=== PATIENT | male | born 1935 | race Caucasian/White ===

== ENCOUNTER → 2017-06-24 | Outpatient (CLI) | payer OTHER, MEDICARE ==
[2016-08-26 13:30] VITALS: BP 110/73
[~2017-06-24] MED LIST: LEXISCAN IV ONE
== END ==
LOC: RAD 09:23
PROVIDERS: ATTEND Internal Medicine Cardiovascular Disease
DX: I25.10 Atherosclerotic heart disease of native coronary artery without angina pectoris (principal); R06.02 Shortness of breath; R53.1 Weakness; R51 Headache
CPT/HCPCS: 78452; 93017; A4222; A9502; J2785

== ENCOUNTER → 2017-07-01 | Outpatient (CLI) | payer OTHER, MEDICARE ==
[2016-08-26 13:30] VITALS: BP 110/73
[2017-07-01 08:29] LABS: BASOPHILS # (AUTO) 0.1 X10^3/uL (0.0-0.1); EOSINOPHILS # (AUTO) 0.5 x10^3/uL (0.0-0.2); EOSINOPHILS % (AUTO) 5.3 % (0.9-2.9); HEMATOCRIT 38.6 % (42.0-54.0); LYMPHOCYTES # (AUTO) 3.2 X10^3/uL (1.3-2.9); LYMPHOCYTES % (AUTO) 35.5 % (21.0-51.0); MEAN CORPUSCULAR HEMOGLOBIN 33.5 pg (27.0-34.0); MEAN CORPUSCULAR HGB CONC 33.7 g/dL (33.0-35.0); MEAN CORPUSCULAR VOLUME 99.3 fL (80.0-100.0); MEAN PLATELET VOLUME 8.6 fL (7.4-11.0); MONOCYTES # (AUTO) 0.8 x10^3/uL (0.3-0.8); MONOCYTES % (AUTO) 9.1 % (0.0-13.0); NEUTROPHILS # (AUTO) 4.5 x10^3/uL (2.2-4.8); NEUTROPHILS % (AUTO) 49.1 % (42.0-75.0); PLATELET COUNT 173 X10^3/uL (150.0-450.0); RED BLOOD COUNT 3.89 X10^6/uL (4.7-6.0); RED CELL DISTRIBUTION WIDTH 14.1 % (11.6-16.5); WHITE BLOOD COUNT 9.1 X10^3/uL (3.6-10.0)
[2017-07-01 08:38] LABS: ALANINE AMINOTRANSFERASE 22 Units/L (12-78); ALBUMIN 3.2 g/dL (3.4-5.0); ALKALINE PHOSPHATASE 39 Units/L (46-116); ASPARTATE AMINO TRANSFERASE 19 Units/L (15-37); BILIRUBIN,DIRECT 0.09 mg/dL (0-0.2); BLOOD UREA NITROGEN 12 mg/dL (7-18); CALCIUM 8.5 mg/dL (8.5-10.1); CARBON DIOXIDE 31.1 mmol/L (21-32); CHLORIDE 107 mmol/L (98-107); CHOL/HDL RATIO 2.8 (0.0-5.0); CHOLESTEROL 127 mg/dL (0-200); COR NA(FOR HYPERGLY) 144 mmol/L (136-145); CREATININE 0.88 mg/dL (0.70-1.30); GLUCOSE 114 mg/dL (65-99); HDL CHOLESTEROL 46 mg/dL (40-60); SODIUM 144 mmol/L (136-145); TOTAL PROTEIN 6.8 g/dL (6.4-8.2); TRIGLYCERIDES 69 mg/dL (0-150); eGFR BLACK RACES > 60 (>60); eGFR NON BLACK RACES > 60 (>60)
== END ==
LOC: LAB 07:56
PROVIDERS: ATTEND Internal Medicine Cardiovascular Disease
DX: I25.10 Atherosclerotic heart disease of native coronary artery without angina pectoris (principal); I10 Essential (primary) hypertension; E78.4 Other hyperlipidemia
CPT/HCPCS: 36415; 80048; 80061; 80076; 85025

== ENCOUNTER → 2017-07-08 | Outpatient (CLI) | payer OTHER, MEDICARE ==
[2016-08-26 13:30] VITALS: BP 110/73
--- NOTE | 2017-07-08 14:48 | US ---
HISTORY: Status post heart catheterization 6 days ago with burning in leg Study: Right lower extremity ultrasound Comparison: None Findings: Targeted ultrasound of the right lower extremity was performed at the groin. The right common femora l artery and common femoral vein appear normal and patent. There is no evidence of pseudoaneurysm. T here is a hypoechoic structure without internal vascularity in this region likely representing a hem atoma measuring 1.7 x 1.6 by 1.6 cm. There is a benign appearing lymph node in the right groin. IMPRESSION: 1. No evidence of pseudoaneurysm. 2. Hypoechoic collection in this region measuring 1.7 x 1.6 x 1.6 cm, likely representing a hematoma . Reported By:
== END ==
LOC: RAD 13:24
PROVIDERS: ATTEND Physician Assistant
DX: R10.2 Pelvic and perineal pain (principal)
CPT/HCPCS: 76882

== ENCOUNTER → 2017-10-01 | Outpatient (CLI) | payer OTHER, MEDICARE ==
[2016-08-26 13:30] VITALS: BP 110/73
[2017-10-01 08:06] LABS: BASOPHILS # (AUTO) 0.2 X10^3/uL (0.0-0.1); BASOPHILS % (AUTO) 1.7 % (0.2-1.0); EOSINOPHILS # (AUTO) 0.4 x10^3/uL (0.0-0.2); EOSINOPHILS % (AUTO) 4.4 % (0.9-2.9); HEMATOCRIT 40.8 % (42.0-54.0); HEMOGLOBIN 13.6 g/dL (13.5-18.0); LYMPHOCYTES # (AUTO) 3.5 X10^3/uL (1.3-2.9); LYMPHOCYTES % (AUTO) 36.3 % (21.0-51.0); MEAN CORPUSCULAR HGB CONC 33.4 g/dL (33.0-35.0); MEAN CORPUSCULAR VOLUME 95.9 fL (80.0-100.0); MEAN PLATELET VOLUME 8.3 fL (7.4-11.0); MONOCYTES % (AUTO) 10.1 % (0.0-13.0); NEUTROPHILS # (AUTO) 4.6 x10^3/uL (2.2-4.8); NEUTROPHILS % (AUTO) 47.5 % (42.0-75.0); PLATELET COUNT 186 X10^3/uL (150.0-450.0); RED BLOOD COUNT 4.26 X10^6/uL (4.7-6.0); WHITE BLOOD COUNT 9.7 X10^3/uL (3.6-10.0)
[2017-10-01 08:19] LABS: ALANINE AMINOTRANSFERASE 21 Units/L (12-78); ALBUMIN 3.3 g/dL (3.4-5.0); ALKALINE PHOSPHATASE 48 Units/L (46-116); ASPARTATE AMINO TRANSFERASE 19 Units/L (15-37); BILIRUBIN,DIRECT 0.19 mg/dL (0-0.2); BLOOD UREA NITROGEN 13 mg/dL (7-18); CALCIUM 9.1 mg/dL (8.5-10.1); CARBON DIOXIDE 29.5 mmol/L (21-32); CHLORIDE 102 mmol/L (98-107); CHOL/HDL RATIO 2.6 (0.0-5.0); CHOLESTEROL 135 mg/dL (0-200); COR NA(FOR HYPERGLY) 140 mmol/L (136-145); CREATININE 1.11 mg/dL (0.70-1.30); HDL CHOLESTEROL 51 mg/dL (40-60); SODIUM 140 mmol/L (136-145); TOTAL PROTEIN 7.2 g/dL (6.4-8.2); TRIGLYCERIDES 81 mg/dL (0-150); eGFR BLACK RACES > 60 (>60); eGFR NON BLACK RACES > 60 (>60)
== END ==
LOC: LAB 07:42
PROVIDERS: ATTEND Internal Medicine Cardiovascular Disease
DX: I25.10 Atherosclerotic heart disease of native coronary artery without angina pectoris (principal); I10 Essential (primary) hypertension; E78.4 Other hyperlipidemia
CPT/HCPCS: 36415; 80048; 80061; 80076; 85025

== ENCOUNTER → 2017-10-11 | Outpatient (CLI) | payer OTHER, MEDICARE ==
[2016-08-26 13:30] VITALS: BP 110/73
[~2017-10-11] MED LIST changes: -LEXISCAN IV ONE; +NS 25 ML IV 25 ML IV ONE
--- NOTE | 2017-10-14 10:45 | CT ---
CT abdomen and pelvis with contrast Indication: Lower abdominal pain for 1 month. History of diverticulitis. Comparison: 10/14/2011 Technique: CT images of the abdomen and pelvis were obtained after IV contrast administration. Automa tic exposure control was utilized. Findings: Bone windows demonstrates moderate multilevel thoracolumbar spondylosis, worst within the l ower lumbar spine, with grade 1 anterolisthesis of L4 on L5. No acute skeletal abnormality. Images of the lower chest demonstrate cardiomegaly. The lungs are clear, aside from mild left basilar scarring . The liver, gallbladder, spleen, stomach, duodenum, pancreas, adrenals, and kidneys demonstrate no sig nificant abnormality. There is colonic diverticulosis without evidence for acute diverticulitis. No b owel thickening or dilatation of the lower GI tract is identified. There is a small fat containing um bilical hernia. The urinary bladder, prostate, and rectum are unremarkable. There is aortoiliac ather osclerosis, without aneurysm. No free fluid or adenopathy identified. Impression: 1. No acute process within the abdomen or pelvis. 2. Diverticulosis, cardiomegaly, thoracolumbar spondylosis, and other findings as above. Reported By:
== END ==
LOC: RAD 08:12
PROVIDERS: ATTEND Physician Assistant
DX: R10.84 Generalized abdominal pain (principal)
CPT/HCPCS: 74177; A4222

== ENCOUNTER 2017-10-31 11:55 | Inpatient (IN) | payer OTHER, MEDICARE ==
--- NOTE | 2017-10-31 13:54 | DR.H&P ---
H&P - History & Physical for Day of: H&P Date: 10/31/17 - Chief Complaint Chief Complaint: CCC AND LOW GRADE FEVER - Allergies Allergies/Adverse Reactions: Allergies Allergy/AdvReac Type Severity Reaction Status Date / Time MS No Known Drug Allergy Allergy Verified 12/15/15 16:49 [No Known Drug Allergy] - History of Present Illness History of Present Illness: patient is a 81-year-old white male who was a direct admit from Dr. Goel's office after presenting for follow-up on COPD exacerbation with acute bronchitis. Patient previously had a Rocephin and steroid injection in the office as well as using jet nebs 3-4 times a day and by mouth antibiotics without improvement. Patient has a past medical history of CHF, COPD, atrophia, hypertension, and arthritis. Plan to admit patient for further evaluation of increased shortness of breath and respiratory illness. Plan to obtain admission labs, sputum and blood cultures. Will administer IV antibiotics and respiratory therapy. - Past Medical History Past Medical History: Arthritis, CHF, COPD, Dyslipidemia, Gout, Hypertension, Hypothyroidism Additional Medical History: AORTIC ANEURYSM - Past Surgical History Surgical History: Tonsillectomy Additional Surgical History: PACE MAKER - Family History Family Medical History: [place], Sudden Cardiac , Hypertension - Social History Does patient currently use any type of tobacco product: No Have you used tobacco products in the last 12 months: No Type of Tobacco Use: None Does any household member use tobacco: No Alcohol Use: None Drug Use: None - Review of Systems Constitutional: Fever, Weakness Eyes: No Symptoms Reported ENT: Throat Pain Respiratory: Cough, Shortness of Breath, Wheezing Cardiovascular: No Symptoms Reported, Edema Gastrointestinal: No Symptoms Reported Genitourinary: No Symptoms Reported Musculoskeletal: Back Pain, Leg Pain Skin: No Symptoms Reported Neurological: No Symptoms Reported - Physical Exam Vital Signs: Blood Pressure [Left Arm] 114/72 Blood Pressure [Right Arm] 110/73 Blood Pressure 110/73 Oriented: Normal Eyes: Normal Ear: Normal Nose: Normal Throat: Normal Respiratory: Rhonchi Throughout, RLL Diminished, LLL Diminished Cardiovascular: Irregular, Edema : Normal Auscultation: Bowel Sounds: Normal Palpation: Normal Tenderness: Normal Skin: Normal Musculoskeletal: Back:Lumbar Mood Description: Calm Speech Pattern: Clear, Appropriate - Assessment/Plan (1) Asthmatic bronchitis with acute exacerbation Status: Acute Plan: admit, start pneumonia protocol, admission labs including blood and sputum cultures. Chest x-ray on admission. Resume home medications. IV Zosyn and Levaquin per pneumonia protocol. Respiratory therapy, repeat a.m. labs, blood pressure monitoring and strict I's and O's. (2) A-fib Status: Chronic (3) CHF (congestive heart failure) Qualifiers: Congestive heart failure type: unspecified congestive heart failure type Congestive heart failure chronicity: acute Qualified Code(s): I50.9 - Heart failure, unspecified Status: Chronic (4) HTN (hypertension) Status: Chronic (5) Osteoarthritis Status: Chronic
[2017-10-31] MEDS ORDERED: SALINE 3% 15 ML NEB TX ONE (14:30)
[2017-10-31 14:44] VITALS: BMI 33.0
[2017-10-31 14:44] LABS: BASOPHILS # (AUTO) 0.1 X10^3/uL (0.0-0.1); BASOPHILS % (AUTO) 0.8 % (0.2-1.0); EOSINOPHILS # (AUTO) 0.4 x10^3/uL (0.0-0.2); EOSINOPHILS % (AUTO) 3.6 % (0.9-2.9); HEMATOCRIT 37.3 % (42.0-54.0); HEMOGLOBIN 12.5 g/dL (13.5-18.0); LYMPHOCYTES # (AUTO) 2.6 X10^3/uL (1.3-2.9); LYMPHOCYTES % (AUTO) 26.4 % (21.0-51.0); MEAN CORPUSCULAR HEMOGLOBIN 32.1 pg (27.0-34.0); MEAN CORPUSCULAR HGB CONC 33.5 g/dL (33.0-35.0); MEAN CORPUSCULAR VOLUME 95.8 fL (80.0-100.0); MEAN PLATELET VOLUME 8.1 fL (7.4-11.0); MONOCYTES # (AUTO) 0.8 x10^3/uL (0.3-0.8); MONOCYTES % (AUTO) 8.2 % (0.0-13.0); NEUTROPHILS # (AUTO) 6.1 x10^3/uL (2.2-4.8); PLATELET COUNT 207 X10^3/uL (150.0-450.0); RED CELL DISTRIBUTION WIDTH 15.1 % (11.6-16.5)
[2017-10-31 14:52] LABS: ALANINE AMINOTRANSFERASE 26 Units/L (12-78); ALBUMIN 3.3 g/dL (3.4-5.0); ALKALINE PHOSPHATASE 47 Units/L (46-116); ASPARTATE AMINO TRANSFERASE 19 Units/L (15-37); BLOOD UREA NITROGEN 14 mg/dL (7-18); CALCIUM 8.6 mg/dL (8.5-10.1); CARBON DIOXIDE 25.9 mmol/L (21-32); CHLORIDE 106 mmol/L (98-107); COR CA(FOR HYPOALB) 9.2 mg/dL (8.5-10.1); CREATININE 0.92 mg/dL (0.70-1.30); SODIUM 142 mmol/L (136-145); TOTAL PROTEIN 6.7 g/dL (6.4-8.2); eGFR BLACK RACES > 60 (>60); eGFR NON BLACK RACES > 60 (>60)
--- NOTE | 2017-10-31 16:25 | RAD ---
Examination: Chest, PA and lateral views History: Pneumonia Comparison reference 08/26/2016 Findings: Persistent cardiomegaly with contour suggesting LVH. No change in position of multi chamber pacemaker leads. The aorta is dilated. There is no evidence for pulmonary edema, pneumonia or signif icant pleural effusion. There is suggestion of coronary artery calcification. Impression: Stable cardiomegaly/LVH with pacemaker. Arteriosclerotic aorta. No acute disease identifi ed. Reported By:
[2017-10-31] MEDS ORDERED: NS 1/2 1000 ML IV 1,000 ML IV ONE (16:33)
[2017-10-31] MEDS ORDERED: NS 250 ML IV 250 ML IV ONE (16:34)
[2017-10-31] MEDS: DUONEB 0.5 MG/3 MG NEB SCH ×2 (16:34→20:41)
[2017-10-31] MEDS: NS 1/2 1000 ML IV 1,000 ML IV SCH (16:38)
[2017-10-31] MEDS: ROBITUSSIN DM PO SCH ×2 (16:38→21:11)
[2017-10-31] MEDS: SOLU-Medrol 125 MG VIAL IVP SCH ×2 (16:39→21:01)
[2017-10-31] MEDS: ZOSYN VIAL 4.5 GM 4.5 GM in NS 100 ML IV + SPIKE MINIBAG* 100 ML IV SCH ×3 (16:41→21:11)
[2017-10-31] MEDS: PULMICORT NEB TX 0.5 MG NEB SCH (20:41)
[2017-10-31] MEDS: TUSSIONEX PENNKINETIC SUSP PO PRN (21:01)
[2017-11-01] MEDS: DUONEB 0.5 MG/3 MG NEB SCH ×6 (01:06→20:48)
[2017-11-01] MEDS: NS 1/2 1000 ML IV 1,000 ML IV SCH ×2 (04:59→17:47)
[2017-11-01] MEDS: SOLU-Medrol 125 MG VIAL IVP SCH (04:59)
[2017-11-01] MEDS: ZOSYN VIAL 4.5 GM 4.5 GM in NS 100 ML IV + SPIKE MINIBAG* 100 ML IV SCH ×3 (05:00→22:35)
[2017-11-01 05:18] LABS: BASOPHILS % (AUTO) 0.2 % (0.2-1.0); EOSINOPHILS % (AUTO) 0.1 % (0.9-2.9); HEMATOCRIT 37.4 % (42.0-54.0); HEMOGLOBIN 12.6 g/dL (13.5-18.0); LYMPHOCYTES # (AUTO) 1.2 X10^3/uL (1.3-2.9); LYMPHOCYTES % (AUTO) 15.8 % (21.0-51.0); MEAN CORPUSCULAR HEMOGLOBIN 32.1 pg (27.0-34.0); MEAN CORPUSCULAR HGB CONC 33.7 g/dL (33.0-35.0); MEAN CORPUSCULAR VOLUME 95.3 fL (80.0-100.0); MEAN PLATELET VOLUME 8.2 fL (7.4-11.0); MONOCYTES # (AUTO) 0 x10^3/uL (0.3-0.8); MONOCYTES % (AUTO) 0.6 % (0.0-13.0); NEUTROPHILS # (AUTO) 6.3 x10^3/uL (2.2-4.8); NEUTROPHILS % (AUTO) 83.3 % (42.0-75.0); PLATELET COUNT 211 X10^3/uL (150.0-450.0); RED BLOOD COUNT 3.93 X10^6/uL (4.7-6.0); RED CELL DISTRIBUTION WIDTH 15.5 % (11.6-16.5); WHITE BLOOD COUNT 7.5 X10^3/uL (3.6-10.0)
[2017-11-01 05:23] LABS: ALANINE AMINOTRANSFERASE 26 Units/L (12-78); ALBUMIN 3.2 g/dL (3.4-5.0); ALKALINE PHOSPHATASE 42 Units/L (46-116); ASPARTATE AMINO TRANSFERASE 15 Units/L (15-37); BLOOD UREA NITROGEN 12 mg/dL (7-18); CALCIUM 8.6 mg/dL (8.5-10.1); CARBON DIOXIDE 21.7 mmol/L (21-32); CHLORIDE 105 mmol/L (98-107); COR CA(FOR HYPOALB) 9.2 mg/dL (8.5-10.1); COR NA(FOR HYPERGLY) 141 mmol/L (136-145); CREATININE 0.84 mg/dL (0.70-1.30); SODIUM 139 mmol/L (136-145); TOTAL PROTEIN 7.1 g/dL (6.4-8.2); eGFR BLACK RACES > 60 (>60); eGFR NON BLACK RACES > 60 (>60)
[2017-11-01] MEDS: PULMICORT NEB TX 0.5 MG NEB SCH ×2 (08:39→20:48)
[2017-11-01] MEDS: LEVAQUIN PREMIX IV 750 MG 750 MG/150 ML BAG IV SCH (09:05)
[2017-11-01] MEDS: ROBITUSSIN DM PO SCH ×4 (09:07→20:39)
[2017-11-01] MEDS ORDERED: PATIENT'S HOME MEDICATION (Budesonide-Formoterol 2 PUFF) IN SCH (14:00)
[2017-11-01] MEDS ORDERED: LASIX IVP SCH (14:00)
[2017-11-01] MEDS ORDERED: CARVEDILOL 12.5 MG PO SCH (14:00)
[2017-11-01] MEDS: MICRO K EXTEN CAP 10 MEQ PO SCH (15:10)
[2017-11-01] MEDS: SYNTHROID 75 mcg TAB PO SCH ×2 (15:11→16:16)
[2017-11-01] MEDS: MUCOMYST 20% 200 MG/ML NEB SCH ×2 (16:29→20:48)
[2017-11-01] MEDS ORDERED: DUONEB 0.5 MG/3 MG IN SCH (17:00)
[2017-11-01] MEDS: MILK OF MAGNESIA PO PRN (20:35)
[2017-11-01] MEDS: COREG TAB 12.5 MG PO SCH (20:35)
[2017-11-01] MEDS: COLACE CAP 100 MG PO SCH (20:35)
[2017-11-01] MEDS: TUSSIONEX PENNKINETIC SUSP PO PRN (20:35)
[2017-11-01] MEDS: LIPITOR TAB 40 MG PO SCH (20:35)
[2017-11-02] MEDS: DUONEB 0.5 MG/3 MG NEB SCH ×6 (01:23→21:45)
[2017-11-02 04:47] LABS: BASOPHILS % (AUTO) 0.2 % (0.2-1.0); HEMATOCRIT 37.1 % (42.0-54.0); HEMOGLOBIN 12.2 g/dL (13.5-18.0); LYMPHOCYTES % (AUTO) 12.6 % (21.0-51.0); MEAN CORPUSCULAR HEMOGLOBIN 31.8 pg (27.0-34.0); MEAN CORPUSCULAR VOLUME 96.3 fL (80.0-100.0); MEAN PLATELET VOLUME 8.2 fL (7.4-11.0); MONOCYTES # (AUTO) 1.1 x10^3/uL (0.3-0.8); MONOCYTES % (AUTO) 6.8 % (0.0-13.0); NEUTROPHILS % (AUTO) 80.4 % (42.0-75.0); PLATELET COUNT 206 X10^3/uL (150.0-450.0); RED BLOOD COUNT 3.85 X10^6/uL (4.7-6.0); RED CELL DISTRIBUTION WIDTH 15.4 % (11.6-16.5); WHITE BLOOD COUNT 16.2 X10^3/uL (3.6-10.0)
[2017-11-02 04:48] LABS: ALANINE AMINOTRANSFERASE 23 Units/L (12-78); ALKALINE PHOSPHATASE 40 Units/L (46-116); ASPARTATE AMINO TRANSFERASE 12 Units/L (15-37); BLOOD UREA NITROGEN 16 mg/dL (7-18); CALCIUM 8.6 mg/dL (8.5-10.1); CARBON DIOXIDE 30.2 mmol/L (21-32); CHLORIDE 106 mmol/L (98-107); COR CA(FOR HYPOALB) 9.4 mg/dL (8.5-10.1); COR NA(FOR HYPERGLY) 144 mmol/L (136-145); CREATININE 0.99 mg/dL (0.70-1.30); SODIUM 143 mmol/L (136-145); TOTAL PROTEIN 6.5 g/dL (6.4-8.2); eGFR BLACK RACES > 60 (>60); eGFR NON BLACK RACES > 60 (>60)
[2017-11-02] MEDS ORDERED: NS 1/2 1000 ML IV 1,000 ML IV ONE (05:35)
[2017-11-02] MEDS: ZOSYN VIAL 4.5 GM 4.5 GM in NS 100 ML IV + SPIKE MINIBAG* 100 ML IV SCH ×3 (05:39→21:00)
[2017-11-02] MEDS: PULMICORT NEB TX 0.5 MG NEB SCH ×2 (08:53→21:46)
[2017-11-02] MEDS: MUCOMYST 20% 200 MG/ML NEB SCH ×4 (08:53→21:46)
[2017-11-02] MEDS ORDERED: PATIENT'S HOME MEDICATION (Spironolactone [Spironolactone] 1 TAB) PO SCH (09:00)
[2017-11-02] MEDS ORDERED: POTASSIUM CHLORIDE 10 MEQ PO SCH (09:00)
[2017-11-02] MEDS: LEVAQUIN PREMIX IV 750 MG 750 MG/150 ML BAG IV SCH (09:49)
[2017-11-02] MEDS: ROBITUSSIN DM PO SCH ×4 (09:49→20:46)
[2017-11-02] MEDS: ASPIRIN EC 81 MG PO SCH (09:50)
[2017-11-02] MEDS: COLACE CAP 100 MG PO SCH ×2 (09:50→20:46)
[2017-11-02] MEDS: COREG TAB 12.5 MG PO SCH ×2 (09:50→20:46)
[2017-11-02] MEDS: XARELTO PO SCH (09:50)
[2017-11-02] MEDS: ALDACTONE TAB 25 MG PO SCH (09:50)
[2017-11-02] MEDS: ZESTRIL TAB 10 MG PO SCH (09:50)
[2017-11-02] MEDS: MICRO K EXTEN CAP 10 MEQ PO SCH (09:50)
[2017-11-02] MEDS ORDERED: LASIX IVP ONE (10:00)
[2017-11-02] MEDS: MILK OF MAGNESIA PO PRN (10:05)
[2017-11-02] MEDS: NS 1/2 1000 ML IV 1,000 ML IV SCH (12:04)
--- NOTE | 2017-11-02 15:13 | CT ---
HISTORY: Aortic enlargement with shortness of breath Study: CT chest with contrast Comparison: Chest x-ray from 2 days ago Technique: Multiple axial images of the chest were obtained from the thoracic inlet to the upper abdo men after the administration of IV contrast. Findings: The mediastinum does not demonstrate significant pathological lymphadenopathy. There is a small roselia cardial effusion observed. The aorta demonstrates dilatation of the ascending aorta which measures 4 .6 x 4.7 cm. Coronary arterial calcifications are also noted. There is no evidence to suggest dissect ion. The pulmonary arteries are well opacified with no filling defects. Evaluation of the lung parenchyma demonstrate mild basilar atelectasis.. No pulmonary nodule or mass can be identified. The bony thorax is unremarkable in its appearance. The visualized portions of t he upper abdomen are grossly unremarkable. IMPRESSION: 1. Ascending aortic aneurysm dilatation as above with a small pericardial effusion. There is no evid ence for dissection. Reported By:
[2017-11-02] MEDS ORDERED: COLACE CAP 100 MG PO SCH ×2 (16:00→21:00)
[2017-11-02] MEDS: MIRALAX POWDER (1 DOSE 17GM) PO SCH ×2 (17:23→20:49)
[2017-11-02] MEDS: SYNTHROID 75 mcg TAB PO SCH (17:24)
[2017-11-02] MEDS: LIPITOR TAB 40 MG PO SCH (20:46)
[2017-11-02] MEDS: MILK OF MAGNESIA PO SCH (20:47)
--- NOTE | 2017-11-03 00:53 | PCM.PROG ---
Progress Note - Progress Note for Day of Date: 11/03/17 - Subjective Subjective: IS A PATIENT OF . HE WAS ADMITTED FOR COPD EXACERBATION AND BRONCHITIS. TODAY, HE IS ALERT AND ORIENTED, SITTING UP ON SIDE OF BED ON MORNING ROUNDS. HE CONTINUES WITH COMPLAINTS OF PERSISTENT COUGH AND SHORNTESS OF BREATH. HE REPORTS THAT SHORNTESS OF BREATH IS WORSE ON EXERTION. ON EXAMINATION, HEART IS NORMAL IN RATE AND RHYTHM. LUNGS ARE NOTED WITH SCATTERED WHEEZING AND RHONCHI TO AUSCULTATION. HE IS NOTED TO BE UTILIZING OXYGEN VIA NASAL CANNULA AT 2L/MIN. ABDOMEN IS ROUND, SOFT, AND NON- TENDER WITH NORMAL BOWEL SOUNDS NOTED IN ALL QUADRANTS. THERE IS GOOD MOVEMENT NOTED IN ALL EXTREMITIES. BILATERAL EXTREMITIES ARE NOTED WITH 1+ PITTING EDEMA. HIS VITAL SIGNS REMAIN STABLE THIS MORNING. WBC IS ELEVATED AT 16.2 COMPARED TO 7.5 YESTERDAY. HE DID RECEIVE 3 DOSES OF SOLU-MEDROL YESTERDAY. OTHERWISE, HE IS HEMODYNAMICALLY STABLE. A CHEST CT IS ORDERED FOR THIS MORNING. WE WILL CONTINUE WITH CURRENT PLAN OF CARE TODAY. WE PLAN TO FOLLOW UP WITH AM LABS AND CONTINUE TO MONITOR PATIENT. - Past Medical Family Social History Past Med/Fam/Surg Hx: No changes since H&P Allergies: Allergies No Known Drug Allergies Allergy (Verified 10/31/17 14:05) - Review of Systems ROS: No change since H&P - Vital Signs and I&O's Vital Signs: Temperature 97.5 F Pulse Rate [Left Brachial] 80 Pulse Rate 81 Respiratory Rate 20 Blood Pressure [Left Arm] 122/88 Blood Pressure [Right Arm] 117/80 Blood Pressure 110/73 O2 Sat by Pulse Oximetry 97 Intake and Output: Intake & Output 10/31/17 11/01/17 11/02/17 11/03/17 11:59 11:59 11:59 11:59 Intake Total 1440 1630 3240 Output Total 8 Balance 1432 1630 3240 - Physical Exam Oriented: Normal Eyes: Normal Ear: Normal Nose: Normal Throat: Normal Respiratory: Right, Left, Generalized, Wheezes, Rhonchi Cardiovascular: Irregular, Edema : Normal Auscultation: Bowel Sounds: Normal Palpation: Normal Tenderness: Normal Skin: Normal Musculoskeletal: Back:Lumbar Mood Description: Calm Speech Pattern: Clear, Appropriate - Laboratory and Diagnostics Result Diagrams: 11/02/17 03:45 11/02/17 03:45 Labs: 10/31/17 14:49 Sputum - Expectorated Sputum Sputum Culture - Final 10/31/17 14:49 Sputum - Expectorated Sputum - Final 10/31/17 14:17 Blood Blood Culture - Preliminary 10/31/17 14:20 Blood Blood Culture - Preliminary Laboratory WBC 16.2 X10^3/uL (3.6-10.0) H D 11/02/17 03:45 RBC 3.85 X10^6/uL (4.7-6.0) L 11/02/17 03:45 Hgb 12.2 g/dL (13.5-18.0) L 11/02/17 03:45 Hct 37.1 % (42.0-54.0) L 11/02/17 03:45 MCV 96.3 fL (80.0-100.0) 11/02/17 03:45 MCH 31.8 pg (27.0-34.0) 11/02/17 03:45 MCHC 33.0 g/dL (33.0-35.0) 11/02/17 03:45 RDW 15.4 % (11.6-16.5) 11/02/17 03:45 Plt Count 206 X10^3/uL (150.0-450.0) 11/02/17 03:45 MPV 8.2 fL (7.4-11.0) 11/02/17 03:45 Neut % 80.4 % (42.0-75.0) H 11/02/17 03:45 Lymph % 12.6 % (21.0-51.0) L 11/02/17 03:45 [place] % 6.8 % (0.0-13.0) 11/02/17 03:45 Eos % 0.0 % (0.9-2.9) L 11/02/17 03:45 Baso % 0.2 % (0.2-1.0) 11/02/17 03:45 Neut # 13.0 x10^3/uL (2.2-4.8) H 11/02/17 03:45 Lymph # 2.0 X10^3/uL (1.3-2.9) 11/02/17 03:45 [place] # 1.1 x10^3/uL (0.3-0.8) H 11/02/17 03:45 Eos # 0.0 x10^3/uL (0.0-0.2) 11/02/17 03:45 Baso # 0.0 X10^3/uL (0.0-0.1) 11/02/17 03:45 Absolute Nucleated RBC 0.1 /100WBC 11/02/17 03:45 Sodium 143 mmol/L (136-145) 11/02/17 03:45 Corrected Sodium 144 mmol/L (136-145) 11/02/17 03:45 Potassium 4.0 mmol/L (3.5-5.1) 11/02/17 03:45 Chloride 106 mmol/L (98-107) 11/02/17 03:45 Carbon Dioxide 30.2 mmol/L (21-32) 11/02/17 03:45 BUN 16 mg/dL (7-18) 11/02/17 03:45 Creatinine 0.99 mg/dL (0.70-1.30) 11/02/17 03:45 Est GFR (MDRD) Af Amer > 60 (>60) 11/02/17 03:45 Est GFR (MDRD) Non-Af > 60 (>60) 11/02/17 03:45 Glucose 142 mg/dL (65-99) H 11/02/17 03:45 Calcium 8.6 mg/dL (8.5-10.1) 11/02/17 03:45 Corrected Calcium 9.4 mg/dL (8.5-10.1) 11/02/17 03:45 Total Bilirubin 0.30 mg/dL (0.2-1.0) 11/02/17 03:45 AST 12 Units/L (15-37) L 11/02/17 03:45 ALT 23 Units/L (12-78) 11/02/17 03:45 Alkaline Phosphatase 40 Units/L (46-116) L 11/02/17 03:45 Total Protein 6.5 g/dL (6.4-8.2) 11/02/17 03:45 Albumin 3.0 g/dL (3.4-5.0) L 11/02/17 03:45 Globulin 3.5 g/dL (2.5-4.5) 11/02/17 03:45 Albumin/Globulin Ratio 0.9 Ratio (1.1-2.1) L 11/02/17 03:45 - Plan (1) Asthmatic bronchitis with acute exacerbation Status: Acute Qualifiers: Asthma severity: moderate Asthma persistence: persistent Qualified Code(s ): J45.41 - Moderate persistent asthma with (acute) exacerbation Plan: admit, start pneumonia protocol, admission labs including blood and sputum cultures. Chest x-ray on admission. Resume home medications. IV Zosyn and Levaquin per pneumonia protocol. Respiratory therapy, repeat a.m. labs, blood pressure monitoring and strict I's and O's. (2) A-fib Status: Chronic Qualifiers: Atrial fibrillation type: chronic Qualified Code(s): I48.2 - Chronic atrial fibrillation Plan: CONTINUE XARELTO, CONTINUE TO MONITOR (3) CHF (congestive heart failure) Status: Chronic Qualifiers: Congestive heart failure type: unspecified congestive heart failure type Congestive heart failure chronicity: acute Qualified Code(s): I50.9 - Heart failure, unspecified Plan: CONTINUE ALDACTONE, CONTINUE COREG, CONTINUE TO MONITOR (4) HTN (hypertension) Status: Chronic Qualifiers: Hypertension type: essential hypertension Qualified Code(s): I10 - Essential (primary) hypertension Plan: CONTINUE COREG, CONTINUE TO MONITOR
[2017-11-03] MEDS: DUONEB 0.5 MG/3 MG NEB SCH ×6 (01:27→21:38)
[2017-11-03 04:41] LABS: BASOPHILS % (AUTO) 0.4 % (0.2-1.0); EOSINOPHILS # (AUTO) 0.1 x10^3/uL (0.0-0.2); EOSINOPHILS % (AUTO) 1.1 % (0.9-2.9); HEMATOCRIT 36.4 % (42.0-54.0); HEMOGLOBIN 12.1 g/dL (13.5-18.0); LYMPHOCYTES % (AUTO) 34.3 % (21.0-51.0); MEAN CORPUSCULAR HEMOGLOBIN 32.1 pg (27.0-34.0); MEAN CORPUSCULAR HGB CONC 33.3 g/dL (33.0-35.0); MEAN CORPUSCULAR VOLUME 96.2 fL (80.0-100.0); MEAN PLATELET VOLUME 8.2 fL (7.4-11.0); MONOCYTES % (AUTO) 8.9 % (0.0-13.0); NEUTROPHILS # (AUTO) 6.5 x10^3/uL (2.2-4.8); NEUTROPHILS % (AUTO) 55.3 % (42.0-75.0); PLATELET COUNT 218 X10^3/uL (150.0-450.0); RED BLOOD COUNT 3.78 X10^6/uL (4.7-6.0); RED CELL DISTRIBUTION WIDTH 15.6 % (11.6-16.5); WHITE BLOOD COUNT 11.7 X10^3/uL (3.6-10.0)
[2017-11-03 05:04] LABS: ALANINE AMINOTRANSFERASE 23 Units/L (12-78); ALBUMIN 2.9 g/dL (3.4-5.0); ALKALINE PHOSPHATASE 36 Units/L (46-116); ASPARTATE AMINO TRANSFERASE 14 Units/L (15-37); BLOOD UREA NITROGEN 15 mg/dL (7-18); CALCIUM 8.5 mg/dL (8.5-10.1); CARBON DIOXIDE 31.9 mmol/L (21-32); CHLORIDE 105 mmol/L (98-107); COR CA(FOR HYPOALB) 9.4 mg/dL (8.5-10.1); CREATININE 0.95 mg/dL (0.70-1.30); SODIUM 141 mmol/L (136-145); TOTAL PROTEIN 6.2 g/dL (6.4-8.2); eGFR BLACK RACES > 60 (>60); eGFR NON BLACK RACES > 60 (>60)
[2017-11-03] MEDS: ZOSYN VIAL 4.5 GM 4.5 GM in NS 100 ML IV + SPIKE MINIBAG* 100 ML IV SCH ×3 (05:21→21:08)
[2017-11-03] MEDS: PULMICORT NEB TX 0.5 MG NEB SCH ×2 (08:52→21:38)
[2017-11-03] MEDS: MUCOMYST 20% 200 MG/ML NEB SCH ×4 (08:52→21:38)
[2017-11-03] MEDS: COLACE CAP 100 MG PO SCH ×2 (09:15→21:05)
[2017-11-03] MEDS: COREG TAB 12.5 MG PO SCH ×2 (09:15→21:06)
[2017-11-03] MEDS: ASPIRIN EC 81 MG PO SCH (09:16)
[2017-11-03] MEDS: MICRO K EXTEN CAP 10 MEQ PO SCH (09:16)
[2017-11-03] MEDS: ALDACTONE TAB 25 MG PO SCH (09:16)
[2017-11-03] MEDS: LEVAQUIN PREMIX IV 750 MG 750 MG/150 ML BAG IV SCH (09:17)
[2017-11-03] MEDS: XARELTO PO SCH (09:17)
[2017-11-03] MEDS: ROBITUSSIN DM PO SCH ×4 (09:17→21:08)
[2017-11-03] MEDS: MILK OF MAGNESIA PO SCH ×2 (09:18→21:08)
[2017-11-03] MEDS: ZESTRIL TAB 10 MG PO SCH (13:17)
[2017-11-03] MEDS: SOLU-Medrol 40 MG VIAL IVP SCH ×3 (13:17→21:06)
[2017-11-03] MEDS: SYNTHROID 75 mcg TAB PO SCH (17:43)
[2017-11-03] MEDS: LIPITOR TAB 40 MG PO SCH (21:06)
[2017-11-03] MEDS: MIRALAX POWDER (1 DOSE 17GM) PO SCH (21:08)
--- NOTE | 2017-11-04 00:03 | PCM.PROG ---
Progress Note - Progress Note for Day of Date: 11/03/17 - Subjective Subjective: IS A PATIENT OF . HE WAS ADMITTED FOR COPD EXACERBATION AND BRONCHITIS. TODAY, HE IS ALERT AND ORIENTED, SITTING UP ON SIDE OF BED ON MORNING ROUNDS. HE CONTINUES WITH COMPLAINTS OF PERSISTENT COUGH AND SHORNTESS OF BREATH TODAY. ON EXAMINATION, HEART IS NORMAL IN RATE AND RHYTHM. LUNGS CONTINUE WITH SCATTERED WHEEZING AND RHONCHI TO AUSCULTATION. HE IS NOTED TO BE UTILIZING OXYGEN VIA NASAL CANNULA AT 2L/MIN. ABDOMEN IS ROUND, SOFT, AND NON-TENDER WITH NORMAL BOWEL SOUNDS NOTED IN ALL QUADRANTS. THERE IS GOOD MOVEMENT NOTED IN ALL EXTREMITIES. BILATERAL EXTREMITIES ARE NOTED WITH NON -PITTING EDEMA. HIS VITAL SIGNS REMAIN STABLE THIS MORNING. WBC IS DECREASED AT 11.7 TODAY COMPARED TO 16.2 YESTERDAY. OTHERWISE, HE IS HEMODYNAMICALLY STABLE. A CHEST CT WAS OBTAINED YESTERDAY AND REPORTED ASCENDING AORTIC ANEURYSM DILATION WITH A SMALL PERICARDIAL EFFUSION. PATIENT AND FAMILY ARE AWARE OF ANEURYSM. WE INSTRUCTED THEM TO FOLLOW UP WITH MD FOR SCANS EVERY SIX MONTHS. TODAY, WE PLAN TO START SOLU-MEDROL 80MG IV Q8H. OTHERWISE, WE WILL CONTINUE WITH CURRENT PLAN OF CARE. WE PLAN TO FOLLOW UP WITH AM LABS AND CONTINUE TO MONITOR PATIENT. - Past Medical Family Social History Past Med/Fam/Surg Hx: No changes since H&P Allergies: Allergies No Known Drug Allergies Allergy (Verified 10/31/17 14:05) - Review of Systems ROS: No change since H&P - Vital Signs and I&O's Vital Signs: Temperature 97.9 F Pulse Rate [Right Brachial] 79 Pulse Rate [Left Brachial] 81 Pulse Rate 82 Respiratory Rate 20 Blood Pressure [Left Arm] 122/88 Blood Pressure [Right Arm] 114/72 Blood Pressure 110/73 O2 Sat by Pulse Oximetry 98 Intake and Output: Intake & Output 11/01/17 11/02/17 11/03/17 11/04/17 11:59 11:59 11:59 11:59 Intake Total 1440 1630 3320 1440 Output Total 8 Balance 1432 1630 3320 1440 - Physical Exam Oriented: Normal Eyes: Normal Ear: Normal Nose: Normal Throat: Normal Respiratory: Right, Left, Generalized, Wheezes, Rhonchi Cardiovascular: Irregular, Edema : Normal Auscultation: Bowel Sounds: Normal Palpation: Normal Tenderness: Normal Skin: Normal Musculoskeletal: Back:Lumbar Mood Description: Calm Speech Pattern: Clear, Appropriate - Laboratory and Diagnostics Result Diagrams: 11/03/17 03:45 11/03/17 03:45 Labs: 10/31/17 14:49 Sputum - Expectorated Sputum Sputum Culture - Final 10/31/17 14:49 Sputum - Expectorated Sputum - Final 10/31/17 14:17 Blood Blood Culture - Preliminary 10/31/17 14:20 Blood Blood Culture - Preliminary Laboratory WBC 11.7 X10^3/uL (3.6-10.0) H 11/03/17 03:45 RBC 3.78 X10^6/uL (4.7-6.0) L 11/03/17 03:45 Hgb 12.1 g/dL (13.5-18.0) L 11/03/17 03:45 Hct 36.4 % (42.0-54.0) L 11/03/17 03:45 MCV 96.2 fL (80.0-100.0) 11/03/17 03:45 MCH 32.1 pg (27.0-34.0) 11/03/17 03:45 MCHC 33.3 g/dL (33.0-35.0) 11/03/17 03:45 RDW 15.6 % (11.6-16.5) 11/03/17 03:45 Plt Count 218 X10^3/uL (150.0-450.0) 11/03/17 03:45 MPV 8.2 fL (7.4-11.0) 11/03/17 03:45 Neut % 55.3 % (42.0-75.0) 11/03/17 03:45 Lymph % 34.3 % (21.0-51.0) 11/03/17 03:45 [place] % 8.9 % (0.0-13.0) 11/03/17 03:45 Eos % 1.1 % (0.9-2.9) 11/03/17 03:45 Baso % 0.4 % (0.2-1.0) 11/03/17 03:45 Neut # 6.5 x10^3/uL (2.2-4.8) H 11/03/17 03:45 Lymph # 4.0 X10^3/uL (1.3-2.9) H 11/03/17 03:45 [place] # 1.0 x10^3/uL (0.3-0.8) H 11/03/17 03:45 Eos # 0.1 x10^3/uL (0.0-0.2) 11/03/17 03:45 Baso # 0.0 X10^3/uL (0.0-0.1) 11/03/17 03:45 Absolute Nucleated RBC 0.1 /100WBC 11/03/17 03:45 Sodium 141 mmol/L (136-145) 11/03/17 03:45 Corrected Sodium TNP 11/03/17 03:45 Potassium 4.5 mmol/L (3.5-5.1) 11/03/17 03:45 Chloride 105 mmol/L (98-107) 11/03/17 03:45 Carbon Dioxide 31.9 mmol/L (21-32) 11/03/17 03:45 BUN 15 mg/dL (7-18) 11/03/17 03:45 Creatinine 0.95 mg/dL (0.70-1.30) 11/03/17 03:45 Est GFR (MDRD) Af Amer > 60 (>60) 11/03/17 03:45 Est GFR (MDRD) Non-Af > 60 (>60) 11/03/17 03:45 Glucose 99 mg/dL (65-99) 11/03/17 03:45 Calcium 8.5 mg/dL (8.5-10.1) 11/03/17 03:45 Corrected Calcium 9.4 mg/dL (8.5-10.1) 11/03/17 03:45 Total Bilirubin 0.40 mg/dL (0.2-1.0) 11/03/17 03:45 AST 14 Units/L (15-37) L 11/03/17 03:45 ALT 23 Units/L (12-78) 11/03/17 03:45 Alkaline Phosphatase 36 Units/L (46-116) L 11/03/17 03:45 Total Protein 6.2 g/dL (6.4-8.2) L 11/03/17 03:45 Albumin 2.9 g/dL (3.4-5.0) L 11/03/17 03:45 Globulin 3.3 g/dL (2.5-4.5) 11/03/17 03:45 Albumin/Globulin Ratio 0.9 Ratio (1.1-2.1) L 11/03/17 03:45 - Plan (1) Asthmatic bronchitis with acute exacerbation Status: Acute Qualifiers: Asthma severity: moderate Asthma persistence: persistent Qualified Code(s ): J45.41 - Moderate persistent asthma with (acute) exacerbation Plan: solu-medrol 80mg iv q8h, pneumonia protocol, IV Zosyn and Levaquin per pneumonia protocol. Respiratory therapy, repeat a.m. labs, blood pressure monitoring and strict I's and O's. (2) A-fib Status: Chronic Qualifiers: Atrial fibrillation type: chronic Qualified Code(s): I48.2 - Chronic atrial fibrillation Plan: CONTINUE XARELTO, CONTINUE TO MONITOR (3) CHF (congestive heart failure) Status: Chronic Qualifiers: Congestive heart failure type: unspecified congestive heart failure type Congestive heart failure chronicity: acute Qualified Code(s): I50.9 - Heart failure, unspecified Plan: CONTINUE ALDACTONE, CONTINUE COREG, CONTINUE TO MONITOR (4) HTN (hypertension) Status: Chronic Qualifiers: Hypertension type: essential hypertension Qualified Code(s): I10 - Essential (primary) hypertension Plan: CONTINUE COREG, CONTINUE TO MONITOR
[2017-11-04] MEDS: DUONEB 0.5 MG/3 MG NEB SCH ×6 (01:08→20:41)
[2017-11-04] MEDS: ZOSYN VIAL 4.5 GM 4.5 GM in NS 100 ML IV + SPIKE MINIBAG* 100 ML IV SCH ×3 (05:29→21:10)
[2017-11-04] MEDS: SOLU-Medrol 40 MG VIAL IVP SCH ×3 (05:29→21:11)
[2017-11-04] MEDS: NS 1/2 1000 ML IV 1,000 ML IV SCH (05:34)
[2017-11-04] MEDS: MUCOMYST 20% 200 MG/ML NEB SCH ×2 (09:10→12:33)
[2017-11-04] MEDS: PULMICORT NEB TX 0.5 MG NEB SCH ×2 (09:10→20:41)
[2017-11-04] MEDS: MILK OF MAGNESIA PO SCH ×2 (09:19→21:09)
[2017-11-04] MEDS: MICRO K EXTEN CAP 10 MEQ PO SCH (09:20)
[2017-11-04] MEDS: COLACE CAP 100 MG PO SCH ×2 (09:20→21:09)
[2017-11-04] MEDS: XARELTO PO SCH (09:20)
[2017-11-04] MEDS: ROBITUSSIN DM PO SCH ×4 (09:20→21:09)
[2017-11-04] MEDS: ALDACTONE TAB 25 MG PO SCH (09:21)
[2017-11-04] MEDS: ASPIRIN EC 81 MG PO SCH (09:21)
[2017-11-04] MEDS: COREG TAB 12.5 MG PO SCH ×2 (09:21→21:09)
[2017-11-04] MEDS: ZESTRIL TAB 10 MG PO SCH (09:21)
[2017-11-04] MEDS: LEVAQUIN PREMIX IV 750 MG 750 MG/150 ML BAG IV SCH (09:22)
--- NOTE | 2017-11-04 13:11 | PCM.PROG ---
Progress Note - Progress Note for Day of Date: 11/04/17 - Subjective Subjective: The patient is a 81-year-old white male who was admitted on 2016 with COPD with acute bronchitis. Patient also has CHF. Patient is currently receiving IV antibiotics as well as respiratory therapy with some improvement in shortness of breath since admission. Patient also has received IV Lasix for diuresing. We plan to start pent and also respiratory consult for continuous O2. We will repeat a.m. labs and chest x-ray. - Past Medical Family Social History Past Med/Fam/Surg Hx: No changes since H&P Allergies: Allergies No Known Drug Allergies Allergy (Verified 10/31/17 14:05) - Review of Systems ROS: No change since H&P - Vital Signs and I&O's Vital Signs: Temperature 97.9 F Pulse Rate [Right Brachial] 77 Pulse Rate [Left Brachial] 81 Pulse Rate 86 Respiratory Rate 20 Blood Pressure [Left Arm] 128/70 Blood Pressure [Right Arm] 124/78 Blood Pressure 110/73 O2 Sat by Pulse Oximetry 98 Intake and Output: Intake & Output 11/02/17 11/03/17 11/04/17 11/05/17 11:59 11:59 11:59 11:59 Intake Total 1630 3320 1540 Balance 1630 3320 1540 - Physical Exam Oriented: Normal Eyes: Normal Ear: Normal Nose: Normal Throat: Normal Respiratory: Right, Left, Generalized, Wheezes, Rhonchi Cardiovascular: Irregular, Edema : Normal Auscultation: Bowel Sounds: Normal Tenderness: Normal Skin: Normal Musculoskeletal: Back:Lumbar Mood Description: Calm Speech Pattern: Clear, Appropriate - Laboratory and Diagnostics Result Diagrams: 11/03/17 03:45 11/03/17 03:45 Labs: 10/31/17 14:49 Sputum - Expectorated Sputum Sputum Culture - Final 10/31/17 14:49 Sputum - Expectorated Sputum - Final 10/31/17 14:17 Blood Blood Culture - Preliminary 10/31/17 14:20 Blood Blood Culture - Preliminary Laboratory WBC 11.7 X10^3/uL (3.6-10.0) H 11/03/17 03:45 RBC 3.78 X10^6/uL (4.7-6.0) L 11/03/17 03:45 Hgb 12.1 g/dL (13.5-18.0) L 11/03/17 03:45 Hct 36.4 % (42.0-54.0) L 11/03/17 03:45 MCV 96.2 fL (80.0-100.0) 11/03/17 03:45 MCH 32.1 pg (27.0-34.0) 11/03/17 03:45 MCHC 33.3 g/dL (33.0-35.0) 11/03/17 03:45 RDW 15.6 % (11.6-16.5) 11/03/17 03:45 Plt Count 218 X10^3/uL (150.0-450.0) 11/03/17 03:45 MPV 8.2 fL (7.4-11.0) 11/03/17 03:45 Neut % 55.3 % (42.0-75.0) 11/03/17 03:45 Lymph % 34.3 % (21.0-51.0) 11/03/17 03:45 [place] % 8.9 % (0.0-13.0) 11/03/17 03:45 Eos % 1.1 % (0.9-2.9) 11/03/17 03:45 Baso % 0.4 % (0.2-1.0) 11/03/17 03:45 Neut # 6.5 x10^3/uL (2.2-4.8) H 11/03/17 03:45 Lymph # 4.0 X10^3/uL (1.3-2.9) H 11/03/17 03:45 [place] # 1.0 x10^3/uL (0.3-0.8) H 11/03/17 03:45 Eos # 0.1 x10^3/uL (0.0-0.2) 11/03/17 03:45 Baso # 0.0 X10^3/uL (0.0-0.1) 11/03/17 03:45 Absolute Nucleated RBC 0.1 /100WBC 11/03/17 03:45 Sodium 141 mmol/L (136-145) 11/03/17 03:45 Corrected Sodium TNP 11/03/17 03:45 Potassium 4.5 mmol/L (3.5-5.1) 11/03/17 03:45 Chloride 105 mmol/L (98-107) 11/03/17 03:45 Carbon Dioxide 31.9 mmol/L (21-32) 11/03/17 03:45 BUN 15 mg/dL (7-18) 11/03/17 03:45 Creatinine 0.95 mg/dL (0.70-1.30) 11/03/17 03:45 Est GFR (MDRD) Af Amer > 60 (>60) 11/03/17 03:45 Est GFR (MDRD) Non-Af > 60 (>60) 11/03/17 03:45 Glucose 99 mg/dL (65-99) 11/03/17 03:45 Calcium 8.5 mg/dL (8.5-10.1) 11/03/17 03:45 Corrected Calcium 9.4 mg/dL (8.5-10.1) 11/03/17 03:45 Total Bilirubin 0.40 mg/dL (0.2-1.0) 11/03/17 03:45 AST 14 Units/L (15-37) L 11/03/17 03:45 ALT 23 Units/L (12-78) 11/03/17 03:45 Alkaline Phosphatase 36 Units/L (46-116) L 11/03/17 03:45 Total Protein 6.2 g/dL (6.4-8.2) L 11/03/17 03:45 Albumin 2.9 g/dL (3.4-5.0) L 11/03/17 03:45 Globulin 3.3 g/dL (2.5-4.5) 11/03/17 03:45 Albumin/Globulin Ratio 0.9 Ratio (1.1-2.1) L 11/03/17 03:45 - Plan (1) Asthmatic bronchitis with acute exacerbation Status: Acute Qualifiers: Asthma severity: moderate Asthma persistence: persistent Qualified Code(s ): J45.41 - Moderate persistent asthma with (acute) exacerbation Plan: continue pneumonia protocol, IV Zosyn and Levaquin per pneumonia protocol. Respiratory therapy, repeat a.m. labs, blood pressure monitoring and strict I's and O's. (2) A-fib Status: Chronic Qualifiers: Atrial fibrillation type: chronic Qualified Code(s): I48.2 - Chronic atrial fibrillation Plan: CONTINUE XARELTO, CONTINUE TO MONITOR (3) CHF (congestive heart failure) Status: Chronic Qualifiers: Congestive heart failure type: unspecified congestive heart failure type Congestive heart failure chronicity: acute Qualified Code(s): I50.9 - Heart failure, unspecified Plan: CONTINUE ALDACTONE, CONTINUE COREG, CONTINUE TO MONITOR. supplemental o2 , resp consult for walk test for continuous home o2. I & Os (4) HTN (hypertension) Status: Chronic Qualifiers: Hypertension type: essential hypertension Qualified Code(s): I10 - Essential (primary) hypertension Plan: CONTINUE COREG, CONTINUE TO MONITOR (5) Osteoarthritis Status: Chronic
[2017-11-04] MEDS: SYNTHROID 75 mcg TAB PO SCH (17:19)
[2017-11-04] MEDS: LIPITOR TAB 40 MG PO SCH (21:09)
[2017-11-04] MEDS: MIRALAX POWDER (1 DOSE 17GM) PO SCH (21:11)
[2017-11-05] MEDS: DUONEB 0.5 MG/3 MG NEB SCH ×3 (01:04→08:49)
[2017-11-05 04:44] LABS: BASOPHILS % (AUTO) 0.2 % (0.2-1.0); EOSINOPHILS % (AUTO) 0.1 % (0.9-2.9); HEMATOCRIT 36.8 % (42.0-54.0); HEMOGLOBIN 12.3 g/dL (13.5-18.0); LYMPHOCYTES # (AUTO) 1.2 X10^3/uL (1.3-2.9); LYMPHOCYTES % (AUTO) 7.7 % (21.0-51.0); MEAN CORPUSCULAR HGB CONC 33.4 g/dL (33.0-35.0); MEAN CORPUSCULAR VOLUME 95.6 fL (80.0-100.0); MEAN PLATELET VOLUME 8.6 fL (7.4-11.0); MONOCYTES # (AUTO) 0.4 x10^3/uL (0.3-0.8); MONOCYTES % (AUTO) 2.4 % (0.0-13.0); NEUTROPHILS # (AUTO) 13.4 x10^3/uL (2.2-4.8); NEUTROPHILS % (AUTO) 89.6 % (42.0-75.0); PLATELET COUNT 247 X10^3/uL (150.0-450.0); RED BLOOD COUNT 3.84 X10^6/uL (4.7-6.0); RED CELL DISTRIBUTION WIDTH 15.9 % (11.6-16.5)
[2017-11-05 04:59] LABS: ALANINE AMINOTRANSFERASE 25 Units/L (12-78); ALKALINE PHOSPHATASE 37 Units/L (46-116); ASPARTATE AMINO TRANSFERASE 12 Units/L (15-37); BLOOD UREA NITROGEN 14 mg/dL (7-18); CALCIUM 8.6 mg/dL (8.5-10.1); CARBON DIOXIDE 30.6 mmol/L (21-32); CHLORIDE 105 mmol/L (98-107); COR CA(FOR HYPOALB) 9.4 mg/dL (8.5-10.1); COR NA(FOR HYPERGLY) 142 mmol/L (136-145); SODIUM 141 mmol/L (136-145); TOTAL PROTEIN 6.4 g/dL (6.4-8.2); eGFR BLACK RACES > 60 (>60); eGFR NON BLACK RACES > 60 (>60)
[2017-11-05] MEDS: SOLU-Medrol 40 MG VIAL IVP SCH (05:30)
[2017-11-05] MEDS: ZOSYN VIAL 4.5 GM 4.5 GM in NS 100 ML IV + SPIKE MINIBAG* 100 ML IV SCH (05:30)
--- NOTE | 2017-11-05 07:12 | RAD ---
Examination: Portable AP chest History: SOB Comparison reference 10/31/2017 Findings: Continued cardiomegaly and stable position of pacing device. Increasing density at the left base; the diaphragm and costophrenic angle are now obscured. No pneumothorax seen. Impression: Interval appearance of airspace process in the left lower lung compatible with pneumonia or atelectasis. Reported By:
[2017-11-05] MEDS: NS 1/2 1000 ML IV 1,000 ML IV SCH ×2 (07:50→07:51)
[2017-11-05 08:49] VITALS: BP 120/75
[2017-11-05] MEDS: PULMICORT NEB TX 0.5 MG NEB SCH (08:49)
[2017-11-05] MEDS: ZESTRIL TAB 10 MG PO SCH (09:27)
[2017-11-05] MEDS: ALDACTONE TAB 25 MG PO SCH (09:27)
[2017-11-05] MEDS: MILK OF MAGNESIA PO SCH (09:27)
[2017-11-05] MEDS: COLACE CAP 100 MG PO SCH (09:27)
[2017-11-05] MEDS: ROBITUSSIN DM PO SCH (09:27)
[2017-11-05] MEDS: LEVAQUIN PREMIX IV 750 MG 750 MG/150 ML BAG IV SCH (09:27)
[2017-11-05] MEDS: COREG TAB 12.5 MG PO SCH (09:27)
[2017-11-05] MEDS: MICRO K EXTEN CAP 10 MEQ PO SCH (09:28)
[2017-11-05] MEDS: XARELTO PO SCH (09:28)
[2017-11-05] MEDS: ASPIRIN EC 81 MG PO SCH (09:28)
== END 2017-11-05 11:45 | disposition home or self-care (01) | DRG 191 ==
LOC: UNDOADMIN 11:55 → MED/SURG 11:55
PROVIDERS: ADMIT Internal Medicine; ATTEND Internal Medicine
DX: J44.1 Chronic obstructive pulmonary disease with (acute) exacerbation (principal); J45.41 Moderate persistent asthma with (acute) exacerbation; J20.8 Acute bronchitis due to other specified organisms; I10 Essential (primary) hypertension; E78.2 Mixed hyperlipidemia; E03.8 Other specified hypothyroidism; Z95.0 Presence of cardiac pacemaker; I48.2 Chronic atrial fibrillation; R06.02 Shortness of breath; R60.0 Localized edema; M19.90 Unspecified osteoarthritis, unspecified site
CPT/HCPCS: 36415; 71010; 71020; 71260; 80053; 85025; 87040; 87070; 87205; 93005; 93010; 94640; 94760; A4222; J1940; J1956; J2543; J2920; J2930; J7608; J7620; J7626

== ENCOUNTER 2017-11-30 12:14 | Emergency (ER) | payer OTHER, MEDICARE ==
[2017-11-30 12:20] VITALS: BP 140/87
--- NOTE | 2017-11-30 12:41 | DR.NOSEBLE ---
HPI - Time Seen Time seen: 12:37 - Primary Care Physician Primary Care Physician: socorro - Complaints Chief Complaint Doctors Comments: Patient is complaining of nose bleed for the past ten minutes after onset coughing and sneezing. states he was admitted recenlty with pneumonia and had a shot of Rocephin today at the doctor because of persistent congestion. States he is taking Coumadin but he does not know the dose and he does not know the last time he had a test for his coumadin. States he has had bleeding from the left side of his nostril before. He denies chest pain or SOB. He denies dysuria or bleeding at any other site. Chief Complaint:: nosebleed - Reviewed Nurses Notes Reviewed: Yes - Source History Provided: Patient, Family Member - Mode of Arrival Mode of Arrival: Ambulatory - Timing Onset of Chief Complaint: 11/30/17 - Duration Bleeding: Currently Present How lon Duration: Minutes - Location Location: Left, [place] - Severity Severity: Moderate Measure: Tablespoons Bleeding:: Uncontrolled - Associated Signs and Symptoms Associated Signs and Symptoms: None PMH - PMH Past Medical History: Yes Past Medical History: Arthritis, CHF, COPD, Dyslipidemia, Gout, Hypertension, Hypothyroidism Past Surgical History: Yes Surgical History: Tonsillectomy - Family History History of Family Medical Conditions: No Family Medical History: [place], Sudden Cardiac , Hypertension - Social History Do you use any recreational Drugs:: No - infectious screening In the last 2 months have you had wt loss of >10#?: NO Have you had fever, night sweats or hemotysis?: No Have you traveled outside the country in the last 6 months?: No Isolation: Standard ROS - Review of Systems Constitutional: No Symptoms Reported Eyes: No Symptoms Reported ENTM: No Symptoms Reported, Nose Pain, Nose Discharge, Epistaxis, Nose Congestion Respiratoy: No Symptoms Reported, Non-Productive Cough Cardiovascular: No Symptoms Reported Gastrointestinal/Abdominal: No Symptoms Reported. negative: See HPI, Abdominal Pain, Constipation, Diarrhea, Nausea, Vomiting, Food Intolerance, Other Genitourinary: No Symptoms Reported Neurological: No Symptoms Reported Musculoskeletal: No Symptoms Reported Integumentary: No Symptoms Reported Hematologic/Lymphatic: No Symptoms Reported Endocrine: No Symptoms Reported Psychiatric: No Symptoms Reported PE - Vital Signs Vitals: Pulse Rate 88 Respiratory Rate 20 Blood Pressure [Left Arm] 120/75 Blood Pressure [Right Arm] 124/78 Blood Pressure 140/87 O2 Sat by Pulse Oximetry 94 - General Limitations: No Limitations General Appearance: Alert, In Distress (moderate) - Head Head Exam: Normal Inspection, Atraumatic, Normocephalic - Eyes Eye exam: Normal Appearance, PERRL, EOMI Eyelids: Normal Inspection: Bilateral Pupils: Regular, Round: Bilateral Sclera/Conjunctival: Normal Inspection: Bilateral Anterior chamber: Normal inspection: Bilateral Posterior Chamber: Normal Inspection: Bilateral - ENT ENT Exam: Normal Exam, Normal Oropharynx, Normal External Ear Exam, Mucous Membranes Moist, TM's Normal Bilaterally External Ear Exam: Normal External Inspection TM/Canal Exam: Bilateral Normal Nose Exam: Normal Nose Exam Nasal Speculum Exam: Bilateral Normal Mouth Exam: Normal Inspection Throat Exam: Normal Inspection - Neck Neck Exam: Normal Inspection, Full ROM, Trachea Midline - Chest Chest Inspection: Normal Inspection, Symmetric Chest Wall Rise - Respiratory Respiratory Exam: Normal Lung Sounds Bilat Respiratory Exam: Bilateral Clear to Auscultation - Cardiovascular Cardiovascular Exam: Regular Rate, Normal Rhythm, Normal Heart Sounds - Abdominal Exam Abdominal Exam: Normal Inspection, Normal Bowel Sounds, Soft Abdominal Tenderness: negative: RUQ, RLQ, LUQ, LLQ, Epigastrium, Suprapubic, Diffuse, Mild, Moderate, Severe, Other - Extremities Extremities Exam: Normal Inspection, Full ROM, Normal Capillary Refill - Back Back Exam: Normal Inspection, Full ROM - Neurologic Neurological Exam: Alert, Oriented X3, CN II-XII Intact, Normal Gait, Reflexes Normal - Psychiatric Psychiatric Exam: Normal Affect, Normal Mood - Skin Skin Exam: Warm, Dry, Intact, Normal Color ROR - Labs Reviewed Laboratory Results Reviewed?: Yes (all labs and x-ray results reviewed and discussed with patient and family) Result Diagrams: 11/30/17 12:42 11/30/17 12:42 Laboratory: WBC 14.7 X10^3/uL (3.6-10.0) H 11/30/17 12:42 RBC 4.09 X10^6/uL (4.7-6.0) L 11/30/17 12:42 Hgb 13.0 g/dL (13.5-18.0) L 11/30/17 12:42 Hct 38.7 % (42.0-54.0) L 11/30/17 12:42 MCV 94.7 fL (80.0-100.0) 11/30/17 12:42 MCH 31.9 pg (27.0-34.0) 11/30/17 12:42 MCHC 33.7 g/dL (33.0-35.0) 11/30/17 12:42 RDW 15.1 % (11.6-16.5) 11/30/17 12:42 Plt Count 215 X10^3/uL (150.0-450.0) 11/30/17 12:42 MPV 8.4 fL (7.4-11.0) 11/30/17 12:42 Neut % 82.9 % (42.0-75.0) H 11/30/17 12:42 Lymph % 11.1 % (21.0-51.0) L 11/30/17 12:42 [place] % 5.4 % (0.0-13.0) 11/30/17 12:42 Eos % 0.0 % (0.9-2.9) L 11/30/17 12:42 Baso % 0.6 % (0.2-1.0) 11/30/17 12:42 Neut # 12.2 x10^3/uL (2.2-4.8) H 11/30/17 12:42 Lymph # 1.6 X10^3/uL (1.3-2.9) 11/30/17 12:42 [place] # 0.8 x10^3/uL (0.3-0.8) 11/30/17 12:42 Eos # 0.0 x10^3/uL (0.0-0.2) 11/30/17 12:42 Baso # 0.1 X10^3/uL (0.0-0.1) 11/30/17 12:42 Absolute Nucleated RBC 0.0 /100WBC 11/30/17 12:42 INR Target Range - 11/30/17 12:42 INR 2.06 (0.8-1.3) H 11/30/17 12:42 PTT 35.0 SECONDS (22.9-36.5) 11/30/17 12:42 PTT Comment - 11/30/17 12:42 Sodium 141 mmol/L (136-145) 11/30/17 12:42 Corrected Sodium 142 mmol/L (136-145) 11/30/17 12:42 Potassium 4.0 mmol/L (3.5-5.1) 11/30/17 12:42 Chloride 104 mmol/L (98-107) 11/30/17 12:42 Carbon Dioxide 25.5 mmol/L (21-32) 11/30/17 12:42 BUN 18 mg/dL (7-18) 11/30/17 12:42 Creatinine 1.01 mg/dL (0.70-1.30) 11/30/17 12:42 Est GFR (MDRD) Af Amer > 60 (>60) 11/30/17 12:42 Est GFR (MDRD) Non-Af > 60 (>60) 11/30/17 12:42 Glucose 141 mg/dL (65-99) H 11/30/17 12:42 Calcium 8.9 mg/dL (8.5-10.1) 11/30/17 12:42 Corrected Calcium TNP 11/30/17 12:42 Total Bilirubin 0.30 mg/dL (0.2-1.0) 11/30/17 12:42 AST 18 Units/L (15-37) 11/30/17 12:42 ALT 32 Units/L (12-78) 11/30/17 12:42 Alkaline Phosphatase 56 Units/L (46-116) 11/30/17 12:42 Total Protein 7.1 g/dL (6.4-8.2) 11/30/17 12:42 Albumin 3.4 g/dL (3.4-5.0) 11/30/17 12:42 Globulin 3.7 g/dL (2.5-4.5) 11/30/17 12:42 Albumin/Globulin Ratio 0.9 Ratio (1.1-2.1) L 11/30/17 12:42 - XRAY XRAY Interpreted by: Radiologist (CXR: No acute cardiopulmonaory disease) Procedures - Additional Procedures Progress: Nasal packing left nostril with control of bleeding. - Diagnosis Discharge Problem: Posterior epistaxis, Bleeding on Coumadin, Nosebleed, symptom - Discharge Plan Disposition: HOME, SELF-CARE Condition: Stable - Follow ups/Referrals Follow ups/Referrals: TANA PASCAL [Primary Care Provider] - 3 days STAS BAXTER [REFERRING] - 3 days - Instructions Instructions: Warfarin: What You Need to Know, Warfarin Coagulopathy, Hemoptysis, Nosebleed
[2017-11-30 12:54] LABS: BASOPHILS # (AUTO) 0.1 X10^3/uL (0.0-0.1); BASOPHILS % (AUTO) 0.6 % (0.2-1.0); HEMATOCRIT 38.7 % (42.0-54.0); LYMPHOCYTES # (AUTO) 1.6 X10^3/uL (1.3-2.9); LYMPHOCYTES % (AUTO) 11.1 % (21.0-51.0); MEAN CORPUSCULAR HEMOGLOBIN 31.9 pg (27.0-34.0); MEAN CORPUSCULAR HGB CONC 33.7 g/dL (33.0-35.0); MEAN CORPUSCULAR VOLUME 94.7 fL (80.0-100.0); MEAN PLATELET VOLUME 8.4 fL (7.4-11.0); MONOCYTES # (AUTO) 0.8 x10^3/uL (0.3-0.8); MONOCYTES % (AUTO) 5.4 % (0.0-13.0); NEUTROPHILS # (AUTO) 12.2 x10^3/uL (2.2-4.8); NEUTROPHILS % (AUTO) 82.9 % (42.0-75.0); PLATELET COUNT 215 X10^3/uL (150.0-450.0); RED BLOOD COUNT 4.09 X10^6/uL (4.7-6.0); RED CELL DISTRIBUTION WIDTH 15.1 % (11.6-16.5); WHITE BLOOD COUNT 14.7 X10^3/uL (3.6-10.0)
--- NOTE | 2017-11-30 12:59 | RAD ---
HISTORY: 81-year-old male with nose bleed, history of COPD and CHF. Study: Frontal view of the chest. Comparison: Chest radiograph 11/05/2017 Findings: Support devices are stable. The trachea is midline. The cardiac silhouette is stably enlarged with low lung volumes. The lungs are clear without focal consolidation, effusion or pneumothorax. Soft tissues are unremarkable. Osse ous structures are unremarkable. IMPRESSION: 1. No acute cardiopulmonary disease. Reported By:
[2017-11-30 13:04] LABS: ALANINE AMINOTRANSFERASE 32 Units/L (12-78); ALBUMIN 3.4 g/dL (3.4-5.0); ALKALINE PHOSPHATASE 56 Units/L (46-116); ASPARTATE AMINO TRANSFERASE 18 Units/L (15-37); BLOOD UREA NITROGEN 18 mg/dL (7-18); CALCIUM 8.9 mg/dL (8.5-10.1); CARBON DIOXIDE 25.5 mmol/L (21-32); CHLORIDE 104 mmol/L (98-107); COR NA(FOR HYPERGLY) 142 mmol/L (136-145); CREATININE 1.01 mg/dL (0.70-1.30); SODIUM 141 mmol/L (136-145); TOTAL PROTEIN 7.1 g/dL (6.4-8.2); eGFR BLACK RACES > 60 (>60); eGFR NON BLACK RACES > 60 (>60)
== END 2017-11-30 14:23 | disposition home or self-care (01) ==
LOC: ER 12:30
PROC: 2Y41X5Z Packing of Nasal Region using Packing Material (ICD-10-PCS; principal; 2017-11-30)
DX: R04.0 Epistaxis (principal)
CPT/HCPCS: 30901; 36415; 71045; 80053; 85025; 85610; 85730; 96365; 99282; 99283; A4222

== ENCOUNTER 2018-01-14 21:25 | Emergency (ER) | payer OTHER, MEDICARE ==
[2018-01-14 21:30] VITALS: BMI 34.9
--- NOTE | 2018-01-14 21:44 | DR.GENAD ---
HPI - PCP Primary Care Physician: HALLIE - Complaint/Symptoms Chief Complaint Doctors Comments: Patient presented to the ED for evaluation secondary to a fast heart rate while at home. Family members were concerned because his normal rate is 80 per pacemaker which implanted 05/06/12. His vital signs are stable BP 103/62. 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 Chief Complaint:: "LAST FEW DAYS I HAVE BEEN DIZZY, WEAK FEELING. JUST A FEW MINUTES AGO, MY RATE WAS 130S, AND I HAVE A PACEMAKER." - Source History Provided: Patient, Family Member - Mode of Arrival Mode of Arrival: Ambulatory - Timing Onset of Chief Complaint: 01/14/18 PMH - PMH Past Medical History: Yes Past Medical History: Arthritis, CHF, COPD, Dyslipidemia, Gout, Hypertension, Hypothyroidism Past Surgical History: Yes Surgical History: Tonsillectomy Past Surgical History Comment: ABLASION. PACEMAKER - Family History History of Family Medical Conditions: Yes Family Medical History: [place], Sudden Cardiac , Hypertension - Social History Type of Tobacco Use: Smokeless Alcohol Use: None Do you use any recreational Drugs:: No Lives With: Spouse, Family Lives Where: Home - infectious screening Have you traveled outside the country in the last 6 months?: No Isolation: Standard ROS - Review of Systems Eyes: No Symptoms Reported ENTM: No Symptoms Reported Respiratoy: No Symptoms Reported Cardiovascular: No Symptoms Reported Gastrointestinal/Abdominal: No Symptoms Reported Genitourinary: No Symptoms Reported Neurological: No Symptoms Reported Musculoskeletal: No Symptoms Reported Integumentary: No Symptoms Reported Hematologic/Lymphatic: No Symptoms Reported Endocrine: No Symptoms Reported Psychiatric: No Symptoms Reported All Other Systems: Reviewed and Negative PE - Vital Signs Vitals: Temperature 98.4 F Pulse Rate 83 Respiratory Rate 20 Blood Pressure [Left Arm] 120/75 Blood Pressure [Right Arm] 124/78 Blood Pressure 125/75 O2 Sat by Pulse Oximetry 97 - General Limitations: No Limitations General Appearance: Alert, In No Apparent Distress - Head Head Exam: Normal Inspection - Eyes Eye exam: Normal Appearance - ENT ENT Exam: Normal Exam External Ear Exam: Normal External Inspection TM/Canal Exam: Bilateral Normal Nose Exam: Normal Nose Exam Mouth Exam: Normal Inspection Throat Exam: Normal Inspection - Neck Neck Exam: Normal Inspection - Chest Chest Inspection: Normal Inspection - Respiratory Respiratory Exam: Normal Lung Sounds Bilat Respiratory Exam: Bilateral Clear to Auscultation - Cardiovascular Cardiovascular Exam: Regular Rate, Normal Rhythm - Abdominal Exam Abdominal Exam: Normal Inspection, Normal Bowel Sounds Abdominal Tenderness: negative: RUQ, RLQ, LUQ, LLQ, Epigastrium, Suprapubic, Diffuse, Mild, Moderate, Severe, Other - Extremities Extremities Exam: Normal Inspection, Full ROM - Back Back Exam: Normal Inspection - Neurologic Neurological Exam: Alert, Oriented X3, CN II-XII Intact - Psychiatric Psychiatric Exam: Normal Affect, Normal Mood - Skin Skin Exam: Warm, Dry, Intact Course - Reevaluation 1st: Improved - Consultation Called: 23:15 (Dr Gonzalez agreed to accept for further evaluation) ROR - Labs Reviewed Laboratory Results Reviewed?: Yes (low potassium (treated)) Result Diagrams: 01/14/18 21:45 01/14/18 21:45 Laboratory: WBC 10.6 X10^3/uL (3.6-10.0) H 01/14/18 21:45 RBC 3.89 X10^6/uL (4.7-6.0) L 01/14/18 21:45 Hgb 12.6 g/dL (13.5-18.0) L 01/14/18 21:45 Hct 36.9 % (42.0-54.0) L 01/14/18 21:45 MCV 94.8 fL (80.0-100.0) 01/14/18 21:45 MCH 32.3 pg (27.0-34.0) 01/14/18 21:45 MCHC 34.1 g/dL (33.0-35.0) 01/14/18 21:45 RDW 15.3 % (11.6-16.5) 01/14/18 21:45 Plt Count 179 X10^3/uL (150.0-450.0) 01/14/18 21:45 MPV 8.1 fL (7.4-11.0) 01/14/18 21:45 Neut % 53.0 % (42.0-75.0) 01/14/18 21:45 Lymph % 33.2 % (21.0-51.0) 01/14/18 21:45 [place] % 9.0 % (0.0-13.0) 01/14/18 21:45 Eos % 3.5 % (0.9-2.9) H 01/14/18 21:45 Baso % 1.3 % (0.2-1.0) H 01/14/18 21:45 Neut # 5.6 x10^3/uL (2.2-4.8) H 01/14/18 21:45 Lymph # 3.5 X10^3/uL (1.3-2.9) H 01/14/18 21:45 [place] # 1.0 x10^3/uL (0.3-0.8) H 01/14/18 21:45 Eos # 0.4 x10^3/uL (0.0-0.2) H 01/14/18 21:45 Baso # 0.1 X10^3/uL (0.0-0.1) 01/14/18 21:45 Absolute Nucleated RBC 0.0 /100WBC 01/14/18 21:45 INR Target Range - 01/14/18 21:45 INR 1.40 (0.8-1.3) H 01/14/18 21:45 PTT 32.1 SECONDS (22.9-36.5) 01/14/18 21:45 PTT Comment - 01/14/18 21:45 Sodium 141 mmol/L (136-145) 01/14/18 21:45 Corrected Sodium 141 mmol/L (136-145) 01/14/18 21:45 Potassium 3.0 mmol/L (3.5-5.1) L* 01/14/18 21:45 Chloride 104 mmol/L (98-107) 01/14/18 21:45 Carbon Dioxide 28.2 mmol/L (21-32) 01/14/18 21:45 BUN 11 mg/dL (7-18) 01/14/18 21:45 Creatinine 0.78 mg/dL (0.70-1.30) 01/14/18 21:45 Est GFR (MDRD) Af Amer > 60 (>60) 01/14/18 21:45 Est GFR (MDRD) Non-Af > 60 (>60) 01/14/18 21:45 Glucose 113 mg/dL (65-99) H 01/14/18 21:45 Calcium 8.7 mg/dL (8.5-10.1) 01/14/18 21:45 Corrected Calcium 9.3 mg/dL (8.5-10.1) 01/14/18 21:45 Magnesium 1.6 mg/dL (1.7-2.9) L 01/14/18 21:45 Total Bilirubin 0.60 mg/dL (0.2-1.0) 01/14/18 21:45 AST 15 Units/L (15-37) 01/14/18 21:45 ALT 21 Units/L (12-78) 01/14/18 21:45 Alkaline Phosphatase 46 Units/L (46-116) 01/14/18 21:45 Creatine Kinase 58 Units/L (39-308) 01/14/18 21:45 CK-MB (CK-2) 1.3 ng/mL (0-4.0) 01/14/18 21:45 CK/CKMB % Calc 2.2 % (<4) 01/14/18 21:45 Troponin I < 0.02 ng/mL (0-1.5) 01/14/18 21:45 Total Protein 6.7 g/dL (6.4-8.2) 01/14/18 21:45 Albumin 3.2 g/dL (3.4-5.0) L 01/14/18 21:45 Globulin 3.5 g/dL (2.5-4.5) 01/14/18 21:45 Albumin/Globulin Ratio 0.9 Ratio (1.1-2.1) L 01/14/18 21:45 - XRAY XRAY Interpreted by: Radiologist (chest: No acute cardiopulmonary disease) - Diagnosis Discharge Problem: Tachycardia Chest pain Qualifiers: Chest pain type: unspecified Qualified Code(s): R07.9 - Chest pain, unspecified - Discharge Plan Condition: Stable - Follow ups/Referrals Follow ups/Referrals: DMITRY STERLING [Primary Care Provider] - 3 days - Instructions
[2018-01-14 21:56] LABS: BASOPHILS # (AUTO) 0.1 X10^3/uL (0.0-0.1); BASOPHILS % (AUTO) 1.3 % (0.2-1.0); EOSINOPHILS # (AUTO) 0.4 x10^3/uL (0.0-0.2); EOSINOPHILS % (AUTO) 3.5 % (0.9-2.9); HEMATOCRIT 36.9 % (42.0-54.0); HEMOGLOBIN 12.6 g/dL (13.5-18.0); LYMPHOCYTES # (AUTO) 3.5 X10^3/uL (1.3-2.9); LYMPHOCYTES % (AUTO) 33.2 % (21.0-51.0); MEAN CORPUSCULAR HEMOGLOBIN 32.3 pg (27.0-34.0); MEAN CORPUSCULAR HGB CONC 34.1 g/dL (33.0-35.0); MEAN CORPUSCULAR VOLUME 94.8 fL (80.0-100.0); MEAN PLATELET VOLUME 8.1 fL (7.4-11.0); NEUTROPHILS # (AUTO) 5.6 x10^3/uL (2.2-4.8); PLATELET COUNT 179 X10^3/uL (150.0-450.0); RED BLOOD COUNT 3.89 X10^6/uL (4.7-6.0); RED CELL DISTRIBUTION WIDTH 15.3 % (11.6-16.5); WHITE BLOOD COUNT 10.6 X10^3/uL (3.6-10.0)
--- NOTE | 2018-01-14 22:05 | RAD ---
HISTORY: Dizziness and weakness. Study: Portable chest. Comparison: Chest x-ray dated November 30, 2017. Findings: The trachea is midline. The cardiac silhouette is enlarged without overt signs of failure. Low lung volumes. Stable appearance of a multi lead left chest cardiac pacemaker. No obvious focal consolidat ion, pleural effusion, or pneumothorax. The bony thorax is unremarkable. IMPRESSION: No acute cardiopulmonary disease. Reported By:
[2018-01-14 22:16] LABS: ALANINE AMINOTRANSFERASE 21 Units/L (12-78); ALBUMIN 3.2 g/dL (3.4-5.0); ALKALINE PHOSPHATASE 46 Units/L (46-116); ASPARTATE AMINO TRANSFERASE 15 Units/L (15-37); BLOOD UREA NITROGEN 11 mg/dL (7-18); CALCIUM 8.7 mg/dL (8.5-10.1); CARBON DIOXIDE 28.2 mmol/L (21-32); CHLORIDE 104 mmol/L (98-107); CKMB % 2.2 % (<4); COR CA(FOR HYPOALB) 9.3 mg/dL (8.5-10.1); COR NA(FOR HYPERGLY) 141 mmol/L (136-145); CREATINE KINASE 58 Units/L (39-308); CREATINE KINASE MB 1.3 ng/mL (0-4.0); CREATININE 0.78 mg/dL (0.70-1.30); MAGNESIUM 1.6 mg/dL (1.7-2.9); SODIUM 141 mmol/L (136-145); TOTAL PROTEIN 6.7 g/dL (6.4-8.2); TROPONIN I < 0.02 ng/mL (0-1.5); eGFR BLACK RACES > 60 (>60); eGFR NON BLACK RACES > 60 (>60)
[2018-01-14] MEDS ORDERED: K-LYTE EFFERVESCENT PO ONE (22:36)
[2018-01-14 23:47] VITALS: BP 110/68
== END 2018-01-15 00:12 | disposition short-term general hospital (02) ==
LOC: ER 21:37
DX: R00.0 Tachycardia, unspecified (principal); R07.89 Other chest pain
CPT/HCPCS: 36415; 71045; 80053; 82550; 82553; 83735; 84484; 85025; 85610; 85730; 93005; 93010; 96365; 99285; A4222

== ENCOUNTER → 2018-05-16 16:25 | Observation (INO) ==
[2018-05-15 14:37] LABS: BASOPHILS # (AUTO) 0.2 X10^3/uL (0.0-0.1); BASOPHILS % (AUTO) 1.8 % (0.2-1.0); EOSINOPHILS # (AUTO) 0.3 x10^3/uL (0.0-0.2); EOSINOPHILS % (AUTO) 3.3 % (0.9-2.9); HEMATOCRIT 35.9 % (42.0-54.0); HEMOGLOBIN 11.8 g/dL (13.5-18.0); LYMPHOCYTES # (AUTO) 2.6 X10^3/uL (1.3-2.9); LYMPHOCYTES % (AUTO) 29.6 % (21.0-51.0); MEAN CORPUSCULAR HGB CONC 32.8 g/dL (33.0-35.0); MEAN CORPUSCULAR VOLUME 97.6 fL (80.0-100.0); MEAN PLATELET VOLUME 8.2 fL (7.4-11.0); MONOCYTES # (AUTO) 0.9 x10^3/uL (0.3-0.8); MONOCYTES % (AUTO) 10.2 % (0.0-13.0); NEUTROPHILS # (AUTO) 4.8 x10^3/uL (2.2-4.8); NEUTROPHILS % (AUTO) 55.1 % (42.0-75.0); PLATELET COUNT 178 X10^3/uL (150.0-450.0); RED BLOOD COUNT 3.68 X10^6/uL (4.7-6.0); RED CELL DISTRIBUTION WIDTH 15.9 % (11.6-16.5); WHITE BLOOD COUNT 8.8 X10^3/uL (3.6-10.0)
[2018-05-15 14:46] LABS: ALANINE AMINOTRANSFERASE 22 Units/L (12-78); ALBUMIN 3.1 g/dL (3.4-5.0); ALKALINE PHOSPHATASE 47 Units/L (46-116); ASPARTATE AMINO TRANSFERASE 24 Units/L (15-37); BLOOD UREA NITROGEN 9 mg/dL (7-18); CALCIUM 8.5 mg/dL (8.5-10.1); CHLORIDE 107 mmol/L (98-107); COR CA(FOR HYPOALB) 9.2 mg/dL (8.5-10.1); CREATININE 0.87 mg/dL (0.70-1.30); SODIUM 143 mmol/L (136-145); TOTAL PROTEIN 6.5 g/dL (6.4-8.2); eGFR NON BLACK RACES > 60 (>60)
--- NOTE | 2018-05-15 15:00 | RAD ---
Exam: Portable chest History: 82-year-old male with COPD and history of congestive heart failure Comparison: Previous chest radiograph from 01/14/2018 Findings: Borderline cardiomegaly is again noted. Bipolar transvenous pacemaker is again seen as well. No signi ficant vascular congestion. Lungs are clear with no infiltrate or significant effusion either side. Impression: Borderline cardiomegaly. However no acute abnormality is seen on this exam. Reported By:
--- NOTE | 2018-05-15 15:22 | CT ---
HISTORY: Left flank pain and urinary retention. Study: CT abdomen and pelvis without contrast Comparison: CT abdomen/pelvis dated October 11, 2017. Technique: Multiple axial images of the abdomen and pelvis were obtained from the lung bases to the pubic symphy sis without the administration of IV contrast. Dose reduction techniques including Automated Exposur e Control (AEC) and adjustment of mA and kV were utilized. Limited study secondary to lack of IV and oral contrast. Findings: Cardiomegaly with small pericardial effusion. Bibasilar scarring versus atelectasis. Otherwise, the v isualized portions of the lung bases are unremarkable. Punctate nonobstructing nephrolith within the right superior renal pole. The liver, spleen, pancreas, left kidney, and adrenal glands are unremarka ble in their CT appearance. The gallbladder is unremarkable in its CT appearance. No significant mes enteric lymphadenopathy or stranding can be observed. No free fluid or free air is seen within the a bdomen. Limited evaluation of the large and small bowel secondary to collapse and lack of oral contr ast. Colonic diverticulosis without evidence of diverticulitis. The appendix is not well seen. No sec ondary signs to suggest acute appendicitis. Fat containing umbilical hernia. Vascular calcifications without evidence of degenerative changes of the spine. No aggressive osseous lesions. aneurysmal dila tation. The prostate gland appears unchanged and is unremarkable. The urinary bladder is grossly unre markable. The bony structures are grossly intact. IMPRESSION: No CT evidence of acute abdominal/pelvic pathology. Reported By:
[2018-05-15] MEDS: ROCEPHIN VIAL 1 GRAM 1 G in NS 100 ML IV + SPIKE MINIBAG* 100 ML IV SCH (15:50)
[2018-05-15] MEDS: FLOMAX PO SCH (15:50)
[2018-05-15 16:31] LABS: BILIRUBIN,URINE NEGATIVE (NEGATIVE); BLOOD/HEMOGLOBIN,URINE 5+ (NEGATIVE); GLUCOSE, URINE NEGATIVE (NEGATIVE); KETONES,URINE NEGATIVE (NEGATIVE); LEUKOCYTE ESTERASE ,URINE NEGATIVE (NEGATIVE); NITRITES,URINE NEGATIVE (NEGATIVE); PROTEIN,URINE 2+ (NEGATIVE); UROBILINOGEN,URINE NORMAL (NORMAL)
[2018-05-15 16:43] LABS: APPEARANCE,URINE CLOUDY (CLEAR); COLOR,URINE YELLOW (YELLOW)
[2018-05-15 16:44] LABS: BACTERIA,URINE TRACE /HPF (NEGATIVE); MUCUS,URINE MODERATE /HPF (NEGATIVE); RBC,URINE 20-30 /HPF (NONE SEEN); SQUAMOUS EPITHELIAL CELL,UR FEW /HPF (NEGATIVE)
[2018-05-15] MEDS: LASIX IVP SCH ×2 (17:02→21:06)
--- NOTE | 2018-05-15 18:33 | DR.H&P ---
H&P - History & Physical for Day of: H&P Date: 05/15/18 - Chief Complaint Chief Complaint: LOWER ABDOMINAL PAIN PRESSURE, RADIATES TO FLANK AND LEFT GROIN. DECREASE URINE OUTPUT AND 10LB WEIGHT GAIN IN 7-10 DAYS - History of Present Illness History of Present Illness: 82 WM DIRECT ADMIT FORM DR FALL OFFICE WITH CO LOWER PELVIC, ABDOMINAL PAIN PRESSURE, DECREASE URINE OUT PUT AND 10LBS WEIGHT GAIN IN APPROX ONE WEEK. PT HAS PMH OF CHF, BEEN TAKING LASIX WITH MUCH OUTPT PER PT. PT LUNGS W/O RALES. PT DENIES ANY CP, INCREASE SOB ON EXERTION. PT CO PAIN RADIATES TO LEFT FLANK AND GROIN AND TO LEFT TESTICLE. PT CO RECTAL PRESSURE. PT HAS PACER, DEFIBILLATOR, HTN, COPD, CHF, OA, AAA, BPH. PT ADMITTED FOR TREATMENT AND EVALUATION OF ACUTE ILLNESS. - Past Medical History Past Medical History: Arthritis, CHF, COPD, Dyslipidemia, Gout, Hypertension, Hypothyroidism Additional Medical History: AORTIC ANEURYSM - Past Surgical History Surgical History: Tonsillectomy Additional Surgical History: PACE MAKER - Family History Family Medical History: Coronary Artery Disease, Sudden Cardiac - Social History Does patient currently use any type of tobacco product: No Have you used tobacco products in the last 12 months: No Type of Tobacco Use: None Does any household member use tobacco: No Alcohol Use: Heavy, DAILY - Medications Home Medications: No Known Drug Allergies Allergy (Verified 05/15/18 12:52) CONTINUE taking the following medications ipratropium-albuterol 1 neb INHALATION QID PRN 05/15/18 [History] lisinopril 5 mg PO DAILY 05/15/18 [History] rivaroxaban [Xarelto] 20 mg PO DAILY 05/15/18 [History] sotalol 80 mg PO BID 05/15/18 [History] - Review of Systems Constitutional: Chills, Weakness Eyes: No Symptoms Reported ENT: No Symptoms Reported Respiratory: SOB with Excertion Cardiovascular: Edema Gastrointestinal: Nausea, Abdominal Pain Genitourinary: Retention Musculoskeletal: Back Pain Skin: No Symptoms Reported Neurological: No Symptoms Reported - Physical Exam Vital Signs: Temperature 97.6 F Pulse Rate [Right Brachial] 80 Respiratory Rate 20 Blood Pressure [Left Arm] 110/68 Blood Pressure [Right Arm] 132/84 Blood Pressure 134/84 O2 Sat by Pulse Oximetry 97 Oriented: Normal Eyes: Normal Ear: Normal Nose: Normal Throat: Normal Respiratory: RLL Diminished, LLL Diminished Cardiovascular: Normal, Other (PACER PRESENT) : Normal Palpation: Other (DIFFUSE DISTENTION) Tenderness: Suprapubic, Moderate Musculoskeletal: Right, Left, Back:Thoracic, Back:Lumbar Mood Description: Calm Speech Pattern: Clear, Appropriate - Assessment/Plan (1) Acute prostatitis with hematuria Status: Acute Plan: ADMIT, UA URINE CULTURES. FIELDS CATH FOR I & OS. IV ROCEPHIN, CT ABD PELVIS. FLOMAX, VERIFY AND RESUME HOME MEDS. PAIN CONTROL, CXR ON ADMISSION. IV LASIX, RESP COSULT (2) Urinary retention Status: Acute (3) COPD (chronic obstructive pulmonary disease) Status: Acute (4) CHF (congestive heart failure) Qualifiers: Qualified Code(s): I50.9 - Heart failure, unspecified Status: Chronic (5) A-fib Qualifiers: Atrial fibrillation type: chronic Qualified Code(s): I48.2 - Chronic atrial fibrillation Status: Chronic (6) HTN (hypertension) Qualifiers: Hypertension type: essential hypertension Qualified Code(s): I10 - Essential (primary) hypertension Status: Chronic - Allergies Allergies/Adverse Reactions: Allergies Allergy/AdvReac Type Severity Reaction Status Date / Time No Known Drug Allergies Allergy Verified 05/15/18 12:52
[2018-05-15] MEDS: PULMICORT NEB TX 0.5 MG NEB SCH (21:00)
[2018-05-15] MEDS: BETAPACE AF PO SCH (21:06)
[2018-05-15] MEDS: COREG TAB 12.5 MG PO SCH (21:06)
[2018-05-16 05:29] LABS: BASOPHILS # (AUTO) 0.1 X10^3/uL (0.0-0.1); EOSINOPHILS # (AUTO) 0.4 x10^3/uL (0.0-0.2); EOSINOPHILS % (AUTO) 4.6 % (0.9-2.9); HEMATOCRIT 35.5 % (42.0-54.0); HEMOGLOBIN 11.9 g/dL (13.5-18.0); LYMPHOCYTES # (AUTO) 2.6 X10^3/uL (1.3-2.9); LYMPHOCYTES % (AUTO) 29.9 % (21.0-51.0); MEAN CORPUSCULAR HEMOGLOBIN 32.3 pg (27.0-34.0); MEAN CORPUSCULAR HGB CONC 33.4 g/dL (33.0-35.0); MEAN CORPUSCULAR VOLUME 96.6 fL (80.0-100.0); MEAN PLATELET VOLUME 8.4 fL (7.4-11.0); MONOCYTES # (AUTO) 0.9 x10^3/uL (0.3-0.8); MONOCYTES % (AUTO) 9.9 % (0.0-13.0); NEUTROPHILS # (AUTO) 4.8 x10^3/uL (2.2-4.8); NEUTROPHILS % (AUTO) 54.6 % (42.0-75.0); PLATELET COUNT 174 X10^3/uL (150.0-450.0); RED BLOOD COUNT 3.68 X10^6/uL (4.7-6.0); RED CELL DISTRIBUTION WIDTH 15.8 % (11.6-16.5); WHITE BLOOD COUNT 8.8 X10^3/uL (3.6-10.0)
[2018-05-16 05:43] LABS: ALANINE AMINOTRANSFERASE 19 Units/L (12-78); ALKALINE PHOSPHATASE 43 Units/L (46-116); ASPARTATE AMINO TRANSFERASE 17 Units/L (15-37); BLOOD UREA NITROGEN 9 mg/dL (7-18); CALCIUM 8.2 mg/dL (8.5-10.1); CARBON DIOXIDE 29.8 mmol/L (21-32); CHLORIDE 103 mmol/L (98-107); SODIUM 141 mmol/L (136-145); TOTAL PROTEIN 6.4 g/dL (6.4-8.2); eGFR NON BLACK RACES > 60 (>60)
[2018-05-16] MEDS: BETAPACE AF PO SCH (08:56)
[2018-05-16] MEDS: COREG TAB 12.5 MG PO SCH (08:56)
[2018-05-16] MEDS: FLOMAX PO SCH (08:56)
[2018-05-16] MEDS: PULMICORT NEB TX 0.5 MG NEB SCH (08:57)
[2018-05-16] MEDS: ROCEPHIN VIAL 1 GRAM 1 G in NS 100 ML IV + SPIKE MINIBAG* 100 ML IV SCH (08:57)
--- NOTE | 2018-05-16 10:03 | US ---
HISTORY: dysuria, scrotal pain Study: Scrotal ultrasound Comparison: No priors Technique: Grayscale, color Doppler and duplex Doppler studies of the scrotum were provided. Findings: The testicles are normal in size. The right testicle measures 1.6 x 2.1 x 3.2 cm. The left testicle m easures 1.8 x 2.1 x 4.0 cm. No testicular mass is seen. There is normal Doppler flow to both testicle s. There is very mild heterogeneous appearance of both testicles. Small bilateral hydroceles are pres ent. Epididymal structures appear normal and symmetric. IMPRESSION: Small bilateral hydroceles. No evidence of testicular tumor or torsion. Reported By:
[2018-05-16 11:25] VITALS: BMI 36.5
[2018-05-16] MEDS: MAGNESIUM SULFATE 1 GRAM/100 mL PREMIX 1 GM/100 ML BAG IV PRN ×2 (12:23→13:53)
[2018-05-16 13:30] VITALS: BP 99/60
[~2018-05-16 16:25] MED LIST changes: +ALDACTONE TAB 25 MG PO SCH; +ASPIRIN EC 81 MG PO SCH; +DUONEB 0.5 MG/3 MG IN PRN; +K-LYTE EFFERVESCENT PO PRN; +K-RIDER 10 MEQ/NS 100 ML 10 MEQ/100 ML BAG IV PRN; +LIPITOR TAB 40 MG PO SCH; +MICRO K EXTEN CAP 10 MEQ PO SCH; +MILK OF MAGNESIA PO SCH; +MORPHINE SULFATE INJ 2 MG INJ IVP PRN; +MORPHINE SULFATE INJ 4 MG ONE; -NS 25 ML IV 25 ML IV ONE; +NS 250 ML IV 250 ML IV ONE; +PATIENT'S HOME MEDICATION (Budesonide-Formoterol 2 PUFF) IN PRN; +POTASSIUM CHL 40 MEQ/NS 0.45% 500 ML IV PRN; +POTASSIUM CHL 60 MEQ/NS 0.45% 500 ML IV PRN; +POTASSIUM CHLORIDE LIQ 20 MEQ UDC PO PRN; +PROVENTIL NEB TX 0.083% 2.5MG/ 3ML NEB SCH; +SYNTHROID 75 mcg TAB PO SCH; +ULTRAM PO PRN; +XARELTO PO SCH; +ZESTRIL TAB 5 MG PO SCH
== END | disposition home health service (06) ==
LOC: MED/SURG
PROVIDERS: ADMIT Internal Medicine; ATTEND Internal Medicine
DX: I48.2 Chronic atrial fibrillation; I50.9 Heart failure, unspecified; R33.8 Other retention of urine; J44.9 Chronic obstructive pulmonary disease, unspecified; N41.0 Acute prostatitis; N43.2 Other hydrocele; R10.84 Generalized abdominal pain; Z95.0 Presence of cardiac pacemaker; N40.1 Benign prostatic hyperplasia with lower urinary tract symptoms; I10 Essential (primary) hypertension; R26.89 Other abnormalities of gait and mobility; R06.02 Shortness of breath
CPT/HCPCS: 36415; 71010; 71045; 74176; 76870; 80053; 81001; 83735; 84153; 85025; 87086; 94640; 94760; 97163; A4222; G0378; J0696; J1940; J2270; J3475; J7050; J7620; J7626; J8499

== ENCOUNTER 2018-09-18 15:30 | Inpatient (IN) ==
--- NOTE | 2018-09-18 16:00 | DR.SOBA ---
HPI Time Seen Time Seen by Provider: 09/18/18 15:56 Primary Care Physician Primary Care Physician: HALLIE ASH HPI Comment HPI Comment: SOB TIMES 3 DAYS. Complaints Chief Complaint:: PT C/O SOB FOR THE PAST 2-3 DAYS ,, PT DENIES COUGH, PT LUNGS ARE CLEAR, PT HAS HX OF COPD , PT C/O BENDING AND WALKING MAKES SOB WORSE, PT DENIES ANY CP ..BR Source History Provided: Patient Mode of Arrival Mode of Arrival: Ambulatory Timing Onset of Chief Complaint: 09/16/18 PMH PMH Past Medical History: Yes Past Medical History: Arthritis, CHF, COPD, Dyslipidemia, Gout, Hypertension and Hypothyroidism Past Surgical History: Yes Surgical History: Tonsillectomy Family History History of Family Medical Conditions: Yes Family Medical History: Coronary Artery Disease and Sudden Cardiac Social History Does patient currently use any type of tobacco product: No Have you used tobacco products in the last 12 months: No Type of Tobacco Use: None Does any household member use tobacco: No Alcohol Use: Rarely Do you use any recreational Drugs:: No Lives With: Family Lives Where: Home infectious screening In the last 2 months have you had wt loss of >10#?: NO Have you had fever, night sweats or hemotysis?: No Have you traveled outside the country in the last 6 months?: No Isolation: Standard PE Vital Signs Vitals: Temperature 96.8 F Pulse Rate 83 Respiratory Rate 22 Blood Pressure [Left Arm] 103/67 Blood Pressure [Right Arm] 99/60 Blood Pressure 151/87 O2 Sat by Pulse Oximetry 98 ROR Labs Reviewed Result Diagrams: 09/18/18 16:30 09/18/18 16:30 Laboratory: WBC 8.1 X10^3/uL (3.6-10.0) 09/18/18 16:30 RBC 3.70 X10^6/uL (4.7-6.0) L 09/18/18 16:30 Hgb 11.8 g/dL (13.5-18.0) L 09/18/18 16:30 Hct 34.9 % (42.0-54.0) L 09/18/18 16:30 MCV 94.5 fL (80.0-100.0) 09/18/18 16:30 MCH 31.9 pg (27.0-34.0) 09/18/18 16:30 MCHC 33.7 g/dL (33.0-35.0) 09/18/18 16:30 RDW 16.9 % (11.6-16.5) H 09/18/18 16:30 Plt Count 188 X10^3/uL (150.0-450.0) 09/18/18 16:30 MPV 8.3 fL (7.4-11.0) 09/18/18 16:30 Neut % (Auto) 58.4 % (42.0-75.0) 09/18/18 16:30 Lymph % (Auto) 28.3 % (21.0-51.0) 09/18/18 16:30 [place] % (Auto) 9.2 % (0.0-13.0) 09/18/18 16:30 Eos % (Auto) 2.8 % (0.9-2.9) 09/18/18 16:30 Baso % (Auto) 1.3 % (0.2-1.0) H 09/18/18 16:30 Neut # (Auto) 4.7 x10^3/uL (2.2-4.8) 09/18/18 16:30 Lymph # (Auto) 2.3 X10^3/uL (1.3-2.9) 09/18/18 16:30 [place] # (Auto) 0.7 x10^3/uL (0.3-0.8) 09/18/18 16:30 Eos # (Auto) 0.2 x10^3/uL (0.0-0.2) 09/18/18 16:30 Baso # (Auto) 0.1 X10^3/uL (0.0-0.1) 09/18/18 16:30 Absolute Nucleated RBC 0.0 /100WBC 09/18/18 16:30 Sample Site Lr 09/18/18 18:53 ABG pH 7.550 (7.35-7.45) H 09/18/18 18:53 ABG pCO2 23.0 mmHg (35.0-45.0) L 09/18/18 18:53 ABG pO2 147.0 mmHg (80.0-100.0) H 09/18/18 18:53 ABG HCO3 20.1 mmol/L (22-26) L 09/18/18 18:53 ABG O2 Saturation 99.0 % (90-100) 09/18/18 18:53 ABG Base Excess -0.7 mmol/L (-2.0-2.0) 09/18/18 18:53 Audie Test Pos 09/18/18 18:53 A-a Gradient -26.0 mmHg 09/18/18 18:53 FiO2 21 09/18/18 18:53 Blood Gas Comments Pt leelee well elj 09/18/18 18:53 Sodium 144 mmol/L (136-145) 09/18/18 16:30 Corrected Sodium TNP 09/18/18 16:30 Potassium 3.4 mmol/L (3.5-5.1) L 09/18/18 16:30 Chloride 105 mmol/L (98-107) 09/18/18 16:30 Carbon Dioxide 33.9 mmol/L (21-32) H 09/18/18 16:30 BUN 11 mg/dL (7-18) 09/18/18 16:30 Creatinine 0.85 mg/dL (0.70-1.30) 09/18/18 16:30 Est GFR (MDRD) Af Amer > 60 (>60) 09/18/18 16:30 Est GFR (MDRD) Non-Af > 60 (>60) 09/18/18 16:30 Glucose 99 mg/dL (65-99) 09/18/18 16:30 Lactic Acid 1.0 mmol/L (0.4-2.0) 09/18/18 16:30 Calcium 8.1 mg/dL (8.5-10.1) L 09/18/18 16:30 Corrected Calcium 8.8 mg/dL (8.5-10.1) 09/18/18 16:30 Total Bilirubin 0.70 mg/dL (0.2-1.0) 09/18/18 16:30 AST 39 Units/L (15-37) H 09/18/18 16:30 ALT 47 Units/L (12-78) 09/18/18 16:30 Alkaline Phosphatase 67 Units/L (46-116) 09/18/18 16:30 Creatine Kinase 91 Units/L (39-308) 09/18/18 16:30 CK-MB (CK-2) 1.2 ng/mL (0-4.0) 09/18/18 16:30 CK/CKMB % Calc 1.3 % (<4) 09/18/18 16:30 Troponin I < 0.02 ng/mL (0-1.5) 09/18/18 16:30 Total Protein 6.7 g/dL (6.4-8.2) 09/18/18 16:30 Albumin 3.1 g/dL (3.4-5.0) L 09/18/18 16:30 Globulin 3.6 g/dL (2.5-4.5) 09/18/18 16:30 Albumin/Globulin Ratio 0.9 Ratio (1.1-2.1) L 09/18/18 16:30 Specimen Type Clean catch urine 09/18/18 16:45 Urine Color Yellow (YELLOW) 09/18/18 16:45 Urine Appearance Clear (CLEAR) 09/18/18 16:45 Urine pH 8.0 (5.0 - 8.0) 09/18/18 16:45 Ur Specific [place] 1.010 (1.000-1.030) 09/18/18 16:45 Urine Protein Negative (NEGATIVE) 09/18/18 16:45 Urine Glucose (UA) Negative (NEGATIVE) 09/18/18 16:45 Urine Ketones Negative (NEGATIVE) 09/18/18 16:45 Urine Occult Blood Negative (NEGATIVE) 09/18/18 16:45 Urine Nitrite Negative (NEGATIVE) 09/18/18 16:45 Urine Bilirubin Negative (NEGATIVE) 09/18/18 16:45 Urine Urobilinogen Normal (NORMAL) 09/18/18 16:45 Ur Leukocyte Esterase Negative (NEGATIVE) 09/18/18 16:45
[2018-09-18 16:42] LABS: BASOPHILS # (AUTO) 0.1 X10^3/uL (0.0-0.1); BASOPHILS % (AUTO) 1.3 % (0.2-1.0); EOSINOPHILS # (AUTO) 0.2 x10^3/uL (0.0-0.2); EOSINOPHILS % (AUTO) 2.8 % (0.9-2.9); HEMATOCRIT 34.9 % (42.0-54.0); HEMOGLOBIN 11.8 g/dL (13.5-18.0); LYMPHOCYTES # (AUTO) 2.3 X10^3/uL (1.3-2.9); LYMPHOCYTES % (AUTO) 28.3 % (21.0-51.0); MEAN CORPUSCULAR HEMOGLOBIN 31.9 pg (27.0-34.0); MEAN CORPUSCULAR HGB CONC 33.7 g/dL (33.0-35.0); MEAN CORPUSCULAR VOLUME 94.5 fL (80.0-100.0); MEAN PLATELET VOLUME 8.3 fL (7.4-11.0); MONOCYTES # (AUTO) 0.7 x10^3/uL (0.3-0.8); MONOCYTES % (AUTO) 9.2 % (0.0-13.0); NEUTROPHILS # (AUTO) 4.7 x10^3/uL (2.2-4.8); NEUTROPHILS % (AUTO) 58.4 % (42.0-75.0); PLATELET COUNT 188 X10^3/uL (150.0-450.0); RED CELL DISTRIBUTION WIDTH 16.9 % (11.6-16.5); WHITE BLOOD COUNT 8.1 X10^3/uL (3.6-10.0)
[2018-09-18 17:06] LABS: BILIRUBIN,URINE NEGATIVE (NEGATIVE); BLOOD/HEMOGLOBIN,URINE NEGATIVE (NEGATIVE); GLUCOSE, URINE NEGATIVE (NEGATIVE); KETONES,URINE NEGATIVE (NEGATIVE); LEUKOCYTE ESTERASE ,URINE NEGATIVE (NEGATIVE); NITRITES,URINE NEGATIVE (NEGATIVE); PROTEIN,URINE NEGATIVE (NEGATIVE); UROBILINOGEN,URINE NORMAL (NORMAL)
[2018-09-18 17:16] LABS: APPEARANCE,URINE CLEAR (CLEAR); COLOR,URINE YELLOW (YELLOW)
[2018-09-18 17:32] LABS: BLOOD UREA NITROGEN 11 mg/dL (7-18); CALCIUM 8.1 mg/dL (8.5-10.1); CARBON DIOXIDE 33.9 mmol/L (21-32); CHLORIDE 105 mmol/L (98-107); CREATININE 0.85 mg/dL (0.70-1.30); SODIUM 144 mmol/L (136-145); TROPONIN I < 0.02 ng/mL (0-1.5); eGFR NON BLACK RACES > 60 (>60)
[2018-09-18 17:37] LABS: ALANINE AMINOTRANSFERASE 47 Units/L (12-78); ALBUMIN 3.1 g/dL (3.4-5.0); ALKALINE PHOSPHATASE 67 Units/L (46-116); ASPARTATE AMINO TRANSFERASE 39 Units/L (15-37); CKMB % 1.3 % (<4); COR CA(FOR HYPOALB) 8.8 mg/dL (8.5-10.1); CREATINE KINASE 91 Units/L (39-308); CREATINE KINASE MB 1.2 ng/mL (0-4.0); TOTAL PROTEIN 6.7 g/dL (6.4-8.2)
[2018-09-18 19:13] LABS: ABG ALLEN TEST POS; ABG BASE EXCESS -0.7 mmol/L (-2.0-2.0); ABG HCO3 20.1 mmol/L (22-26); FRACTIONATED INSPIRED OXYGEN 21
[2018-09-18] MEDS ORDERED: DUONEB 0.5 MG/3 MG NEB PRN (20:53)
[2018-09-18] MEDS ORDERED: CARVEDILOL 12.5 MG PO SCH (22:08)
[2018-09-18 22:51] VITALS: BMI 36.5
[2018-09-18] MEDS: BETAPACE AF PO SCH (23:11)
[2018-09-18] MEDS: LIPITOR TAB 40 MG PO SCH (23:11)
[2018-09-18] MEDS: COREG TAB 12.5 MG PO SCH (23:11)
[2018-09-18] MEDS: NS 1000 ML 1,000 ML IV SCH (23:12)
[2018-09-18 23:57] LABS: CKMB % 1.2 % (<4); CREATINE KINASE MB 1.1 ng/mL (0-4.0); TROPONIN I 0.02 ng/mL (0-1.5)
[2018-09-19] MEDS ORDERED: DUONEB 0.5 MG/3 MG NEB PRN (00:23)
[2018-09-19] MEDS: SYNTHROID 75 mcg TAB PO SCH (06:01)
[2018-09-19 06:13] LABS: BILIRUBIN,URINE NEGATIVE (NEGATIVE); BLOOD/HEMOGLOBIN,URINE NEGATIVE (NEGATIVE); GLUCOSE, URINE NEGATIVE (NEGATIVE); KETONES,URINE NEGATIVE (NEGATIVE); LEUKOCYTE ESTERASE ,URINE 1+ (NEGATIVE); NITRITES,URINE NEGATIVE (NEGATIVE); PROTEIN,URINE 1+ (NEGATIVE); UROBILINOGEN,URINE NORMAL (NORMAL)
[2018-09-19 06:20] LABS: APPEARANCE,URINE CLEAR (CLEAR); COLOR,URINE YELLOW (YELLOW)
[2018-09-19 06:21] LABS: BACTERIA,URINE NEGATIVE /HPF (NEGATIVE); RBC,URINE NONE SEEN /HPF (NONE SEEN); SQUAMOUS EPITHELIAL CELL,UR NEGATIVE /HPF (NEGATIVE)
[2018-09-19 06:25] LABS: BASOPHILS # (AUTO) 0.2 X10^3/uL (0.0-0.1); EOSINOPHILS # (AUTO) 0.2 x10^3/uL (0.0-0.2); EOSINOPHILS % (AUTO) 2.3 % (0.9-2.9); HEMATOCRIT 33.3 % (42.0-54.0); HEMOGLOBIN 11.3 g/dL (13.5-18.0); LYMPHOCYTES # (AUTO) 2.3 X10^3/uL (1.3-2.9); LYMPHOCYTES % (AUTO) 29.2 % (21.0-51.0); MEAN CORPUSCULAR HEMOGLOBIN 32.2 pg (27.0-34.0); MEAN CORPUSCULAR HGB CONC 33.8 g/dL (33.0-35.0); MEAN CORPUSCULAR VOLUME 95.3 fL (80.0-100.0); MEAN PLATELET VOLUME 8.8 fL (7.4-11.0); MONOCYTES # (AUTO) 0.7 x10^3/uL (0.3-0.8); MONOCYTES % (AUTO) 8.8 % (0.0-13.0); NEUTROPHILS # (AUTO) 4.6 x10^3/uL (2.2-4.8); NEUTROPHILS % (AUTO) 57.7 % (42.0-75.0); PLATELET COUNT 179 X10^3/uL (150.0-450.0); RED CELL DISTRIBUTION WIDTH 16.4 % (11.6-16.5); WHITE BLOOD COUNT 7.9 X10^3/uL (3.6-10.0)
[2018-09-19 06:45] LABS: ALANINE AMINOTRANSFERASE 41 Units/L (12-78); ALKALINE PHOSPHATASE 61 Units/L (46-116); ASPARTATE AMINO TRANSFERASE 28 Units/L (15-37); BLOOD UREA NITROGEN 9 mg/dL (7-18); CALCIUM 7.7 mg/dL (8.5-10.1); CARBON DIOXIDE 30.7 mmol/L (21-32); CHLORIDE 106 mmol/L (98-107); CHOL/HDL RATIO 3.7 (0.0-5.0); CHOLESTEROL 116 mg/dL (0-200); COR CA(FOR HYPOALB) 8.5 mg/dL (8.5-10.1); CREATININE 0.75 mg/dL (0.70-1.30); HDL CHOLESTEROL 31 mg/dL (40-60); MAGNESIUM 2.2 mg/dL (1.7-2.9); SODIUM 144 mmol/L (136-145); TOTAL PROTEIN 5.9 g/dL (6.4-8.2); TRIGLYCERIDES 59 mg/dL (0-150); eGFR NON BLACK RACES > 60 (>60)
[2018-09-19 06:48] LABS: CKMB % 1.2 % (<4); CREATINE KINASE 85 Units/L (39-308); TROPONIN I < 0.02 ng/mL (0-1.5)
[2018-09-19] MEDS ORDERED: FUROSEMIDE 40 MG PO SCH (09:00)
[2018-09-19] MEDS ORDERED: POTASSIUM CHLORIDE 10 MEQ PO SCH (09:00)
[2018-09-19] MEDS ORDERED: SPIRONOLACTONE 12.5 MG PO SCH (09:00)
[2018-09-19] MEDS: ZESTRIL TAB 5 MG PO SCH (10:00)
[2018-09-19] MEDS: ALDACTONE TAB 25 MG PO SCH (10:00)
[2018-09-19] MEDS: MICRO K EXTEN CAP 10 MEQ PO SCH (10:00)
[2018-09-19] MEDS: XARELTO PO SCH (10:00)
[2018-09-19] MEDS: LASIX PO SCH (10:01)
[2018-09-19] MEDS: FLOMAX PO SCH (10:01)
[2018-09-19] MEDS: COREG TAB 12.5 MG PO SCH ×2 (10:01→21:11)
[2018-09-19] MEDS: BETAPACE AF PO SCH ×2 (10:01→21:11)
[2018-09-19] MEDS: ASPIRIN EC 81 MG PO SCH (10:01)
[2018-09-19] MEDS: NS 1000 ML 1,000 ML IV SCH ×2 (14:45→23:29)
--- NOTE | 2018-09-19 15:34 | DR.H&P ---
H&P - History & Physical for Day of: H&P Date: 09/18/18 - Chief Complaint Chief Complaint: SOB - History of Present Illness History of Present Illness: 82 WM ER ADMISSION AFTER PRESENTING WITH CO SOB AND "HOLDING EPIGASTRIC AREA" CHEST PAIN. PT STATES HAD HAS COPD BUT HASNT FELT LIKE COUGH AND "BREATHING PROBLEM" "DOESNT FEEL LIKE HEART PAIN" PT HAD HX OF CAD, AFIB, COPD, HTN, OA, GOUT. PT CO INCREASED LOWER EXTREMITY SWELLING AND RECENT G OUT ATTACK. PT HAS RLE INCREASED EDEMA AND ABDOMINAL DISTENTION. PT ADMITTED FOR EVALUATION OF SOB - Past Medical History Past Medical History: Arthritis, CHF, COPD, Coronary Artery Disease, Dyslipidemia, GERD, Gout, Hypertension, Hypothyroidism Additional Medical History: AORTIC ANEURYSM, AFIB - Past Surgical History Surgical History: Tonsillectomy Additional Surgical History: PACE MAKER - Family History Family Medical History: Coronary Artery Disease, Sudden Cardiac - Social History Does patient currently use any type of tobacco product: No Have you used tobacco products in the last 12 months: No Type of Tobacco Use: None Does any household member use tobacco: No Alcohol Use: None Drug Use: None - Medications Home Medications: No Known Drug Allergies Allergy (Verified 09/18/18 15:49) CONTINUE taking the following medications tamsulosin 0.4 mg PO DAILY 09/18/18 [History] - Review of Systems Constitutional: No Symptoms Reported Eyes: No Symptoms Reported ENT: No Symptoms Reported Respiratory: Shortness of Breath Cardiovascular: Chest Pain, Edema Gastrointestinal: Abdominal Pain Genitourinary: No Symptoms Reported Musculoskeletal: Leg Pain Skin: No Symptoms Reported Neurological: No Symptoms Reported - Physical Exam Vital Signs: Temperature 98.1 F Pulse Rate [Left] 80 Pulse Rate 84 Respiratory Rate 20 Blood Pressure [Left Arm] 119/75 Blood Pressure [Right Arm] 116/79 Blood Pressure 151/87 O2 Sat by Pulse Oximetry 93 Oriented: Normal, Person Ear: Normal Nose: Normal Throat: Normal Respiratory: Diminished Throughout Cardiovascular: Normal, Edema : Normal Auscultation: Bowel Sounds: Normal Palpation: Normal Tenderness: Epigastric, Mild, Other (DIFFUSE DISTENTION) Skin: Normal Musculoskeletal: Right, Left, Swelling, Tender Psychiatric: Anxiety Affect: Anxious Speech Pattern: Clear, Appropriate - Assessment/Plan (1) SOB (shortness of breath) Status: Acute Plan: ADMIT, SERIAL CE AND EKG ON ADMISSION. VERIFY HOME MED, CXR ON ADMISSION. BP CONTROL, I & OS RESP CONSULT TO RESUME JET NEBS (2) Edema of right lower extremity Status: Acute (3) Abdominal distension Status: Acute (4) Chest pain Qualifiers: Chest pain type: unspecified Qualified Code(s): R07.9 - Chest pain, unspecified Status: Acute (5) COPD (chronic obstructive pulmonary disease) Status: Acute (6) CHF (congestive heart failure) Qualifiers: Qualified Code(s): I50.9 - Heart failure, unspecified Status: Chronic (7) A-fib Qualifiers: Atrial fibrillation type: chronic Qualified Code(s): I48.2 - Chronic atrial fibrillation Status: Chronic (8) HTN (hypertension) Qualifiers: Hypertension type: essential hypertension Qualified Code(s): I10 - Essential (primary) hypertension Status: Chronic - Allergies Allergies/Adverse Reactions: Allergies Allergy/AdvReac Type Severity Reaction Status Date / Time No Known Drug Allergies Allergy Verified 09/18/18 15:49
--- NOTE | 2018-09-19 15:44 | PCM.PROG ---
Progress Note - Progress Note for Day of Date of Exam: 09/19/18 - Subjective Subjective: 82 WM ER ADMISSION ON 09/18 WITH SOB. PT HAD SERIAL CE STABLE, PT CO UPPER ABDOMINAL PRESSURE/PAIN, ABDOMINAL DISTENTION AND CO RLE EDEMA. PT HAS HX OF CHF AND TAKING "ALL MEDICATION" INSTRUCTED. PT HAS HX OF AAA FOLLOWED BY [facility]. US RLE ORDRED, CT CHEST TO EVALUATE ABOMINAL PAIN. CONTINUE CURRENT MEDICATION REGIMEN, IV LASIX 40 X 2 DOSES. WITH STRICT I& OS, SUPPLEMENTAL O2, PRN JET NEBS, REPEAT AM XRAY - Past Medical Family Social History Past Med/Fam/Surg Hx: No changes since H&P Allergies: Allergies No Known Drug Allergies Allergy (Verified 09/18/18 15:49) - Review of Systems ROS: No change since H&P - Vital Signs and I&O's Vital Signs: Temperature 98.1 F Pulse Rate [Left] 80 Pulse Rate 84 Respiratory Rate 20 Blood Pressure [Left Arm] 119/75 Blood Pressure [Right Arm] 116/79 Blood Pressure 151/87 O2 Sat by Pulse Oximetry 93 Intake and Output: Intake & Output 09/17/18 09/18/18 09/19/18 09/20/18 11:59 11:59 11:59 11:59 Intake Total 700 / 700 Balance 700 / 700 - Physical Exam Oriented: Normal, Person Ear: Normal Nose: Normal Throat: Normal Respiratory: Diminished Cardiovascular: Normal, Edema : Normal Auscultation: Bowel Sounds: Normal Tenderness: Epigastric, Mild, Other (DIFFUSE DISTENTION) Skin: Normal Musculoskeletal: Right, Left, Swelling, Tender Psychiatric: Anxiety Affect: Anxious Speech Pattern: Clear, Appropriate - Laboratory and Diagnostics Result Diagrams: 09/19/18 05:06 09/19/18 05:06 Labs: Laboratory WBC 7.9 X10^3/uL (3.6-10.0) 09/19/18 05:06 RBC 3.50 X10^6/uL (4.7-6.0) L 09/19/18 05:06 Hgb 11.3 g/dL (13.5-18.0) L 09/19/18 05:06 Hct 33.3 % (42.0-54.0) L 09/19/18 05:06 MCV 95.3 fL (80.0-100.0) 09/19/18 05:06 MCH 32.2 pg (27.0-34.0) 09/19/18 05:06 MCHC 33.8 g/dL (33.0-35.0) 09/19/18 05:06 RDW 16.4 % (11.6-16.5) 09/19/18 05:06 Plt Count 179 X10^3/uL (150.0-450.0) 09/19/18 05:06 MPV 8.8 fL (7.4-11.0) 09/19/18 05:06 Neut % (Auto) 57.7 % (42.0-75.0) 09/19/18 05:06 Lymph % (Auto) 29.2 % (21.0-51.0) 09/19/18 05:06 [place] % (Auto) 8.8 % (0.0-13.0) 09/19/18 05:06 Eos % (Auto) 2.3 % (0.9-2.9) 09/19/18 05:06 Baso % (Auto) 2.0 % (0.2-1.0) H 09/19/18 05:06 Neut # (Auto) 4.6 x10^3/uL (2.2-4.8) 09/19/18 05:06 Lymph # (Auto) 2.3 X10^3/uL (1.3-2.9) 09/19/18 05:06 [place] # (Auto) 0.7 x10^3/uL (0.3-0.8) 09/19/18 05:06 Eos # (Auto) 0.2 x10^3/uL (0.0-0.2) 09/19/18 05:06 Baso # (Auto) 0.2 X10^3/uL (0.0-0.1) H 09/19/18 05:06 Absolute Nucleated RBC 0.1 /100WBC 09/19/18 05:06 Sample Site Lr 09/18/18 18:53 ABG pH 7.550 (7.35-7.45) H 09/18/18 18:53 ABG pCO2 23.0 mmHg (35.0-45.0) L 09/18/18 18:53 ABG pO2 147.0 mmHg (80.0-100.0) H 09/18/18 18:53 ABG HCO3 20.1 mmol/L (22-26) L 09/18/18 18:53 ABG O2 Saturation 99.0 % (90-100) 09/18/18 18:53 ABG Base Excess -0.7 mmol/L (-2.0-2.0) 09/18/18 18:53 Audie Test Pos 09/18/18 18:53 A-a Gradient -26.0 mmHg 09/18/18 18:53 FiO2 21 09/18/18 18:53 Blood Gas Comments Pt leelee well elj 09/18/18 18:53 Sodium 144 mmol/L (136-145) 09/19/18 05:06 Corrected Sodium TNP 09/19/18 05:06 Potassium 3.4 mmol/L (3.5-5.1) L 09/19/18 05:06 Chloride 106 mmol/L (98-107) 09/19/18 05:06 Carbon Dioxide 30.7 mmol/L (21-32) 09/19/18 05:06 BUN 9 mg/dL (7-18) 09/19/18 05:06 Creatinine 0.75 mg/dL (0.70-1.30) 09/19/18 05:06 Est GFR (MDRD) Af Amer > 60 (>60) 09/19/18 05:06 Est GFR (MDRD) Non-Af > 60 (>60) 09/19/18 05:06 Glucose 87 mg/dL (65-99) 09/19/18 05:06 Lactic Acid 1.0 mmol/L (0.4-2.0) 09/18/18 16:30 Calcium 7.7 mg/dL (8.5-10.1) L 09/19/18 05:06 Corrected Calcium 8.5 mg/dL (8.5-10.1) 09/19/18 05:06 Magnesium 2.2 mg/dL (1.7-2.9) 09/19/18 05:06 Total Bilirubin 0.90 mg/dL (0.2-1.0) 09/19/18 05:06 AST 28 Units/L (15-37) 09/19/18 05:06 ALT 41 Units/L (12-78) 09/19/18 05:06 Alkaline Phosphatase 61 Units/L (46-116) 09/19/18 05:06 Creatine Kinase 85 Units/L (39-308) 09/19/18 05:06 CK-MB (CK-2) 1.0 ng/mL (0-4.0) 09/19/18 05:06 CK/CKMB % Calc 1.2 % (<4) 09/19/18 05:06 Troponin I < 0.02 ng/mL (0-1.5) 09/19/18 05:06 Total Protein 5.9 g/dL (6.4-8.2) L 09/19/18 05:06 Albumin 3.0 g/dL (3.4-5.0) L 09/19/18 05:06 Globulin 2.9 g/dL (2.5-4.5) 09/19/18 05:06 Albumin/Globulin Ratio 1.0 Ratio (1.1-2.1) L 09/19/18 05:06 Triglycerides 59 mg/dL (0-150) 09/19/18 05:06 Cholesterol 116 mg/dL (0-200) 09/19/18 05:06 LDL Cholesterol, Calc 73 mg/dL (0-100) 09/19/18 05:06 HDL Cholesterol 31 mg/dL (40-60) L 09/19/18 05:06 Cholesterol/HDL Ratio 3.7 (0.0-5.0) 09/19/18 05:06 Specimen Type Random urine 09/19/18 05:55 Urine Color Yellow (YELLOW) 09/19/18 05:55 Urine Appearance Clear (CLEAR) 09/19/18 05:55 Urine pH 8.0 (5.0 - 8.0) 09/19/18 05:55 Ur Specific [place] 1.010 (1.000-1.030) 09/19/18 05:55 Urine Protein 1+ (NEGATIVE) 09/19/18 05:55 Urine Glucose (UA) Negative (NEGATIVE) 09/19/18 05:55 Urine Ketones Negative (NEGATIVE) 09/19/18 05:55 Urine Occult Blood Negative (NEGATIVE) 09/19/18 05:55 Urine Nitrite Negative (NEGATIVE) 09/19/18 05:55 Urine Bilirubin Negative (NEGATIVE) 09/19/18 05:55 Urine Urobilinogen Normal (NORMAL) 09/19/18 05:55 Ur Leukocyte Esterase 1+ (NEGATIVE) 09/19/18 05:55 Urine RBC None seen /HPF (NONE SEEN) 09/19/18 05:55 Urine WBC None seen /HPF (NONE SEEN) 09/19/18 05:55 Ur Squamous Epith Cells Negative /HPF (NEGATIVE) 09/19/18 05:55 Urine Bacteria Negative /HPF (NEGATIVE) 09/19/18 05:55 Ur Culture Indicated? No/not indicated 09/19/18 05:55 - Plan (1) SOB (shortness of breath) Status: Acute Plan: SERIAL CE AND EKG ON ADMISSION. VERIFY HOME MEDS AND RESUMED, CXR ON ADMISSION. BP CONTROL, I & OS RESP CONSULT TO RESUME JET NEBS (2) Edema of right lower extremity Status: Acute (3) Abdominal distension Status: Acute Plan: CT CHEST WITH CONTRAST, KUB THIS AM (4) Chest pain Status: Acute Qualifiers: Chest pain type: unspecified Qualified Code(s): R07.9 - Chest pain, unspecified (5) COPD (chronic obstructive pulmonary disease) Status: Acute Plan: JET NEBS, SUPPLEMENTAL O2 (6) CHF (congestive heart failure) Status: Chronic Qualifiers: Qualified Code(s): I50.9 - Heart failure, unspecified (7) A-fib Status: Chronic Qualifiers: Atrial fibrillation type: chronic Qualified Code(s): I48.2 - Chronic atrial fibrillation (8) HTN (hypertension) Status: Chronic Qualifiers: Hypertension type: essential hypertension Qualified Code(s): I10 - Essential (primary) hypertension
[2018-09-19] MEDS: MILK OF MAGNESIA PO PRN (18:00)
[2018-09-19] MEDS: COLACE CAP 100 MG PO PRN (18:00)
[2018-09-19] MEDS: LIPITOR TAB 40 MG PO SCH (21:10)
[2018-09-19] MEDS: LASIX IVP SCH (21:11)
--- NOTE | 2018-09-19 23:07 | VAS ---
HISTORY: Right lower extremity edema Study: Venous Doppler Comparison: None TECHNIQUE: Multiple clay scale and color flow Doppler images of the deep venous system were obtained of the right lower extremity FINDINGS: There is normal respiratory phasicity, compression and augmentation of the extremity veins without ev idence of acute DVT. IMPRESSION: 1. Negative for DVT. Reported By:
[2018-09-20] MEDS: SYNTHROID 75 mcg TAB PO SCH (06:01)
[2018-09-20 06:06] LABS: BASOPHILS # (AUTO) 0.1 X10^3/uL (0.0-0.1); BASOPHILS % (AUTO) 0.9 % (0.2-1.0); EOSINOPHILS # (AUTO) 0.2 x10^3/uL (0.0-0.2); EOSINOPHILS % (AUTO) 2.4 % (0.9-2.9); HEMATOCRIT 35.1 % (42.0-54.0); HEMOGLOBIN 11.8 g/dL (13.5-18.0); LYMPHOCYTES # (AUTO) 2.7 X10^3/uL (1.3-2.9); MEAN CORPUSCULAR HEMOGLOBIN 32.1 pg (27.0-34.0); MEAN CORPUSCULAR HGB CONC 33.8 g/dL (33.0-35.0); MEAN CORPUSCULAR VOLUME 94.9 fL (80.0-100.0); MEAN PLATELET VOLUME 8.8 fL (7.4-11.0); MONOCYTES # (AUTO) 0.9 x10^3/uL (0.3-0.8); MONOCYTES % (AUTO) 10.9 % (0.0-13.0); NEUTROPHILS # (AUTO) 4.6 x10^3/uL (2.2-4.8); NEUTROPHILS % (AUTO) 53.8 % (42.0-75.0); PLATELET COUNT 172 X10^3/uL (150.0-450.0); RED CELL DISTRIBUTION WIDTH 16.8 % (11.6-16.5); WHITE BLOOD COUNT 8.5 X10^3/uL (3.6-10.0)
[2018-09-20 06:11] LABS: ALANINE AMINOTRANSFERASE 35 Units/L (12-78); ALBUMIN 2.9 g/dL (3.4-5.0); ALKALINE PHOSPHATASE 56 Units/L (46-116); ASPARTATE AMINO TRANSFERASE 21 Units/L (15-37); BLOOD UREA NITROGEN 7 mg/dL (7-18); CARBON DIOXIDE 32.4 mmol/L (21-32); CHLORIDE 106 mmol/L (98-107); CREATININE 0.78 mg/dL (0.70-1.30); SODIUM 144 mmol/L (136-145); TOTAL PROTEIN 6.4 g/dL (6.4-8.2); eGFR NON BLACK RACES > 60 (>60)
[2018-09-20 06:20] LABS: COR CA(FOR HYPOALB) 8.9 mg/dL (8.5-10.1)
[2018-09-20] MEDS: BETAPACE AF PO SCH ×2 (09:48→20:30)
[2018-09-20] MEDS: ALDACTONE TAB 25 MG PO SCH (09:48)
[2018-09-20] MEDS: ZESTRIL TAB 5 MG PO SCH (09:48)
[2018-09-20] MEDS: FLOMAX PO SCH (09:48)
[2018-09-20] MEDS: COREG TAB 12.5 MG PO SCH ×2 (09:48→20:30)
[2018-09-20] MEDS: ASPIRIN EC 81 MG PO SCH (09:48)
[2018-09-20] MEDS: XARELTO PO SCH (09:49)
[2018-09-20] MEDS: MICRO K EXTEN CAP 10 MEQ PO SCH (09:50)
[2018-09-20] MEDS: K-DUR TAB 20 MEQ PO SCH (09:50)
[2018-09-20] MEDS: LASIX PO SCH (09:56)
[2018-09-20] MEDS: LASIX IVP SCH (09:56)
--- NOTE | 2018-09-20 10:39 | CT ---
HISTORY: Chest pain, congestion, and shortness of breath. Study: CT chest with contrast Comparison: Chest x-ray dated September 18, [address] chest dated November 02, 2017. Technique: Multiple axial images of the chest were obtained from the thoracic inlet to the upper abdo men after the administration of IV contrast. MIP images were obtained. Dose reduction techniques incl uding Automated Exposure Control (AEC) and adjustment of mA and kV were utilized. Findings: The mediastinum does not demonstrate significant pathological lymphadenopathy left chest cardiac pace maker. Cardiomegaly. Extensive coronary artery calcifications appear unchanged. Small pericardial eff usion. 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 N o obvious dissection. The remaining thoracic aorta is otherwise unremarkable. Inadequate opacificati on of the pulmonary arteries secondary to timing of bolus. However, the central pulmonary arterial sy stem does not demonstrate central filling defects to suggest pulmonary emboli. No suspicious pulmonary nodule, mass, pleural effusion, focal consolidation, or pneumothorax. Bibasil ar scarring versus atelectasis. The upper abdominal structures appear unchanged given technique. Dege nerative changes of the spine. No aggressive osseous lesions. IMPRESSION: 1. No CT evidence of acute thoracic pathology. 2. Other chronic findings as above. Reported By:
[2018-09-20] MEDS ORDERED: TORADOL 30 MG VIAL IVP ONE (11:58)
[2018-09-20] MEDS: ZYLOPRIM PO SCH (13:31)
[2018-09-20] MEDS ORDERED: SOLU-Medrol 125 MG VIAL IVP SCH (18:00)
[2018-09-20] MEDS ORDERED: SOLU-Medrol 125 MG VIAL IVP ONE (18:00)
[2018-09-20] MEDS: COLCRYS TAB 0.6 MG PO SCH ×2 (18:25→20:30)
[2018-09-20] MEDS: MILK OF MAGNESIA PO PRN (20:30)
[2018-09-20] MEDS: LIPITOR TAB 40 MG PO SCH (20:30)
[2018-09-20] MEDS: COLACE CAP 100 MG PO PRN (20:30)
[2018-09-21] MEDS: TORADOL 30 MG VIAL IVP SCH ×2 (03:29→06:49)
[2018-09-21] MEDS: NS 1000 ML 1,000 ML IV SCH (03:39)
[2018-09-21] MEDS: SOLU-Medrol 125 MG VIAL IVP SCH ×2 (03:42→06:27)
[2018-09-21 05:28] LABS: BASOPHILS % (AUTO) 0.3 % (0.2-1.0); HEMATOCRIT 36.4 % (42.0-54.0); HEMOGLOBIN 12.1 g/dL (13.5-18.0); LYMPHOCYTES % (AUTO) 15.5 % (21.0-51.0); MEAN CORPUSCULAR HEMOGLOBIN 31.8 pg (27.0-34.0); MEAN CORPUSCULAR HGB CONC 33.3 g/dL (33.0-35.0); MEAN CORPUSCULAR VOLUME 95.4 fL (80.0-100.0); MEAN PLATELET VOLUME 8.9 fL (7.4-11.0); MONOCYTES # (AUTO) 0.1 x10^3/uL (0.3-0.8); MONOCYTES % (AUTO) 0.8 % (0.0-13.0); NEUTROPHILS # (AUTO) 5.4 x10^3/uL (2.2-4.8); NEUTROPHILS % (AUTO) 83.4 % (42.0-75.0); PLATELET COUNT 194 X10^3/uL (150.0-450.0); RED BLOOD COUNT 3.82 X10^6/uL (4.7-6.0); RED CELL DISTRIBUTION WIDTH 17.2 % (11.6-16.5); WHITE BLOOD COUNT 6.5 X10^3/uL (3.6-10.0)
[2018-09-21 05:38] LABS: ALANINE AMINOTRANSFERASE 32 Units/L (12-78); ALKALINE PHOSPHATASE 59 Units/L (46-116); ASPARTATE AMINO TRANSFERASE 18 Units/L (15-37); BLOOD UREA NITROGEN 15 mg/dL (7-18); CALCIUM 8.3 mg/dL (8.5-10.1); CARBON DIOXIDE 28.5 mmol/L (21-32); CHLORIDE 106 mmol/L (98-107); COR CA(FOR HYPOALB) 9.1 mg/dL (8.5-10.1); COR NA(FOR HYPERGLY) 142 mmol/L (136-145); CREATININE 0.84 mg/dL (0.70-1.30); SODIUM 141 mmol/L (136-145); TOTAL PROTEIN 6.8 g/dL (6.4-8.2); eGFR NON BLACK RACES > 60 (>60)
[2018-09-21] MEDS: SYNTHROID 75 mcg TAB PO SCH (06:28)
[2018-09-21] MEDS: MICRO K EXTEN CAP 10 MEQ PO SCH (08:37)
[2018-09-21] MEDS: K-DUR TAB 20 MEQ PO SCH (08:37)
[2018-09-21] MEDS: ASPIRIN EC 81 MG PO SCH (08:37)
[2018-09-21] MEDS: COREG TAB 12.5 MG PO SCH ×2 (08:38→20:46)
[2018-09-21] MEDS: COLCRYS TAB 0.6 MG PO SCH (08:38)
[2018-09-21] MEDS: XARELTO PO SCH (08:38)
[2018-09-21] MEDS: ALDACTONE TAB 25 MG PO SCH (08:38)
[2018-09-21] MEDS: ZYLOPRIM PO SCH (08:38)
[2018-09-21] MEDS: FLOMAX PO SCH (08:38)
[2018-09-21] MEDS: ZESTRIL TAB 5 MG PO SCH (08:38)
[2018-09-21] MEDS: BETAPACE AF PO SCH ×2 (08:38→20:46)
--- NOTE | 2018-09-21 11:30 | PCM.PROG ---
Progress Note - Progress Note for Day of Date of Exam: 09/21/18 - Subjective Subjective: 82 WM ER ADMISSION ON 09/18 WITH SOB. PT HAD SERIAL CE STABLE, PT CO UPPER ABDOMINAL PRESSURE/PAIN, ABDOMINAL DISTENTION AND CO RLE EDEMA. PT HAS HX OF CHF AND TAKING "ALL MEDICATION" INSTRUCTED. PT HAS HX OF AAA FOLLOWED BY [facility]. PT HAD NEGATIVE VENOUS US, CT CHEST WITH AAA<5CM. PT REPORTS HIS RLE PAIN IS IMPROVING FOLLOWING TREATMENT FOR GOUT YESTERDAY AFTERNOON. PT CONTINUES WITH CO MILD ABD DISTENTION - Past Medical Family Social History Past Med/Fam/Surg Hx: No changes since H&P Allergies: Allergies No Known Drug Allergies Allergy (Verified 09/18/18 15:49) - Review of Systems ROS: No change since H&P - Vital Signs and I&O's Vital Signs: Temperature 97.6 F Pulse Rate [Left] 83 Pulse Rate 81 Respiratory Rate 20 Blood Pressure [Left Arm] 164/78 Blood Pressure [Right Arm] 108/64 Blood Pressure 151/87 O2 Sat by Pulse Oximetry 99 Intake and Output: Intake & Output 09/18/18 09/19/18 09/20/18 09/21/18 11:59 11:59 11:59 11:59 Intake Total 700 / 700 520 / 520 1060 / 1060 Balance 700 / 700 520 / 520 1060 / 1060 - Physical Exam Oriented: Normal, Person Ear: Normal Nose: Normal Throat: Normal Respiratory: Diminished Cardiovascular: Normal, Edema : Normal Auscultation: Bowel Sounds: Normal Tenderness: Epigastric, Mild, Other (DIFFUSE DISTENTION) Skin: Normal Musculoskeletal: Right, Left, Swelling, Tender Psychiatric: Anxiety Affect: Anxious Speech Pattern: Clear, Appropriate - Laboratory and Diagnostics Result Diagrams: 09/21/18 04:40 09/21/18 04:40 Labs: 09/18/18 16:30 Blood Blood Culture - Preliminary 09/18/18 16:25 Blood Blood Culture - Preliminary Laboratory WBC 6.5 X10^3/uL (3.6-10.0) 09/21/18 04:40 RBC 3.82 X10^6/uL (4.7-6.0) L 09/21/18 04:40 Hgb 12.1 g/dL (13.5-18.0) L 09/21/18 04:40 Hct 36.4 % (42.0-54.0) L 09/21/18 04:40 MCV 95.4 fL (80.0-100.0) 09/21/18 04:40 MCH 31.8 pg (27.0-34.0) 09/21/18 04:40 MCHC 33.3 g/dL (33.0-35.0) 09/21/18 04:40 RDW 17.2 % (11.6-16.5) H 09/21/18 04:40 Plt Count 194 X10^3/uL (150.0-450.0) 09/21/18 04:40 MPV 8.9 fL (7.4-11.0) 09/21/18 04:40 Neut % (Auto) 83.4 % (42.0-75.0) H 09/21/18 04:40 Lymph % (Auto) 15.5 % (21.0-51.0) L 09/21/18 04:40 [place] % (Auto) 0.8 % (0.0-13.0) 09/21/18 04:40 Eos % (Auto) 0.0 % (0.9-2.9) L 09/21/18 04:40 Baso % (Auto) 0.3 % (0.2-1.0) 09/21/18 04:40 Neut # (Auto) 5.4 x10^3/uL (2.2-4.8) H 09/21/18 04:40 Lymph # (Auto) 1.0 X10^3/uL (1.3-2.9) L 09/21/18 04:40 [place] # (Auto) 0.1 x10^3/uL (0.3-0.8) L 09/21/18 04:40 Eos # (Auto) 0.0 x10^3/uL (0.0-0.2) 09/21/18 04:40 Baso # (Auto) 0.0 X10^3/uL (0.0-0.1) 09/21/18 04:40 Absolute Nucleated RBC 0.0 /100WBC 09/21/18 04:40 Sample Site Lr 09/18/18 18:53 ABG pH 7.550 (7.35-7.45) H 09/18/18 18:53 ABG pCO2 23.0 mmHg (35.0-45.0) L 09/18/18 18:53 ABG pO2 147.0 mmHg (80.0-100.0) H 09/18/18 18:53 ABG HCO3 20.1 mmol/L (22-26) L 09/18/18 18:53 ABG O2 Saturation 99.0 % (90-100) 09/18/18 18:53 ABG Base Excess -0.7 mmol/L (-2.0-2.0) 09/18/18 18:53 Audie Test Pos 09/18/18 18:53 A-a Gradient -26.0 mmHg 09/18/18 18:53 FiO2 21 09/18/18 18:53 Blood Gas Comments Pt leelee well elj 09/18/18 18:53 Sodium 141 mmol/L (136-145) 09/21/18 04:40 Corrected Sodium 142 mmol/L (136-145) 09/21/18 04:40 Potassium 4.0 mmol/L (3.5-5.1) 09/21/18 04:40 Chloride 106 mmol/L (98-107) 09/21/18 04:40 Carbon Dioxide 28.5 mmol/L (21-32) 09/21/18 04:40 BUN 15 mg/dL (7-18) 09/21/18 04:40 Creatinine 0.84 mg/dL (0.70-1.30) 09/21/18 04:40 Est GFR (MDRD) Af Amer > 60 (>60) 09/21/18 04:40 Est GFR (MDRD) Non-Af > 60 (>60) 09/21/18 04:40 Glucose 162 mg/dL (65-99) H 09/21/18 04:40 Lactic Acid 1.0 mmol/L (0.4-2.0) 09/18/18 16:30 Uric Acid 6.6 mg/dL (3.5-7.2) 09/20/18 05:01 Calcium 8.3 mg/dL (8.5-10.1) L 09/21/18 04:40 Corrected Calcium 9.1 mg/dL (8.5-10.1) 09/21/18 04:40 Magnesium 2.2 mg/dL (1.7-2.9) 09/19/18 05:06 Total Bilirubin 0.70 mg/dL (0.2-1.0) 09/21/18 04:40 AST 18 Units/L (15-37) 09/21/18 04:40 ALT 32 Units/L (12-78) 09/21/18 04:40 Alkaline Phosphatase 59 Units/L (46-116) 09/21/18 04:40 Creatine Kinase 85 Units/L (39-308) 09/19/18 05:06 CK-MB (CK-2) 1.0 ng/mL (0-4.0) 09/19/18 05:06 CK/CKMB % Calc 1.2 % (<4) 09/19/18 05:06 Troponin I < 0.02 ng/mL (0-1.5) 09/19/18 05:06 Total Protein 6.8 g/dL (6.4-8.2) 09/21/18 04:40 Albumin 3.0 g/dL (3.4-5.0) L 09/21/18 04:40 Globulin 3.8 g/dL (2.5-4.5) 09/21/18 04:40 Albumin/Globulin Ratio 0.8 Ratio (1.1-2.1) L 09/21/18 04:40 Triglycerides 59 mg/dL (0-150) 09/19/18 05:06 Cholesterol 116 mg/dL (0-200) 09/19/18 05:06 LDL Cholesterol, Calc 73 mg/dL (0-100) 09/19/18 05:06 HDL Cholesterol 31 mg/dL (40-60) L 09/19/18 05:06 Cholesterol/HDL Ratio 3.7 (0.0-5.0) 09/19/18 05:06 Specimen Type Random urine 09/19/18 05:55 Urine Color Yellow (YELLOW) 09/19/18 05:55 Urine Appearance Clear (CLEAR) 09/19/18 05:55 Urine pH 8.0 (5.0 - 8.0) 09/19/18 05:55 Ur Specific [place] 1.010 (1.000-1.030) 09/19/18 05:55 Urine Protein 1+ (NEGATIVE) 09/19/18 05:55 Urine Glucose (UA) Negative (NEGATIVE) 09/19/18 05:55 Urine Ketones Negative (NEGATIVE) 09/19/18 05:55 Urine Occult Blood Negative (NEGATIVE) 09/19/18 05:55 Urine Nitrite Negative (NEGATIVE) 09/19/18 05:55 Urine Bilirubin Negative (NEGATIVE) 09/19/18 05:55 Urine Urobilinogen Normal (NORMAL) 09/19/18 05:55 Ur Leukocyte Esterase 1+ (NEGATIVE) 09/19/18 05:55 Urine RBC None seen /HPF (NONE SEEN) 09/19/18 05:55 Urine WBC None seen /HPF (NONE SEEN) 09/19/18 05:55 Ur Squamous Epith Cells Negative /HPF (NEGATIVE) 09/19/18 05:55 Urine Bacteria Negative /HPF (NEGATIVE) 09/19/18 05:55 Ur Culture Indicated? No/not indicated 09/19/18 05:55 - Plan (1) SOB (shortness of breath) Status: Acute Plan: SERIAL CE AND EKG ON ADMISSION. LASIX, RESP THERAPY PRN. BP CONTROL, I & OS. PAIN CONTROL, CT CHEST COMPLETED, US LE SEE EMR FOR REPORT (2) Edema of right lower extremity Status: Acute (3) Abdominal distension Status: Acute Plan: CT CHEST WITH CONTRAST, KUB THIS AM (4) Chest pain Status: Acute Qualifiers: Chest pain type: unspecified Qualified Code(s): R07.9 - Chest pain, unspecified (5) COPD (chronic obstructive pulmonary disease) Status: Acute Plan: JET NEBS, SUPPLEMENTAL O2 (6) CHF (congestive heart failure) Status: Chronic Qualifiers: Qualified Code(s): I50.9 - Heart failure, unspecified (7) A-fib Status: Chronic Qualifiers: Atrial fibrillation type: chronic Qualified Code(s): I48.2 - Chronic atrial fibrillation (8) HTN (hypertension) Status: Chronic Qualifiers: Hypertension type: essential hypertension Qualified Code(s): I10 - Essential (primary) hypertension
[2018-09-21] MEDS: LIPITOR TAB 40 MG PO SCH (20:46)
[2018-09-21] MEDS: COLACE CAP 100 MG PO PRN (20:46)
[2018-09-21] MEDS: MILK OF MAGNESIA PO SCH (20:47)
[2018-09-22] MEDS: NS 1000 ML 1,000 ML IV SCH ×2 (03:20→05:53)
[2018-09-22 05:24] LABS: BASOPHILS % (AUTO) 0.1 % (0.2-1.0); HEMATOCRIT 33.8 % (42.0-54.0); HEMOGLOBIN 11.3 g/dL (13.5-18.0); LYMPHOCYTES # (AUTO) 1.6 X10^3/uL (1.3-2.9); LYMPHOCYTES % (AUTO) 9.3 % (21.0-51.0); MEAN CORPUSCULAR HEMOGLOBIN 31.8 pg (27.0-34.0); MEAN CORPUSCULAR HGB CONC 33.5 g/dL (33.0-35.0); MEAN CORPUSCULAR VOLUME 94.9 fL (80.0-100.0); MEAN PLATELET VOLUME 8.7 fL (7.4-11.0); MONOCYTES # (AUTO) 0.9 x10^3/uL (0.3-0.8); MONOCYTES % (AUTO) 5.2 % (0.0-13.0); NEUTROPHILS # (AUTO) 14.3 x10^3/uL (2.2-4.8); NEUTROPHILS % (AUTO) 85.4 % (42.0-75.0); PLATELET COUNT 188 X10^3/uL (150.0-450.0); RED BLOOD COUNT 3.56 X10^6/uL (4.7-6.0); RED CELL DISTRIBUTION WIDTH 16.9 % (11.6-16.5)
[2018-09-22 05:32] LABS: ALANINE AMINOTRANSFERASE 29 Units/L (12-78); ALBUMIN 2.7 g/dL (3.4-5.0); ALKALINE PHOSPHATASE 50 Units/L (46-116); ASPARTATE AMINO TRANSFERASE 16 Units/L (15-37); BLOOD UREA NITROGEN 14 mg/dL (7-18); CARBON DIOXIDE 27.8 mmol/L (21-32); CHLORIDE 108 mmol/L (98-107); COR NA(FOR HYPERGLY) 142 mmol/L (136-145); CREATININE 0.77 mg/dL (0.70-1.30); SODIUM 141 mmol/L (136-145); TOTAL PROTEIN 6.2 g/dL (6.4-8.2); eGFR NON BLACK RACES > 60 (>60)
[2018-09-22 05:41] LABS: WHITE BLOOD COUNT 16.7 X10^3/uL (3.6-10.0)
[2018-09-22] MEDS: SYNTHROID 75 mcg TAB PO SCH (06:04)
[2018-09-22] MEDS ORDERED: LASIX IVP ONE (08:18)
[2018-09-22] MEDS: ZESTRIL TAB 5 MG PO SCH (09:50)
[2018-09-22] MEDS: ALDACTONE TAB 25 MG PO SCH (09:50)
[2018-09-22] MEDS: ZYLOPRIM PO SCH (09:50)
[2018-09-22] MEDS: MILK OF MAGNESIA PO SCH (09:51)
[2018-09-22] MEDS: COREG TAB 12.5 MG PO SCH (09:51)
[2018-09-22] MEDS: MICRO K EXTEN CAP 10 MEQ PO SCH (09:51)
[2018-09-22] MEDS: XARELTO PO SCH (09:51)
[2018-09-22] MEDS: K-DUR TAB 20 MEQ PO SCH (09:52)
[2018-09-22] MEDS: BETAPACE AF PO SCH (09:52)
[2018-09-22] MEDS: COLCRYS TAB 0.6 MG PO SCH (09:52)
[2018-09-22] MEDS: ASPIRIN EC 81 MG PO SCH (09:53)
[2018-09-22] MEDS: FLOMAX PO SCH (09:53)
[2018-09-22 11:59] VITALS: BP 115/71
== END 2018-09-22 11:50 | disposition home or self-care (01) | DRG 192 ==
LOC: OBS 15:39 → ER 15:39 → OBS 21:18 → MED/SURG 09-19 14:13
PROVIDERS: ADMIT Internal Medicine; ATTEND Internal Medicine
DX: R53.1 Weakness; R06.02 Shortness of breath; I95.89 Other hypotension; Z86.79 Personal history of other diseases of the circulatory system; R60.0 Localized edema; K21.9 Gastro-esophageal reflux disease without esophagitis; M54.5 Low back pain; R10.13 Epigastric pain; E78.2 Mixed hyperlipidemia; I25.10 Atherosclerotic heart disease of native coronary artery without angina pectoris; Z79.01 Long term (current) use of anticoagulants; I11.0 Hypertensive heart disease with heart failure; R26.89 Other abnormalities of gait and mobility; J44.1 Chronic obstructive pulmonary disease with (acute) exacerbation; M19.90 Unspecified osteoarthritis, unspecified site; I50.9 Heart failure, unspecified; R94.31 Abnormal electrocardiogram [ECG] [EKG]; E03.8 Other specified hypothyroidism; R07.89 Other chest pain; F41.8 Other specified anxiety disorders; I48.2 Chronic atrial fibrillation; R00.0 Tachycardia, unspecified
CPT/HCPCS: 36415; 36600; 71010; 71045; 71260; 74000; 74018; 80053; 80061; 81001; 81003; 82550; 82553; 82803; 83605; 83735; 84484; 84550; 85025; 87040; 93005; 93010; 93971; 94760; 96365; 99231; 99283; 99284; A4222; G0378; J1885; J1940; J2930; J7030; J7620

== ENCOUNTER 2019-03-06 23:41 | Observation (INO) ==
--- NOTE | 2019-03-07 | DR.CP ---
HPI - Time Seen Time seen: 23:55 - Complaint Chief Complaint Doctor Comments: Patient is complaining of feeling dizzy with chest discomfort with pain radiating to his neck. states he took his blood pressure at home and it was 90/55 with a heart rate of 135 and thirt minutes later it was 90/60 with heart rate 85 and later it went back up. States he is a patient of Dr. Goel and his inspector and clipper that did his pacemaker/defibrillator is Dr. Hartman. He is takind [place] and has had his medicines today. He denies tobacco or alcohol usage but he has been having SOB. He has a history or atrial fibrillation. - Reviewed Nurses Notes Review: Yes - Source History Provided: Patient - Mode of Arrival Mode of Arrival: Ambulatory - Timing Came on: Gradually Pain: Present Now - Duration Duration: Intermittent How lon Duration: Hours - Location Location of Chest Pain: Chest Chest Pain Radiation Location: Right Jaw, Neck - Context Onset: At rest Cardiac Risk Factors: HTN PE Risk Factors: None History of: Similar pain in the past Prehospital Care: None - Quality Quality: Sharp - Severity Severity: Moderate - Modifying Factors Worsens: Nothing Impoves: Nothing - Associated Signs and Symptoms Associated Signs and Symptoms: Shortness of Breath, Palpitations PMH - PMH Past Medical History: Arthritis, CHF, COPD, Coronary Artery Disease, Dyslipidemia, GERD, Gout, Hypertension, Hypothyroidism Past Surgical History: Yes Surgical History: Tonsillectomy - Family History Family Medical History: Coronary Artery Disease, Sudden Cardiac - Social History Do you use any recreational Drugs:: No ROS - Review of Systems Constitutional: No Symptoms Reported Eyes: No Symptoms Reported ENTM: No Symptoms Reported Respiratoy: No Symptoms Reported, Short of Breath Cardiovascular: No Symptoms Reported, Chest Pain, Palpitations Gastrointestinal/Abdominal: No Symptoms Reported. negative: See HPI, Abdominal Pain, Constipation, Diarrhea, Nausea, Vomiting, Food Intolerance, Other Genitourinary: No Symptoms Reported Neurological: No Symptoms Reported Musculoskeletal: No Symptoms Reported Integumentary: No Symptoms Reported Hematologic/Lymphatic: No Symptoms Reported. negative: See HPI, Anemia, Blood Clots, Easy Bleeding, Easy Bruising, Swollen Glands, Lymphadenopathy, Other Endocrine: No Symptoms Reported Psychiatric: No Symptoms Reported. negative: See HPI, Anxiety, Depression, Hallucinations, Excessive crying, Suicidal, Other PE - General Limitations: No Limitations General Appearance: Alert, In Distress (slight) - Head Head Exam: Normal Inspection, Atraumatic, Normocephalic - Eyes Eye exam: Normal Appearance, PERRL, EOMI. negative: Scleral Icterus, Conjunctival Injection, Nystagmus, Miosis, Mydrasis, Periorbital Swelling, Periorbital Tenderness, Other - ENT ENT Exam: Normal Exam, Normal Oropharynx, Normal External Ear Exam, Mucous Memb ranes Moist, TM's Normal Bilaterally - Chest Chest Inspection: Normal Inspection, Symmetric Chest Wall Rise - Respiratory Respiratory Exam: Normal Lung Sounds Bilat Respiratory Exam: Bilateral Clear to Auscultation - Cardiovascular Cardiovascular Exam: Regular Rate, Normal Rhythm, Irregular Rhythm, Normal Heart Sounds, Systolic Murmur Pulse: Normal Edema: Normal - Abdominal Exam Abdominal Exam: Normal Inspection, Normal Bowel Sounds, Soft, Distention, Hernia (ventral hernia) Abdominal Tenderness: negative: RUQ, RLQ, LUQ, LLQ, Epigastrium, Suprapubic, Diffuse, Mild, Moderate, Severe, Other - Extremities Extremities Exam: Normal Inspection, Full ROM, Normal Capillary Refill. negative: Tenderness, Edema, Joint Swelling, Calf Tenderness, Other - Back Back Exam: Normal Inspection, Full ROM - Neurologic Neurological Exam: Alert, Oriented X3, CN II-XII Intact, Normal Gait, Reflexes Normal - Psychiatric Psychiatric Exam: Normal Affect, Normal Mood. negative: Depressed, Agitated, Anxious, Flat Affect, Manic, Homicidal Ideation, Suicidal Ideation, Other - Skin Skin Exam: Warm, Dry, Intact, Normal Color. negative: Rash, Cyanosis, Diaphores is, Erythema, Pallor, Mottled, Other - Vitals Vitals: Temperature 98.0 F Pulse Rate [Apical] 80 Pulse Rate [Right Brachial] 80 Pulse Rate 125 Respiratory Rate 24 Blood Pressure [Left Arm] 99/68 Blood Pressure [Right Arm] 105/64 Blood Pressure 110/70 O2 Sat by Pulse Oximetry 97 Course - Consultation Called: 04:19 (Dr. Goel paged x3) - Education/Counseling Education/Counseling: Patient, Family Educated On: Treatment, Diagnosis, Needs for Follow Up ROR - Labs Reviewed Laboratory Results Reviewed?: Yes (All labs and x-ray results reviewed and dis cussed with patient) Result Diagrams: 03/07/19 00:00 03/07/19 00:00 - XRAY XRAY Interpreted by: Radiologist - EKG Rate: 80 [place]: Normal Rhythm: NSR, Paced Block: None ST: Nonsp - Labs Reviewed Laboratory: WBC 10.7 X10^3/uL (3.6-10.0) H 03/07/19 00:00 RBC 4.00 X10^6/uL (4.7-6.0) L 03/07/19 00:00 Hgb 13.3 g/dL (13.5-18.0) L 03/07/19 00:00 Hct 39.5 % (42.0-54.0) L 03/07/19 00:00 MCV 98.8 fL (80.0-100.0) 03/07/19 00:00 MCH 33.1 pg (27.0-34.0) 03/07/19 00:00 MCHC 33.5 g/dL (33.0-35.0) 03/07/19 00:00 RDW 15.8 % (11.6-16.5) 03/07/19 00:00 Plt Count 200 X10^3/uL (150.0-450.0) 03/07/19 00:00 MPV 8.1 fL (7.4-11.0) 03/07/19 00:00 Neut % (Auto) 44.2 % (42.0-75.0) 03/07/19 00:00 Lymph % (Auto) 41.0 % (21.0-51.0) 03/07/19 00:00 [place] % (Auto) 10.3 % (0.0-13.0) 03/07/19 00:00 Eos % (Auto) 3.2 % (0.9-2.9) H 03/07/19 00:00 Baso % (Auto) 1.3 % (0.2-1.0) H 03/07/19 00:00 Neut # (Auto) 4.7 x10^3/uL (2.2-4.8) 03/07/19 00:00 Lymph # (Auto) 4.4 X10^3/uL (1.3-2.9) H 03/07/19 00:00 [place] # (Auto) 1.1 x10^3/uL (0.3-0.8) H 03/07/19 00:00 Eos # (Auto) 0.3 x10^3/uL (0.0-0.2) H 03/07/19 00:00 Baso # (Auto) 0.1 X10^3/uL (0.0-0.1) 03/07/19 00:00 Absolute Nucleated RBC 0.0 /100WBC 03/07/19 00:00 INR Target Range - 03/07/19 00:00 INR 1.49 (0.8-1.3) H 03/07/19 00:00 APTT 33.0 SECONDS (22.9-36.5) 03/07/19 00:00 PTT Comment - 03/07/19 00:00 D-Dimer < 100 ng/mL (0-400) 03/07/19 00:00 Sodium 143 mmol/L (136-145) 03/07/19 00:00 Corrected Sodium 144 mmol/L (136-145) 03/07/19 00:00 Potassium 3.0 mmol/L (3.5-5.1) L* 03/07/19 00:00 Chloride 105 mmol/L (98-107) 03/07/19 00:00 Carbon Dioxide 26.7 mmol/L (21-32) 03/07/19 00:00 BUN 12 mg/dL (7-18) 03/07/19 00:00 Creatinine 0.82 mg/dL (0.70-1.30) 03/07/19 00:00 Est GFR (MDRD) Af Amer > 60 (>60) 03/07/19 00:00 Est GFR (MDRD) Non-Af > 60 (>60) 03/07/19 00:00 Glucose 121 mg/dL (65-99) H 03/07/19 00:00 Calcium 8.9 mg/dL (8.5-10.1) 03/07/19 00:00 Corrected Calcium 9.5 mg/dL (8.5-10.1) 03/07/19 00:00 Magnesium 1.5 mg/dL (1.7-2.9) L 03/07/19 00:00 Total Bilirubin 0.60 mg/dL (0.2-1.0) 03/07/19 00:00 AST 23 Units/L (15-37) 03/07/19 00:00 ALT 25 Units/L (12-78) 03/07/19 00:00 Alkaline Phosphatase 55 Units/L (46-116) 03/07/19 00:00 Creatine Kinase 171 Units/L (39-308) 03/07/19 00:00 CK-MB (CK-2) 1.3 ng/mL (0-4.0) 03/07/19 00:00 CK/CKMB % Calc 0.8 % (<4) 03/07/19 00:00 Troponin I 0.02 ng/mL (0-1.5) 03/07/19 00:00 Total Protein 7.0 g/dL (6.4-8.2) 03/07/19 00:00 Albumin 3.3 g/dL (3.4-5.0) L 03/07/19 00:00 Globulin 3.7 g/dL (2.5-4.5) 03/07/19 00:00 Albumin/Globulin Ratio 0.9 Ratio (1.1-2.1) L 03/07/19 00:00 - Diagnosis Discharge Problem: Chest pain, rule out acute myocardial infarction, Hypokalemia, Hyperglycemia, COPD (chronic obstructive pulmonary disease) A-fib Qualifiers: Atrial fibrillation type: chronic Qualified Code(s): I48.2 - Chronic atrial fibrillation - Discharge Plan Disposition: ADMITTED INPATIENT Condition: Stable - Follow ups/Referrals Follow ups/Referrals: DMITRY GOEL [Primary Care Provider] - 3 days - Instructions
[2019-03-07 00:16] LABS: BASOPHILS # (AUTO) 0.1 X10^3/uL (0.0-0.1); BASOPHILS % (AUTO) 1.3 % (0.2-1.0); EOSINOPHILS # (AUTO) 0.3 x10^3/uL (0.0-0.2); EOSINOPHILS % (AUTO) 3.2 % (0.9-2.9); HEMATOCRIT 39.5 % (42.0-54.0); HEMOGLOBIN 13.3 g/dL (13.5-18.0); LYMPHOCYTES # (AUTO) 4.4 X10^3/uL (1.3-2.9); MEAN CORPUSCULAR HEMOGLOBIN 33.1 pg (27.0-34.0); MEAN CORPUSCULAR HGB CONC 33.5 g/dL (33.0-35.0); MEAN CORPUSCULAR VOLUME 98.8 fL (80.0-100.0); MEAN PLATELET VOLUME 8.1 fL (7.4-11.0); MONOCYTES # (AUTO) 1.1 x10^3/uL (0.3-0.8); MONOCYTES % (AUTO) 10.3 % (0.0-13.0); NEUTROPHILS # (AUTO) 4.7 x10^3/uL (2.2-4.8); NEUTROPHILS % (AUTO) 44.2 % (42.0-75.0); PLATELET COUNT 200 X10^3/uL (150.0-450.0); RED CELL DISTRIBUTION WIDTH 15.8 % (11.6-16.5); WHITE BLOOD COUNT 10.7 X10^3/uL (3.6-10.0)
[2019-03-07 00:47] LABS: ALANINE AMINOTRANSFERASE 25 Units/L (12-78); ALBUMIN 3.3 g/dL (3.4-5.0); ALKALINE PHOSPHATASE 55 Units/L (46-116); ASPARTATE AMINO TRANSFERASE 23 Units/L (15-37); BLOOD UREA NITROGEN 12 mg/dL (7-18); CALCIUM 8.9 mg/dL (8.5-10.1); CARBON DIOXIDE 26.7 mmol/L (21-32); CHLORIDE 105 mmol/L (98-107); CKMB % 0.8 % (<4); COR CA(FOR HYPOALB) 9.5 mg/dL (8.5-10.1); COR NA(FOR HYPERGLY) 144 mmol/L (136-145); CREATINE KINASE 171 Units/L (39-308); CREATINE KINASE MB 1.3 ng/mL (0-4.0); CREATININE 0.82 mg/dL (0.70-1.30); MAGNESIUM 1.5 mg/dL (1.7-2.9); SODIUM 143 mmol/L (136-145); TROPONIN I 0.02 ng/mL (0-1.5); eGFR NON BLACK RACES > 60 (>60)
[2019-03-07] MEDS ORDERED: K-LYTE EFFERVESCENT PO STA (00:57)
--- NOTE | 2019-03-07 03:47 | RAD ---
Chest AP portable Indication: Chest pain Comparison: 09/22/2018 Findings: There is cardiomegaly without pneumothorax. Pacemaker/AICD leads noted. Lungs are hyperinflated Impression: Cardiomegaly and COPD, similar to the prior without new acute chest process Reported By:
[2019-03-07] MEDS ORDERED: MICRO K EXTEN CAP 10 MEQ PO PRN (04:41)
[2019-03-07] MEDS ORDERED: POTASSIUM CHL 40 MEQ/NS 0.45% 500 ML IV PRN (04:41)
[2019-03-07] MEDS ORDERED: K-RIDER 10 MEQ/NS 100 ML 10 MEQ/100 ML BAG IV PRN (04:41)
[2019-03-07] MEDS ORDERED: POTASSIUM CHL 60 MEQ/NS 0.45% 500 ML IV PRN (04:41)
[2019-03-07] MEDS ORDERED: K-DUR TAB 20 MEQ PO PRN (04:41)
[2019-03-07] MEDS ORDERED: POTASSIUM CHLORIDE LIQ 20 MEQ UDC PO PRN (04:41)
[2019-03-07] MEDS ORDERED: KLOR-CON PO PRN (04:41)
[2019-03-07] MEDS ORDERED: NS 1000 ML 1,000 ML ONE (04:48)
[2019-03-07] MEDS ORDERED: MAGNESIUM SULFATE 1 GRAM/100 mL PREMIX 1 G/100 ML BAG IV ONE ×2 (04:51→05:42)
[2019-03-07] MEDS: NS 1000 ML 1,000 ML IV SCH ×3 (04:53→15:01)
[2019-03-07] MEDS: MAGNESIUM SULFATE 1 GRAM/100 mL PREMIX 1 GM/100 ML BAG IV PRN ×2 (04:54→05:45)
[2019-03-07 05:22] VITALS: BMI 33.0
[2019-03-07] MEDS: XOPENEX 1.25 MG/3 ML NEBULE NEB SCH ×3 (05:49→16:23)
[2019-03-07 06:33] LABS: BASOPHILS # (AUTO) 0.1 X10^3/uL (0.0-0.1); BASOPHILS % (AUTO) 1.1 % (0.2-1.0); EOSINOPHILS # (AUTO) 0.3 x10^3/uL (0.0-0.2); EOSINOPHILS % (AUTO) 3.3 % (0.9-2.9); HEMATOCRIT 36.1 % (42.0-54.0); HEMOGLOBIN 12.1 g/dL (13.5-18.0); LYMPHOCYTES # (AUTO) 3.9 X10^3/uL (1.3-2.9); LYMPHOCYTES % (AUTO) 44.1 % (21.0-51.0); MEAN CORPUSCULAR HEMOGLOBIN 32.9 pg (27.0-34.0); MEAN CORPUSCULAR HGB CONC 33.6 g/dL (33.0-35.0); MEAN CORPUSCULAR VOLUME 98.2 fL (80.0-100.0); MEAN PLATELET VOLUME 8.6 fL (7.4-11.0); MONOCYTES # (AUTO) 0.9 x10^3/uL (0.3-0.8); MONOCYTES % (AUTO) 10.4 % (0.0-13.0); NEUTROPHILS # (AUTO) 3.6 x10^3/uL (2.2-4.8); NEUTROPHILS % (AUTO) 41.1 % (42.0-75.0); PLATELET COUNT 177 X10^3/uL (150.0-450.0); RED BLOOD COUNT 3.68 X10^6/uL (4.7-6.0); RED CELL DISTRIBUTION WIDTH 16.4 % (11.6-16.5); WHITE BLOOD COUNT 8.8 X10^3/uL (3.6-10.0)
[2019-03-07 07:04] LABS: ALANINE AMINOTRANSFERASE 21 Units/L (12-78); ALBUMIN 2.9 g/dL (3.4-5.0); ALKALINE PHOSPHATASE 45 Units/L (46-116); ASPARTATE AMINO TRANSFERASE 19 Units/L (15-37); BLOOD UREA NITROGEN 11 mg/dL (7-18); CALCIUM 8.6 mg/dL (8.5-10.1); CARBON DIOXIDE 31.6 mmol/L (21-32); CHLORIDE 106 mmol/L (98-107); COR CA(FOR HYPOALB) 9.5 mg/dL (8.5-10.1); SODIUM 144 mmol/L (136-145); TOTAL PROTEIN 6.1 g/dL (6.4-8.2); eGFR NON BLACK RACES > 60 (>60)
--- NOTE | 2019-03-07 07:57 | DR.H&P ---
H&P - History & Physical for Day of: H&P Date: 03/07/19 - Chief Complaint Chief Complaint: cp, DIZZINESS - History of Present Illness History of Present Illness: 83 WM ER ADMISSION WITH CO of feeling dizzy with chest discomfort with pain radiating to his neck. states he took his blood pressure at home and it was 90/55 with a heart rate of 135 and thirt minutes later it was 90/60 with heart rate 85 and later it went back up. States he is a patient of Dr. Goel and his ping pong table assembler that did his pacemaker/defibrillator is Dr. Hartman. He is jc Wilson and has had his medicines today. He denies tobacco or alcohol usage but he has been having SOB. He has a history or atrial fibrillation. PT HAS PMH OF COPD, CHF, HTN, CAD, OA, GOUT, GERD. PT ADMITTED FOR TREATMENT AND EVALUATION OF ACUTE DIZZINESS, CP - Past Medical History Past Medical History: Arthritis, CHF, COPD, Coronary Artery Disease, Dyslipidemia, GERD, Gout, Hypertension, Hypothyroidism Additional Medical History: AORTIC ANEURYSM, AFIB - Past Surgical History Surgical History: Tonsillectomy, Other Additional Surgical History: PACE MAKER - Family History Family Medical History: [place], Coronary Artery Disease, Sudden Cardiac - Social History Does patient currently use any type of tobacco product: No Have you used tobacco products in the last 12 months: No Type of Tobacco Use: None Does any household member use tobacco: No Alcohol Use: None Drug Use: None - Medications Home Medications: No Known Drug Allergies Allergy (Verified 03/07/19 00:07) - Review of Systems Constitutional: No Symptoms Reported Eyes: No Symptoms Reported ENT: No Symptoms Reported Respiratory: Shortness of Breath, SOB with Excertion Cardiovascular: Chest Pain, Edema Gastrointestinal: No Symptoms Reported Genitourinary: No Symptoms Reported Musculoskeletal: Neck Pain Skin: No Symptoms Reported Neurological: Other (DIZZINESS) - Physical Exam Vital Signs: Temperature 97.8 F Pulse Rate [Apical] 80 Pulse Rate [Right Brachial] 80 Pulse Rate 80 Respiratory Rate 20 Blood Pressure [Left Arm] 103/69 Blood Pressure [Right Arm] 107/72 Blood Pressure 110/70 O2 Sat by Pulse Oximetry 97 Oriented: Normal Eyes: Normal Ear: Normal Nose: Injected Throat: Normal Respiratory: Wheezes Throughout (EXPIRATORY), RLL Diminished, LLL Diminished Cardiovascular: Irregular, Edema : Normal Auscultation: Bowel Sounds: Normal Tenderness: Normal Musculoskeletal: Back:Lumbar Psychiatric: Normal Mood Description: Calm Speech Pattern: Clear, Appropriate - Assessment/Plan (1) Chest pain Status: Acute Plan: ADMIT, SERIAL CE AND EKG. CXR ON ADMISSION. CBC CMP UA ON ADMISSION. CT HEAD DUE TO ACUTE DIZZINESS, CONTINUOUS CARDIAC MONITORING. SUPPLEMENTAL O2, VERIFY HOME MEDICATIONS. RESP CONSULT FOR DUO NEBS (2) COPD (chronic obstructive pulmonary disease) Status: Acute (3) SOB (shortness of breath) Status: Acute (4) Chest pain, rule out acute myocardial infarction Status: Acute (5) CHF (congestive heart failure) Status: Chronic (6) Osteoarthritis Status: Chronic (7) HTN (hypertension) Qualifiers: Status: Chronic - Allergies Allergies/Adverse Reactions: Allergies Allergy/AdvReac Type Severity Reaction Status Date / Time No Known Drug Allergies Allergy Verified 03/07/19 00:07
[2019-03-07] MEDS ORDERED: LASIX PO SCH (09:00)
[2019-03-07 09:08] LABS: CHOL/HDL RATIO 2.6 (0.0-5.0); CKMB % 1.2 % (<4); CREATINE KINASE MB 1.6 ng/mL (0-4.0); TROPONIN I 0.02 ng/mL (0-1.5)
--- NOTE | 2019-03-07 09:27 | CT ---
History: Mental status changes Exam: CT head without contrast Comparison: 05/06/2000 Technique: Routine transaxial images were obtained through the brain without contrast. Automated dose control was utilized. Findings: The ventricles are mildly enlarged with diffuse mild prominence of the cortical sulci. There is minimal periventricular low density bilaterally. No intracranial hemorrhage or edema is seen. There is no extra-axial fluid collection or mass. The midline structures are unremarkable. The bones are intact. There is moderate mucosal thickening throughout the ethmoid and right maxillary sinuses which is more prominent. IMPRESSION: Mild atrophy and mild chronic microischemic changes the deep white matter which is unchanged with no acute abnormality seen. Chronic ethmoid and right maxillary sinusitis which is more prominent. Reported By:
[2019-03-07] MEDS: COREG TAB 12.5 MG PO SCH ×2 (09:29→20:07)
[2019-03-07] MEDS: ZESTRIL TAB 5 MG PO SCH (09:29)
[2019-03-07] MEDS: SYNTHROID 75 mcg TAB PO SCH (09:29)
[2019-03-07] MEDS: ALDACTONE TAB 25 MG PO SCH (09:30)
[2019-03-07] MEDS: BETAPACE AF PO SCH ×2 (09:30→20:07)
[2019-03-07 10:58] LABS: CKMB % 1.1 % (<4); CREATINE KINASE MB 1.5 ng/mL (0-4.0); TROPONIN I 0.03 ng/mL (0-1.5)
[2019-03-07 15:10] LABS: BILIRUBIN,URINE NEGATIVE (NEGATIVE); BLOOD/HEMOGLOBIN,URINE NEGATIVE (NEGATIVE); GLUCOSE, URINE NEGATIVE (NEGATIVE); KETONES,URINE NEGATIVE (NEGATIVE); LEUKOCYTE ESTERASE ,URINE NEGATIVE (NEGATIVE); NITRITES,URINE NEGATIVE (NEGATIVE); PROTEIN,URINE NEGATIVE (NEGATIVE); UROBILINOGEN,URINE NORMAL (NORMAL)
[2019-03-07 15:22] LABS: APPEARANCE,URINE CLEAR (CLEAR); COLOR,URINE PALE YELLOW (YELLOW)
[2019-03-07 16:36] LABS: CKMB % 1.2 % (<4); CREATINE KINASE MB 1.6 ng/mL (0-4.0); TROPONIN I 0.03 ng/mL (0-1.5)
[2019-03-07] MEDS: XARELTO PO SCH (16:53)
[2019-03-07] MEDS: ROCEPHIN VIAL 1 GRAM IVP SCH (20:07)
[2019-03-07] MEDS: LIPITOR TAB 40 MG PO SCH (20:07)
[2019-03-07] MEDS ORDERED: SALINE 3% 15 ML NEB TX NEB ONE (20:41)
[2019-03-07] MEDS: PULMICORT NEB TX 0.5 MG NEB SCH (20:48)
[2019-03-07] MEDS: BROVANA IN SCH (21:17)
[2019-03-08] MEDS: XOPENEX 1.25 MG/3 ML NEBULE NEB SCH ×5 (00:45→16:10)
[2019-03-08] MEDS: NS 1000 ML 1,000 ML IV SCH ×2 (03:17→18:40)
[2019-03-08 04:52] LABS: BASOPHILS # (AUTO) 0.1 X10^3/uL (0.0-0.1); BASOPHILS % (AUTO) 0.7 % (0.2-1.0); EOSINOPHILS # (AUTO) 0.4 x10^3/uL (0.0-0.2); EOSINOPHILS % (AUTO) 3.8 % (0.9-2.9); HEMATOCRIT 36.8 % (42.0-54.0); HEMOGLOBIN 11.9 g/dL (13.5-18.0); LYMPHOCYTES # (AUTO) 3.2 X10^3/uL (1.3-2.9); LYMPHOCYTES % (AUTO) 34.8 % (21.0-51.0); MEAN CORPUSCULAR HEMOGLOBIN 32.6 pg (27.0-34.0); MEAN CORPUSCULAR HGB CONC 32.4 g/dL (33.0-35.0); MEAN CORPUSCULAR VOLUME 100.4 fL (80.0-100.0); MEAN PLATELET VOLUME 8.2 fL (7.4-11.0); MONOCYTES # (AUTO) 0.9 x10^3/uL (0.3-0.8); MONOCYTES % (AUTO) 9.4 % (0.0-13.0); NEUTROPHILS # (AUTO) 4.8 x10^3/uL (2.2-4.8); NEUTROPHILS % (AUTO) 51.3 % (42.0-75.0); PLATELET COUNT 177 X10^3/uL (150.0-450.0); RED BLOOD COUNT 3.66 X10^6/uL (4.7-6.0); RED CELL DISTRIBUTION WIDTH 16.3 % (11.6-16.5); WHITE BLOOD COUNT 9.3 X10^3/uL (3.6-10.0)
[2019-03-08 05:01] LABS: ALANINE AMINOTRANSFERASE 20 Units/L (12-78); ALBUMIN 2.7 g/dL (3.4-5.0); ALKALINE PHOSPHATASE 42 Units/L (46-116); ASPARTATE AMINO TRANSFERASE 21 Units/L (15-37); BLOOD UREA NITROGEN 9 mg/dL (7-18); CALCIUM 8.2 mg/dL (8.5-10.1); CHLORIDE 107 mmol/L (98-107); COR CA(FOR HYPOALB) 9.2 mg/dL (8.5-10.1); CREATININE 0.84 mg/dL (0.70-1.30); SODIUM 144 mmol/L (136-145); TOTAL PROTEIN 5.8 g/dL (6.4-8.2); eGFR NON BLACK RACES > 60 (>60)
[2019-03-08] MEDS: MAGNESIUM SULFATE 1 GRAM/100 mL PREMIX 1 GM/100 ML BAG IV PRN ×2 (05:24→06:27)
[2019-03-08] MEDS: LASIX PO SCH ×2 (06:00→16:13)
[2019-03-08] MEDS: SYNTHROID 75 mcg TAB PO SCH (06:00)
[2019-03-08] MEDS: ZESTRIL TAB 5 MG PO SCH (08:49)
[2019-03-08] MEDS: BETAPACE AF PO SCH ×2 (08:49→20:54)
[2019-03-08] MEDS: COREG TAB 12.5 MG PO SCH ×2 (08:49→20:54)
[2019-03-08] MEDS: ALDACTONE TAB 25 MG PO SCH (08:50)
[2019-03-08] MEDS: ROCEPHIN VIAL 1 GRAM IVP SCH (08:51)
[2019-03-08] MEDS: PULMICORT NEB TX 0.5 MG NEB SCH ×2 (09:27→20:56)
[2019-03-08] MEDS: BROVANA IN SCH ×2 (09:27→21:08)
[2019-03-08] MEDS: XARELTO PO SCH (16:13)
[2019-03-08] MEDS: LIPITOR TAB 40 MG PO SCH (20:54)
[2019-03-09] MEDS: XOPENEX 1.25 MG/3 ML NEBULE NEB SCH ×5 (00:07→16:25)
[2019-03-09 05:28] LABS: BASOPHILS # (AUTO) 0.1 X10^3/uL (0.0-0.1); BASOPHILS % (AUTO) 1.1 % (0.2-1.0); EOSINOPHILS # (AUTO) 0.3 x10^3/uL (0.0-0.2); EOSINOPHILS % (AUTO) 3.3 % (0.9-2.9); HEMATOCRIT 37.1 % (42.0-54.0); HEMOGLOBIN 12.3 g/dL (13.5-18.0); LYMPHOCYTES # (AUTO) 3.1 X10^3/uL (1.3-2.9); LYMPHOCYTES % (AUTO) 32.9 % (21.0-51.0); MEAN CORPUSCULAR HEMOGLOBIN 33.3 pg (27.0-34.0); MEAN CORPUSCULAR HGB CONC 33.2 g/dL (33.0-35.0); MEAN CORPUSCULAR VOLUME 100.5 fL (80.0-100.0); MEAN PLATELET VOLUME 8.3 fL (7.4-11.0); MONOCYTES # (AUTO) 0.9 x10^3/uL (0.3-0.8); MONOCYTES % (AUTO) 9.3 % (0.0-13.0); NEUTROPHILS % (AUTO) 53.4 % (42.0-75.0); PLATELET COUNT 171 X10^3/uL (150.0-450.0); WHITE BLOOD COUNT 9.4 X10^3/uL (3.6-10.0)
[2019-03-09 05:36] LABS: ALANINE AMINOTRANSFERASE 21 Units/L (12-78); ALBUMIN 2.8 g/dL (3.4-5.0); ALKALINE PHOSPHATASE 44 Units/L (46-116); ASPARTATE AMINO TRANSFERASE 19 Units/L (15-37); BLOOD UREA NITROGEN 12 mg/dL (7-18); CALCIUM 8.3 mg/dL (8.5-10.1); CARBON DIOXIDE 31.6 mmol/L (21-32); CHLORIDE 107 mmol/L (98-107); COR CA(FOR HYPOALB) 9.3 mg/dL (8.5-10.1); CREATININE 0.86 mg/dL (0.70-1.30); MAGNESIUM 1.8 mg/dL (1.7-2.9); SODIUM 143 mmol/L (136-145); TOTAL PROTEIN 6.1 g/dL (6.4-8.2); eGFR NON BLACK RACES > 60 (>60)
[2019-03-09] MEDS: SYNTHROID 75 mcg TAB PO SCH (06:01)
[2019-03-09] MEDS: LASIX PO SCH ×2 (06:01→17:20)
[2019-03-09] MEDS: NS 1000 ML 1,000 ML IV SCH ×3 (06:01→23:14)
[2019-03-09] MEDS: PULMICORT NEB TX 0.5 MG NEB SCH ×2 (08:15→20:18)
[2019-03-09] MEDS: BROVANA IN SCH ×2 (08:15→20:30)
[2019-03-09] MEDS: ZESTRIL TAB 5 MG PO SCH (08:57)
[2019-03-09] MEDS: ALDACTONE TAB 25 MG PO SCH (08:57)
[2019-03-09] MEDS: COREG TAB 12.5 MG PO SCH ×2 (08:57→20:49)
[2019-03-09] MEDS: BETAPACE AF PO SCH ×2 (08:57→20:49)
[2019-03-09] MEDS: ROCEPHIN VIAL 1 GRAM IVP SCH (09:26)
[2019-03-09] MEDS: MAGNESIUM SULFATE 1 GRAM/100 mL PREMIX 1 GM/100 ML BAG IV PRN ×2 (09:30→11:31)
[2019-03-09] MEDS: MILK OF MAGNESIA PO SCH (11:37)
[2019-03-09] MEDS: XARELTO PO SCH (17:20)
--- NOTE | 2019-03-09 17:39 | PCM.PROG ---
Progress Note - Progress Note for Day of Date of Exam: 03/08/19 - Subjective Subjective: 83 WM ER ADMISSIONON 03/07 WITH CO PALPITATIONS, CP, SOB AND DIZZINESS. PT HAS HX OF CAD, CHF, COPD. PT HAS DEFIBRILLATOR AND FOLLOWED BY [facility] IN [place]. PT HAS SERIAL CE AND EKG ON ADMISSION. PT HAD CT HEAD W/O REVEALING SINUSITIS. PT IS CURRENTLY ON IV ROCEPHIN AND RESP THERAPY. PT DENIES ANY CP NOW BUT HAD SOB WHEN GETTING UP TO BATHROOM. WBC 9.3, BUN 9, CREAT 0.84.PT IS ALSO RECIEVING IV LASIX WITH STRICT I & OS - Past Medical Family Social History Past Med/Fam/Surg Hx: No changes since H&P Allergies: Allergies No Known Drug Allergies Allergy (Verified 03/07/19 00:07) - Review of Systems ROS: No change since H&P - Vital Signs and I&O's Vital Signs: Temperature 98.0 F Pulse Rate [Apical] 80 Pulse Rate [Right Brachial] 81 Pulse Rate 86 Respiratory Rate 20 Blood Pressure [Left Arm] 103/69 Blood Pressure [Right Arm] 111/63 Blood Pressure 110/70 O2 Sat by Pulse Oximetry 95 Intake and Output: Intake & Output 03/07/19 03/08/19 03/09/19 03/10/19 11:59 11:59 11:59 11:59 Intake Total 220 / 220 2290 / 2290 2455 / 2455 1170 / 1170 Balance 220 / 220 2290 / 2290 2455 / 2455 1170 / 1170 - Physical Exam Oriented: Normal Eyes: Normal Ear: Normal Nose: Injected Throat: Normal Respiratory: Diminished, Wheezes Cardiovascular: Irregular, Edema : Normal Auscultation: Bowel Sounds: Normal Tenderness: Normal Musculoskeletal: Back:Lumbar Psychiatric: Normal Mood Description: Calm Speech Pattern: Clear, Appropriate - Laboratory and Diagnostics Result Diagrams: 03/09/19 04:37 03/09/19 04:37 Labs: Laboratory WBC 9.4 X10^3/uL (3.6-10.0) 03/09/19 04:37 RBC 3.70 X10^6/uL (4.7-6.0) L 03/09/19 04:37 Hgb 12.3 g/dL (13.5-18.0) L 03/09/19 04:37 Hct 37.1 % (42.0-54.0) L 03/09/19 04:37 MCV 100.5 fL (80.0-100.0) H 03/09/19 04:37 MCH 33.3 pg (27.0-34.0) 03/09/19 04:37 MCHC 33.2 g/dL (33.0-35.0) 03/09/19 04:37 RDW 16.0 % (11.6-16.5) 03/09/19 04:37 Plt Count 171 X10^3/uL (150.0-450.0) 03/09/19 04:37 MPV 8.3 fL (7.4-11.0) 03/09/19 04:37 Neut % (Auto) 53.4 % (42.0-75.0) 03/09/19 04:37 Lymph % (Auto) 32.9 % (21.0-51.0) 03/09/19 04:37 [place] % (Auto) 9.3 % (0.0-13.0) 03/09/19 04:37 Eos % (Auto) 3.3 % (0.9-2.9) H 03/09/19 04:37 Baso % (Auto) 1.1 % (0.2-1.0) H 03/09/19 04:37 Neut # (Auto) 5.0 x10^3/uL (2.2-4.8) H 03/09/19 04:37 Lymph # (Auto) 3.1 X10^3/uL (1.3-2.9) H 03/09/19 04:37 [place] # (Auto) 0.9 x10^3/uL (0.3-0.8) H 03/09/19 04:37 Eos # (Auto) 0.3 x10^3/uL (0.0-0.2) H 03/09/19 04:37 Baso # (Auto) 0.1 X10^3/uL (0.0-0.1) 03/09/19 04:37 Absolute Nucleated RBC 0.1 /100WBC 03/09/19 04:37 INR Target Range - 03/07/19 00:00 INR 1.49 (0.8-1.3) H 03/07/19 00:00 APTT 33.0 SECONDS (22.9-36.5) 03/07/19 00:00 PTT Comment - 03/07/19 00:00 D-Dimer < 100 ng/mL (0-400) 03/07/19 00:00 Sodium 143 mmol/L (136-145) 03/09/19 04:37 Corrected Sodium TNP 03/09/19 04:37 Potassium 4.1 mmol/L (3.5-5.1) 03/09/19 04:37 Chloride 107 mmol/L (98-107) 03/09/19 04:37 Carbon Dioxide 31.6 mmol/L (21-32) 03/09/19 04:37 BUN 12 mg/dL (7-18) 03/09/19 04:37 Creatinine 0.86 mg/dL (0.70-1.30) 03/09/19 04:37 Est GFR (MDRD) Af Amer > 60 (>60) 03/09/19 04:37 Est GFR (MDRD) Non-Af > 60 (>60) 03/09/19 04:37 Glucose 96 mg/dL (65-99) 03/09/19 04:37 Calcium 8.3 mg/dL (8.5-10.1) L 03/09/19 04:37 Corrected Calcium 9.3 mg/dL (8.5-10.1) 03/09/19 04:37 Magnesium 1.8 mg/dL (1.7-2.9) 03/09/19 04:37 Total Bilirubin 0.70 mg/dL (0.2-1.0) 03/09/19 04:37 AST 19 Units/L (15-37) 03/09/19 04:37 ALT 21 Units/L (12-78) 03/09/19 04:37 Alkaline Phosphatase 44 Units/L (46-116) L 03/09/19 04:37 Creatine Kinase 132 Units/L (39-308) 03/07/19 16:10 CK-MB (CK-2) 1.6 ng/mL (0-4.0) 03/07/19 16:10 CK/CKMB % Calc 1.2 % (<4) 03/07/19 16:10 Troponin I 0.03 ng/mL (0-1.5) 03/07/19 16:10 Total Protein 6.1 g/dL (6.4-8.2) L 03/09/19 04:37 Albumin 2.8 g/dL (3.4-5.0) L 03/09/19 04:37 Globulin 3.3 g/dL (2.5-4.5) 03/09/19 04:37 Albumin/Globulin Ratio 0.8 Ratio (1.1-2.1) L 03/09/19 04:37 Triglycerides 45 mg/dL (0-150) 03/07/19 05:28 Cholesterol 100 mg/dL (0-200) 03/07/19 05:28 LDL Cholesterol, Calc 53 mg/dL (0-100) 03/07/19 05:28 HDL Cholesterol 38 mg/dL (40-60) L 03/07/19 05:28 Cholesterol/HDL Ratio 2.6 (0.0-5.0) 03/07/19 05:28 Specimen Type Clean catch urine 03/07/19 15:00 Urine Color Pale yellow (YELLOW) 03/07/19 15:00 Urine Appearance Clear (CLEAR) 03/07/19 15:00 Urine pH 7.0 (5.0 - 8.0) 03/07/19 15:00 Ur Specific [place] 1.005 (1.000-1.030) 03/07/19 15:00 Urine Protein Negative (NEGATIVE) 03/07/19 15:00 Urine Glucose (UA) Negative (NEGATIVE) 03/07/19 15:00 Urine Ketones Negative (NEGATIVE) 03/07/19 15:00 Urine Occult Blood Negative (NEGATIVE) 03/07/19 15:00 Urine Nitrite Negative (NEGATIVE) 03/07/19 15:00 Urine Bilirubin Negative (NEGATIVE) 03/07/19 15:00 Urine Urobilinogen Normal (NORMAL) 03/07/19 15:00 Ur Leukocyte Esterase Negative (NEGATIVE) 03/07/19 15:00 - Plan (1) Chest pain Status: Acute Plan: SERIAL CE AND EKG. CXR AM. CBC CMP UA ON ADMISSION. CT HEAD DUE TO ACUTE DIZZINESS, CONTINUOUS CARDIAC MONITORING. SUPPLEMENTAL O2, VERIFY HOME MEDICATIONS. RESP CONSULT FOR DUO NEBS (2) COPD (chronic obstructive pulmonary disease) Status: Acute (3) SOB (shortness of breath) Status: Acute (4) Chest pain, rule out acute myocardial infarction Status: Acute (5) CHF (congestive heart failure) Status: Chronic (6) Osteoarthritis Status: Chronic (7) HTN (hypertension) Status: Chronic Qualifiers:
--- NOTE | 2019-03-09 17:41 | PCM.PROG ---
Progress Note - Progress Note for Day of Date of Exam: 03/09/19 - Subjective Subjective: 83 WM ER ADMISSIONON 03/07 WITH CO PALPITATIONS, CP, SOB AND DIZZINESS. PT HAS HX OF CAD, CHF, COPD. PT HAS DEFIBRILLATOR AND FOLLOWED BY [facility] [place]. PT HAS SERIAL CE AND EKG ON ADMISSION. PT HAD CT HEAD W/O REVEALING SINUSITIS. PT IS CURRENTLY ON IV ROCEPHIN AND RESP THERAPY. PT DENIES ANY CP NOW BUT HAD SOB WHEN GETTING UP TO BATHROOM. PT DID HAVE RUN OF VTACH ON TELEMETRY BUT STATES "DEFIBRILLATOR DID NOT GO OFF" WE CONSULTED [employer] REP TO INTERROGATE DEVICE. WBC 9.4, BUN 12, CREAT 0.86. PT IS ALSO RECIEVING IV LASIX WITH STRICT I & OS - Past Medical Family Social History Past Med/Fam/Surg Hx: No changes since H&P Allergies: Allergies No Known Drug Allergies Allergy (Verified 03/07/19 00:07) - Review of Systems ROS: No change since H&P - Vital Signs and I&O's Vital Signs: Temperature 98.0 F Pulse Rate [Apical] 80 Pulse Rate [Right Brachial] 81 Pulse Rate 86 Respiratory Rate 20 Blood Pressure [Left Arm] 103/69 Blood Pressure [Right Arm] 111/63 Blood Pressure 110/70 O2 Sat by Pulse Oximetry 95 Intake and Output: Intake & Output 03/07/19 03/08/19 03/09/19 03/10/19 11:59 11:59 11:59 11:59 Intake Total 220 / 220 2290 / 2290 2455 / 2455 1170 / 1170 Balance 220 / 220 2290 / 2290 2455 / 2455 1170 / 1170 - Physical Exam Oriented: Normal Eyes: Normal Ear: Normal Nose: Injected Throat: Normal Respiratory: Diminished, Wheezes Cardiovascular: Irregular, Edema : Normal Auscultation: Bowel Sounds: Normal Tenderness: Normal Musculoskeletal: Back:Lumbar Psychiatric: Normal Mood Description: Calm Speech Pattern: Clear, Appropriate - Laboratory and Diagnostics Result Diagrams: 03/09/19 04:37 03/09/19 04:37 Labs: Laboratory WBC 9.4 X10^3/uL (3.6-10.0) 03/09/19 04:37 RBC 3.70 X10^6/uL (4.7-6.0) L 03/09/19 04:37 Hgb 12.3 g/dL (13.5-18.0) L 03/09/19 04:37 Hct 37.1 % (42.0-54.0) L 03/09/19 04:37 MCV 100.5 fL (80.0-100.0) H 03/09/19 04:37 MCH 33.3 pg (27.0-34.0) 03/09/19 04:37 MCHC 33.2 g/dL (33.0-35.0) 03/09/19 04:37 RDW 16.0 % (11.6-16.5) 03/09/19 04:37 Plt Count 171 X10^3/uL (150.0-450.0) 03/09/19 04:37 MPV 8.3 fL (7.4-11.0) 03/09/19 04:37 Neut % (Auto) 53.4 % (42.0-75.0) 03/09/19 04:37 Lymph % (Auto) 32.9 % (21.0-51.0) 03/09/19 04:37 [place] % (Auto) 9.3 % (0.0-13.0) 03/09/19 04:37 Eos % (Auto) 3.3 % (0.9-2.9) H 03/09/19 04:37 Baso % (Auto) 1.1 % (0.2-1.0) H 03/09/19 04:37 Neut # (Auto) 5.0 x10^3/uL (2.2-4.8) H 03/09/19 04:37 Lymph # (Auto) 3.1 X10^3/uL (1.3-2.9) H 03/09/19 04:37 [place] # (Auto) 0.9 x10^3/uL (0.3-0.8) H 03/09/19 04:37 Eos # (Auto) 0.3 x10^3/uL (0.0-0.2) H 03/09/19 04:37 Baso # (Auto) 0.1 X10^3/uL (0.0-0.1) 03/09/19 04:37 Absolute Nucleated RBC 0.1 /100WBC 03/09/19 04:37 INR Target Range - 03/07/19 00:00 INR 1.49 (0.8-1.3) H 03/07/19 00:00 APTT 33.0 SECONDS (22.9-36.5) 03/07/19 00:00 PTT Comment - 03/07/19 00:00 D-Dimer < 100 ng/mL (0-400) 03/07/19 00:00 Sodium 143 mmol/L (136-145) 03/09/19 04:37 Corrected Sodium TNP 03/09/19 04:37 Potassium 4.1 mmol/L (3.5-5.1) 03/09/19 04:37 Chloride 107 mmol/L (98-107) 03/09/19 04:37 Carbon Dioxide 31.6 mmol/L (21-32) 03/09/19 04:37 BUN 12 mg/dL (7-18) 03/09/19 04:37 Creatinine 0.86 mg/dL (0.70-1.30) 03/09/19 04:37 Est GFR (MDRD) Af Amer > 60 (>60) 03/09/19 04:37 Est GFR (MDRD) Non-Af > 60 (>60) 03/09/19 04:37 Glucose 96 mg/dL (65-99) 03/09/19 04:37 Calcium 8.3 mg/dL (8.5-10.1) L 03/09/19 04:37 Corrected Calcium 9.3 mg/dL (8.5-10.1) 03/09/19 04:37 Magnesium 1.8 mg/dL (1.7-2.9) 03/09/19 04:37 Total Bilirubin 0.70 mg/dL (0.2-1.0) 03/09/19 04:37 AST 19 Units/L (15-37) 03/09/19 04:37 ALT 21 Units/L (12-78) 03/09/19 04:37 Alkaline Phosphatase 44 Units/L (46-116) L 03/09/19 04:37 Creatine Kinase 132 Units/L (39-308) 03/07/19 16:10 CK-MB (CK-2) 1.6 ng/mL (0-4.0) 03/07/19 16:10 CK/CKMB % Calc 1.2 % (<4) 03/07/19 16:10 Troponin I 0.03 ng/mL (0-1.5) 03/07/19 16:10 Total Protein 6.1 g/dL (6.4-8.2) L 03/09/19 04:37 Albumin 2.8 g/dL (3.4-5.0) L 03/09/19 04:37 Globulin 3.3 g/dL (2.5-4.5) 03/09/19 04:37 Albumin/Globulin Ratio 0.8 Ratio (1.1-2.1) L 03/09/19 04:37 Triglycerides 45 mg/dL (0-150) 03/07/19 05:28 Cholesterol 100 mg/dL (0-200) 03/07/19 05:28 LDL Cholesterol, Calc 53 mg/dL (0-100) 03/07/19 05:28 HDL Cholesterol 38 mg/dL (40-60) L 03/07/19 05:28 Cholesterol/HDL Ratio 2.6 (0.0-5.0) 03/07/19 05:28 Specimen Type Clean catch urine 03/07/19 15:00 Urine Color Pale yellow (YELLOW) 03/07/19 15:00 Urine Appearance Clear (CLEAR) 03/07/19 15:00 Urine pH 7.0 (5.0 - 8.0) 03/07/19 15:00 Ur Specific [place] 1.005 (1.000-1.030) 03/07/19 15:00 Urine Protein Negative (NEGATIVE) 03/07/19 15:00 Urine Glucose (UA) Negative (NEGATIVE) 03/07/19 15:00 Urine Ketones Negative (NEGATIVE) 03/07/19 15:00 Urine Occult Blood Negative (NEGATIVE) 03/07/19 15:00 Urine Nitrite Negative (NEGATIVE) 03/07/19 15:00 Urine Bilirubin Negative (NEGATIVE) 03/07/19 15:00 Urine Urobilinogen Normal (NORMAL) 03/07/19 15:00 Ur Leukocyte Esterase Negative (NEGATIVE) 03/07/19 15:00 - Plan (1) Chest pain Status: Acute Plan: SERIAL CE AND EKG. CXR AM. CBC CMP UA ON ADMISSION. CT HEAD DUE TO ACU TE DIZZINESS, CONTINUOUS CARDIAC MONITORING. SUPPLEMENTAL O2, VERIFY HOME MEDICATIONS. RESP CONSULT FOR DUO NEBS (2) COPD (chronic obstructive pulmonary disease) Status: Acute (3) SOB (shortness of breath) Status: Acute (4) Chest pain, rule out acute myocardial infarction Status: Acute (5) CHF (congestive heart failure) Status: Chronic (6) Osteoarthritis Status: Chronic (7) HTN (hypertension) Status: Chronic Qualifiers:
[2019-03-09] MEDS: LIPITOR TAB 40 MG PO SCH (20:49)
[2019-03-09] MEDS ORDERED: COLACE CAP 100 MG PO SCH (21:00)
[2019-03-10] MEDS: XOPENEX 1.25 MG/3 ML NEBULE NEB SCH ×2 (01:22→05:21)
[2019-03-10 05:15] LABS: BASOPHILS # (AUTO) 0.1 X10^3/uL (0.0-0.1); EOSINOPHILS # (AUTO) 0.3 x10^3/uL (0.0-0.2); EOSINOPHILS % (AUTO) 2.9 % (0.9-2.9); HEMOGLOBIN 12.3 g/dL (13.5-18.0); LYMPHOCYTES # (AUTO) 2.8 X10^3/uL (1.3-2.9); LYMPHOCYTES % (AUTO) 25.8 % (21.0-51.0); MEAN CORPUSCULAR HEMOGLOBIN 33.4 pg (27.0-34.0); MEAN CORPUSCULAR HGB CONC 33.3 g/dL (33.0-35.0); MEAN PLATELET VOLUME 8.5 fL (7.4-11.0); MONOCYTES % (AUTO) 9.3 % (0.0-13.0); NEUTROPHILS # (AUTO) 6.7 x10^3/uL (2.2-4.8); PLATELET COUNT 166 X10^3/uL (150.0-450.0); RED CELL DISTRIBUTION WIDTH 16.3 % (11.6-16.5)
[2019-03-10 05:34] LABS: ALANINE AMINOTRANSFERASE 24 Units/L (12-78); ALKALINE PHOSPHATASE 48 Units/L (46-116); ASPARTATE AMINO TRANSFERASE 19 Units/L (15-37); BLOOD UREA NITROGEN 12 mg/dL (7-18); CALCIUM 8.4 mg/dL (8.5-10.1); CHLORIDE 106 mmol/L (98-107); COR CA(FOR HYPOALB) 9.2 mg/dL (8.5-10.1); CREATININE 0.81 mg/dL (0.70-1.30); MAGNESIUM 2.1 mg/dL (1.7-2.9); SODIUM 142 mmol/L (136-145); TOTAL PROTEIN 6.5 g/dL (6.4-8.2); eGFR NON BLACK RACES > 60 (>60)
[2019-03-10] MEDS: SYNTHROID 75 mcg TAB PO SCH (06:11)
[2019-03-10] MEDS: LASIX PO SCH (06:11)
[2019-03-10] MEDS ORDERED: LASIX IVP ONE (08:24)
[2019-03-10] MEDS: BROVANA IN SCH (08:56)
[2019-03-10] MEDS: BETAPACE AF PO SCH (09:04)
[2019-03-10] MEDS: MILK OF MAGNESIA PO SCH (09:04)
[2019-03-10] MEDS: ROCEPHIN VIAL 1 GRAM IVP SCH (09:04)
[2019-03-10] MEDS: COREG TAB 12.5 MG PO SCH (09:04)
[2019-03-10] MEDS: ALDACTONE TAB 25 MG PO SCH (09:04)
--- NOTE | 2019-03-10 09:06 | RAD ---
History: Chest pain and shortness of breath Study: Portable AP chest Comparison: March 07 Findings: There is unchanged moderate cardiomegaly with intact pacer and AICD wires via the left subclavian vein. The lungs appear grossly clear. Impression: Unchanged cardiomegaly, no definite acute disease Reported By:
[2019-03-10] MEDS: PULMICORT NEB TX 0.5 MG NEB SCH (09:08)
[2019-03-10] MEDS: ZESTRIL TAB 5 MG PO SCH (09:09)
[2019-03-10 12:52] VITALS: BP 111/76
== END 2019-03-10 13:15 | disposition home or self-care (01) ==
LOC: ER 23:42 → MED/SURG 23:42
PROVIDERS: ADMIT Internal Medicine; ATTEND Internal Medicine
DX: I25.10 Atherosclerotic heart disease of native coronary artery without angina pectoris; J44.9 Chronic obstructive pulmonary disease, unspecified; E78.2 Mixed hyperlipidemia; I49.9 Cardiac arrhythmia, unspecified; Z79.01 Long term (current) use of anticoagulants; K21.9 Gastro-esophageal reflux disease without esophagitis; J32.2 Chronic ethmoidal sinusitis; J32.0 Chronic maxillary sinusitis; Z79.899 Other long term (current) drug therapy; E03.8 Other specified hypothyroidism; E87.6 Hypokalemia; M13.89 Other specified arthritis, multiple sites; R06.02 Shortness of breath; R94.31 Abnormal electrocardiogram [ECG] [EKG]; I77.810 Thoracic aortic ectasia; E11.65 Type 2 diabetes mellitus with hyperglycemia; I10 Essential (primary) hypertension; R07.89 Other chest pain; Z95.0 Presence of cardiac pacemaker; I48.2 Chronic atrial fibrillation
CPT/HCPCS: 36415; 70450; 71010; 71045; 80053; 80061; 81003; 82550; 82553; 83735; 84484; 85025; 85378; 85610; 85730; 93005; 94640; 94760; 96365; 96367; 96374; 99218; 99284; A4216; A4222; G0378; J0696; J1940; J3475; J7030; J7626; J8499

== ENCOUNTER 2019-12-21 11:59 | Inpatient (IN) ==
[2019-12-21 13:59] LABS: ABG BASE EXCESS 2.5 mmol/L (-2.0-2.0); ABG HCO3 26.3 mmol/L (22-26)
[2019-12-21 14:00] LABS: ABG ALLEN TEST POS
[2019-12-21 14:09] LABS: BASOPHILS # (AUTO) 0.2 X10^3/uL (0.0-0.1); BASOPHILS % (AUTO) 1.2 % (0.2-1.0); EOSINOPHILS # (AUTO) 0.2 x10^3/uL (0.0-0.2); EOSINOPHILS % (AUTO) 1.6 % (0.9-2.9); HEMATOCRIT 36.3 % (42.0-54.0); HEMOGLOBIN 12.2 g/dL (13.5-18.0); LYMPHOCYTES # (AUTO) 2.1 X10^3/uL (1.3-2.9); LYMPHOCYTES % (AUTO) 16.4 % (21.0-51.0); MEAN CORPUSCULAR HEMOGLOBIN 33.9 pg (27.0-34.0); MEAN CORPUSCULAR HGB CONC 33.5 g/dL (33.0-35.0); MEAN CORPUSCULAR VOLUME 101.2 fL (80.0-100.0); MONOCYTES # (AUTO) 0.9 x10^3/uL (0.3-0.8); MONOCYTES % (AUTO) 6.6 % (0.0-13.0); NEUTROPHILS # (AUTO) 9.6 x10^3/uL (2.2-4.8); NEUTROPHILS % (AUTO) 74.2 % (42.0-75.0); PLATELET COUNT 174 X10^3/uL (150.0-450.0); RED BLOOD COUNT 3.58 X10^6/uL (4.7-6.0); RED CELL DISTRIBUTION WIDTH 15.4 % (11.6-16.5)
[2019-12-21] MEDS: ZITHROMAX INJ 500 MG VIAL 500 MG in NS 250 ML IV 250 ML IV SCH (14:14)
[2019-12-21] MEDS: SOLU-Medrol 125 MG VIAL IVP SCH ×2 (14:14→21:00)
[2019-12-21] MEDS: ROBITUSSIN DM PO SCH ×3 (14:14→20:21)
[2019-12-21] MEDS ORDERED: NS 250 ML IV 250 ML IV ONE (14:24)
[2019-12-21 14:27] LABS: ALANINE AMINOTRANSFERASE 29 Units/L (12-78); ALBUMIN 2.9 g/dL (3.4-5.0); ALKALINE PHOSPHATASE 50 Units/L (46-116); ASPARTATE AMINO TRANSFERASE 22 Units/L (15-37); BLOOD UREA NITROGEN 16 mg/dL (7-18); CALCIUM 8.6 mg/dL (8.5-10.1); CARBON DIOXIDE 28.4 mmol/L (21-32); CHLORIDE 103 mmol/L (98-107); COR CA(FOR HYPOALB) 9.5 mg/dL (8.5-10.1); CREATININE 1.05 mg/dL (0.70-1.30); MAGNESIUM 1.8 mg/dL (1.7-2.9); SODIUM 138 mmol/L (136-145); TOTAL PROTEIN 6.9 g/dL (6.4-8.2); URIC ACID 5.2 mg/dL (3.5-7.2); eGFR NON BLACK RACES > 60 (>60)
--- NOTE | 2019-12-21 14:43 | RAD ---
HISTORYCOPD SOBSTUDYChest, PA and lateral [id number] cardiomegaly with stable position of multi chamber pacemaker. The lungs are clear of active disease. There is no definite CHF, pneumonia or large pleural effusion.IMPRESSIONStable cardiomegaly. No acute pulmonary or pleural lesion identified. Considering projection differences there is no change since prior.Electronically signed by: LIZA WALTON (Dec 21, 2019 14:42:02)
[2019-12-21 16:11] VITALS: BMI 35.9
[2019-12-21] MEDS: DUONEB 0.5 MG/3 MG (3 mL) NEB SCH ×2 (16:35→20:51)
[2019-12-21 17:23] LABS: BILIRUBIN,URINE NEGATIVE (NEGATIVE); BLOOD/HEMOGLOBIN,URINE 5+ (NEGATIVE); GLUCOSE, URINE NEGATIVE (NEGATIVE); KETONES,URINE NEGATIVE (NEGATIVE); LEUKOCYTE ESTERASE ,URINE 1+ (NEGATIVE); NITRITES,URINE NEGATIVE (NEGATIVE); PROTEIN,URINE NEGATIVE (NEGATIVE); UROBILINOGEN,URINE NORMAL (NORMAL)
[2019-12-21 17:26] LABS: APPEARANCE,URINE HAZY (CLEAR); COLOR,URINE YELLOW (YELLOW)
[2019-12-21 17:31] LABS: BACTERIA,URINE TRACE /HPF (NEGATIVE); RBC,URINE 30-50 /HPF (0-3); SQUAMOUS EPITHELIAL CELL,UR RARE /HPF (NEGATIVE)
--- NOTE | 2019-12-21 18:12 | DR.H&P ---
H&P - History & Physical for Day of: H&P Date: 12/21/19 - Chief Complaint Chief Complaint: CCC, WHEEZING, BLOOD CLOTS IN URINE, LOWER "STOMACH MUSCLES SORE" FROM COUGHING - History of Present Illness History of Present Illness: PT IS 84 WM DIRECT ADMIT FROM DR FALL OFFICE AFTER PRESENTING WITH CO CCC, WHEEZING. PT HAS TAKEN PO ANTIBIOTICS AND IM DECADRON 10MG FOR UPPER RESPIRATORY INFECTION WITHOUT IMPROVEMENT. PT CO SEVERE COUGHING EPISODES AND SORENESS TO LOWER ABD. PT IS ON XARELTO DAILY AND CO BLOOD CLOTS IN URINE. PT WAS SEEN ER LAST WEEK AND HAD CT SCAN. PT HELD BLOOD THINNER WITH RESOLVED CLOTS, THEN RESTARTED XARELTO ON SATURDAY AND RETURNED HEMATURIA TODAY. PT ADMITTED FOR TREATMENT OF AB WITH COPD AND R/O SPONTANEOUS BLADDER HEMORRHAGE. - Past Medical History Past Medical History: Coronary Artery Disease, Hypertension, Dyslipidemia, Hypothyroidism, COPD, GERD, Arthritis, Gout, CHF Additional Medical History: AORTIC ANEURYSM, AFIB - Past Surgical History Surgical History: Tonsillectomy, Other Additional Surgical History: PACE MAKER - Family History Family Medical History: [place], Coronary Artery Disease, Sudden Cardiac - Social History Does patient currently use any type of tobacco product: No Have you used tobacco products in the last 12 months: No Type of Tobacco Use: None Does any household member use tobacco: No Alcohol Use: None Drug Use: None - Medications Home Medications: No Known Drug Allergies Allergy (Verified 03/07/19 00:07) CONTINUE taking the following medications allopurinol 100 mg PO DAILY 12/21/19 [History] - Review of Systems Constitutional: Weakness Eyes: No Symptoms Reported ENT: No Symptoms Reported Respiratory: Shortness of Breath, SOB with Excertion, Wheezing. denies: Hemoptysis Cardiovascular: Edema. denies: Chest Pain Gastrointestinal: Abdominal Pain (LOWER) Genitourinary: Dysuria, Hematuria Musculoskeletal: Back Pain Skin: No Symptoms Reported Neurological: No Symptoms Reported - Physical Exam Vital Signs: Temperature 98.4 F Pulse Rate [Left Brachial] 111 Pulse Rate 80 Respiratory Rate 24 Blood Pressure [Left Arm] 101/67 Blood Pressure 112/71 O2 Sat by Pulse Oximetry 96 Oriented: Normal Eyes: Normal Ear: Normal Nose: Normal Throat: Normal Respiratory: Rhonchi Throughout, Wheezes Throughout, RLL Diminished, LLL Diminished Cardiovascular: Normal, Edema : Hematuria Auscultation: Bowel Sounds: Normal Palpation: Normal Tenderness: Normal Skin: Normal Musculoskeletal: Back:Lumbar Psychiatric: Normal Mood Description: Calm Speech Pattern: Clear, Appropriate - Assessment/Plan (1) Asthmatic bronchitis with acute exacerbation Qualifiers: Asthma severity: moderate Asthma persistence: persistent Qualified Code(s): J45.41 - Moderate persistent asthma with (acute) exacerbation Status: Acute Plan: ADMIT, PNEUMONIA PROTOCOL. IV ATBX, IV SOLU MEDROL, SUPPLEMENTAL O2. IV LASIX, STRICT I & OS. UA ON ADMISSION, HOLD XARELTO. BLADDER US, PT/INR, ADMISSION LABS AND REPEAT AM CBC. URINE CULTURE, CARDIAC MONITORING (2) Acute prostatitis with hematuria Status: Acute (3) COPD exacerbation Status: Acute (4) CHF (congestive heart failure) Status: Chronic (5) HTN (hypertension) Qualifiers: Status: Chronic (6) Osteoarthritis Status: Chronic - Allergies Allergies/Adverse Reactions: Allergies Allergy/AdvReac Type Severity Reaction Status Date / Time No Known Drug Allergies Allergy Verified 03/07/19 00:07
[2019-12-21] MEDS: COREG TAB 12.5 MG PO SCH (20:13)
[2019-12-21] MEDS: BETAPACE AF PO SCH (20:13)
[2019-12-21] MEDS: LIPITOR TAB 40 MG PO SCH (20:13)
[2019-12-21] MEDS: LASIX IVP SCH (20:14)
[2019-12-21] MEDS: FLOMAX PO SCH (20:14)
[2019-12-21] MEDS: PULMICORT NEB TX 0.5 MG NEB SCH (20:51)
[2019-12-22] MEDS: DUONEB 0.5 MG/3 MG (3 mL) NEB SCH ×7 (00:21→20:29)
[2019-12-22] MEDS: TUSSIONEX PENNKINETIC SUSP PO PRN ×2 (01:03→22:07)
--- NOTE | 2019-12-22 06:16 | US ---
HISTORYHematuriaSTUDYBladder ultrasoundTechnique: Multiple grayscale sonographic images were obtained.COMPARISONNoneFINDINGSThe visualized bladder demonstrated no definite evidence for intraluminal stones or masses. No definite mucosal abnormality is identified. If gross hematuria persists, cystoscopy may be indicated.IMPRESSIONNo definite abnormality identifiedElectronically signed by: HIEU GONZALEZ (Dec 22, 2019 06:15:07)
[2019-12-22 06:17] LABS: BASOPHILS % (AUTO) 0.1 % (0.2-1.0); HEMATOCRIT 35.3 % (42.0-54.0); HEMOGLOBIN 11.8 g/dL (13.5-18.0); LYMPHOCYTES % (AUTO) 11.7 % (21.0-51.0); MEAN CORPUSCULAR HEMOGLOBIN 33.9 pg (27.0-34.0); MEAN CORPUSCULAR HGB CONC 33.5 g/dL (33.0-35.0); MEAN CORPUSCULAR VOLUME 101.2 fL (80.0-100.0); MEAN PLATELET VOLUME 8.1 fL (7.4-11.0); MONOCYTES # (AUTO) 0.1 x10^3/uL (0.3-0.8); MONOCYTES % (AUTO) 1.6 % (0.0-13.0); NEUTROPHILS # (AUTO) 7.8 x10^3/uL (2.2-4.8); NEUTROPHILS % (AUTO) 86.6 % (42.0-75.0); PLATELET COUNT 179 X10^3/uL (150.0-450.0); RED BLOOD COUNT 3.49 X10^6/uL (4.7-6.0); RED CELL DISTRIBUTION WIDTH 15.3 % (11.6-16.5)
[2019-12-22 06:32] LABS: ALANINE AMINOTRANSFERASE 27 Units/L (12-78); ALBUMIN 2.7 g/dL (3.4-5.0); ALKALINE PHOSPHATASE 44 Units/L (46-116); ASPARTATE AMINO TRANSFERASE 19 Units/L (15-37); BLOOD UREA NITROGEN 17 mg/dL (7-18); CALCIUM 8.4 mg/dL (8.5-10.1); CARBON DIOXIDE 28.4 mmol/L (21-32); CHLORIDE 103 mmol/L (98-107); COR CA(FOR HYPOALB) 9.4 mg/dL (8.5-10.1); COR NA(FOR HYPERGLY) 140 mmol/L (136-145); CREATININE 0.89 mg/dL (0.70-1.30); SODIUM 139 mmol/L (136-145); TOTAL PROTEIN 6.8 g/dL (6.4-8.2); eGFR NON BLACK RACES > 60 (>60)
[2019-12-22] MEDS: PULMICORT NEB TX 0.5 MG NEB SCH ×2 (08:52→20:29)
[2019-12-22] MEDS: ZITHROMAX INJ 500 MG VIAL 500 MG in NS 250 ML IV 250 ML IV SCH (09:20)
[2019-12-22] MEDS: LASIX IVP SCH ×2 (09:20→20:47)
[2019-12-22] MEDS: ROBITUSSIN DM PO SCH ×4 (09:20→20:47)
[2019-12-22] MEDS: ALDACTONE TAB 25 MG PO SCH (09:20)
[2019-12-22] MEDS: COREG TAB 12.5 MG PO SCH ×2 (09:22→20:46)
[2019-12-22] MEDS: BETAPACE AF PO SCH ×2 (09:22→20:46)
[2019-12-22] MEDS: MICRO K EXTEN CAP 10 MEQ PO SCH (09:22)
[2019-12-22] MEDS: FLOMAX PO SCH (09:22)
[2019-12-22] MEDS: ASPIRIN EC 81 MG PO SCH (09:22)
[2019-12-22] MEDS: ZYLOPRIM PO SCH (09:22)
[2019-12-22] MEDS: ZESTRIL TAB 5 MG PO SCH (09:24)
[2019-12-22] MEDS: ROCEPHIN VIAL 1 GRAM 1 G in NS 100 ML IV + SPIKE MINIBAG* 100 ML IV SCH ×2 (10:00→10:01)
[2019-12-22] MEDS ORDERED: LOVENOX INJ 40 MG SYR SC SCH (10:00)
[2019-12-22] MEDS ORDERED: NS 500 ML IV 500 ML IV ONE (16:47)
[2019-12-22] MEDS: SYNTHROID 75 mcg TAB PO SCH (16:49)
[2019-12-22] MEDS: LIPITOR TAB 40 MG PO SCH (20:45)
[2019-12-22] MEDS: COLACE CAP 100 MG PO SCH (20:45)
[2019-12-23] MEDS: DUONEB 0.5 MG/3 MG (3 mL) NEB SCH ×6 (00:21→20:16)
[2019-12-23 06:08] LABS: BASOPHILS # (AUTO) 0.1 X10^3/uL (0.0-0.1); BASOPHILS % (AUTO) 0.7 % (0.2-1.0); EOSINOPHILS # (AUTO) 0.1 x10^3/uL (0.0-0.2); EOSINOPHILS % (AUTO) 0.6 % (0.9-2.9); HEMATOCRIT 35.3 % (42.0-54.0); HEMOGLOBIN 11.8 g/dL (13.5-18.0); LYMPHOCYTES % (AUTO) 18.4 % (21.0-51.0); MEAN CORPUSCULAR HEMOGLOBIN 33.8 pg (27.0-34.0); MEAN CORPUSCULAR HGB CONC 33.3 g/dL (33.0-35.0); MEAN CORPUSCULAR VOLUME 101.3 fL (80.0-100.0); MEAN PLATELET VOLUME 8.2 fL (7.4-11.0); MONOCYTES % (AUTO) 6.3 % (0.0-13.0); NEUTROPHILS # (AUTO) 11.9 x10^3/uL (2.2-4.8); PLATELET COUNT 184 X10^3/uL (150.0-450.0); RED BLOOD COUNT 3.49 X10^6/uL (4.7-6.0); RED CELL DISTRIBUTION WIDTH 15.2 % (11.6-16.5); WHITE BLOOD COUNT 16.1 X10^3/uL (3.6-10.0)
[2019-12-23 06:26] LABS: ALANINE AMINOTRANSFERASE 27 Units/L (12-78); ALBUMIN 2.7 g/dL (3.4-5.0); ALKALINE PHOSPHATASE 48 Units/L (46-116); ASPARTATE AMINO TRANSFERASE 19 Units/L (15-37); BLOOD UREA NITROGEN 21 mg/dL (7-18); CALCIUM 8.3 mg/dL (8.5-10.1); CARBON DIOXIDE 30.9 mmol/L (21-32); CHLORIDE 104 mmol/L (98-107); COR CA(FOR HYPOALB) 9.3 mg/dL (8.5-10.1); CREATININE 0.94 mg/dL (0.70-1.30); SODIUM 141 mmol/L (136-145); TOTAL PROTEIN 6.7 g/dL (6.4-8.2); eGFR NON BLACK RACES > 60 (>60)
[2019-12-23] MEDS: LASIX IVP SCH ×2 (08:28→20:23)
[2019-12-23] MEDS: ALDACTONE TAB 25 MG PO SCH (08:29)
[2019-12-23] MEDS: ROBITUSSIN DM PO SCH ×4 (08:29→20:24)
[2019-12-23] MEDS: ZYLOPRIM PO SCH (08:29)
[2019-12-23] MEDS: BETAPACE AF PO SCH ×2 (08:29→20:23)
[2019-12-23] MEDS: FLOMAX PO SCH (08:29)
[2019-12-23] MEDS: COREG TAB 12.5 MG PO SCH ×2 (08:29→20:24)
[2019-12-23] MEDS: ASPIRIN EC 81 MG PO SCH (08:29)
[2019-12-23] MEDS: ROCEPHIN VIAL 1 GRAM 1 G in NS 100 ML IV + SPIKE MINIBAG* 100 ML IV SCH (08:30)
[2019-12-23] MEDS: MICRO K EXTEN CAP 10 MEQ PO SCH (08:30)
[2019-12-23] MEDS: ZITHROMAX INJ 500 MG VIAL 500 MG in NS 250 ML IV 250 ML IV SCH (08:31)
[2019-12-23] MEDS: ZESTRIL TAB 5 MG PO SCH (08:35)
[2019-12-23] MEDS: PULMICORT NEB TX 0.5 MG NEB SCH ×2 (08:50→20:16)
[2019-12-23] MEDS: NORCO 5/325 MG TAB PO PRN (08:58)
--- NOTE | 2019-12-23 11:26 | RAD ---
HISTORYCOPD, CHF, SOBSTUDYCHEST, PA/LAT ADULTCOMPARISONX-ray 12/21/2019FINDINGSCardiac device leads are unchanged. Persistent cardiomegaly and pulmonary venous congestion. Opacity is seen at the left lung base that may be atelectasis or pneumonia. No pleural effusion is seen. No pneumothorax. Probable COPD.IMPRESSIONLikely persistent mild CHF.Likely mild atelectasis or pneumonia at the left lung base. Continued x-ray follow up to document resolution is recommended.Electronically signed by: Ivan Davis (Dec 23, 2019 11:25:08)
[2019-12-23] MEDS: SYNTHROID 75 mcg TAB PO SCH (17:19)
[2019-12-23] MEDS: XARELTO PO SCH (18:35)
[2019-12-23] MEDS: LIPITOR TAB 40 MG PO SCH (20:23)
[2019-12-23] MEDS: COLACE CAP 100 MG PO SCH (20:25)
[2019-12-24] MEDS: DUONEB 0.5 MG/3 MG (3 mL) NEB SCH ×6 (00:53→21:20)
[2019-12-24 06:11] LABS: BASOPHILS # (AUTO) 0.1 X10^3/uL (0.0-0.1); BASOPHILS % (AUTO) 0.7 % (0.2-1.0); EOSINOPHILS # (AUTO) 0.3 x10^3/uL (0.0-0.2); HEMATOCRIT 35.7 % (42.0-54.0); HEMOGLOBIN 11.8 g/dL (13.5-18.0); LYMPHOCYTES # (AUTO) 3.8 X10^3/uL (1.3-2.9); LYMPHOCYTES % (AUTO) 29.7 % (21.0-51.0); MEAN CORPUSCULAR HEMOGLOBIN 33.6 pg (27.0-34.0); MEAN CORPUSCULAR HGB CONC 33.1 g/dL (33.0-35.0); MEAN CORPUSCULAR VOLUME 101.4 fL (80.0-100.0); MEAN PLATELET VOLUME 7.9 fL (7.4-11.0); MONOCYTES % (AUTO) 7.8 % (0.0-13.0); NEUTROPHILS # (AUTO) 7.5 x10^3/uL (2.2-4.8); NEUTROPHILS % (AUTO) 59.8 % (42.0-75.0); PLATELET COUNT 193 X10^3/uL (150.0-450.0); RED BLOOD COUNT 3.52 X10^6/uL (4.7-6.0); RED CELL DISTRIBUTION WIDTH 15.3 % (11.6-16.5); WHITE BLOOD COUNT 12.6 X10^3/uL (3.6-10.0)
[2019-12-24 06:33] LABS: ALANINE AMINOTRANSFERASE 25 Units/L (12-78); ALBUMIN 2.7 g/dL (3.4-5.0); ALKALINE PHOSPHATASE 40 Units/L (46-116); ASPARTATE AMINO TRANSFERASE 19 Units/L (15-37); BLOOD UREA NITROGEN 24 mg/dL (7-18); CALCIUM 8.5 mg/dL (8.5-10.1); CARBON DIOXIDE 32.6 mmol/L (21-32); CHLORIDE 101 mmol/L (98-107); COR CA(FOR HYPOALB) 9.5 mg/dL (8.5-10.1); CREATININE 0.96 mg/dL (0.70-1.30); SODIUM 138 mmol/L (136-145); TOTAL PROTEIN 6.5 g/dL (6.4-8.2); eGFR NON BLACK RACES > 60 (>60)
[2019-12-24] MEDS: COLACE CAP 100 MG PO PRN (06:58)
[2019-12-24] MEDS: MILK OF MAGNESIA PO PRN ×2 (06:58→21:20)
[2019-12-24] MEDS: ROCEPHIN VIAL 1 GRAM 1 G in NS 100 ML IV + SPIKE MINIBAG* 100 ML IV SCH (08:19)
[2019-12-24] MEDS: ZITHROMAX INJ 500 MG VIAL 500 MG in NS 250 ML IV 250 ML IV SCH (08:19)
[2019-12-24] MEDS: ALDACTONE TAB 25 MG PO SCH (08:20)
[2019-12-24] MEDS: ROBITUSSIN DM PO SCH ×4 (08:20→21:20)
[2019-12-24] MEDS: ZYLOPRIM PO SCH (08:20)
[2019-12-24] MEDS: FLOMAX PO SCH (08:20)
[2019-12-24] MEDS: ZESTRIL TAB 5 MG PO SCH (08:20)
[2019-12-24] MEDS: BETAPACE AF PO SCH ×2 (08:20→21:19)
[2019-12-24] MEDS: MICRO K EXTEN CAP 10 MEQ PO SCH (08:21)
[2019-12-24] MEDS: LASIX IVP SCH ×2 (08:21→21:20)
[2019-12-24] MEDS: ASPIRIN EC 81 MG PO SCH (08:21)
[2019-12-24] MEDS: NORCO 5/325 MG TAB PO PRN (08:26)
[2019-12-24] MEDS: COREG TAB 12.5 MG PO SCH ×2 (08:26→21:19)
[2019-12-24] MEDS: PULMICORT NEB TX 0.5 MG NEB SCH ×2 (08:56→21:20)
[2019-12-24] MEDS ORDERED: NORCO 5/325 MG TAB PO SCH (10:00)
[2019-12-24] MEDS: TUSSIONEX PENNKINETIC SUSP PO PRN ×2 (10:26→21:20)
[2019-12-24] MEDS: SOLU-Medrol 40 MG VIAL IVP SCH ×3 (10:29→21:20)
--- NOTE | 2019-12-24 13:05 | CT ---
HISTORYCOPD, ACUTE BRONCHITIS, CHF, COPD, hypertensionSTUDYCTA CHEST w CONTCOMPARISONChest x-ray 12/23/[address] chest 11/09/2019TECHNIQUEMultiple axial images of the chest were obtained from the thoracic inlet to the upper abdomen after the administration of IV contrast. 75 cc Omnipaque IV. 3D reconstructions utilizing axial MIPS imaging was performed and reviewed. Dose reduction techniques including Automated Exposure Control (AEC) and adjustment of mA and kV were utilized.FINDINGSSmall likely reactive lymph nodes in the mediastinum are similar to prior study.Cardiomegaly and small pericardial effusion, similar to prior study. No pulmonary venous congestion.Thoracic aorta measures 5.1 cm in diameter in the ascending section, similar to prior study. It is suboptimally enhance but no obvious dissection is seen.No evidence of pulmonary embolus.Evaluation of the lung parenchyma cause probable atelectasis at the lung bases and left lingula, slightly greater than prior study. No pulmonary nodule or mass is identified. No pleural effusion is seen.The bony thorax is unremarkable in its appearance. Punctate calcification is seen in the fundus of the gallbladder and could be adherent stone or wall calcification. It is unchanged.IMPRESSIONNo pulmonary embolus is seen.Mild atelectasis in the lower lungs is slightly greater than prior study.Cardiomegaly and small pericardial effusion are similar to prior study. No pulmonary venous congestion is seen.Electronically signed by: Ivan Davis (Dec 24, 2019 13:04:19)
[2019-12-24] MEDS: NORCO 5/325 MG TAB PO SCH ×2 (15:26→21:19)
[2019-12-24] MEDS: SYNTHROID 75 mcg TAB PO SCH (17:36)
[2019-12-24] MEDS: XARELTO PO SCH (17:37)
[2019-12-24] MEDS: COLACE CAP 100 MG PO SCH (21:20)
[2019-12-24] MEDS: LIPITOR TAB 40 MG PO SCH (21:20)
[2019-12-25] MEDS: DUONEB 0.5 MG/3 MG (3 mL) NEB SCH ×4 (00:05→12:06)
[2019-12-25] MEDS: NORCO 5/325 MG TAB PO SCH ×2 (03:30→09:00)
[2019-12-25] MEDS ORDERED: NS 500 ML IV 500 ML IV ONE (03:37)
[2019-12-25] MEDS: SOLU-Medrol 40 MG VIAL IVP SCH (05:12)
[2019-12-25 07:00] LABS: BASOPHILS % (AUTO) 0.1 % (0.2-1.0); HEMATOCRIT 34.3 % (42.0-54.0); HEMOGLOBIN 11.5 g/dL (13.5-18.0); LYMPHOCYTES # (AUTO) 1.2 X10^3/uL (1.3-2.9); LYMPHOCYTES % (AUTO) 11.9 % (21.0-51.0); MEAN CORPUSCULAR HEMOGLOBIN 33.7 pg (27.0-34.0); MEAN CORPUSCULAR HGB CONC 33.6 g/dL (33.0-35.0); MEAN CORPUSCULAR VOLUME 100.3 fL (80.0-100.0); MEAN PLATELET VOLUME 7.9 fL (7.4-11.0); MONOCYTES # (AUTO) 0.1 x10^3/uL (0.3-0.8); NEUTROPHILS # (AUTO) 8.9 x10^3/uL (2.2-4.8); PLATELET COUNT 186 X10^3/uL (150.0-450.0); RED BLOOD COUNT 3.42 X10^6/uL (4.7-6.0); RED CELL DISTRIBUTION WIDTH 14.8 % (11.6-16.5); WHITE BLOOD COUNT 10.2 X10^3/uL (3.6-10.0)
[2019-12-25 07:05] LABS: ALANINE AMINOTRANSFERASE 23 Units/L (12-78); ALBUMIN 2.7 g/dL (3.4-5.0); ALKALINE PHOSPHATASE 38 Units/L (46-116); ASPARTATE AMINO TRANSFERASE 16 Units/L (15-37); BLOOD UREA NITROGEN 25 mg/dL (7-18); CALCIUM 8.7 mg/dL (8.5-10.1); CARBON DIOXIDE 35.6 mmol/L (21-32); CHLORIDE 99 mmol/L (98-107); COR CA(FOR HYPOALB) 9.7 mg/dL (8.5-10.1); COR NA(FOR HYPERGLY) 137 mmol/L (136-145); CREATININE 0.97 mg/dL (0.70-1.30); SODIUM 136 mmol/L (136-145); TOTAL PROTEIN 6.5 g/dL (6.4-8.2); eGFR NON BLACK RACES > 60 (>60)
[2019-12-25] MEDS: ROCEPHIN VIAL 1 GRAM 1 G in NS 100 ML IV + SPIKE MINIBAG* 100 ML IV SCH (08:58)
[2019-12-25] MEDS: ROBITUSSIN DM PO SCH ×2 (08:59→13:13)
[2019-12-25] MEDS: COREG TAB 12.5 MG PO SCH (08:59)
[2019-12-25] MEDS: ZESTRIL TAB 5 MG PO SCH (08:59)
[2019-12-25] MEDS: ASPIRIN EC 81 MG PO SCH (08:59)
[2019-12-25] MEDS: BETAPACE AF PO SCH (08:59)
[2019-12-25] MEDS: ALDACTONE TAB 25 MG PO SCH (08:59)
[2019-12-25] MEDS: ZYLOPRIM PO SCH (08:59)
[2019-12-25] MEDS: MICRO K EXTEN CAP 10 MEQ PO SCH (09:00)
[2019-12-25] MEDS: FLOMAX PO SCH (09:00)
[2019-12-25] MEDS: LASIX IVP SCH (09:01)
[2019-12-25] MEDS: MILK OF MAGNESIA PO PRN (09:15)
[2019-12-25] MEDS: COLACE CAP 100 MG PO PRN (09:16)
[2019-12-25] MEDS: PULMICORT NEB TX 0.5 MG NEB SCH (09:16)
[2019-12-25] MEDS: ZITHROMAX INJ 500 MG VIAL 500 MG in NS 250 ML IV 250 ML IV SCH (10:46)
[2019-12-25 14:41] VITALS: BP 97/60
== END 2019-12-25 13:50 | disposition home or self-care (01) | DRG 191 ==
LOC: MED/SURG 13:08
PROVIDERS: ADMIT Internal Medicine; ATTEND Internal Medicine
CPT/HCPCS: 36415; 36600; 71020; 71046; 71275; 76856; 80053; 81001; 82803; 83735; 84550; 85025; 85610; 87040; 87070; 87077; 87086; 87205; 94640; 94669; 94760; A4222; J0456; J0696; J1650; J1940; J2920; J2930; J7040; J7050; J7620; J7626

== ENCOUNTER 2020-04-25 08:27 | Observation (INO) ==
[2020-04-25] MEDS ORDERED: TYLENOL 325 MG TAB PO ONE ×2 (08:46→08:51)
[2020-04-25] MEDS ORDERED: NORFLEX INJ IM ONE (08:46)
[2020-04-25] MEDS ORDERED: MORPHINE SULFATE INJ 2 MG INJ IM ONE (08:46)
[2020-04-25] MEDS ORDERED: NORFLEX INJ ONE (08:50)
[2020-04-25] MEDS ORDERED: MORPHINE SULFATE INJ 2 MG INJ ONE (08:51)
--- NOTE | 2020-04-25 09:16 | DR.MBACK ---
HPI Time Seen Time Seen by Provider: 04/25/20 08:34 HPI Comment HPI Comment: 84 y/o man w/sudden severe lower back pain localized to the lumbar spine which started after he twisted his body to turn 3 days ago. He has had pain in that area before, but never this sharp nor constant. He describes his pain as a 1-2 when he is still or lying down, and a 10 when he is moving. The patient was taking someone else's Percocet for pain, with partial relief of symptoms. He denies any trauma, prolonged steroid intake, lower limb weakness or incontinence. On ROS he does admit intermittent dysuria, last episode yesterday. Complaint Chief Complaint:: PT C/O LOWER BACK PAIN THAT STARTED EARLY SATURDAY MORNING. PT STATES THE PAIN HAS NOT GOT ANY BETTER. PT TOOK A 10MG PERCOCET AROUND 0750 THIS MORNING. EMS STATES PATIENTS FAMILY STATES PT HAS BEEN TAKING THE PERCOCET ALL WEEKEND FOR THE PAIN. COVID-19 Coronavirus risk:travel/contact w/high risk person: No Has patient experienced Coronavirus symptoms: No Source History Provided: Patient Mode of Arrival Mode of Arrival: EMS Timing Onset of Chief Complaint: 04/22/20 PMH PMH Past Medical History: Yes Past Medical History: Arthritis, CHF, COPD, Coronary Artery Disease, Dyslipidemia, GERD, Gout, Hypertension and Hypothyroidism Past Surgical History: Yes Surgical History: Tonsillectomy and Other Family History History of Family Medical Conditions: Yes Family Medical History: [place], Coronary Artery Disease and Sudden Cardiac Social History Does patient currently use any type of tobacco product: Yes Have you used tobacco products in the last 12 months: Yes Type of Tobacco Use: CHEW Does any household member use tobacco: Yes Alcohol Use: None Do you use any recreational Drugs:: No Lives With: Family Lives Where: Home Travel Risk Coronavirus risk:travel/contact w/high risk person: No Has patient experienced Coronavirus symptoms: No Infectious screening In the last 2 months have you had wt loss of >10#?: NO Have you had fever, night sweats or hemotysis?: No Have you traveled outside the country in the last 6 months?: No Isolation: Standard ROS Review of Systems Constitutional: No Symptoms Reported Eyes: No Symptoms Reported ENTM: No Symptoms Reported Respiratoy: No Symptoms Reported Cardiovascular: No Symptoms Reported Gastrointestinal/Abdominal: No Symptoms Reported Genitourinary: Dysuria Neurological: No Symptoms Reported Musculoskeletal: See HPI and Back Pain Integumentary: No Symptoms Reported Hematologic/Lymphatic: No Symptoms Reported Endocrine: No Symptoms Reported Psychiatric: No Symptoms Reported All Other Systems: Reviewed and Negative PE Vital Signs Vitals: Temperature 97.6 F Pulse Rate 79 Respiratory Rate 16 Blood Pressure [Right Arm] 112/73 Blood Pressure 104/66 O2 Sat by Pulse Oximetry 99 General Limitations: No Limitations General Appearance: Alert and In No Apparent Distress Head Head Exam: Normal Inspection Eyes Eye exam: Normal Appearance ENT ENT Exam: Normal Exam Chest Chest Inspection: Normal Inspection Respiratory Respiratory Exam: Normal Lung Sounds Bilat Cardiovascular Cardiovascular Exam: Regular Rate and Normal Rhythm Abdominal Exam Abdominal Exam: Normal Inspection, Normal Bowel Sounds and Soft Rectal Rectal Exam: Deferred Genitourinary Exam: Male: Deferred Extremities Extremities Exam: Normal Inspection and Full ROM Back Back Exam: Normal Inspection, Muscle Spasm and Other (Lumbar spinal pain triggered by CVA tapping, no L spine tenderness or step offs, no sciatic tenderness, muscle spasm of lower back noted.) Neurological Neurological Exam: Alert, Oriented X3 and Other (Motor and Sensory 5/5 on BLE) Psychiatric Psychiatric Exam: Normal Affect and Normal Mood Skin Skin Exam: Warm, Dry, Intact and Normal Color COURSE Treatment Treatment: After morphine, acetaminophen, orphenadrine, back pain remains unchanged and is intractable during movement. Will order CT lumbar spine. CT lumbar spine shows severe discopathy in the L4-L5 level, disc protrusion, and other degenerative changes. Discharge with analgesic therapy was offered, but the patient insists on admission due to intractable pain. He understood and verbalized back the risk of serious infection, and other conditions that can arise during hospitalization. I spoke with Dr. Goel who agreed to admit the patient. Dr. Goel requested a Dilaudid 1mg q4-6 hours for breakthrough pain and Solumedrol 80mg q8hrs x 3 doses for inpatient treatment. Reevaluation 1st: Unchanged 2nd: Unchanged ROR Labs Reviewed Laboratory: Specimen Type Random urine 04/25/20 10:30 Urine Color Yellow (YELLOW) 04/25/20 10:30 Urine Appearance Clear (CLEAR) 04/25/20 10:30 Urine pH 5.0 (5.0 - 8.0) 06/01/20 10:30 Ur Specific [place] 1.015 (1.000-1.030) 04/25/20 10:30 Urine Protein Negative (NEGATIVE) 04/25/20 10:30 Urine Glucose (UA) Negative (NEGATIVE) 04/25/20 10:30 Urine Ketones Negative (NEGATIVE) 04/25/20 10:30 Urine Occult Blood Negative (NEGATIVE) 04/25/20 10:30 Urine Nitrite Negative (NEGATIVE) 04/25/20 10:30 Urine Bilirubin Negative (NEGATIVE) 04/25/20 10:30 Urine Urobilinogen Normal (NORMAL) 04/25/20 10:30 Ur Leukocyte Esterase Negative (NEGATIVE) 04/25/20 10:30 EKG Alex: Normal Rhythm: NSR Block: None Hypertrophy: None ST: Normal Opioid Opioid Risk Tool Age (Rudolph box if 16-45): No History of Preadolescent Sexual Abuse: No Total: 0 Total Score Risk Category: Low Risk Copyright: Hiram MALONEY predicting aberrant behaviors
[2020-04-25 10:36] LABS: BILIRUBIN,URINE NEGATIVE (NEGATIVE); BLOOD/HEMOGLOBIN,URINE NEGATIVE (NEGATIVE); GLUCOSE, URINE NEGATIVE (NEGATIVE); KETONES,URINE NEGATIVE (NEGATIVE); LEUKOCYTE ESTERASE ,URINE NEGATIVE (NEGATIVE); NITRITES,URINE NEGATIVE (NEGATIVE); PROTEIN,URINE NEGATIVE (NEGATIVE); UROBILINOGEN,URINE NORMAL (NORMAL)
[2020-04-25 10:37] LABS: APPEARANCE,URINE CLEAR (CLEAR); COLOR,URINE YELLOW (YELLOW)
--- NOTE | 2020-04-25 11:32 | CT ---
HISTORYLow back painSTUDYLUMBAR SPINE W/O CONTechnique: Axial noncontrast images with coronal and sagittal reformats. Dose reduction procedures were used with mA/kv adjusted for body size. Resolution is limited by the patient's body habitus.COMPARISONNoneFINDINGSThe alignment is normal with the exception of slight anterolisthesis L4 on L5. The vertebral bodies are of average height. No compression fractures are identified. The pedicles, spinous processes, and posterior elements are intact. The visualized portions of the sacrum and upper SI joints appear normal. Disc levels are evaluated as follows:T12-L1 level, L1-2 level: No evidence for compressive disc disease. The neural foramina are patent. Mild bilateral facet arthropathy is present.L2-3 level: There is concentric disc bulging which effaces the thecal sac and contributes along with spondylitic change and bilateral facet arthropathy to lateral recess and foraminal narrowing bilaterally.L3-4 level: There is disc degeneration with vacuum phenomenon present. Concentric disc bulging effaces the thecal sac and contributes along with facet arthropathy to lateral recess and foraminal narrowing bilaterally to a significant degree similar to the level above.L4-5 level: There is slight anterolisthesis L4 on L5. There is broad-based disc protrusion which effaces the thecal sac and contributes along with the anterolisthesis and bilateral severe facet arthropathy to severe lateral recess and foraminal narrowing bilaterally right worse than left.L5-S1 level: There is severe disc degeneration. There is loss of disc height. The neural foramina are patent. Bilateral facet arthropathy is present.IMPRESSIONAs aboveElectronically signed by: HIEU GONZALEZ (Apr 25, 2020 11:30:57)
[2020-04-25 12:42] LABS: BASOPHILS # (AUTO) 0.1 X10^3/uL (0.0-0.1); BASOPHILS % (AUTO) 1.1 % (0.2-1.0); EOSINOPHILS # (AUTO) 0.5 x10^3/uL (0.0-0.2); EOSINOPHILS % (AUTO) 3.9 % (0.9-2.9); HEMATOCRIT 37.7 % (42.0-54.0); HEMOGLOBIN 12.4 g/dL (13.5-18.0); LYMPHOCYTES # (AUTO) 2.6 X10^3/uL (1.3-2.9); LYMPHOCYTES % (AUTO) 21.3 % (21.0-51.0); MEAN CORPUSCULAR HEMOGLOBIN 31.9 pg (27.0-34.0); MEAN CORPUSCULAR HGB CONC 32.8 g/dL (33.0-35.0); MEAN CORPUSCULAR VOLUME 97.5 fL (80.0-100.0); MEAN PLATELET VOLUME 8.1 fL (7.4-11.0); MONOCYTES # (AUTO) 1.2 x10^3/uL (0.3-0.8); MONOCYTES % (AUTO) 10.1 % (0.0-13.0); NEUTROPHILS # (AUTO) 7.8 x10^3/uL (2.2-4.8); NEUTROPHILS % (AUTO) 63.6 % (42.0-75.0); PLATELET COUNT 180 X10^3/uL (150.0-450.0); RED BLOOD COUNT 3.87 X10^6/uL (4.7-6.0); RED CELL DISTRIBUTION WIDTH 14.8 % (11.6-16.5); WHITE BLOOD COUNT 12.3 X10^3/uL (3.6-10.0)
[2020-04-25] MEDS ORDERED: VALIUM INJ IM ONE (12:47)
[2020-04-25 12:52] LABS: ALANINE AMINOTRANSFERASE 17 Units/L (12-78); ALBUMIN 3.2 g/dL (3.4-5.0); ALKALINE PHOSPHATASE 59 Units/L (46-116); ASPARTATE AMINO TRANSFERASE 14 Units/L (15-37); BLOOD UREA NITROGEN 11 mg/dL (7-18); CARBON DIOXIDE 34.2 mmol/L (21-32); CHLORIDE 102 mmol/L (98-107); SODIUM 139 mmol/L (136-145); TOTAL PROTEIN 6.8 g/dL (6.4-8.2); eGFR NON BLACK RACES > 60 (>60)
[2020-04-25] MEDS ORDERED: VALIUM INJ ONE (12:54)
[2020-04-25 12:58] LABS: CALCIUM 8.5 mg/dL (8.5-10.1); COR CA(FOR HYPOALB) 9.1 mg/dL (8.5-10.1)
[2020-04-25] MEDS ORDERED: TYLENOL 325 MG TAB PO PRN (14:35)
[2020-04-25] MEDS ORDERED: DILAUDID INJ IVP PRN (14:35)
[2020-04-25] MEDS: SOLU-Medrol 40 MG VIAL IVP SCH ×2 (15:15→21:07)
[2020-04-25] MEDS: SYNTHROID 75 mcg TAB PO SCH (15:45)
[2020-04-25] MEDS ORDERED: PROVENTIL NEB TX 0.083% 2.5MG/ 3ML NEB PRN (16:56)
[2020-04-25] MEDS: COREG TAB 6.25 MG PO SCH (21:06)
[2020-04-25] MEDS: LIPITOR TAB 40 MG PO SCH (21:06)
[2020-04-25] MEDS: FLOMAX PO SCH (21:06)
[2020-04-26] MEDS: SOLU-Medrol 40 MG VIAL IVP SCH ×2 (05:42→14:52)
[2020-04-26 06:19] LABS: BASOPHILS % (AUTO) 0.4 % (0.2-1.0); EOSINOPHILS % (AUTO) 0.1 % (0.9-2.9); HEMATOCRIT 36.7 % (42.0-54.0); HEMOGLOBIN 12.2 g/dL (13.5-18.0); LYMPHOCYTES # (AUTO) 1.5 X10^3/uL (1.3-2.9); LYMPHOCYTES % (AUTO) 15.7 % (21.0-51.0); MEAN CORPUSCULAR HEMOGLOBIN 32.7 pg (27.0-34.0); MEAN CORPUSCULAR HGB CONC 33.3 g/dL (33.0-35.0); MEAN CORPUSCULAR VOLUME 97.9 fL (80.0-100.0); MEAN PLATELET VOLUME 8.3 fL (7.4-11.0); MONOCYTES # (AUTO) 0.1 x10^3/uL (0.3-0.8); NEUTROPHILS # (AUTO) 7.8 x10^3/uL (2.2-4.8); NEUTROPHILS % (AUTO) 82.8 % (42.0-75.0); PLATELET COUNT 184 X10^3/uL (150.0-450.0); RED BLOOD COUNT 3.74 X10^6/uL (4.7-6.0); RED CELL DISTRIBUTION WIDTH 14.7 % (11.6-16.5); WHITE BLOOD COUNT 9.3 X10^3/uL (3.6-10.0)
[2020-04-26 06:34] LABS: ALANINE AMINOTRANSFERASE 16 Units/L (12-78); ALBUMIN 2.9 g/dL (3.4-5.0); ALKALINE PHOSPHATASE 51 Units/L (46-116); ASPARTATE AMINO TRANSFERASE 14 Units/L (15-37); BLOOD UREA NITROGEN 13 mg/dL (7-18); CALCIUM 8.7 mg/dL (8.5-10.1); CARBON DIOXIDE 31.9 mmol/L (21-32); CHLORIDE 104 mmol/L (98-107); COR CA(FOR HYPOALB) 9.6 mg/dL (8.5-10.1); COR NA(FOR HYPERGLY) 140 mmol/L (136-145); CREATININE 0.82 mg/dL (0.70-1.30); SODIUM 139 mmol/L (136-145); TOTAL PROTEIN 6.6 g/dL (6.4-8.2); eGFR NON BLACK RACES > 60 (>60)
[2020-04-26] MEDS ORDERED: ZESTRIL TAB 5 MG PO SCH (09:00)
[2020-04-26] MEDS ORDERED: XARELTO PO SCH (09:00)
[2020-04-26] MEDS: FLOMAX PO SCH (09:40)
[2020-04-26] MEDS: COREG TAB 6.25 MG PO SCH ×2 (09:40→21:32)
[2020-04-26] MEDS: LASIX PO SCH (09:40)
[2020-04-26] MEDS: ALDACTONE TAB 25 MG PO SCH (09:40)
[2020-04-26] MEDS: XARELTO PO SCH (09:41)
[2020-04-26] MEDS: XOPENEX 1.25 MG/3 ML NEBULE NEB PRN ×2 (09:42→20:40)
[2020-04-26] MEDS ORDERED: NORCO 7.5/325 MG TAB PO PRN (09:44)
[2020-04-26] MEDS: NEURONTIN CAP 300 MG PO SCH ×3 (11:16→21:32)
[2020-04-26] MEDS: ZANAFLEX PO PRN ×2 (11:16→21:32)
--- NOTE | 2020-04-26 13:41 | DR.H&P ---
H&P - History & Physical for Day of: H&P Date: 04/26/20 - Chief Complaint Chief Complaint: SEVERE LOWER BACK PAIN, RADIATES DOWN LEFT LEG. "CANNOT STAND" - History of Present Illness History of Present Illness: PT IS 84 WM ER ADMISSION WITH CO INTRACTABLE LOWER BACK PAIN STARTED WHILE TURNING OVER IN BED ON SATURDAY. PT REPORTS PAIN WAS SHARP TO LOWER BACK, RADIATING DOWN LEFT LEG. PT REPORTS HE COULD NOT WALK DUE TO PAIN IN LOWER LEGS, "FELT LIKE LEGS ARE WEIGHT" PT HAS PMH OF CAD, CHF, COPD, AAA, HTN, OA. PT WAS SEEN IN ER CT LUMBAR SPINE DIFFUSE DDD, SPINAL STENOSIS. PT ADMITTED FOR TREATMENT AND EVALUATION OF INTRACTABLE PAIN. - Past Medical History Past Medical History: Coronary Artery Disease, Hypertension, Dyslipidemia, Hypothyroidism, COPD, GERD, Arthritis, Gout, CHF Additional Medical History: AORTIC ANEURYSM, AFIB - Past Surgical History Surgical History: Other, Tonsillectomy Additional Surgical History: PACE MAKER - Family History Family Medical History: [place], Coronary Artery Disease, Sudden Cardiac - Social History Does patient currently use any type of tobacco product: No Have you used tobacco products in the last 12 months: No Type of Tobacco Use: None Does any household member use tobacco: No Alcohol Use: None - Medications Home Medications: No Known Drug Allergies Allergy (Verified 03/07/19 00:07) CONTINUE taking the following medications albuterol sulfate 2.5 mg INHALATION TID PRN 04/25/20 [History] econazole-niacinamide 1 applic TOPICAL TID 04/25/20 [History] loratadine 10 mg PO DAILY 04/25/20 [History] - Review of Systems Constitutional: Weakness Eyes: No Symptoms Reported ENT: No Symptoms Reported Respiratory: Shortness of Breath, SOB with Excertion Cardiovascular: No Symptoms Reported, Edema Gastrointestinal: No Symptoms Reported Genitourinary: No Symptoms Reported Musculoskeletal: Back Pain, Leg Pain Skin: No Symptoms Reported - Physical Exam Vital Signs: Temperature 97.7 F Pulse Rate [Right Brachial] 75 Pulse Rate 72 Respiratory Rate 18 Blood Pressure [Right Arm] 86/50 Blood Pressure 104/66 O2 Sat by Pulse Oximetry 94 Oriented: Normal Eyes: Normal Ear: Normal Nose: Normal Throat: Normal Respiratory: RLL Diminished, LLL Diminished Cardiovascular: Other (PACER/DEFIBRILLATOR) : Normal Auscultation: Bowel Sounds: Normal Palpation: Normal Tenderness: Normal Skin: Normal Musculoskeletal: Back:Thoracic, Back:Lumbar, Back:Midline, Tender, Motor Deficit, Sensory Deficit, Instability Psychiatric: Anxiety Affect: Anxious Speech Pattern: Clear, Appropriate - Assessment/Plan (1) Intractable low back pain Status: Acute Plan: ADMIT, CT L SPINE ON ADMISSION, MRI CONTRAINDICATED DUE TO PACEMAKER. PAIN CONTROL, IV SOLU MEDROL, GENTLE IV HYDRATION. CARDIAC MONITORING, PT CONSULT. MUSCLE RELAXER, GABAPENTIN. VERIFY HOME MEDICATION (2) DDD (degenerative disc disease), lumbar Status: Acute (3) COPD (chronic obstructive pulmonary disease) Status: Acute (4) CHF (congestive heart failure) Status: Chronic (5) A-fib Qualifiers: Atrial fibrillation type: chronic Status: Chronic (6) Neuropathy Status: Chronic - Allergies Allergies/Adverse Reactions: Allergies Allergy/AdvReac Type Severity Reaction Status Date / Time No Known Drug Allergies Allergy Verified 03/07/19 00:07
[2020-04-26 14:12] VITALS: BMI 32.3
[2020-04-26] MEDS: LIDODERM 5% PATCH TD SCH (14:55)
[2020-04-26] MEDS: SYNTHROID 75 mcg TAB PO SCH (17:38)
[2020-04-26] MEDS ORDERED: COLACE CAP 100 MG PO SCH (21:00)
[2020-04-26] MEDS: LIPITOR TAB 40 MG PO SCH (21:31)
[2020-04-27] MEDS: NEURONTIN CAP 300 MG PO SCH ×2 (06:15→14:12)
[2020-04-27 06:43] LABS: BASOPHILS % (AUTO) 0.1 % (0.2-1.0); HEMATOCRIT 36.1 % (42.0-54.0); LYMPHOCYTES # (AUTO) 1.5 X10^3/uL (1.3-2.9); LYMPHOCYTES % (AUTO) 7.7 % (21.0-51.0); MEAN CORPUSCULAR HEMOGLOBIN 32.1 pg (27.0-34.0); MEAN CORPUSCULAR HGB CONC 33.1 g/dL (33.0-35.0); MEAN CORPUSCULAR VOLUME 97.1 fL (80.0-100.0); MEAN PLATELET VOLUME 8.2 fL (7.4-11.0); MONOCYTES # (AUTO) 0.6 x10^3/uL (0.3-0.8); MONOCYTES % (AUTO) 3.1 % (0.0-13.0); NEUTROPHILS % (AUTO) 89.1 % (42.0-75.0); PLATELET COUNT 183 X10^3/uL (150.0-450.0); RED BLOOD COUNT 3.72 X10^6/uL (4.7-6.0); RED CELL DISTRIBUTION WIDTH 15.2 % (11.6-16.5)
[2020-04-27 07:06] LABS: ALANINE AMINOTRANSFERASE 16 Units/L (12-78); ALBUMIN 2.8 g/dL (3.4-5.0); ALKALINE PHOSPHATASE 45 Units/L (46-116); ASPARTATE AMINO TRANSFERASE 11 Units/L (15-37); BLOOD UREA NITROGEN 14 mg/dL (7-18); CARBON DIOXIDE 31.4 mmol/L (21-32); CHLORIDE 105 mmol/L (98-107); COR NA(FOR HYPERGLY) 143 mmol/L (136-145); CREATININE 0.92 mg/dL (0.70-1.30); SODIUM 142 mmol/L (136-145); TOTAL PROTEIN 6.5 g/dL (6.4-8.2); eGFR NON BLACK RACES > 60 (>60)
[2020-04-27] MEDS: LASIX PO SCH (09:44)
[2020-04-27] MEDS: COREG TAB 6.25 MG PO SCH (09:44)
[2020-04-27] MEDS: ALDACTONE TAB 25 MG PO SCH (09:44)
[2020-04-27] MEDS: XARELTO PO SCH (09:45)
[2020-04-27] MEDS: FLOMAX PO SCH (09:45)
[2020-04-27] MEDS: LIDODERM 5% PATCH TD SCH (09:45)
[2020-04-27 12:12] VITALS: BP 101/58
[2020-04-27 12:20] LABS: BILIRUBIN,URINE NEGATIVE (NEGATIVE); BLOOD/HEMOGLOBIN,URINE NEGATIVE (NEGATIVE); GLUCOSE, URINE NEGATIVE (NEGATIVE); KETONES,URINE NEGATIVE (NEGATIVE); LEUKOCYTE ESTERASE ,URINE NEGATIVE (NEGATIVE); NITRITES,URINE NEGATIVE (NEGATIVE); PROTEIN,URINE NEGATIVE (NEGATIVE); UROBILINOGEN,URINE NORMAL (NORMAL)
[2020-04-27 12:30] LABS: APPEARANCE,URINE CLEAR (CLEAR); COLOR,URINE YELLOW (YELLOW)
== END 2020-04-27 14:30 | disposition home or self-care (01) ==
LOC: ER 08:27 → MED/SURG 08:27
PROVIDERS: ADMIT Internal Medicine; ATTEND Internal Medicine
DX: M51.17 Intervertebral disc disorders with radiculopathy, lumbosacral region; M48.061 Spinal stenosis, lumbar region without neurogenic claudication; I25.10 Atherosclerotic heart disease of native coronary artery without angina pectoris; R30.0 Dysuria; J44.9 Chronic obstructive pulmonary disease, unspecified; I48.91 Unspecified atrial fibrillation; M19.90 Unspecified osteoarthritis, unspecified site; Z11.59 Encounter for screening for other viral diseases; E78.5 Hyperlipidemia, unspecified; M51.16 Intervertebral disc disorders with radiculopathy, lumbar region
CPT/HCPCS: 36415; 72131; 80053; 81003; 85025; 87635; 94760; 96365; 96372; 96374; 97162; 97166; 97530; 99284; A4222; G0378; J2270; J2360; J2920; J3360; J3490

== ENCOUNTER 2020-08-22 07:45 | Inpatient (IN) ==
[2020-08-22] MEDS ORDERED: XOPENEX 1.25 MG/3 ML NEBULE NEB ONE ×2 (07:56→07:57)
[2020-08-22 08:13] LABS: BASOPHILS # (AUTO) 0.2 X10^3/uL (0.0-0.1); BASOPHILS % (AUTO) 1.4 % (0.2-1.0); EOSINOPHILS # (AUTO) 1.4 x10^3/uL (0.0-0.2); EOSINOPHILS % (AUTO) 10.9 % (0.9-2.9); HEMATOCRIT 38.8 % (42.0-54.0); HEMOGLOBIN 12.7 g/dL (13.5-18.0); LYMPHOCYTES # (AUTO) 3.2 X10^3/uL (1.3-2.9); LYMPHOCYTES % (AUTO) 25.9 % (21.0-51.0); MEAN CORPUSCULAR HEMOGLOBIN 31.6 pg (27.0-34.0); MEAN CORPUSCULAR HGB CONC 32.6 g/dL (33.0-35.0); MEAN CORPUSCULAR VOLUME 96.7 fL (80.0-100.0); MEAN PLATELET VOLUME 8.3 fL (7.4-11.0); MONOCYTES # (AUTO) 0.9 x10^3/uL (0.3-0.8); NEUTROPHILS # (AUTO) 6.8 x10^3/uL (2.2-4.8); NEUTROPHILS % (AUTO) 54.8 % (42.0-75.0); PLATELET COUNT 178 X10^3/uL (150.0-450.0); RED BLOOD COUNT 4.01 X10^6/uL (4.7-6.0); RED CELL DISTRIBUTION WIDTH 16.1 % (11.6-16.5); WHITE BLOOD COUNT 12.4 X10^3/uL (3.6-10.0)
[2020-08-22] MEDS ORDERED: DUONEB 0.5 MG/3 MG (3 mL) NEB ONE ×2 (08:16→08:49)
--- NOTE | 2020-08-22 08:17 | RAD ---
HISTORYSOB, URI FAILED OP TXSTUDYCHEST, 1 [id number]/07/2020TECHNIQUEAP view of the chestFINDINGSCardiac silhouette is enlarged. Left chest wall pacemaker with leads in good position. No consolidation, segmental collapse, pleural effusion or pneumothorax identified. Soft tissue attenuation limits evaluation.IMPRESSIONNo acute pulmonary process. Cardiomegaly.Electronically signed by: Antonio Scott (Aug 22, 2020 08:17:38)
[2020-08-22] MEDS ORDERED: NS 500 ML IV 500 ML IV ONE ×2 (08:27→09:03)
--- NOTE | 2020-08-22 08:27 | DR.SOBA ---
HPI Time Seen Time Seen by Provider: 08/22/20 08:11 Primary Care Physician Primary Care Physician: NAIDA Complaints Chief Complaint Doctors Comments: Patient with Hx of COPD and chronic pain Chief Complaint:: PT C/O SHORTNESS OF BREATH. PT STATES HE HAS RECENTLY BEEN TREATED FOR URI WITH ANTIBIOTIC AND SHOTS. PT STATES HE STARTED GETTING WORSE SATURDAY. PT STATES LAST NIGHT HE WAS GETTING SEVERELY SHORT OF BREATH COVID-19 Coronavirus risk:travel/contact w/high risk person: No Has patient experienced Coronavirus symptoms: Yes Coronavirus symptoms experienced: Coughing and Shortness of Breath Reviewed Nurses Notes Reviewed: Yes Source History Provided: Patient Mode of Arrival Mode of Arrival: Ambulatory Timing Onset of Chief Complaint: 08/20/20 Duration Duration: Days Context Onset:: At Rest PE Risk Factors:: None History of:: COPD and CHF Currently on:: Inhaled Bronchodilators Modifying Factors Worsens:: Exertion Improves:: Inhaler Associated Signs and Symptoms Associated Signs and Symptoms: Wheeze, Cough and Nasal Congestion If Chest Pain Quality: denies Sharp, Stabbing, Squeezing, Pressure like, Heavy, Crushing, Burning, Aching, Pleuritic and Other If Cough Cough: Productive and Yellow PMH PMH Past Medical History: Yes Past Medical History: Arthritis, CHF, COPD, Coronary Artery Disease, Dyslipi demia, GERD, Gout, Hypertension and Hypothyroidism Past Surgical History: Yes Surgical History: Tonsillectomy and Other Family History History of Family Medical Conditions: Yes Family Medical History: [place], Coronary Artery Disease and Sudden Cardiac Social History Does any household member use tobacco: No Alcohol Use: None Do you use any recreational Drugs:: No Lives With: Family Lives Where: Home Travel Risk Coronavirus risk:travel/contact w/high risk person: No Has patient experienced Coronavirus symptoms: Yes Coronavirus symptoms experienced: Coughing and Shortness of Breath Infectious screening In the last 2 months have you had wt loss of >10#?: NO Have you had fever, night sweats or hemotysis?: No Have you traveled outside the country in the last 6 months?: No Isolation: Droplet ROS Review of Systems Constitutional: No Symptoms Reported Eyes: No Symptoms Reported ENTM: No Symptoms Reported and Nose Discharge Respiratoy: Productive Cough and Short of Breath Gastrointestinal/Abdominal: No Symptoms Reported Genitourinary: No Symptoms Reported Neurological: No Symptoms Reported Musculoskeletal: No Symptoms Reported Integumentary: No Symptoms Reported Hematologic/Lymphatic: No Symptoms Reported Endocrine: No Symptoms Reported Psychiatric: No Symptoms Reported All Other Systems: Reviewed and Negative PE Vital Signs Vitals: Temperature 97.4 F Pulse Rate 74 Respiratory Rate 20 Blood Pressure [Right Arm] 101/58 Blood Pressure 95/57 O2 Sat by Pulse Oximetry 95 General Limitations: No Limitations General Appearance: Alert and In No Apparent Distress Head Head Exam: Normal Inspection, Atraumatic and Normocephalic Eyes Eye exam: Normal Appearance and EOMI ENT ENT Exam: Normal Exam and Normal Oropharynx Neck Neck Exam: Normal Inspection, Full ROM and Trachea Midline Chest Chest Inspection: Normal Inspection Respiratory Respiratory Exam: Bilateral: Wheezing Cardiovascular Cardiovascular Exam: Regular Rate Abdominal Exam Abdominal Exam: Normal Inspection, Normal Bowel Sounds, Soft and Distention; negative Tenderness and Guarding Extremities Extremities Exam: Normal Inspection and Full ROM; negative Tenderness and Edema Back Back Exam: Normal Inspection and Full ROM Neurologic Neurological Exam: Alert, Oriented X3 and CN II-XII Intact Psychiatric Psychiatric Exam: Anxious Skin Skin Exam: Normal Color COURSE Treatment Treatment: 1030: wheezing persisit after nebulizers Consultation Called: 10:11 Consultation Comments: DR. Goel called and case discussed with Jackeline Nicole, Observation ROR Labs Reviewed Result Diagrams: 08/22/20 08:00 08/22/20 08:00 Laboratory: 08/22/20 08:30 Sputum - Expectorated Sputum - Final WBC 12.4 X10^3/uL (3.6-10.0) H 08/22/20 08:00 RBC 4.01 X10^6/uL (4.7-6.0) L 08/22/20 08:00 Hgb 12.7 g/dL (13.5-18.0) L 08/22/20 08:00 Hct 38.8 % (42.0-54.0) L 08/22/20 08:00 MCV 96.7 fL (80.0-100.0) 08/22/20 08:00 MCH 31.6 pg (27.0-34.0) 08/22/20 08:00 MCHC 32.6 g/dL (33.0-35.0) L 08/22/20 08:00 RDW 16.1 % (11.6-16.5) 08/22/20 08:00 Plt Count 178 X10^3/uL (150.0-450.0) 08/22/20 08:00 MPV 8.3 fL (7.4-11.0) 08/22/20 08:00 Neut % (Auto) 54.8 % (42.0-75.0) 08/22/20 08:00 Lymph % (Auto) 25.9 % (21.0-51.0) 08/22/20 08:00 [place] % (Auto) 7.0 % (0.0-13.0) 08/22/20 08:00 Eos % (Auto) 10.9 % (0.9-2.9) H 08/22/20 08:00 Baso % (Auto) 1.4 % (0.2-1.0) H 08/22/20 08:00 Neut # (Auto) 6.8 x10^3/uL (2.2-4.8) H 08/22/20 08:00 Lymph # (Auto) 3.2 X10^3/uL (1.3-2.9) H 08/22/20 08:00 [place] # (Auto) 0.9 x10^3/uL (0.3-0.8) H 08/22/20 08:00 Eos # (Auto) 1.4 x10^3/uL (0.0-0.2) H 08/22/20 08:00 Baso # (Auto) 0.2 X10^3/uL (0.0-0.1) H 08/22/20 08:00 Absolute Nucleated RBC 0.0 /100WBC 08/22/20 08:00 Sodium 142 mmol/L (136-145) 08/22/20 08:00 Corrected Sodium 142 mmol/L (136-145) 08/22/20 08:00 Potassium 3.7 mmol/L (3.5-5.1) 08/22/20 08:00 Chloride 103 mmol/L (98-107) 08/22/20 08:00 Carbon Dioxide 31.3 mmol/L (21-32) 08/22/20 08:00 BUN 13 mg/dL (7-18) 08/22/20 08:00 Creatinine 0.90 mg/dL (0.70-1.30) 08/22/20 08:00 Est GFR (MDRD) Af Amer > 60 (>60) 08/22/20 08:00 Est GFR (MDRD) Non-Af > 60 (>60) 08/22/20 08:00 Glucose 118 mg/dL (65-99) H 08/22/20 08:00 Lactic Acid 1.6 mmol/L (0.4-2.0) 08/22/20 08:00 Calcium 9.2 mg/dL (8.5-10.1) 08/22/20 08:00 Corrected Calcium TNP 08/22/20 08:00 Ferritin 74 ng/mL (26-388) 08/22/20 08:00 Total Bilirubin 0.80 mg/dL (0.2-1.0) 08/22/20 08:00 AST 18 Units/L (15-37) 08/22/20 08:00 ALT 21 Units/L (12-78) 08/22/20 08:00 Alkaline Phosphatase 69 Units/L (46-116) 08/22/20 08:00 Creatine Kinase 65 Units/L (39-308) 08/22/20 08:00 CK-MB (CK-2) < 1.0 ng/mL (0-4.0) 08/22/20 08:00 CK/CKMB % Calc 1.5 % (<4) 08/22/20 08:00 Troponin I < 0.02 ng/mL (0-1.5) 08/22/20 08:00 C-Reactive Protein 5.00 mg/L (0-3.0) H 08/22/20 08:00 B-Natriuretic Peptide 188 pg/mL (0-79) H 08/22/20 08:00 Total Protein 7.7 g/dL (6.4-8.2) 08/22/20 08:00 Albumin 3.5 g/dL (3.4-5.0) 08/22/20 08:00 Globulin 4.2 g/dL (2.5-4.5) 08/22/20 08:00 Albumin/Globulin Ratio 0.8 Ratio (1.1-2.1) L 08/22/20 08:00 Opioid Opioid Risk Tool Age (Rudolph box if 16-45): No History of Preadolescent Sexual Abuse: No Total: 0 Total Score Risk Category: Low Risk Copyright: Hiram MALONEY predicting aberrant behaviors Instructions Forms: Excuse From Work or School Precautions for COVID19 Patient Portal Social Distancing
[2020-08-22 08:31] LABS: LACTIC ACID 1.6 mmol/L (0.4-2.0)
[2020-08-22 08:32] LABS: BLOOD UREA NITROGEN 13 mg/dL (7-18); CALCIUM 9.2 mg/dL (8.5-10.1); CARBON DIOXIDE 31.3 mmol/L (21-32); CHLORIDE 103 mmol/L (98-107); COR NA(FOR HYPERGLY) 142 mmol/L (136-145); SODIUM 142 mmol/L (136-145); TROPONIN I < 0.02 ng/mL (0-1.5); eGFR NON BLACK RACES > 60 (>60)
[2020-08-22] MEDS ORDERED: SOLU-Medrol 125 MG VIAL IVP ONE (08:40)
[2020-08-22 08:53] LABS: ALANINE AMINOTRANSFERASE 21 Units/L (12-78); ALBUMIN 3.5 g/dL (3.4-5.0); ALKALINE PHOSPHATASE 69 Units/L (46-116); ASPARTATE AMINO TRANSFERASE 18 Units/L (15-37); CKMB % 1.5 % (<4); CREATINE KINASE 65 Units/L (39-308); CREATINE KINASE MB < 1.0 ng/mL (0-4.0); TOTAL PROTEIN 7.7 g/dL (6.4-8.2)
[2020-08-22] MEDS ORDERED: SOLU-Medrol 125 MG VIAL ONE (09:03)
[2020-08-22] MEDS: DUONEB 0.5 MG/3 MG (3 mL) NEB SCH ×2 (14:16→17:21)
[2020-08-22] MEDS: K-DUR TAB 20 MEQ PO SCH ×2 (15:41→23:01)
[2020-08-22] MEDS: PULMICORT NEB TX 0.5 MG NEB SCH ×2 (15:45→20:20)
[2020-08-22] MEDS ORDERED: NS 1000 ML 1,000 ML IV SCH (16:00)
--- NOTE | 2020-08-22 16:01 | DR.H&P ---
H&P - History & Physical for Day of: H&P Date: 08/22/20 - Chief Complaint Chief Complaint: CCC, SOB AND WHEEZING - History of Present Illness History of Present Illness: PT IS 84 WM ER ADMISSION WITH CO CCC, INCREASED WHEEZING. PT TOOK ROCEPHIN 2 WEEKS AGO AND ROUND OF ZITHROMAX AND STEROIDS WITHOUT MUCH IMPROVEMENT. PT HAS PMH OF COPD, AFIB, CHF, OA. PT DENIES ANY KNOWN COVID EXPOSURE OR FEVER. PT ADMITTED FOR TREATMENT OF ACUTE RESP ILLNESS. - Past Medical History Past Medical History: Coronary Artery Disease, Hypertension, Dyslipidemia, Hypothyroidism, COPD, GERD, Arthritis, Gout, CHF Additional Medical History: AORTIC ANEURYSM, AFIB - Past Surgical History Surgical History: Other, Tonsillectomy Additional Surgical History: PACE MAKER - Family History Family Medical History: [place], Coronary Artery Disease, Sudden Cardiac - Social History Does any household member use tobacco: No Alcohol Use: None - Medications Home Medications: No Known Drug Allergies Allergy (Verified 03/07/19 00:07) CONTINUE taking the following medications levothyroxine [Synthroid] 75 mcg PO DAILY 08/22/20 [History] sotalol 120 mg PO BID 08/22/20 [History] - Review of Systems Constitutional: Weakness. denies: Fever Eyes: No Symptoms Reported ENT: No Symptoms Reported Respiratory: Cough, Shortness of Breath, SOB with Excertion, Wheezing Cardiovascular: Palpitations, Edema Gastrointestinal: No Symptoms Reported Genitourinary: No Symptoms Reported Musculoskeletal: Back Pain Skin: No Symptoms Reported Neurological: No Symptoms Reported - Physical Exam Vital Signs: Temperature 97.7 F Pulse Rate [Left Brachial] 74 Pulse Rate 77 Respiratory Rate 22 Blood Pressure [Left Arm] 92/60 Blood Pressure [Right Arm] 101/58 Blood Pressure 91/57 O2 Sat by Pulse Oximetry 93 Oriented: Normal Eyes: Normal Ear: Normal Nose: Normal Throat: Normal Respiratory: Wheezes Throughout Cardiovascular: Normal, Edema (+1 LE EDEMA) : Normal Auscultation: Bowel Sounds: Normal Palpation: Normal Tenderness: Normal Skin: Decreased Turgur Musculoskeletal: Back:Lumbar Psychiatric: Anxiety Affect: Anxious Speech Pattern: Clear, Appropriate - Assessment/Plan (1) Asthmatic bronchitis with acute exacerbation Qualifiers: Asthma severity: moderate Asthma persistence: persistent Qualified Code(s): J45.41 - Moderate persistent asthma with (acute) exacerbation Status: Acute Plan: ADMIT, IV ATBX. RESP THERAPY, SUPPLEMENTAL O2. IV SOLU MEDROL, DUO NEBS. ADMISSION LABS, CXR ON ADMISSION. VERIFY AND RESUME HOME MEDS, STRICT I&OS (2) DDD (degenerative disc disease), lumbar Status: Acute (3) A-fib Qualifiers: Atrial fibrillation type: chronic Status: Chronic (4) CHF (congestive heart failure) Status: Chronic (5) HTN (hypertension) Qualifiers: Status: Chronic - Allergies Allergies/Adverse Reactions: Allergies Allergy/AdvReac Type Severity Reaction Status Date / Time No Known Drug Allergies Allergy Verified 03/07/19 00:07
[2020-08-22 17:00] VITALS: BMI 34.4
[2020-08-22] MEDS: LASIX IVP SCH (17:15)
[2020-08-22] MEDS ORDERED: SALINE 0.9% 3 ML NEB TX ONE (20:34)
[2020-08-22] MEDS ORDERED: COREG TAB 12.5 MG PO SCH (21:00)
[2020-08-22] MEDS: BETAPACE AF PO SCH (21:01)
[2020-08-22] MEDS: COREG TAB 12.5 MG PO SCH (21:09)
[2020-08-22] MEDS: LIPITOR TAB 40 MG PO SCH (21:13)
[2020-08-22] MEDS: SOLU-Medrol 125 MG VIAL IVP SCH (21:13)
[2020-08-22] MEDS ORDERED: TUSSIONEX PENNKINETIC SUSP ONE (22:29)
[2020-08-22] MEDS: TUSSIONEX PENNKINETIC SUSP PO PRN (22:31)
[2020-08-22] MEDS: ROBITUSSIN DM PO PRN (23:52)
[2020-08-23] MEDS: DUONEB 0.5 MG/3 MG (3 mL) NEB SCH ×4 (00:25→18:30)
[2020-08-23] MEDS: ROBITUSSIN DM PO PRN ×2 (03:57→15:29)
[2020-08-23 06:38] LABS: BASOPHILS % (AUTO) 0.1 % (0.2-1.0); HEMATOCRIT 35.5 % (42.0-54.0); HEMOGLOBIN 11.7 g/dL (13.5-18.0); LYMPHOCYTES # (AUTO) 1.6 X10^3/uL (1.3-2.9); LYMPHOCYTES % (AUTO) 12.7 % (21.0-51.0); MEAN CORPUSCULAR HEMOGLOBIN 31.8 pg (27.0-34.0); MEAN CORPUSCULAR VOLUME 96.5 fL (80.0-100.0); MEAN PLATELET VOLUME 8.3 fL (7.4-11.0); MONOCYTES # (AUTO) 0.1 x10^3/uL (0.3-0.8); NEUTROPHILS % (AUTO) 86.2 % (42.0-75.0); PLATELET COUNT 172 X10^3/uL (150.0-450.0); RED BLOOD COUNT 3.68 X10^6/uL (4.7-6.0); WHITE BLOOD COUNT 12.8 X10^3/uL (3.6-10.0)
[2020-08-23 06:53] LABS: ALANINE AMINOTRANSFERASE 21 Units/L (12-78); ALBUMIN 3.2 g/dL (3.4-5.0); ALKALINE PHOSPHATASE 57 Units/L (46-116); ASPARTATE AMINO TRANSFERASE 20 Units/L (15-37); BLOOD UREA NITROGEN 14 mg/dL (7-18); CALCIUM 9.2 mg/dL (8.5-10.1); CHLORIDE 104 mmol/L (98-107); COR CA(FOR HYPOALB) 9.8 mg/dL (8.5-10.1); COR NA(FOR HYPERGLY) 143 mmol/L (136-145); CREATININE 0.87 mg/dL (0.70-1.30); SODIUM 142 mmol/L (136-145); TOTAL PROTEIN 7.3 g/dL (6.4-8.2); eGFR NON BLACK RACES > 60 (>60)
[2020-08-23] MEDS: PULMICORT NEB TX 0.5 MG NEB SCH ×2 (09:20→20:31)
[2020-08-23] MEDS: COREG TAB 12.5 MG PO SCH ×2 (09:29→20:06)
[2020-08-23] MEDS: K-DUR TAB 20 MEQ PO SCH ×2 (09:29→20:05)
[2020-08-23] MEDS: BETAPACE AF PO SCH ×2 (09:29→20:06)
[2020-08-23] MEDS: FLOMAX PO SCH (09:29)
[2020-08-23] MEDS: SOLU-Medrol 125 MG VIAL IVP SCH ×2 (09:30→20:07)
[2020-08-23] MEDS: SYNTHROID 75 mcg TAB PO SCH (09:30)
[2020-08-23] MEDS: LASIX IVP SCH ×2 (09:30→17:13)
[2020-08-23] MEDS: XARELTO PO SCH (09:30)
[2020-08-23] MEDS: TUSSIONEX PENNKINETIC SUSP PO PRN ×2 (09:31→23:30)
[2020-08-23] MEDS: ZITHROMAX INJ 500 MG VIAL 500 MG in NS 250 ML IV 250 ML IV SCH (09:57)
[2020-08-23] MEDS: DIFLUCAN 200 MG IV PREMIX* 200 MG/100 ML BAG IV SCH (14:33)
[2020-08-23] MEDS: LIPITOR TAB 40 MG PO SCH (20:07)
[2020-08-24] MEDS: DUONEB 0.5 MG/3 MG (3 mL) NEB SCH ×4 (00:30→18:15)
[2020-08-24 04:15] LABS: BASOPHILS % (AUTO) 0.1 % (0.2-1.0); HEMATOCRIT 34.1 % (42.0-54.0); LYMPHOCYTES # (AUTO) 1.4 X10^3/uL (1.3-2.9); LYMPHOCYTES % (AUTO) 7.8 % (21.0-51.0); MEAN CORPUSCULAR HEMOGLOBIN 31.4 pg (27.0-34.0); MEAN CORPUSCULAR HGB CONC 32.3 g/dL (33.0-35.0); MEAN CORPUSCULAR VOLUME 97.3 fL (80.0-100.0); MEAN PLATELET VOLUME 8.6 fL (7.4-11.0); MONOCYTES # (AUTO) 0.2 x10^3/uL (0.3-0.8); MONOCYTES % (AUTO) 1.2 % (0.0-13.0); NEUTROPHILS # (AUTO) 16.5 x10^3/uL (2.2-4.8); NEUTROPHILS % (AUTO) 90.9 % (42.0-75.0); PLATELET COUNT 166 X10^3/uL (150.0-450.0); RED BLOOD COUNT 3.51 X10^6/uL (4.7-6.0); RED CELL DISTRIBUTION WIDTH 16.1 % (11.6-16.5); WHITE BLOOD COUNT 18.2 X10^3/uL (3.6-10.0)
[2020-08-24 04:24] LABS: ALANINE AMINOTRANSFERASE 20 Units/L (12-78); ALBUMIN 2.9 g/dL (3.4-5.0); ALKALINE PHOSPHATASE 46 Units/L (46-116); ASPARTATE AMINO TRANSFERASE 31 Units/L (15-37); BLOOD UREA NITROGEN 20 mg/dL (7-18); CALCIUM 8.6 mg/dL (8.5-10.1); CHLORIDE 104 mmol/L (98-107); COR CA(FOR HYPOALB) 9.5 mg/dL (8.5-10.1); COR NA(FOR HYPERGLY) 143 mmol/L (136-145); CREATININE 0.88 mg/dL (0.70-1.30); SODIUM 142 mmol/L (136-145); TOTAL PROTEIN 6.6 g/dL (6.4-8.2); eGFR NON BLACK RACES > 60 (>60)
[2020-08-24 04:59] LABS: BAND NEUTROPHILS % 2 % (0-10); PLATELET MORPHOLOGY COMMENT NORMAL (NORMAL)
[2020-08-24] MEDS: ROBITUSSIN DM PO PRN ×2 (05:27→23:46)
[2020-08-24] MEDS: BETAPACE AF PO SCH ×2 (08:27→20:42)
[2020-08-24] MEDS: COREG TAB 12.5 MG PO SCH ×2 (08:28→20:49)
[2020-08-24] MEDS: FLOMAX PO SCH (08:28)
[2020-08-24] MEDS: DIFLUCAN 200 MG IV PREMIX* 200 MG/100 ML BAG IV SCH (08:28)
[2020-08-24] MEDS: LASIX IVP SCH ×2 (08:29→17:30)
[2020-08-24] MEDS: K-DUR TAB 20 MEQ PO SCH ×2 (08:29→20:39)
[2020-08-24] MEDS: SYNTHROID 75 mcg TAB PO SCH (08:29)
[2020-08-24] MEDS: SOLU-Medrol 125 MG VIAL IVP SCH ×2 (08:29→20:49)
[2020-08-24] MEDS: XARELTO PO SCH (08:30)
[2020-08-24] MEDS: PULMICORT NEB TX 0.5 MG NEB SCH ×2 (09:20→20:50)
[2020-08-24] MEDS: ZITHROMAX INJ 500 MG VIAL 500 MG in NS 250 ML IV 250 ML IV SCH (09:36)
[2020-08-24] MEDS: MILK OF MAGNESIA PO SCH ×2 (09:36→20:39)
--- NOTE | 2020-08-24 11:01 | RAD ---
HISTORYCHF, COPD, SOBSTUDYCHEST x-ray, 1 VIEWCOMPARISONX-ray 08/22/2020FINDINGSCardiac device leads are unchanged in position. Persistent blunting of the left CP angle could be due to small pleural effusion. Borderline CHF changes are similar to prior study. Likely mild atelectasis in the lingula. No pneumothorax is seen.IMPRESSIONPersistent cardiomegaly and possible mild CHF, similar to prior study.Electronically signed by: Ivan Davis (Aug 24, 2020 11:00:36)
[2020-08-24 20:27] LABS: BILIRUBIN,URINE NEGATIVE (NEGATIVE); BLOOD/HEMOGLOBIN,URINE 3+ (NEGATIVE); GLUCOSE, URINE NEGATIVE (NEGATIVE); KETONES,URINE NEGATIVE (NEGATIVE); LEUKOCYTE ESTERASE ,URINE NEGATIVE (NEGATIVE); NITRITES,URINE NEGATIVE (NEGATIVE); PROTEIN,URINE NEGATIVE (NEGATIVE); UROBILINOGEN,URINE NORMAL (NORMAL)
[2020-08-24 20:35] LABS: APPEARANCE,URINE CLEAR (CLEAR); BACTERIA,URINE NEGATIVE /HPF (NEGATIVE); COLOR,URINE PALE YELLOW (YELLOW); RBC,URINE 0-2 /HPF (0-3); SQUAMOUS EPITHELIAL CELL,UR RARE /HPF (NEGATIVE)
[2020-08-24] MEDS: LIPITOR TAB 40 MG PO SCH (20:40)
[2020-08-25] MEDS: DUONEB 0.5 MG/3 MG (3 mL) NEB SCH ×2 (00:40→06:00)
[2020-08-25] MEDS: TUSSIONEX PENNKINETIC SUSP PO PRN (02:05)
[2020-08-25 06:10] LABS: BASOPHILS % (AUTO) 0.1 % (0.2-1.0); HEMATOCRIT 33.9 % (42.0-54.0); LYMPHOCYTES # (AUTO) 1.4 X10^3/uL (1.3-2.9); LYMPHOCYTES % (AUTO) 10.4 % (21.0-51.0); MEAN CORPUSCULAR HEMOGLOBIN 31.5 pg (27.0-34.0); MEAN CORPUSCULAR HGB CONC 32.5 g/dL (33.0-35.0); MEAN CORPUSCULAR VOLUME 96.9 fL (80.0-100.0); MEAN PLATELET VOLUME 8.4 fL (7.4-11.0); MONOCYTES # (AUTO) 0.3 x10^3/uL (0.3-0.8); MONOCYTES % (AUTO) 2.4 % (0.0-13.0); NEUTROPHILS # (AUTO) 11.8 x10^3/uL (2.2-4.8); NEUTROPHILS % (AUTO) 87.1 % (42.0-75.0); PLATELET COUNT 162 X10^3/uL (150.0-450.0); RED CELL DISTRIBUTION WIDTH 16.6 % (11.6-16.5); WHITE BLOOD COUNT 13.5 X10^3/uL (3.6-10.0)
[2020-08-25 06:44] LABS: ALANINE AMINOTRANSFERASE 26 Units/L (12-78); ALBUMIN 2.9 g/dL (3.4-5.0); ALKALINE PHOSPHATASE 46 Units/L (46-116); ASPARTATE AMINO TRANSFERASE 26 Units/L (15-37); BLOOD UREA NITROGEN 22 mg/dL (7-18); CALCIUM 8.6 mg/dL (8.5-10.1); CARBON DIOXIDE 31.4 mmol/L (21-32); CHLORIDE 104 mmol/L (98-107); COR CA(FOR HYPOALB) 9.5 mg/dL (8.5-10.1); COR NA(FOR HYPERGLY) 142 mmol/L (136-145); CREATININE 0.93 mg/dL (0.70-1.30); SODIUM 141 mmol/L (136-145); TOTAL PROTEIN 6.5 g/dL (6.4-8.2); eGFR NON BLACK RACES > 60 (>60)
[2020-08-25] MEDS: PULMICORT NEB TX 0.5 MG NEB SCH (08:58)
[2020-08-25] MEDS ORDERED: SOLU-Medrol 125 MG VIAL IVP SCH (09:00)
[2020-08-25] MEDS: COREG TAB 12.5 MG PO SCH (09:47)
[2020-08-25] MEDS: BETAPACE AF PO SCH (09:48)
[2020-08-25] MEDS: K-DUR TAB 20 MEQ PO SCH (09:49)
[2020-08-25] MEDS: FLOMAX PO SCH (09:49)
[2020-08-25] MEDS: XARELTO PO SCH (09:50)
[2020-08-25] MEDS: SYNTHROID 75 mcg TAB PO SCH (09:50)
[2020-08-25] MEDS: DIFLUCAN 200 MG IV PREMIX* 200 MG/100 ML BAG IV SCH (09:51)
[2020-08-25] MEDS: LASIX IVP SCH (10:42)
[2020-08-25] MEDS: MILK OF MAGNESIA PO SCH (10:43)
[2020-08-25] MEDS: ROBITUSSIN DM PO PRN (10:49)
[2020-08-25 12:49] VITALS: BP 130/74
== END 2020-08-25 11:20 | disposition home or self-care (01) | DRG 192 ==
LOC: ER 07:45 → MED/SURG 07:45 → OBSVTOIN 10:37 → MED/SURG 14:16
PROVIDERS: ADMIT Internal Medicine; ATTEND Internal Medicine
DX: K21.9 Gastro-esophageal reflux disease without esophagitis; I25.10 Atherosclerotic heart disease of native coronary artery without angina pectoris; J20.9 Acute bronchitis, unspecified; R06.02 Shortness of breath; J44.0 Chronic obstructive pulmonary disease with (acute) lower respiratory infection; E03.8 Other specified hypothyroidism; J44.1 Chronic obstructive pulmonary disease with (acute) exacerbation; M51.36 Other intervertebral disc degeneration, lumbar region; R79.82 Elevated C-reactive protein (CRP); I50.9 Heart failure, unspecified; Z20.828 Contact with and (suspected) exposure to other viral communicable diseases; E78.2 Mixed hyperlipidemia; Z95.0 Presence of cardiac pacemaker; I48.91 Unspecified atrial fibrillation; I11.0 Hypertensive heart disease with heart failure; R26.89 Other abnormalities of gait and mobility

== ENCOUNTER 2020-10-14 08:40 | Inpatient (IN) ==
[2020-10-14] MEDS ORDERED: LASIX IVP ONE ×2 (08:43→08:53)
[2020-10-14] MEDS ORDERED: SOLU-Medrol 125 MG VIAL IVP ONE (08:44)
[2020-10-14] MEDS ORDERED: XOPENEX 1.25 MG/3 ML NEBULE NEB ONE ×2 (08:50→08:53)
[2020-10-14] MEDS ORDERED: SOLU-Medrol 125 MG VIAL ONE ×2 (08:53→19:45)
--- NOTE | 2020-10-14 09:03 | DR.SOBA ---
HPI Time Seen Time Seen by Provider: 10/14/20 08:49 Complaints Chief Complaint Doctors Comments: complaint of dyspnea x 2 days. Treating a cold past few days. HX of COPD and CHF. Has been using nebulizers 2-3 x per day. Reviewed Nurses Notes Reviewed: Yes Source History Provided: Patient Mode of Arrival Mode of Arrival: Ambulatory Timing Onset of Chief Complaint: 10/12/20 Duration Duration: Days Context Onset:: At Rest PE Risk Factors:: None History of:: COPD and CHF Currently on:: Inhaled Bronchodilators Prehospital Care:: Furosemide Modifying Factors Worsens:: Exertion Improves:: Inhaler Associated Signs and Symptoms Associated Signs and Symptoms: Wheeze, Cough, Leg Swelling and Anxiety If Chest Pain Quality: Pleuritic If Cough Cough: Nonproductive and Clear PMH PMH Past Medical History: Arthritis, CHF, COPD, Coronary Artery Disease, Dyslipidemia, GERD, Gout, Hypertension and Hypothyroidism Past Surgical History: Yes Surgical History: Tonsillectomy and Other Family History Family Medical History: [place], Coronary Artery Disease and Sudden Cardiac Social History Do you use any recreational Drugs:: No ROS Review of Systems Constitutional: Weakness Eyes: No Symptoms Reported ENTM: Nose Congestion Respiratoy: Non-Productive Cough, Short of Breath and Wheezing Cardiovascular: No Symptoms Reported Gastrointestinal/Abdominal: No Symptoms Reported Genitourinary: No Symptoms Reported Neurological: No Symptoms Reported Musculoskeletal: No Symptoms Reported Integumentary: No Symptoms Reported Hematologic/Lymphatic: No Symptoms Reported Psychiatric: No Symptoms Reported All Other Systems: Reviewed and Negative PE Vital Signs Vitals: Temperature 98.2 F Pulse Rate [Left Radial] 74 Pulse Rate 86 Respiratory Rate 38 Blood Pressure [Left Arm] 99/57 Blood Pressure 94/60 O2 Sat by Pulse Oximetry 99 General Limitations: No Limitations General Appearance: Alert and Anxious Head Head Exam: Normal Inspection, Atraumatic and Normocephalic Eyes Eye exam: Normal Appearance and EOMI ENT ENT Exam: Normal Exam and Normal Oropharynx Neck Neck Exam: Normal Inspection, Full ROM and Trachea Midline Chest Chest Inspection: Normal Inspection Respiratory Respiratory Exam: negative Accessory Muscle Use and Respiratory Distress Respiratory Exam: Bilateral: Wheezing Cardiovascular Cardiovascular Exam: Regular Rate Abdominal Exam Abdominal Exam: Normal Inspection and Normal Bowel Sounds Extremities Extremities Exam: Normal Inspection and Full ROM Back Back Exam: Normal Inspection and Full ROM Neurologic Neurological Exam: Alert, Oriented X3 and CN II-XII Intact Psychiatric Psychiatric Exam: Normal Affect and Normal Mood Skin Skin Exam: Normal Color COURSE Treatment Treatment: 0940: expiratory wheezing persisit, will do duoneb Consultation Called: 10:02 Call Returned: 10:09 Consultation Comments: case discussed with DR. Goel, admit for pneumonia treatment ROR Labs Reviewed Result Diagrams: 10/14/20 08:47 10/14/20 08:47 Laboratory: WBC 11.7 X10^3/uL (3.6-10.0) H 10/14/20 08:47 RBC 3.93 X10^6/uL (4.7-6.0) L 10/14/20 08:47 Hgb 12.4 g/dL (13.5-18.0) L 10/14/20 08:47 Hct 38.3 % (42.0-54.0) L 10/14/20 08:47 MCV 97.6 fL (80.0-100.0) 10/14/20 08:47 MCH 31.5 pg (27.0-34.0) 10/14/20 08:47 MCHC 32.3 g/dL (33.0-35.0) L 10/14/20 08:47 RDW 16.2 % (11.6-16.5) 10/14/20 08:47 Plt Count 198 X10^3/uL (150.0-450.0) 10/14/20 08:47 MPV 8.4 fL (7.4-11.0) 10/14/20 08:47 Neut % (Auto) 59.2 % (42.0-75.0) 10/14/20 08:47 Lymph % (Auto) 19.3 % (21.0-51.0) L 10/14/20 08:47 [place] % (Auto) 11.5 % (0.0-13.0) 10/14/20 08:47 Eos % (Auto) 8.9 % (0.9-2.9) H 10/14/20 08:47 Baso % (Auto) 1.1 % (0.2-1.0) H 10/14/20 08:47 Neut # (Auto) 6.9 x10^3/uL (2.2-4.8) H 10/14/20 08:47 Lymph # (Auto) 2.3 X10^3/uL (1.3-2.9) 10/14/20 08:47 [place] # (Auto) 1.3 x10^3/uL (0.3-0.8) H 10/14/20 08:47 Eos # (Auto) 1.0 x10^3/uL (0.0-0.2) H 10/14/20 08:47 Baso # (Auto) 0.1 X10^3/uL (0.0-0.1) 10/14/20 08:47 Absolute Nucleated RBC 0.0 /100WBC 10/14/20 08:47 Sample Site Lrad 10/14/20 08:55 ABG pH 7.450 (7.35-7.45) 10/14/20 08:55 ABG pCO2 46.0 mmHg (35.0-45.0) H 10/14/20 08:55 ABG pO2 71.0 mmHg (80.0-100.0) L 10/14/20 08:55 ABG HCO3 32.0 mmol/L (22-26) H* 10/14/20 08:55 ABG O2 Saturation 95.0 % (90-100) 10/14/20 08:55 ABG Base Excess 7.0 mmol/L (-2.0-2.0) H 10/14/20 08:55 Audie Test Pos 10/14/20 08:55 A-a Gradient 21.0 mmHg 10/14/20 08:55 FiO2 21.0 10/14/20 08:55 Blood Gas Comments Russ well ah 10/14/20 08:55 Sodium 142 mmol/L (136-145) 10/14/20 08:47 Corrected Sodium 143 mmol/L (136-145) 10/14/20 08:47 Potassium 4.2 mmol/L (3.5-5.1) 10/14/20 08:47 Chloride 104 mmol/L (98-107) 10/14/20 08:47 Carbon Dioxide 33.5 mmol/L (21-32) H 10/14/20 08:47 BUN 14 mg/dL (7-18) 10/14/20 08:47 Creatinine 0.92 mg/dL (0.70-1.30) 10/14/20 08:47 Est GFR (MDRD) Af Amer > 60 (>60) 10/14/20 08:47 Est GFR (MDRD) Non-Af > 60 (>60) 10/14/20 08:47 Glucose 131 mg/dL (65-99) H 10/14/20 08:47 Calcium 9.0 mg/dL (8.5-10.1) 10/14/20 08:47 Corrected Calcium TNP 10/14/20 08:47 Magnesium 1.9 mg/dL (1.7-2.9) 10/14/20 08:47 Ferritin 70 ng/mL (26-388) 10/14/20 08:47 Total Bilirubin 0.70 mg/dL (0.2-1.0) 10/14/20 08:47 AST 11 Units/L (15-37) L 10/14/20 08:47 ALT 19 Units/L (12-78) 10/14/20 08:47 Alkaline Phosphatase 65 Units/L (46-116) 10/14/20 08:47 Creatine Kinase 77 Units/L (39-308) 10/14/20 08:47 CK-MB (CK-2) < 1.0 ng/mL (0-4.0) 10/14/20 08:47 CK/CKMB % Calc 1.3 % (<4) 10/14/20 08:47 Troponin I 0.02 ng/mL (0-1.5) 10/14/20 08:47 C-Reactive Protein 17.60 mg/L (0-3.0) H 10/14/20 08:47 B-Natriuretic Peptide 288 pg/mL (0-79) H 10/14/20 08:47 Total Protein 7.2 g/dL (6.4-8.2) 10/14/20 08:47 Albumin 3.4 g/dL (3.4-5.0) 10/14/20 08:47 Globulin 3.8 g/dL (2.5-4.5) 10/14/20 08:47 Albumin/Globulin Ratio 0.9 Ratio (1.1-2.1) L 10/14/20 08:47 SARS-CoV-2 (PCR) Negative (NEGATIVE) 10/14/20 09:45 XRAY XRAY Interpreted by: Radiologist X-ray Results: chest: patchy airspace opacities EKG Compared to prior EKG Dated: 08/22/20 (no change) Rate: 76 Rhythm: Paced Opioid Opioid Risk Tool Age (Rudolph box if 16-45): No History of Preadolescent Sexual Abuse: No Total: 0 Total Score Risk Category: Low Risk Copyright: Hiram MALONEY predicting aberrant behaviors Instructions Forms: Precautions for COVID19 Patient Portal Social Distancing
[2020-10-14 09:05] LABS: ABG ALLEN TEST POS
[2020-10-14 09:12] LABS: BASOPHILS # (AUTO) 0.1 X10^3/uL (0.0-0.1); BASOPHILS % (AUTO) 1.1 % (0.2-1.0); EOSINOPHILS % (AUTO) 8.9 % (0.9-2.9); HEMATOCRIT 38.3 % (42.0-54.0); HEMOGLOBIN 12.4 g/dL (13.5-18.0); LYMPHOCYTES # (AUTO) 2.3 X10^3/uL (1.3-2.9); LYMPHOCYTES % (AUTO) 19.3 % (21.0-51.0); MEAN CORPUSCULAR HEMOGLOBIN 31.5 pg (27.0-34.0); MEAN CORPUSCULAR HGB CONC 32.3 g/dL (33.0-35.0); MEAN CORPUSCULAR VOLUME 97.6 fL (80.0-100.0); MEAN PLATELET VOLUME 8.4 fL (7.4-11.0); MONOCYTES # (AUTO) 1.3 x10^3/uL (0.3-0.8); MONOCYTES % (AUTO) 11.5 % (0.0-13.0); NEUTROPHILS # (AUTO) 6.9 x10^3/uL (2.2-4.8); NEUTROPHILS % (AUTO) 59.2 % (42.0-75.0); PLATELET COUNT 198 X10^3/uL (150.0-450.0); RED BLOOD COUNT 3.93 X10^6/uL (4.7-6.0); RED CELL DISTRIBUTION WIDTH 16.2 % (11.6-16.5); WHITE BLOOD COUNT 11.7 X10^3/uL (3.6-10.0)
[2020-10-14 09:17] LABS: BLOOD UREA NITROGEN 14 mg/dL (7-18); CARBON DIOXIDE 33.5 mmol/L (21-32); CHLORIDE 104 mmol/L (98-107); COR NA(FOR HYPERGLY) 143 mmol/L (136-145); CREATININE 0.92 mg/dL (0.70-1.30); SODIUM 142 mmol/L (136-145); TROPONIN I 0.02 ng/mL (0-1.5); eGFR NON BLACK RACES > 60 (>60)
[2020-10-14 09:21] LABS: ALANINE AMINOTRANSFERASE 19 Units/L (12-78); ALBUMIN 3.4 g/dL (3.4-5.0); ALKALINE PHOSPHATASE 65 Units/L (46-116); ASPARTATE AMINO TRANSFERASE 11 Units/L (15-37); CREATINE KINASE 77 Units/L (39-308); CREATINE KINASE MB < 1.0 ng/mL (0-4.0); MAGNESIUM 1.9 mg/dL (1.7-2.9); TOTAL PROTEIN 7.2 g/dL (6.4-8.2)
[2020-10-14 09:22] LABS: CKMB % 1.3 % (<4)
--- NOTE | 2020-10-14 09:29 | RAD ---
HISTORYSHORTNESS OF BREATHSTUDYCHEST, 1 [id number]/30/2020FINDINGSThe trachea is midline. The cardiac silhouette is widened but stable. Left-sided pacer and pacer wires unchanged. Patchy bilateral airspace opacities. The bony thorax is unremarkable.IMPRESSIONPatchy bilateral airspace opacities which may reflect congestion or pneumonia.Electronically signed by: HIEU GONZALEZ (Oct 14, 2020 09:28:13)
[2020-10-14] MEDS ORDERED: DUONEB 0.5 MG/3 MG (3 mL) NEB ONE ×3 (09:39→11:58)
[2020-10-14] MEDS ORDERED: FORTAZ or TAZICEF VIAL INJ 1 G in NS 100 ML IV + SPIKE MINIBAG* 100 ML IV SCH (11:00)
[2020-10-14] MEDS: DUONEB 0.5 MG/3 MG (3 mL) NEB SCH ×3 (12:05→21:32)
[2020-10-14] MEDS ORDERED: ZITHROMAX INJ 500 MG VIAL IV ONE (12:23)
[2020-10-14] MEDS ORDERED: NS 250 ML IV 250 ML IV ONE (12:24)
[2020-10-14] MEDS ORDERED: NS 500 ML IV 500 ML IV ONE (12:24)
[2020-10-14] MEDS: VSL#3 PO SCH (12:31)
[2020-10-14 13:16] VITALS: BMI 34.8
[2020-10-14] MEDS: ZITHROMAX INJ 500 MG VIAL 250 MG in NS 250 ML IV 250 ML IV SCH (13:49)
[2020-10-14] MEDS ORDERED: ROBITUSSIN DM ONE (16:08)
[2020-10-14] MEDS: ROBITUSSIN DM PO SCH ×2 (16:13→21:01)
[2020-10-14] MEDS ORDERED: MILK OF MAGNESIA ONE (20:26)
[2020-10-14] MEDS: SOLU-Medrol 125 MG VIAL IVP SCH (21:01)
[2020-10-15] MEDS: DUONEB 0.5 MG/3 MG (3 mL) NEB SCH ×6 (01:03→20:58)
[2020-10-15 05:22] LABS: BASOPHILS % (AUTO) 0 % (0.2-1.0); HEMATOCRIT 33.1 % (42.0-54.0); HEMOGLOBIN 11.1 g/dL (13.5-18.0); LYMPHOCYTES # (AUTO) 1.5 X10^3/uL (1.3-2.9); LYMPHOCYTES % (AUTO) 16.6 % (21.0-51.0); MEAN CORPUSCULAR HEMOGLOBIN 32.5 pg (27.0-34.0); MEAN CORPUSCULAR HGB CONC 33.4 g/dL (33.0-35.0); MEAN CORPUSCULAR VOLUME 97.2 fL (80.0-100.0); MEAN PLATELET VOLUME 8.3 fL (7.4-11.0); MONOCYTES # (AUTO) 0.1 x10^3/uL (0.3-0.8); NEUTROPHILS # (AUTO) 7.5 x10^3/uL (2.2-4.8); NEUTROPHILS % (AUTO) 82.4 % (42.0-75.0); PLATELET COUNT 185 X10^3/uL (150.0-450.0); RED BLOOD COUNT 3.41 X10^6/uL (4.7-6.0); RED CELL DISTRIBUTION WIDTH 15.9 % (11.6-16.5); WHITE BLOOD COUNT 9.1 X10^3/uL (3.6-10.0)
[2020-10-15 05:34] LABS: ALANINE AMINOTRANSFERASE 16 Units/L (12-78); ALBUMIN 2.9 g/dL (3.4-5.0); ALKALINE PHOSPHATASE 50 Units/L (46-116); ASPARTATE AMINO TRANSFERASE 19 Units/L (15-37); BLOOD UREA NITROGEN 17 mg/dL (7-18); CARBON DIOXIDE 29.9 mmol/L (21-32); CHLORIDE 105 mmol/L (98-107); COR CA(FOR HYPOALB) 9.9 mg/dL (8.5-10.1); COR NA(FOR HYPERGLY) 144 mmol/L (136-145); CREATININE 0.92 mg/dL (0.70-1.30); SODIUM 143 mmol/L (136-145); TOTAL PROTEIN 6.5 g/dL (6.4-8.2); eGFR NON BLACK RACES > 60 (>60)
--- NOTE | 2020-10-15 05:48 | RAD ---
HISTORYSOB COPD pneumoniaSTUDYAP [id number]/[id number] cardiomegaly with stable position of pacing device. Nonspe cific interstitial increase is noted in the lungs without evidence for focal airspace disease, pneumo thorax or large pleural effusion. The heart obscures a significant portion of the left lower lung.IMP RESSIONStable cardiomegaly. No evidence for localized pneumonia or atelectasis. Incomplete visualizat ion of left lower lobe; infiltrate or pleural fluid may be present.Electronically signed by: LIZA RAO (Oct 15, 2020 05:46:52)
[2020-10-15] MEDS: MILK OF MAGNESIA PO PRN (06:31)
--- NOTE | 2020-10-15 07:58 | PCM.PROG ---
Progress Note - Progress Note for Day of Date of Exam: 10/15/20 - Subjective Subjective: IS BEING TREATED FOR COPD EXACERBATION AND PNEUMONIA. TODAY, HE IS ALERT AND ORIENTED, LYING IN BED ON MORNING ROUNDS. HE CONTINUES WITH COMPLAINTS OF COUGH AND SHORTNESS OF BREATH. COUGH IS NON-PRODUCTIVE. ON EXAMINATION, HEART IS REGULAR IN RATE AND RHYTHM. BILATERAL LUNGS ARE NOTED WITH SCATTERED WHEEZING THROUGHOUT. ABDOMEN IS ROUND, SOFT, AND NON-TENDER WITH NORMAL BOWEL SOUNDS NOTED IN ALL QUADRANTS. HIS VITALS THIS MORNING ARE: 97.8-80-18-96%NC-104/63. LABS WERE OBTAINED. ABNORMAL LAB VALUES INCLUDE THE FOLLOWING: WBC 11.7, RBC 3.93, HGB 12.4, HCT 38.3, CARBON DIOXIDE 33.5, GLUCOSE 131, AST 11, BNP 288, CRP 17.60. CARDIAC ENZYMES ARE WITHIN NORMAL LIMITS. COVID-19 NEGATIVE. A CHEST XRAY WAS OBTAINED AND REVEALED: Patchy bilateral airspace opacities which may reflect congestion or pneumonia. HE IS CURRENTLY RECEIVING AZITHROMYCIN 250MG IV DAILY, ROCEPHIN 1G IV DAILY, DUONEBS Q4H, ROBITUSSIN DM 10 ML PO QID, AND SOLU-MEDROL 125MG IV Q12H. TODAY, WE WILL ADD PULMICORT NEBS BID, MUCOMYST IN NEBS QID, AND CHANGE SOLU-MEDROL TO 80MG IV Q8H. OTHERWISE, WE PLAN TO FOLLOW UP WITH AM LABS AND CONTINUE TO MONITOR. - Past Medical Family Social History Past Med/Fam/Surg Hx: No changes since H&P Allergies: Allergies No Known Drug Allergies Allergy (Verified 03/07/19 00:07) - Review of Systems ROS: No change since H&P - Vital Signs and I&O's Vital Signs: Temperature 97.8 F Pulse Rate [Left Radial] 80 Pulse Rate 79 Respiratory Rate 18 Blood Pressure [Left Arm] 104/63 Blood Pressure 91/55 O2 Sat by Pulse Oximetry 96 Intake and Output: Intake & Output 10/12/20 10/13/20 10/14/20 10/15/20 11:59 11:59 11:59 11:59 Intake Total 1595 / 1595 Balance 1595 / 1595 - Physical Exam Oriented: Normal Eyes: Normal Ear: Normal Nose: Normal Throat: Normal Respiratory: Generalized, Wheezes Cardiovascular: Normal : Normal Auscultation: Bowel Sounds: Normal Palpation: Normal Tenderness: Normal Skin: Normal Musculoskeletal: Normal Psychiatric: Normal Mood Description: Calm Affect: Normal Speech Pattern: Clear, Appropriate - Laboratory and Diagnostics Result Diagrams: 10/15/20 04:22 10/15/20 04:22 Labs: Laboratory WBC 9.1 X10^3/uL (3.6-10.0) 10/15/20 04:22 RBC 3.41 X10^6/uL (4.7-6.0) L 10/15/20 04:22 Hgb 11.1 g/dL (13.5-18.0) L 10/15/20 04:22 Hct 33.1 % (42.0-54.0) L 10/15/20 04:22 MCV 97.2 fL (80.0-100.0) 10/15/20 04:22 MCH 32.5 pg (27.0-34.0) 10/15/20 04:22 MCHC 33.4 g/dL (33.0-35.0) 10/15/20 04:22 RDW 15.9 % (11.6-16.5) 10/15/20 04:22 Plt Count 185 X10^3/uL (150.0-450.0) 10/15/20 04:22 MPV 8.3 fL (7.4-11.0) 10/15/20 04:22 Neut % (Auto) 82.4 % (42.0-75.0) H 10/15/20 04:22 Lymph % (Auto) 16.6 % (21.0-51.0) L 10/15/20 04:22 [place] % (Auto) 1.0 % (0.0-13.0) 10/15/20 04:22 Eos % (Auto) 0.0 % (0.9-2.9) L 10/15/20 04:22 Baso % (Auto) 0 % (0.2-1.0) L 10/15/20 04:22 Neut # (Auto) 7.5 x10^3/uL (2.2-4.8) H 10/15/20 04:22 Lymph # (Auto) 1.5 X10^3/uL (1.3-2.9) 10/15/20 04:22 [place] # (Auto) 0.1 x10^3/uL (0.3-0.8) L 10/15/20 04:22 Eos # (Auto) 0.0 x10^3/uL (0.0-0.2) 10/15/20 04:22 Baso # (Auto) 0.0 X10^3/uL (0.0-0.1) 10/15/20 04:22 Absolute Nucleated RBC 0.1 /100WBC 10/15/20 04:22 Sample Site Lrad 10/14/20 08:55 ABG pH 7.450 (7.35-7.45) 10/14/20 08:55 ABG pCO2 46.0 mmHg (35.0-45.0) H 10/14/20 08:55 ABG pO2 71.0 mmHg (80.0-100.0) L 10/14/20 08:55 ABG HCO3 32.0 mmol/L (22-26) H* 10/14/20 08:55 ABG O2 Saturation 95.0 % (90-100) 10/14/20 08:55 ABG Base Excess 7.0 mmol/L (-2.0-2.0) H 10/14/20 08:55 Audie Test Pos 10/14/20 08:55 A-a Gradient 21.0 mmHg 10/14/20 08:55 FiO2 21.0 10/14/20 08:55 Blood Gas Comments Russ well ah 10/14/20 08:55 Sodium 143 mmol/L (136-145) 10/15/20 04:22 Corrected Sodium 144 mmol/L (136-145) 10/15/20 04:22 Potassium 4.0 mmol/L (3.5-5.1) 10/15/20 04:22 Chloride 105 mmol/L (98-107) 10/15/20 04:22 Carbon Dioxide 29.9 mmol/L (21-32) 10/15/20 04:22 BUN 17 mg/dL (7-18) 10/15/20 04:22 Creatinine 0.92 mg/dL (0.70-1.30) 10/15/20 04:22 Est GFR (MDRD) Af Amer > 60 (>60) 10/15/20 04:22 Est GFR (MDRD) Non-Af > 60 (>60) 10/15/20 04:22 Glucose 157 mg/dL (65-99) H 10/15/20 04:22 Calcium 9.0 mg/dL (8.5-10.1) 10/15/20 04:22 Corrected Calcium 9.9 mg/dL (8.5-10.1) 10/15/20 04:22 Magnesium 1.9 mg/dL (1.7-2.9) 10/14/20 08:47 Ferritin 70 ng/mL (26-388) 10/14/20 08:47 Total Bilirubin 0.50 mg/dL (0.2-1.0) 10/15/20 04:22 AST 19 Units/L (15-37) 10/15/20 04:22 ALT 16 Units/L (12-78) 10/15/20 04:22 Alkaline Phosphatase 50 Units/L (46-116) 10/15/20 04:22 Creatine Kinase 77 Units/L (39-308) 10/14/20 08:47 CK-MB (CK-2) < 1.0 ng/mL (0-4.0) 10/14/20 08:47 CK/CKMB % Calc 1.3 % (<4) 10/14/20 08:47 Troponin I 0.02 ng/mL (0-1.5) 10/14/20 08:47 C-Reactive Protein 17.60 mg/L (0-3.0) H 10/14/20 08:47 B-Natriuretic Peptide 288 pg/mL (0-79) H 10/14/20 08:47 Total Protein 6.5 g/dL (6.4-8.2) 10/15/20 04:22 Albumin 2.9 g/dL (3.4-5.0) L 10/15/20 04:22 Globulin 3.6 g/dL (2.5-4.5) 10/15/20 04:22 Albumin/Globulin Ratio 0.8 Ratio (1.1-2.1) L 10/15/20 04:22 SARS-CoV-2 (PCR) Negative (NEGATIVE) 10/14/20 09:45 - Plan (1) Pneumonia Status: Acute Qualifiers: Pneumonia type: due to unspecified organism Laterality: bilateral Lung location: lower lobe of lung Qualified Code(s): J18.9 - Pneumonia, unspecified organism Plan: AZITHROMYCIN 250MG IV DAILY, ROCEPHIN 1G IV DAILY, DUONEBS Q4H, PULMICORT NEBS BID, MUCOMYST IN NEB [place] QID, ROBITUSSIN DM 10 ML PO QID, AND SOLU-MEDROL 80MG IV Q8H (2) COPD exacerbation Status: Acute (3) SOB (shortness of breath) Status: Acute
[2020-10-15] MEDS: ZYLOPRIM PO SCH (09:16)
[2020-10-15] MEDS: ALDACTONE TAB 25 MG PO SCH (09:16)
[2020-10-15] MEDS: XARELTO PO SCH (09:16)
[2020-10-15] MEDS: VSL#3 PO SCH (09:17)
[2020-10-15] MEDS: SOLU-Medrol 125 MG VIAL IVP SCH (09:17)
[2020-10-15] MEDS: SYNTHROID 75 mcg TAB PO SCH (09:17)
[2020-10-15] MEDS: MICRO K EXTEN CAP 10 MEQ PO SCH (09:18)
[2020-10-15] MEDS: ROBITUSSIN DM PO SCH ×4 (09:18→20:27)
[2020-10-15] MEDS: ASPIRIN EC 81 MG PO SCH (09:19)
[2020-10-15] MEDS ORDERED: MUCOMYST (RESPIRATORY USE ONLY) ONE (09:41)
[2020-10-15] MEDS: MUCOMYST 20% 200 MG/ML NEB SCH ×4 (09:45→20:58)
[2020-10-15] MEDS: PULMICORT NEB TX 0.5 MG NEB SCH ×2 (09:45→20:58)
[2020-10-15] MEDS ORDERED: NS 100 ML IV 100 ML IV ONE (11:53)
[2020-10-15] MEDS ORDERED: ZITHROMAX INJ 500 MG VIAL IV ONE (11:53)
[2020-10-15] MEDS: ZITHROMAX INJ 500 MG VIAL 250 MG in NS 250 ML IV 250 ML IV SCH (12:00)
[2020-10-15] MEDS: SOLU-Medrol 40 MG VIAL IVP SCH ×2 (14:45→21:07)
[2020-10-15] MEDS ORDERED: LIPITOR TAB 40 MG ONE (19:34)
[2020-10-15] MEDS: ROCEPHIN 1 GRAM IV PREMIX 1 G/50 ML IV.SOLN. IV SCH (20:26)
[2020-10-15] MEDS: LIPITOR TAB 40 MG PO SCH (20:26)
[2020-10-15] MEDS ORDERED: SOLU-Medrol 40 MG VIAL IVP SCH (21:00)
[2020-10-16] MEDS: DUONEB 0.5 MG/3 MG (3 mL) NEB SCH ×6 (01:44→20:29)
[2020-10-16] MEDS: SOLU-Medrol 40 MG VIAL IVP SCH (05:18)
[2020-10-16] MEDS: MILK OF MAGNESIA PO PRN (05:24)
--- NOTE | 2020-10-16 05:59 | RAD ---
HISTORYSOB pneumoniaSTUDYPortable AP [id number] cardiac enlargement with stable pacemaker position. The av ailable image does not include the extreme lower lungs, diaphragm surfaces or costophrenic sulci. Ret rocardiac density is suggested; infiltrate may be present in the lower lobe.IMPRESSIONNo definite tana nge since 1 day prior. Stable cardiomegaly. Incomplete inclusion of the lung bases, diaphragm surface s and costophrenic angles. Left basal infiltrate may be present. A repeat/follow-up exam, including t he entire lower chest, is recommended.Electronically signed by: LIZA WALTON (Oct 16, 2020 05:58:24 )
[2020-10-16 06:16] LABS: BASOPHILS % (AUTO) 0.1 % (0.2-1.0); HEMATOCRIT 31.8 % (42.0-54.0); HEMOGLOBIN 10.4 g/dL (13.5-18.0); LYMPHOCYTES # (AUTO) 1.4 X10^3/uL (1.3-2.9); LYMPHOCYTES % (AUTO) 8.1 % (21.0-51.0); MEAN CORPUSCULAR HEMOGLOBIN 31.7 pg (27.0-34.0); MEAN CORPUSCULAR HGB CONC 32.9 g/dL (33.0-35.0); MEAN CORPUSCULAR VOLUME 96.4 fL (80.0-100.0); MONOCYTES # (AUTO) 0.4 x10^3/uL (0.3-0.8); MONOCYTES % (AUTO) 2.1 % (0.0-13.0); NEUTROPHILS # (AUTO) 15.3 x10^3/uL (2.2-4.8); NEUTROPHILS % (AUTO) 89.7 % (42.0-75.0); PLATELET COUNT 198 X10^3/uL (150.0-450.0); RED BLOOD COUNT 3.29 X10^6/uL (4.7-6.0); RED CELL DISTRIBUTION WIDTH 15.6 % (11.6-16.5)
[2020-10-16 06:31] LABS: ALANINE AMINOTRANSFERASE 16 Units/L (12-78); ALBUMIN 2.6 g/dL (3.4-5.0); ALKALINE PHOSPHATASE 45 Units/L (46-116); ASPARTATE AMINO TRANSFERASE 16 Units/L (15-37); BLOOD UREA NITROGEN 16 mg/dL (7-18); CALCIUM 8.8 mg/dL (8.5-10.1); CARBON DIOXIDE 32.3 mmol/L (21-32); CHLORIDE 107 mmol/L (98-107); COR CA(FOR HYPOALB) 9.9 mg/dL (8.5-10.1); COR NA(FOR HYPERGLY) 144 mmol/L (136-145); CREATININE 0.82 mg/dL (0.70-1.30); SODIUM 143 mmol/L (136-145); TOTAL PROTEIN 5.8 g/dL (6.4-8.2); eGFR NON BLACK RACES > 60 (>60)
[2020-10-16] MEDS ORDERED: CHLORASEPTIC SPRAY MT PRN (08:51)
[2020-10-16] MEDS ORDERED: ZITHROMAX INJ 500 MG VIAL IV ONE (09:03)
[2020-10-16] MEDS ORDERED: NS 100 ML IV 100 ML IV ONE (09:03)
[2020-10-16] MEDS: ALDACTONE TAB 25 MG PO SCH (09:38)
[2020-10-16] MEDS: ZYLOPRIM PO SCH (09:38)
[2020-10-16] MEDS: VSL#3 PO SCH (09:39)
[2020-10-16] MEDS: MICRO K EXTEN CAP 10 MEQ PO SCH (09:39)
[2020-10-16] MEDS: XARELTO PO SCH (09:39)
[2020-10-16] MEDS: ROBITUSSIN DM PO SCH ×4 (09:39→20:39)
[2020-10-16] MEDS: SYNTHROID 75 mcg TAB PO SCH (09:39)
[2020-10-16] MEDS: ASPIRIN EC 81 MG PO SCH (09:39)
[2020-10-16] MEDS: ROCEPHIN 1 GRAM IV PREMIX 1 G/50 ML IV.SOLN. IV SCH (09:40)
[2020-10-16] MEDS: ZITHROMAX INJ 500 MG VIAL 250 MG in NS 250 ML IV 250 ML IV SCH (10:30)
[2020-10-16] MEDS: MUCOMYST 20% 200 MG/ML NEB SCH ×4 (10:53→20:28)
[2020-10-16] MEDS: PULMICORT NEB TX 0.5 MG NEB SCH ×2 (10:53→20:29)
--- NOTE | 2020-10-16 12:10 | PCM.PROG ---
Progress Note - Progress Note for Day of Date of Exam: 10/16/20 - Subjective Subjective: IS BEING TREATED FOR COPD EXACERBATION AND PNEUMONIA. TODAY, HE IS ALERT AND ORIENTED, LYING IN BED ON MORNING ROUNDS. HE CONTINUES WITH COMPLAINTS OF COUGH AND SHORTNESS OF BREATH, BUT REPORTS SLIGHT IMPROVEMENT IN SYMPTOMS SINCE YESTERDAY. COUGH IS NON-PRODUCTIVE. ON EXAMINATION, HEART IS REGULAR IN RATE AND RHYTHM. BILATERAL LUNGS ARE NOTED WITH SCATTERED WHEEZING THROUGHOUT. ABDOMEN IS ROUND, SOFT, AND NON-TENDER WITH NORMAL BOWEL SOUNDS NOTED IN ALL QUADRANTS. HIS VITALS THIS MORNING ARE: 97.4-78-18-90%NC-108/57. LABS WERE OBTAINED. ABNORMAL LAB VALUES INCLUDE THE FOLLOWING: WBC 17.0, RBC 3.29, HGB 10.4, HCT 31.8, CARBON DIOXIDE 32.3, GLUCOSE 149, ALK PHOS 45, TOTAL PROTEIN 5.8, ALBUMIN 2.6. CARDIAC ENZYMES ARE WITHIN NORMAL LIMITS. COVID-19 NEGATIVE. A CHEST XRAY WAS OBTAINED AND REVEALED: No definite change since 1 day prior. Stable cardiomegaly. Incomplete inclusion of the lung bases, diaphragm surfaces and costophrenic angles. Left basal infiltrate may be present. A repeat/follow-up exam, including the entire lower chest, is recommended. HE IS CURRENTLY RECEIVING AZITHROMYCIN 250MG IV DAILY, ROCEPHIN 1G IV DAILY, DUONEBS Q4H, PULMICORT NEBS BID, MUCOMYST IN NEBS QID, ROBITUSSIN DM 10 ML PO QID, AND SOLU-MEDROL 80MG IV Q8H. WE WILL CONTINUE WITH CURRENT PLAN OF CARE TODAY. OTHERWISE, WE PLAN TO FOLLOW UP WITH AM LABS AND CONTINUE TO MONITOR. - Past Medical Family Social History Past Med/Fam/Surg Hx: No changes since H&P Allergies: Allergies No Known Drug Allergies Allergy (Verified 03/07/19 00:07) - Review of Systems ROS: No change since H&P - Vital Signs and I&O's Vital Signs: Temperature 97.4 F Pulse Rate [Left Radial] 78 Pulse Rate 79 Respiratory Rate 18 Blood Pressure [Left Arm] 108/57 Blood Pressure 91/55 O2 Sat by Pulse Oximetry 90 Intake and Output: Intake & Output 10/14/20 10/15/20 10/16/20 10/17/20 11:59 11:59 11:59 11:59 Intake Total 1595 / 1595 1660 / 1660 Balance 1595 / 1595 1660 / 1660 - Physical Exam Oriented: Normal Eyes: Normal Ear: Normal Nose: Normal Throat: Normal Respiratory: Generalized, Wheezes Cardiovascular: Normal : Normal Auscultation: Bowel Sounds: Normal Palpation: Normal Tenderness: Normal Skin: Normal Musculoskeletal: Normal Psychiatric: Normal Mood Description: Calm Affect: Normal Speech Pattern: Clear, Appropriate - Laboratory and Diagnostics Result Diagrams: 10/16/20 05:26 10/16/20 05:26 Labs: Laboratory WBC 17.0 X10^3/uL (3.6-10.0) H 10/16/20 05:26 RBC 3.29 X10^6/uL (4.7-6.0) L 10/16/20 05:26 Hgb 10.4 g/dL (13.5-18.0) L 10/16/20 05:26 Hct 31.8 % (42.0-54.0) L 10/16/20 05:26 MCV 96.4 fL (80.0-100.0) 10/16/20 05:26 MCH 31.7 pg (27.0-34.0) 10/16/20 05:26 MCHC 32.9 g/dL (33.0-35.0) L 10/16/20 05:26 RDW 15.6 % (11.6-16.5) 10/16/20 05:26 Plt Count 198 X10^3/uL (150.0-450.0) 10/16/20 05:26 MPV 8.0 fL (7.4-11.0) 10/16/20 05:26 Neut % (Auto) 89.7 % (42.0-75.0) H 10/16/20 05:26 Lymph % (Auto) 8.1 % (21.0-51.0) L 10/16/20 05:26 [place] % (Auto) 2.1 % (0.0-13.0) 10/16/20 05:26 Eos % (Auto) 0.0 % (0.9-2.9) L 10/16/20 05:26 Baso % (Auto) 0.1 % (0.2-1.0) L 10/16/20 05:26 Neut # (Auto) 15.3 x10^3/uL (2.2-4.8) H 10/16/20 05:26 Lymph # (Auto) 1.4 X10^3/uL (1.3-2.9) 10/16/20 05:26 [place] # (Auto) 0.4 x10^3/uL (0.3-0.8) 10/16/20 05:26 Eos # (Auto) 0.0 x10^3/uL (0.0-0.2) 10/16/20 05:26 Baso # (Auto) 0.0 X10^3/uL (0.0-0.1) 10/16/20 05:26 Absolute Nucleated RBC 0.1 /100WBC 10/16/20 05:26 Sample Site Lrad 10/14/20 08:55 ABG pH 7.450 (7.35-7.45) 10/14/20 08:55 ABG pCO2 46.0 mmHg (35.0-45.0) H 10/14/20 08:55 ABG pO2 71.0 mmHg (80.0-100.0) L 10/14/20 08:55 ABG HCO3 32.0 mmol/L (22-26) H* 10/14/20 08:55 ABG O2 Saturation 95.0 % (90-100) 10/14/20 08:55 ABG Base Excess 7.0 mmol/L (-2.0-2.0) H 10/14/20 08:55 Audie Test Pos 10/14/20 08:55 A-a Gradient 21.0 mmHg 10/14/20 08:55 FiO2 21.0 10/14/20 08:55 Blood Gas Comments Russ well ah 10/14/20 08:55 Sodium 143 mmol/L (136-145) 10/16/20 05:26 Corrected Sodium 144 mmol/L (136-145) 10/16/20 05:26 Potassium 4.3 mmol/L (3.5-5.1) 10/16/20 05:26 Chloride 107 mmol/L (98-107) 10/16/20 05:26 Carbon Dioxide 32.3 mmol/L (21-32) H 10/16/20 05:26 BUN 16 mg/dL (7-18) 10/16/20 05:26 Creatinine 0.82 mg/dL (0.70-1.30) 10/16/20 05:26 Est GFR (MDRD) Af Amer > 60 (>60) 10/16/20 05:26 Est GFR (MDRD) Non-Af > 60 (>60) 10/16/20 05:26 Glucose 149 mg/dL (65-99) H 10/16/20 05:26 Calcium 8.8 mg/dL (8.5-10.1) 10/16/20 05:26 Corrected Calcium 9.9 mg/dL (8.5-10.1) 10/16/20 05:26 Magnesium 1.9 mg/dL (1.7-2.9) 10/14/20 08:47 Ferritin 70 ng/mL (26-388) 10/14/20 08:47 Total Bilirubin 0.30 mg/dL (0.2-1.0) 10/16/20 05:26 AST 16 Units/L (15-37) 10/16/20 05:26 ALT 16 Units/L (12-78) 10/16/20 05:26 Alkaline Phosphatase 45 Units/L (46-116) L 10/16/20 05:26 Creatine Kinase 77 Units/L (39-308) 10/14/20 08:47 CK-MB (CK-2) < 1.0 ng/mL (0-4.0) 10/14/20 08:47 CK/CKMB % Calc 1.3 % (<4) 10/14/20 08:47 Troponin I 0.02 ng/mL (0-1.5) 10/14/20 08:47 C-Reactive Protein 17.60 mg/L (0-3.0) H 10/14/20 08:47 B-Natriuretic Peptide 288 pg/mL (0-79) H 10/14/20 08:47 Total Protein 5.8 g/dL (6.4-8.2) L 10/16/20 05:26 Albumin 2.6 g/dL (3.4-5.0) L 10/16/20 05:26 Globulin 3.2 g/dL (2.5-4.5) 10/16/20 05:26 Albumin/Globulin Ratio 0.8 Ratio (1.1-2.1) L 10/16/20 05:26 SARS-CoV-2 (PCR) Negative (NEGATIVE) 10/14/20 09:45 - Plan (1) Pneumonia Status: Acute Qualifiers: Pneumonia type: due to unspecified organism Laterality: bilateral Lung location: lower lobe of lung Qualified Code(s): J18.9 - Pneumonia, unspecified organism Plan: AZITHROMYCIN 250MG IV DAILY, ROCEPHIN 1G IV DAILY, DUONEBS Q4H, PULMICORT NEBS BID, MUCOMYST IN NEB [place] QID, ROBITUSSIN DM 10 ML PO QID, AND SOLU-MEDROL 80MG IV Q8H (2) COPD exacerbation Status: Acute (3) SOB (shortness of breath) Status: Acute
[2020-10-16] MEDS: LIPITOR TAB 40 MG PO SCH (20:39)
[2020-10-17] MEDS: DUONEB 0.5 MG/3 MG (3 mL) NEB SCH ×7 (05:46→21:05)
--- NOTE | 2020-10-17 06:16 | RAD ---
HISTORYShortness of breathSTUDYChest AP [id number]/2020FINDINGSThere is a pacemaker present on the left obscuring a portion of t he left midlung. The heart is enlarged. No congestive heart failure is noted. Right lung and left upp er lung chairez are clear. There is poor visualization of the left hemidiaphragm which could be due to the overlying cardiomegaly. Left lower lobe infiltrate not excluded. Upright PA and lateral chest ex amination would be of further diagnostic value.IMPRESSIONNo change cardiomegaly without congestive he art failureNo change Clear right lung left upper lung fieldObscuration of the left hemidiaphragm whic h could be on the basis of left lower lobe infiltrate or due to the overlying cardiomegaly. Upright P A and lateral chest examination would be of further diagnostic value.Electronically signed by: MARGY GONZALEZ (Oct 17, 2020 06:14:17)
[2020-10-17 06:38] LABS: BASOPHILS % (AUTO) 0.1 % (0.2-1.0); HEMATOCRIT 33.8 % (42.0-54.0); HEMOGLOBIN 10.9 g/dL (13.5-18.0); LYMPHOCYTES # (AUTO) 2.2 X10^3/uL (1.3-2.9); LYMPHOCYTES % (AUTO) 12.3 % (21.0-51.0); MEAN CORPUSCULAR HEMOGLOBIN 31.2 pg (27.0-34.0); MEAN CORPUSCULAR HGB CONC 32.2 g/dL (33.0-35.0); MEAN CORPUSCULAR VOLUME 96.9 fL (80.0-100.0); MEAN PLATELET VOLUME 8.6 fL (7.4-11.0); MONOCYTES % (AUTO) 5.3 % (0.0-13.0); NEUTROPHILS # (AUTO) 14.8 x10^3/uL (2.2-4.8); NEUTROPHILS % (AUTO) 82.3 % (42.0-75.0); PLATELET COUNT 208 X10^3/uL (150.0-450.0); RED BLOOD COUNT 3.49 X10^6/uL (4.7-6.0); RED CELL DISTRIBUTION WIDTH 15.9 % (11.6-16.5)
[2020-10-17 06:48] LABS: ALANINE AMINOTRANSFERASE 18 Units/L (12-78); ALBUMIN 2.7 g/dL (3.4-5.0); ALKALINE PHOSPHATASE 45 Units/L (46-116); ASPARTATE AMINO TRANSFERASE 15 Units/L (15-37); BLOOD UREA NITROGEN 19 mg/dL (7-18); CALCIUM 8.8 mg/dL (8.5-10.1); CARBON DIOXIDE 32.6 mmol/L (21-32); CHLORIDE 108 mmol/L (98-107); COR CA(FOR HYPOALB) 9.8 mg/dL (8.5-10.1); COR NA(FOR HYPERGLY) 144 mmol/L (136-145); CREATININE 0.81 mg/dL (0.70-1.30); SODIUM 144 mmol/L (136-145); eGFR NON BLACK RACES > 60 (>60)
[2020-10-17] MEDS ORDERED: ZITHROMAX INJ 500 MG VIAL IV ONE (08:16)
[2020-10-17] MEDS ORDERED: NS 250 ML IV 250 ML IV ONE (08:17)
[2020-10-17] MEDS: ALDACTONE TAB 25 MG PO SCH (09:01)
[2020-10-17] MEDS: ASPIRIN EC 81 MG PO SCH (09:02)
[2020-10-17] MEDS: ROBITUSSIN DM PO SCH ×4 (09:02→20:33)
[2020-10-17] MEDS: ROCEPHIN 1 GRAM IV PREMIX 1 G/50 ML IV.SOLN. IV SCH (09:02)
[2020-10-17] MEDS: MICRO K EXTEN CAP 10 MEQ PO SCH (09:02)
[2020-10-17] MEDS: VSL#3 PO SCH (09:03)
[2020-10-17] MEDS: SOLU-Medrol 40 MG VIAL IVP SCH ×2 (09:03→20:33)
[2020-10-17] MEDS: SYNTHROID 75 mcg TAB PO SCH (09:03)
[2020-10-17] MEDS: XARELTO PO SCH (09:03)
[2020-10-17] MEDS: ZYLOPRIM PO SCH (09:04)
[2020-10-17] MEDS: ZITHROMAX INJ 500 MG VIAL 250 MG in NS 250 ML IV 250 ML IV SCH (09:55)
[2020-10-17] MEDS: MUCOMYST 20% 200 MG/ML NEB SCH ×5 (10:37→21:05)
[2020-10-17] MEDS: PULMICORT NEB TX 0.5 MG NEB SCH ×2 (10:37→21:05)
[2020-10-17] MEDS: LIPITOR TAB 40 MG PO SCH (20:33)
[2020-10-17] MEDS: COLACE CAP 100 MG PO PRN (20:34)
[2020-10-17] MEDS: MILK OF MAGNESIA PO PRN (21:17)
[2020-10-17] MEDS ORDERED: TUSSIONEX PENNKINETIC SUSP PO PRN (21:34)
[2020-10-17] MEDS ORDERED: SALINE 0.9% 3 ML NEB TX ONE (23:59)
[2020-10-18] MEDS: DUONEB 0.5 MG/3 MG (3 mL) NEB SCH ×6 (00:37→20:41)
[2020-10-18] MEDS ORDERED: SALINE 0.9% 3 ML NEB TX ONE (05:14)
[2020-10-18 06:09] LABS: ALANINE AMINOTRANSFERASE 21 Units/L (12-78); ALBUMIN 2.7 g/dL (3.4-5.0); ALKALINE PHOSPHATASE 45 Units/L (46-116); ASPARTATE AMINO TRANSFERASE 15 Units/L (15-37); BASOPHILS % (AUTO) 0.1 % (0.2-1.0); BLOOD UREA NITROGEN 19 mg/dL (7-18); CALCIUM 8.6 mg/dL (8.5-10.1); CARBON DIOXIDE 34.2 mmol/L (21-32); CHLORIDE 107 mmol/L (98-107); COR CA(FOR HYPOALB) 9.6 mg/dL (8.5-10.1); COR NA(FOR HYPERGLY) 143 mmol/L (136-145); CREATININE 0.73 mg/dL (0.70-1.30); HEMATOCRIT 34.6 % (42.0-54.0); HEMOGLOBIN 11.3 g/dL (13.5-18.0); LYMPHOCYTES # (AUTO) 1.5 X10^3/uL (1.3-2.9); LYMPHOCYTES % (AUTO) 10.7 % (21.0-51.0); MEAN CORPUSCULAR HEMOGLOBIN 31.7 pg (27.0-34.0); MEAN CORPUSCULAR HGB CONC 32.7 g/dL (33.0-35.0); MEAN CORPUSCULAR VOLUME 96.9 fL (80.0-100.0); MEAN PLATELET VOLUME 8.8 fL (7.4-11.0); MONOCYTES # (AUTO) 0.4 x10^3/uL (0.3-0.8); MONOCYTES % (AUTO) 2.5 % (0.0-13.0); NEUTROPHILS # (AUTO) 12.2 x10^3/uL (2.2-4.8); NEUTROPHILS % (AUTO) 86.7 % (42.0-75.0); PLATELET COUNT 209 X10^3/uL (150.0-450.0); RED BLOOD COUNT 3.58 X10^6/uL (4.7-6.0); RED CELL DISTRIBUTION WIDTH 15.6 % (11.6-16.5); SODIUM 142 mmol/L (136-145); WHITE BLOOD COUNT 14.1 X10^3/uL (3.6-10.0); eGFR NON BLACK RACES > 60 (>60)
--- NOTE | 2020-10-18 06:26 | RAD ---
HISTORYSOB, PNEUMONIASTUDYCHEST, 1 VIEWCOMPARISONOne day priorTECHNIQUEAP view of the chestFINDINGSLeft chest wall pacemaker in situ. Cardiac silhouette is stably enlarged. Patient is rotated with suboptimal evaluation of the left base. Right lung is grossly clear. No pleural effusion or pneumothorax identified.IMPRESSIONNo significant change. Suboptimal left base evaluation.Electronically signed by: Antonio Scott (Oct 18, 2020 06:24:29)
[2020-10-18] MEDS ORDERED: ZITHROMAX INJ 500 MG VIAL IV ONE (08:26)
[2020-10-18] MEDS ORDERED: NS 250 ML IV 250 ML IV ONE (08:26)
[2020-10-18] MEDS: ALDACTONE TAB 25 MG PO SCH (08:35)
[2020-10-18] MEDS: MICRO K EXTEN CAP 10 MEQ PO SCH ×2 (08:35→08:39)
[2020-10-18] MEDS: ASPIRIN EC 81 MG PO SCH (08:35)
[2020-10-18] MEDS: ROBITUSSIN DM PO SCH ×4 (08:35→20:52)
[2020-10-18] MEDS: ROCEPHIN 1 GRAM IV PREMIX 1 G/50 ML IV.SOLN. IV SCH (08:36)
[2020-10-18] MEDS: SYNTHROID 75 mcg TAB PO SCH (08:36)
[2020-10-18] MEDS: VSL#3 PO SCH (08:36)
[2020-10-18] MEDS: XARELTO PO SCH (08:37)
[2020-10-18] MEDS: SOLU-Medrol 40 MG VIAL IVP SCH (08:37)
[2020-10-18] MEDS: ZYLOPRIM PO SCH (08:37)
[2020-10-18] MEDS: MUCOMYST 20% 200 MG/ML NEB SCH ×4 (08:59→20:41)
[2020-10-18] MEDS: PULMICORT NEB TX 0.5 MG NEB SCH ×2 (08:59→20:41)
[2020-10-18] MEDS: PROTONIX INJ 40 MG VIAL IVP SCH ×2 (09:30→20:52)
[2020-10-18] MEDS: ZITHROMAX INJ 500 MG VIAL 250 MG in NS 250 ML IV 250 ML IV SCH (09:30)
[2020-10-18] MEDS: LASIX IVP SCH ×2 (09:30→17:26)
[2020-10-18] MEDS: COLACE CAP 100 MG PO PRN ×2 (09:30→20:52)
[2020-10-18] MEDS: MILK OF MAGNESIA PO PRN ×2 (09:30→20:52)
[2020-10-18] MEDS ORDERED: MUCOMYST (RESPIRATORY USE ONLY) ONE (13:45)
[2020-10-18] MEDS: LIPITOR TAB 40 MG PO SCH (20:51)
[2020-10-19] MEDS: DUONEB 0.5 MG/3 MG (3 mL) NEB SCH ×4 (00:35→12:30)
--- NOTE | 2020-10-19 06:28 | RAD ---
HISTORYShortness of breath, pneumoniaSTUDYChest AP [id number]/24/2020FINDINGSThere is a pacemaker present on the left obscuring a portion of t he lateral left midlung. The heart remains enlarged. No congestive heart failure is noted. The right lung and left upper lung chairez are clear. There is increased density in the retrocardiac area of the left lower lobe obscuring the left hemidiaphragm. This could be technical and due to overlying cardi omegaly however underlying infiltrate atelectasis or pleural effusion cannot be excluded. This findin g is stable when compared to the prior examination. Bony thorax is unremarkable.IMPRESSIONNo signific ant change from the prior examinationElectronically signed by: HIEU GONZALEZ (Oct 19, 2020 06:26:38)
[2020-10-19 06:42] LABS: BASOPHILS % (AUTO) 0 % (0.2-1.0); EOSINOPHILS % (AUTO) 0.1 % (0.9-2.9); HEMATOCRIT 36.5 % (42.0-54.0); HEMOGLOBIN 11.9 g/dL (13.5-18.0); LYMPHOCYTES # (AUTO) 3.7 X10^3/uL (1.3-2.9); LYMPHOCYTES % (AUTO) 22.1 % (21.0-51.0); MEAN CORPUSCULAR HEMOGLOBIN 31.5 pg (27.0-34.0); MEAN CORPUSCULAR HGB CONC 32.7 g/dL (33.0-35.0); MEAN CORPUSCULAR VOLUME 96.3 fL (80.0-100.0); MEAN PLATELET VOLUME 8.4 fL (7.4-11.0); MONOCYTES # (AUTO) 1.2 x10^3/uL (0.3-0.8); MONOCYTES % (AUTO) 7.5 % (0.0-13.0); NEUTROPHILS # (AUTO) 11.7 x10^3/uL (2.2-4.8); NEUTROPHILS % (AUTO) 70.3 % (42.0-75.0); PLATELET COUNT 206 X10^3/uL (150.0-450.0); RED BLOOD COUNT 3.79 X10^6/uL (4.7-6.0); WHITE BLOOD COUNT 16.7 X10^3/uL (3.6-10.0)
[2020-10-19 07:02] LABS: ALANINE AMINOTRANSFERASE 21 Units/L (12-78); ALBUMIN 2.8 g/dL (3.4-5.0); ALKALINE PHOSPHATASE 46 Units/L (46-116); ASPARTATE AMINO TRANSFERASE 16 Units/L (15-37); BLOOD UREA NITROGEN 23 mg/dL (7-18); CALCIUM 8.6 mg/dL (8.5-10.1); CARBON DIOXIDE 34.5 mmol/L (21-32); CHLORIDE 105 mmol/L (98-107); COR CA(FOR HYPOALB) 9.6 mg/dL (8.5-10.1); CREATININE 0.81 mg/dL (0.70-1.30); SODIUM 143 mmol/L (136-145); TOTAL PROTEIN 6.1 g/dL (6.4-8.2); eGFR NON BLACK RACES > 60 (>60)
[2020-10-19] MEDS ORDERED: DULCOLAX SUPPOSITORY 10 MG RECTAL ONE (09:19)
[2020-10-19] MEDS: ALDACTONE TAB 25 MG PO SCH (09:31)
[2020-10-19] MEDS: PROTONIX INJ 40 MG VIAL IVP SCH (09:32)
[2020-10-19] MEDS: ASPIRIN EC 81 MG PO SCH (09:32)
[2020-10-19] MEDS: ROBITUSSIN DM PO SCH ×3 (09:32→13:18)
[2020-10-19] MEDS: MICRO K EXTEN CAP 10 MEQ PO SCH (09:32)
[2020-10-19] MEDS: SYNTHROID 75 mcg TAB PO SCH (09:33)
[2020-10-19] MEDS: VSL#3 PO SCH (09:33)
[2020-10-19] MEDS: XARELTO PO SCH (09:34)
[2020-10-19] MEDS: ZYLOPRIM PO SCH (09:34)
[2020-10-19] MEDS: ROCEPHIN 1 GRAM IV PREMIX 1 G/50 ML IV.SOLN. IV SCH (09:36)
[2020-10-19] MEDS: SOLU-Medrol 125 MG VIAL IVP SCH ×2 (09:41→14:31)
[2020-10-19] MEDS: LASIX IVP SCH (09:41)
[2020-10-19] MEDS: PULMICORT NEB TX 0.5 MG NEB SCH (09:45)
[2020-10-19] MEDS: MUCOMYST 20% 200 MG/ML NEB SCH ×2 (09:45→12:30)
[2020-10-19] MEDS ORDERED: TUSSIONEX PENNKINETIC SUSP PO SCH (10:00)
[2020-10-19] MEDS ORDERED: ZITHROMAX INJ 500 MG VIAL IV ONE (12:47)
[2020-10-19] MEDS ORDERED: NS 250 ML IV 250 ML IV ONE (12:50)
--- NOTE | 2020-10-19 13:08 | CT ---
HISTORYSOB, HX THORACIC ANEURYSMSTUDYCTA CHESTCOMPARISONCTA dated 12/24/2019TECHNIQUEPulmonary angiogram protocol was performed after the administration of contrast. 3D MIPS images were performed. CT scan was performed following ALARA (As low as Reasonably Achievable).Coronal and Sagittal reformatted images were performed..FINDINGSThere is a left-sided pacemaker with two ventricular lead, a venous coronary sinus leads and a right atrial lead. There is and small unchanged pericardial effusion. The ascending aorta is enlarged measuring at the root 4.8 x 5.6 centimeter and on previous 4.8 x 5.3 centimeters.There is no evidence of pulmonary embolism. The thyroid gland is not enlarged. There is no significant axillary adenopathy no evidence of mediastinal adenopathy.There is no adrenal masses. The spleen is nonenlarged. The stomach is decompressed.Lung windows there is enhancing left lower lobe atelectasis. No evidence of pulmonary edema. No suspicious for pneumoniaBone windows there is no evidence of aggressive bone lesions. No acute fractures.IMPRESSIONNo evidence of pulmonary embolismLeft lower lobe atelectasis. Small pericardial effusion unchanged since priorAscending aortic aneurysm 4.8 x 5.6 centimeters slightly larger since prior study.No adenopathyElectronically signed by: Rachel Springer (Oct 19, 2020 13:06:22)
[2020-10-19] MEDS: ZITHROMAX INJ 500 MG VIAL 250 MG in NS 250 ML IV 250 ML IV SCH (13:17)
[2020-10-19 16:26] VITALS: BP 112/63
== END 2020-10-19 16:40 | disposition home or self-care (01) | DRG 190 ==
LOC: ER 08:40 → MED/SURG 10:13
PROVIDERS: ADMIT Internal Medicine; ATTEND Internal Medicine
DX: J44.1 Chronic obstructive pulmonary disease with (acute) exacerbation; J18.8 Other pneumonia, unspecified organism; R79.82 Elevated C-reactive protein (CRP); R06.02 Shortness of breath; Z20.828 Contact with and (suspected) exposure to other viral communicable diseases; R26.89 Other abnormalities of gait and mobility; R94.31 Abnormal electrocardiogram [ECG] [EKG]

== ENCOUNTER 2021-03-27 15:20 | Inpatient (IN) ==
[2021-03-27 15:25] VITALS: BMI 36.5
[2021-03-27] MEDS ORDERED: ZOFRAN INJ 4 MG VIAL IVP ONE (15:27)
[2021-03-27] MEDS ORDERED: DILAUDID INJ IVP ONE (15:27)
[2021-03-27] MEDS ORDERED: NS 1000 ML 1,000 ML IV ONE (15:27)
[2021-03-27] MEDS ORDERED: DILAUDID INJ ONE (15:33)
--- NOTE | 2021-03-27 15:33 | DR.ABDMALE ---
HPI Time seen Time Seen by Provider: 03/27/21 15:27 PCP Primary Care Physician: GILL Complaint Chief Complaint Doctors Comments: RLQ abd pain worse w movement began las night- Chief Complaint:: PT C/O RLQ PAIN THAT STARTED THIS AM. PT STATES HE THOUGHT HE MAYBE CONSTIPATED, BUT THE PAIN IS SEVERE AND SEEMS TO BE LOCALIZED TO A CERTAIN AREA. PT STATES HIS PAIN IS STABBING WHEN HE WALKS OR STANDS UP. COVID-19 Coronavirus risk:travel/contact w/high risk person: No Has patient experienced Coronavirus symptoms: No Reviewed Nurses Notes Review: Yes Mode of arrival Mode of Arrival: Ambulatory Timing Onset of Chief Complaint: 03/27/21 PMH PMH Past Medical History: Yes Past Medical History: Arthritis, CHF, COPD, Coronary Artery Disease, Dyslipidemia, GERD, Gout, Hypertension, Hypothyroidism and Sleep Apnea Past Medical History Comment: pos diverticulitis Past Surgical History: Yes Surgical History: Tonsillectomy and Other Family History History of Family Medical Conditions: Yes Family Medical History: [place], Coronary Artery Disease and Sudden Cardiac Social History Does any household member use tobacco: No Alcohol Use: None Do you use any recreational Drugs:: No Lives With: Family Lives Where: Home Travel Risk Coronavirus risk:travel/contact w/high risk person: No Has patient experienced Coronavirus symptoms: No Infectious screening In the last 2 months have you had wt loss of >10#?: NO Have you had fever, night sweats or hemotysis?: No Have you traveled outside the country in the last 6 months?: No Isolation: Standard ROS Review of Systems Constitutional: See HPI Eyes: No Symptoms Reported ENTM: No Symptoms Reported Respiratoy: No Symptoms Reported Cardiovascular: No Symptoms Reported Gastrointestinal/Abdominal: See HPI Genitourinary: No Symptoms Reported Neurological: No Symptoms Reported Musculoskeletal: No Symptoms Reported Integumentary: No Symptoms Reported Hematologic/Lymphatic: No Symptoms Reported PE Vital Signs Vital Signs: Temp Pulse Resp BP BP BP Pulse Ox 03/27/21 18:00 75 96/58 98 03/27/21 17:45 75 92/51 97 03/27/21 17:30 75 99/57 96 03/27/21 17:15 75 94/65 97 03/27/21 17:00 75 98/57 97 03/27/21 16:54 75 97/52 96 03/27/21 16:52 75 79/52 98 03/27/21 16:51 75 77/50 97 03/27/21 16:45 75 85/52 97 03/27/21 16:43 75 88/53 96 03/27/21 16:30 75 88/52 95 03/27/21 16:24 75 94/56 95 03/27/21 16:18 75 94/57 94 L 03/27/21 16:17 72 24 93 L 03/27/21 16:15 96/52 03/27/21 16:00 113/62 03/27/21 15:47 24 03/27/21 15:43 98/63 03/27/21 15:42 75 97 03/27/21 15:40 75 96 03/27/21 15:36 102/61 03/27/21 15:20 98.3 F 75 26 H 100/61 97 11/07/20 12:28 109/54 10/19/20 16:00 112/63 04/27/20 12:00 101/58 General Limitations: No Limitations General Appearance: Alert and Anxious Head Head Exam: Normal Inspection Eyes Eye exam: Normal Appearance ENT ENT Exam: Normal Exam Neck Neck Exam: Normal Inspection and Full ROM Respiratory Respiratory Exam: Normal Lung Sounds Bilat; negative Accessory Muscle Use Cardiovascular Cardiovascular Exam: Regular Rate and Normal Heart Sounds Abdominal Exam Abdominal Exam: Normal Inspection, Guarding and Dimnished Bowel Sounds; negative Normal Bowel Sounds, Rebound, Organomegaly and Ascites Abdominal Tenderness: RLQ Back Back Exam: Normal Inspection and Full ROM ROR Labs Reviewed Result Diagrams: 03/27/21 15:40 03/27/21 15:40 Laboratory: WBC 16.1 X10^3/uL (3.6-10.0) H 03/27/21 15:40 RBC 3.99 X10^6/uL (4.7-6.0) L 03/27/21 15:40 Hgb 12.4 g/dL (13.5-18.0) L 03/27/21 15:40 Hct 37.8 % (42.0-54.0) L 03/27/21 15:40 MCV 94.9 fL (80.0-100.0) 03/27/21 15:40 MCH 31.0 pg (27.0-34.0) 03/27/21 15:40 MCHC 32.7 g/dL (33.0-35.0) L 03/27/21 15:40 RDW 16.6 % (11.6-16.5) H 03/27/21 15:40 Plt Count 185 X10^3/uL (150.0-450.0) 03/27/21 15:40 MPV 8.4 fL (7.4-11.0) 03/27/21 15:40 Neut % (Auto) 69.3 % (42.0-75.0) 03/27/21 15:40 Lymph % (Auto) 19.3 % (21.0-51.0) L 03/27/21 15:40 Warrick % (Auto) 9.8 % (0.0-13.0) 03/27/21 15:40 Eos % (Auto) 1.1 % (0.9-2.9) 03/27/21 15:40 Baso % (Auto) 0.5 % (0.2-1.0) 03/27/21 15:40 Neut # (Auto) 11.1 x10^3/uL (2.2-4.8) H 03/27/21 15:40 Lymph # (Auto) 3.1 X10^3/uL (1.3-2.9) H 03/27/21 15:40 Warrick # (Auto) 1.6 x10^3/uL (0.3-0.8) H 03/27/21 15:40 Eos # (Auto) 0.2 x10^3/uL (0.0-0.2) 03/27/21 15:40 Baso # (Auto) 0.1 X10^3/uL (0.0-0.1) 03/27/21 15:40 Absolute Nucleated RBC 0.1 /100WBC 03/27/21 15:40 Sodium 139 mmol/L (136-145) 03/27/21 15:40 Corrected Sodium 140 mmol/L (136-145) 03/27/21 15:40 Potassium 3.9 mmol/L (3.5-5.1) 03/27/21 15:40 Chloride 101 mmol/L (98-107) 03/27/21 15:40 Carbon Dioxide 32.0 mmol/L (21-32) 03/27/21 15:40 BUN 15 mg/dL (7-18) 03/27/21 15:40 Creatinine 0.90 mg/dL (0.70-1.30) 03/27/21 15:40 Est GFR (MDRD) Af Amer > 60 (>60) 03/27/21 15:40 Est GFR (MDRD) Non-Af > 60 (>60) 03/27/21 15:40 Glucose 122 mg/dL (65-99) H 03/27/21 15:40 Lactic Acid 1.0 mmol/L (0.4-2.0) 03/27/21 17:27 Calcium 8.5 mg/dL (8.5-10.1) 03/27/21 15:40 Corrected Calcium 9.3 mg/dL (8.5-10.1) 03/27/21 15:40 Total Bilirubin 0.70 mg/dL (0.2-1.0) 03/27/21 15:40 AST 13 Units/L (15-37) L 03/27/21 15:40 ALT 28 Units/L (12-78) 03/27/21 15:40 Alkaline Phosphatase 63 Units/L (46-116) 03/27/21 15:40 Total Protein 6.5 g/dL (6.4-8.2) 03/27/21 15:40 Albumin 3.0 g/dL (3.4-5.0) L 03/27/21 15:40 Globulin 3.5 g/dL (2.5-4.5) 03/27/21 15:40 Albumin/Globulin Ratio 0.9 Ratio (1.1-2.1) L 03/27/21 15:40 Amylase 82 Units/L (25-115) 03/27/21 15:40 Lipase 465 Units/L (73-393) H 03/27/21 15:40 XRAY X-ray Results: CT shows acute diverticulitis sigmoid colon on right Opioid Opioid Risk Tool Age (Rudolph box if 16-45): No History of Preadolescent Sexual Abuse: No Total: 0 Total Score Risk Category: Low Risk Copyright: Hiram MALONEY predicting aberrant behaviors Diagnosis Discharge Problem: Diverticulitis ADDITIONAL NOTES Additional Notes Additional Notes: spoke w dr gill who agrees to admit.
[2021-03-27] MEDS ORDERED: NS 1000 ML 1,000 ML ONE (15:34)
[2021-03-27] MEDS ORDERED: ZOFRAN INJ 4 MG VIAL ONE (15:34)
[2021-03-27 15:55] LABS: BASOPHILS # (AUTO) 0.1 X10^3/uL (0.0-0.1); BASOPHILS % (AUTO) 0.5 % (0.2-1.0); EOSINOPHILS # (AUTO) 0.2 x10^3/uL (0.0-0.2); EOSINOPHILS % (AUTO) 1.1 % (0.9-2.9); HEMATOCRIT 37.8 % (42.0-54.0); HEMOGLOBIN 12.4 g/dL (13.5-18.0); LYMPHOCYTES # (AUTO) 3.1 X10^3/uL (1.3-2.9); LYMPHOCYTES % (AUTO) 19.3 % (21.0-51.0); MEAN CORPUSCULAR HGB CONC 32.7 g/dL (33.0-35.0); MEAN CORPUSCULAR VOLUME 94.9 fL (80.0-100.0); MEAN PLATELET VOLUME 8.4 fL (7.4-11.0); MONOCYTES # (AUTO) 1.6 x10^3/uL (0.3-0.8); MONOCYTES % (AUTO) 9.8 % (0.0-13.0); NEUTROPHILS # (AUTO) 11.1 x10^3/uL (2.2-4.8); NEUTROPHILS % (AUTO) 69.3 % (42.0-75.0); PLATELET COUNT 185 X10^3/uL (150.0-450.0); RED BLOOD COUNT 3.99 X10^6/uL (4.7-6.0); RED CELL DISTRIBUTION WIDTH 16.6 % (11.6-16.5); WHITE BLOOD COUNT 16.1 X10^3/uL (3.6-10.0)
[2021-03-27 16:04] LABS: ALANINE AMINOTRANSFERASE 28 Units/L (12-78); ALKALINE PHOSPHATASE 63 Units/L (46-116); AMYLASE 82 Units/L (25-115); ASPARTATE AMINO TRANSFERASE 13 Units/L (15-37); BLOOD UREA NITROGEN 15 mg/dL (7-18); CALCIUM 8.5 mg/dL (8.5-10.1); CHLORIDE 101 mmol/L (98-107); COR CA(FOR HYPOALB) 9.3 mg/dL (8.5-10.1); COR NA(FOR HYPERGLY) 140 mmol/L (136-145); LIPASE 465 Units/L (73-393); SODIUM 139 mmol/L (136-145); TOTAL PROTEIN 6.5 g/dL (6.4-8.2); eGFR NON BLACK RACES > 60 (>60)
--- NOTE | 2021-03-27 16:10 | CT ---
ABDOMEN/PELVIS W/O CONHISTORY: RLQ PAINComparison:11/26/2019Technique:Multiple non contrast axial images of the abdomen and pelvis were obtained from the lung bases to the pubic symphysis.. Dose reduction techniques including Automated Exposure Control (AEC) and adjustment of mA and kV were utlized.Findings:The sensitivity for focal lesion detection within the solid abdominal viscera is diminished without the use of IV contrast.The heart is normal in size. Moderate-sized pericardial effusion. Severe coronary calcification. Lung bases are clear without focal consolidation, pleural effusion or pneumothorax.Liver and spleen are normal in size, contour. No focal lesions. No ductal dilitation. Tiny gallstone in the gallbladder fundus. No evidence of gallbladder inflammation. The pancreas is unremarkable. Adrenal glands are normal. 1 mm nonobstructing right renal stone.No bowel obstruction or inflammation. Severe diverticulosis. Focal inflammation of the sigmoid colon in the region of the right lower quadrant. No definite perforation however this is somewhat confounded by the extent of diverticulosis in this region. Fat containing umbilical hernia. No abnormal appearing mesenteric or retroperitoneal lymph nodes. . No free fluid or fluid collections.The bladder is normal in appearance. Prostate unremarkable. Fat containing bilateral inguinal hernias. No free fluid or abnormal pelvic lymph nodes.No aggressive osseous lesions.IMPRESSION:1. Acute diverticulosis of the rectosigmoid colon without definite evidence of perforation.2. Other chronic findings as above.Electronically signed by: LEXI CONTEH (March 27, 2021 16:07:52)
[2021-03-27] MEDS ORDERED: ZOSYN VIAL 3.375 GRAMS 3.375 G in NS 100 ML IV + SPIKE MINIBAG* 100 ML IV SCH (17:14)
[2021-03-27] MEDS ORDERED: ZOSYN VIAL 3.375 GRAMS IV ONE (17:38)
[2021-03-27] MEDS ORDERED: NS 100 ML IV + SPIKE MINIBAG* 100 ML IV ONE (17:38)
[2021-03-27] MEDS: NS 1000 ML 1,000 ML IV SCH (21:00)
[2021-03-28] MEDS ORDERED: ZOSYN VIAL 3.375 GRAMS 3.375 G in NS 100 ML IV + SPIKE MINIBAG* 100 ML IV SCH ×2
[2021-03-28 05:09] LABS: BILIRUBIN,URINE NEGATIVE (NEGATIVE); BLOOD/HEMOGLOBIN,URINE NEGATIVE (NEGATIVE); GLUCOSE, URINE NEGATIVE (NEGATIVE); KETONES,URINE NEGATIVE (NEGATIVE); LEUKOCYTE ESTERASE ,URINE NEGATIVE (NEGATIVE); NITRITES,URINE NEGATIVE (NEGATIVE); PROTEIN,URINE 1+ (NEGATIVE); UROBILINOGEN,URINE NORMAL (NORMAL)
[2021-03-28 05:16] LABS: APPEARANCE,URINE CLEAR (CLEAR); BACTERIA,URINE NEGATIVE /HPF (NEGATIVE); COLOR,URINE YELLOW (YELLOW); RBC,URINE NONE SEEN /HPF (0-3); SQUAMOUS EPITHELIAL CELL,UR NEGATIVE /HPF (NEGATIVE)
[2021-03-28 06:00] LABS: BASOPHILS % (AUTO) 0.2 % (0.2-1.0); EOSINOPHILS # (AUTO) 0.1 x10^3/uL (0.0-0.2); EOSINOPHILS % (AUTO) 0.9 % (0.9-2.9); HEMATOCRIT 32.7 % (42.0-54.0); HEMOGLOBIN 10.6 g/dL (13.5-18.0); LYMPHOCYTES % (AUTO) 19.6 % (21.0-51.0); MEAN CORPUSCULAR HEMOGLOBIN 30.8 pg (27.0-34.0); MEAN CORPUSCULAR HGB CONC 32.4 g/dL (33.0-35.0); MEAN CORPUSCULAR VOLUME 95.1 fL (80.0-100.0); MEAN PLATELET VOLUME 8.6 fL (7.4-11.0); MONOCYTES # (AUTO) 2.1 x10^3/uL (0.3-0.8); MONOCYTES % (AUTO) 13.9 % (0.0-13.0); NEUTROPHILS # (AUTO) 9.9 x10^3/uL (2.2-4.8); NEUTROPHILS % (AUTO) 65.4 % (42.0-75.0); PLATELET COUNT 152 X10^3/uL (150.0-450.0); RED BLOOD COUNT 3.44 X10^6/uL (4.7-6.0); RED CELL DISTRIBUTION WIDTH 16.8 % (11.6-16.5); WHITE BLOOD COUNT 15.2 X10^3/uL (3.6-10.0)
[2021-03-28 06:53] LABS: ALANINE AMINOTRANSFERASE 20 Units/L (12-78); ALBUMIN 2.4 g/dL (3.4-5.0); ALKALINE PHOSPHATASE 49 Units/L (46-116); ASPARTATE AMINO TRANSFERASE 15 Units/L (15-37); BLOOD UREA NITROGEN 14 mg/dL (7-18); CARBON DIOXIDE 28.8 mmol/L (21-32); CHLORIDE 104 mmol/L (98-107); COR CA(FOR HYPOALB) 9.3 mg/dL (8.5-10.1); COR NA(FOR HYPERGLY) 140 mmol/L (136-145); CREATININE 0.92 mg/dL (0.70-1.30); SODIUM 140 mmol/L (136-145); TOTAL PROTEIN 5.4 g/dL (6.4-8.2); eGFR NON BLACK RACES > 60 (>60)
[2021-03-28] MEDS: NS 1000 ML 1,000 ML IV SCH ×3 (06:54→21:26)
[2021-03-28] MEDS: ASPIRIN EC 81 MG PO SCH (09:00)
[2021-03-28] MEDS: ALDACTONE TAB 25 MG PO SCH (09:00)
[2021-03-28] MEDS: LASIX PO SCH ×2 (09:01→09:13)
[2021-03-28] MEDS: MICRO K EXTEN CAP 10 MEQ PO SCH (09:01)
[2021-03-28] MEDS: SYNTHROID 75 mcg TAB PO SCH (09:02)
[2021-03-28] MEDS: FLOMAX PO SCH ×2 (09:02→09:12)
[2021-03-28] MEDS: FLAGYL IV PREMIX 500 MG BAG 500 MG/100 ML BAG IV SCH ×3 (09:02→21:14)
[2021-03-28] MEDS: COREG TAB 12.5 MG PO SCH ×2 (09:03→09:13)
[2021-03-28] MEDS: BETAPACE AF PO SCH ×2 (09:04→21:14)
[2021-03-28] MEDS: PULMICORT NEB TX 0.5 MG NEB SCH ×2 (09:22→20:35)
[2021-03-28] MEDS: CIPRO IV 400 MG PREMIX* 400 MG/200 ML IV.SOLN. IV SCH ×2 (10:30→21:14)
[2021-03-28] MEDS ORDERED: XARELTO PO SCH (11:00)
[2021-03-28] MEDS: DILAUDID INJ IVP PRN (12:34)
--- NOTE | 2021-03-28 14:36 | CT ---
HISTORYRight lower quadrant painSTUDYCT abdomen pelvis with contrastTechnique: Axial post-contrast images with coronal and sagittal reformats. Dose reduction procedures were used with mA/kv adjusted for body size.[id number]/03/2021FINDINGSThe lung bases are clear. The heart is enlarged. The liver, spleen, adrenal glands, and pancreas are within normal limits. There is a tiny gallstone within the fundus of the gallbladder. No cholecystitis. The kidneys are unobstructed and without masses. There is a 1 mm nonobstructing right renal calculus present. No left renal calculi or ureteral calculi are identified. There is a left paramedian uncomplicated 4.4 x 3.2 cm fat containing ventral hernia present. Calcific atherosclerotic changes present in a nondilated abdominal aorta. No intraperitoneal or retroperitoneal lymphadenopathy of significance is identified. There are no findings suggestive of enteritis or colitis. The appendix is normal there is diverticulosis of the descending and sigmoid colon. Additionally there is extensive perisigmoid inflammation increasing when compared with the prior examination and consistent with acute sigmoid diverticulitis. It is of note that the affected area of sigmoid colon lies to the right of midline and the inflammation extends to the peritoneal surface. These findings could conceivably cause right lower quadrant pain. There is no definite evidence for perforation or abscess. No pelvic masses, pelvic fluid, or pelvic lymphadenopathy is identified. No bladder abnormality is identified. The prostate gland is enlarged. There is a fat containing right inguinal hernia present. No lytic or blastic skeletal lesions of significance are identified.IMPRESSIONAcute sigmoid diverticulitis with extensive and increasing inflammation surrounding the affected area in the sigmoid which lies to the right of midline and now extends to involve the peritoneal surface. This would be expected to cause right lower quadrant pain and tenderness. No definite evidence for perforation or abscessCholelithiasis without evidence for cholecystitis4.4 x 3.2 cm uncomplicated fat containing left paramedian lower abdominal ventral herniaNormal appendixEnlarged prostateElectronically signed by: HIEU GONZALEZ (March 28, 2021 14:34:14)
--- NOTE | 2021-03-28 17:10 | DR.H&P ---
H&P - History & Physical for Day of: H&P Date: 03/27/21 - Chief Complaint Chief Complaint: RIGHT LOWER ABDOMINAL PAIN, CONSTIPATION - History of Present Illness History of Present Illness: PT IS 85 WM ER ADMISSION WITH CO RIGHT LOWER ABDOMINAL PAIN WITH CO CONSTIPATION. PT DENIES ANY HEMATURIA OR BLOOD IN STOOL. PT HAS PMH OF CHF, COPD, AFIB ON FDC ANTICOAGULANT TREATMENT, CAD. PT HAD CT ABDPELVIS IN ER WITH ACUTE DIVERTICULITIS. PT ADMITTED FOR TREATMENT OF ACUTE ILLNESS. - Past Medical History Past Medical History: Coronary Artery Disease, Hypertension, Dyslipidemia, Hypothyroidism, COPD, GERD, Arthritis, Gout, Sleep Apnea, CHF Additional Medical History: AORTIC ANEURYSM, AFIB - Past Surgical History Surgical History: Tonsillectomy Additional Surgical History: PACE MAKER - Family History Family Medical History: Coronary Artery Disease, Hypertension - Social History Does patient currently use any type of tobacco product: Yes Have you used tobacco products in the last 12 months: Yes Type of Tobacco Use: Smokeless Does any household member use tobacco: No Alcohol Use: None Drug Use: None - Medications Home Medications: No Known Drug Allergies Allergy (Verified 03/07/19 00:07) CONTINUE taking the following medications gabapentin 100 - 200 mg PO TID PRN 03/28/21 [History] hydrocodone-acetaminophen 1 tab PO .Q6-8H PRN 03/28/21 [History] loratadine 10 mg PO DAILY 03/28/21 [History] mexiletine 150 mg PO BID 03/28/21 [History] sotalol 120 mg PO BID 03/28/21 [History] - Review of Systems Constitutional: Malaise Eyes: No Symptoms Reported ENT: No Symptoms Reported Respiratory: No Symptoms Reported Cardiovascular: No Symptoms Reported Gastrointestinal: Nausea, Abdominal Pain, Constipation Genitourinary: No Symptoms Reported Musculoskeletal: Back Pain Skin: No Symptoms Reported Neurological: No Symptoms Reported - Physical Exam Vital Signs: Temperature 97.6 F Pulse Rate [Left] 71 Pulse Rate 75 Respiratory Rate 18 Blood Pressure [Left Arm] 93/55 Blood Pressure [Right Arm] 101/58 Blood Pressure 98/60 O2 Sat by Pulse Oximetry 97 Oriented: Normal Eyes: Normal Ear: Normal Nose: Normal Throat: Normal Respiratory: RLL Diminished, LLL Diminished Cardiovascular: negative: Tachycardia, Edema : Normal Tenderness: RLQ, Suprapubic Skin: Decreased Turgur Musculoskeletal: Back:Thoracic, Back:Lumbar Psychiatric: Anxiety Affect: Anxious Speech Pattern: Clear, Appropriate - Assessment/Plan (1) Diverticulitis Status: Acute Plan: ADMIT, NPO IV HYDRATION. CIPRO AND FLAGYL. STOOL STUDIES, VERIFY AND RESUME HOME MEDICATION. BP CONTROL, STRICT I&OS. 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
[2021-03-28] MEDS ORDERED: MILK OF MAGNESIA PO PRN (20:20)
[2021-03-28] MEDS: COREG TAB 3.125 MG PO SCH ×2 (21:15→21:17)
[2021-03-29] MEDS: FLAGYL IV PREMIX 500 MG BAG 500 MG/100 ML BAG IV SCH ×4 (03:20→20:52)
[2021-03-29] MEDS: NS 1000 ML 1,000 ML IV SCH ×2 (05:42→16:47)
--- NOTE | 2021-03-29 06:14 | RAD ---
HISTORYCOPD, CHFSTUDYCHEST, 1 VIEWCOMPARISONCTA chest and chest radiograph 10/19/2020.TECHNIQUEAP view of the chestFINDINGSLeft chest wall pacemaker with leads in good position. The cardiac silhouette is mildly enlarged. There is patchy left base opacity with mild ipsilateral shift of the heart. Cannot exclude a small left pleural effusion. Right lung is grossly clear. No discernible pneumothorax.IMPRESSIONMild cardiomegaly. Patchy left base opacity may represent atelectasis or pneumonia but ipsilateral shift of the heart suggests atelectasis.Electronically signed by: Antonio Scott (March 29, 2021 06:12:28)
[2021-03-29] MEDS: PULMICORT NEB TX 0.5 MG NEB SCH ×2 (08:43→20:00)
[2021-03-29] MEDS: DILAUDID INJ IVP PRN ×2 (09:11→20:50)
[2021-03-29] MEDS: ASPIRIN EC 81 MG PO SCH (09:12)
[2021-03-29] MEDS: ALDACTONE TAB 25 MG PO SCH (09:12)
[2021-03-29] MEDS: BETAPACE AF PO SCH ×2 (09:14→20:53)
[2021-03-29] MEDS: CIPRO IV 400 MG PREMIX* 400 MG/200 ML IV.SOLN. IV SCH ×2 (09:14→20:52)
[2021-03-29] MEDS: COREG TAB 3.125 MG PO SCH ×2 (09:14→20:53)
[2021-03-29] MEDS: MICRO K EXTEN CAP 10 MEQ PO SCH (09:15)
[2021-03-29] MEDS: LASIX PO SCH (09:15)
[2021-03-29] MEDS: SYNTHROID 75 mcg TAB PO SCH (09:16)
[2021-03-29 09:30] LABS: BASOPHILS % (AUTO) 0.4 % (0.2-1.0); EOSINOPHILS # (AUTO) 0.2 x10^3/uL (0.0-0.2); EOSINOPHILS % (AUTO) 1.6 % (0.9-2.9); HEMATOCRIT 33.7 % (42.0-54.0); LYMPHOCYTES # (AUTO) 1.8 X10^3/uL (1.3-2.9); LYMPHOCYTES % (AUTO) 15.2 % (21.0-51.0); MEAN CORPUSCULAR HEMOGLOBIN 31.1 pg (27.0-34.0); MEAN CORPUSCULAR HGB CONC 32.8 g/dL (33.0-35.0); MEAN CORPUSCULAR VOLUME 94.8 fL (80.0-100.0); MEAN PLATELET VOLUME 8.4 fL (7.4-11.0); MONOCYTES # (AUTO) 1.6 x10^3/uL (0.3-0.8); MONOCYTES % (AUTO) 13.5 % (0.0-13.0); NEUTROPHILS # (AUTO) 8.4 x10^3/uL (2.2-4.8); NEUTROPHILS % (AUTO) 69.3 % (42.0-75.0); PLATELET COUNT 158 X10^3/uL (150.0-450.0); RED BLOOD COUNT 3.55 X10^6/uL (4.7-6.0); RED CELL DISTRIBUTION WIDTH 16.5 % (11.6-16.5); WHITE BLOOD COUNT 12.1 X10^3/uL (3.6-10.0)
[2021-03-29 09:42] LABS: ALANINE AMINOTRANSFERASE 19 Units/L (12-78); ALBUMIN 2.3 g/dL (3.4-5.0); ALKALINE PHOSPHATASE 49 Units/L (46-116); ASPARTATE AMINO TRANSFERASE 13 Units/L (15-37); BLOOD UREA NITROGEN 8 mg/dL (7-18); CALCIUM 8.1 mg/dL (8.5-10.1); CARBON DIOXIDE 29.5 mmol/L (21-32); CHLORIDE 104 mmol/L (98-107); COR CA(FOR HYPOALB) 9.5 mg/dL (8.5-10.1); CREATININE 0.76 mg/dL (0.70-1.30); SODIUM 139 mmol/L (136-145); TOTAL PROTEIN 5.5 g/dL (6.4-8.2); eGFR NON BLACK RACES > 60 (>60)
[2021-03-29] MEDS: ZOSYN VIAL 3.375 GRAMS 3.375 G in NS 100 ML IV + SPIKE MINIBAG* 100 ML IV SCH ×3 (11:00→21:01)
--- NOTE | 2021-03-29 15:20 | DR.PROGNOT ---
Hospital Progress Notes - Progress Note for Day of: Progress Note Date: 03/29/21 - Chief Complaint Chief Complaint: improving abdominal pain . now it is localized to the lower abdomen .. no nausea or vomiting ... no BM tet. WBC 12.1 . afebrile . - Past Medical Family Social History Past Med/Fam/Surg Hx: No changes since H&P Allergies: Allergies No Known Drug Allergies Allergy (Verified 03/07/19 00:07) - Review Of Systems ROS: No change since H&P - Vital Signs Vital Signs: Temperature 98.0 F Pulse Rate [Left] 77 Pulse Rate 60 Respiratory Rate 20 Blood Pressure [Left Arm] 97/59 Blood Pressure [Right Arm] 101/58 Blood Pressure 98/60 O2 Sat by Pulse Oximetry 94 - Physical Exam Oriented: Normal Eyes: Normal Ear: Normal Nose: Normal Throat: Normal Cardiovascular: negative: Tachycardia, Edema : Normal GI:Auscultation: Decreased GI:Palpation: Normal GI: Tenderness: RLQ (moderate to severe tenderness RLQ and LLQ with mild rebound .), Suprapubic Skin: Decreased Turgur Musculoskeletal: Back:Thoracic, Back:Lumbar Psychiatric: Anxiety Affect: Anxious Speech Pattern: Clear, Appropriate - Laboratory and Diagnostics Result Diagrams: 03/29/21 09:04 03/29/21 09:04 Labs: 03/27/21 17:41 Blood Blood Culture - Preliminary 03/27/21 17:27 Blood Blood Culture - Preliminary 03/29/21 03:00 Stool - Final Laboratory WBC 12.1 X10^3/uL (3.6-10.0) H 03/29/21 09:04 RBC 3.55 X10^6/uL (4.7-6.0) L 03/29/21 09:04 Hgb 11.0 g/dL (13.5-18.0) L 03/29/21 09:04 Hct 33.7 % (42.0-54.0) L 03/29/21 09:04 MCV 94.8 fL (80.0-100.0) 03/29/21 09:04 MCH 31.1 pg (27.0-34.0) 03/29/21 09:04 MCHC 32.8 g/dL (33.0-35.0) L 03/29/21 09:04 RDW 16.5 % (11.6-16.5) 03/29/21 09:04 Plt Count 158 X10^3/uL (150.0-450.0) 03/29/21 09:04 MPV 8.4 fL (7.4-11.0) 03/29/21 09:04 Neut % (Auto) 69.3 % (42.0-75.0) 03/29/21 09:04 Lymph % (Auto) 15.2 % (21.0-51.0) L 03/29/21 09:04 Dukes % (Auto) 13.5 % (0.0-13.0) H 03/29/21 09:04 Eos % (Auto) 1.6 % (0.9-2.9) 03/29/21 09:04 Baso % (Auto) 0.4 % (0.2-1.0) 03/29/21 09:04 Neut # (Auto) 8.4 x10^3/uL (2.2-4.8) H 03/29/21 09:04 Lymph # (Auto) 1.8 X10^3/uL (1.3-2.9) 03/29/21 09:04 Dukes # (Auto) 1.6 x10^3/uL (0.3-0.8) H 03/29/21 09:04 Eos # (Auto) 0.2 x10^3/uL (0.0-0.2) 03/29/21 09:04 Baso # (Auto) 0.0 X10^3/uL (0.0-0.1) 03/29/21 09:04 Absolute Nucleated RBC 0.0 /100WBC 03/29/21 09:04 Sodium 139 mmol/L (136-145) 03/29/21 09:04 Corrected Sodium TNP 03/29/21 09:04 Potassium 4.4 mmol/L (3.5-5.1) 03/29/21 09:04 Chloride 104 mmol/L (98-107) 03/29/21 09:04 Carbon Dioxide 29.5 mmol/L (21-32) 03/29/21 09:04 BUN 8 mg/dL (7-18) 03/29/21 09:04 Creatinine 0.76 mg/dL (0.70-1.30) 03/29/21 09:04 Est GFR (MDRD) Af Amer > 60 (>60) 03/29/21 09:04 Est GFR (MDRD) Non-Af > 60 (>60) 03/29/21 09:04 Glucose 102 mg/dL (65-99) H 03/29/21 09:04 POC Glucose (mg/dL) 77 mg/dL (65-99) 03/29/21 11:59 Lactic Acid 1.1 mmol/L (0.4-2.0) 03/29/21 09:04 Calcium 8.1 mg/dL (8.5-10.1) L 03/29/21 09:04 Corrected Calcium 9.5 mg/dL (8.5-10.1) 03/29/21 09:04 Total Bilirubin 0.80 mg/dL (0.2-1.0) 03/29/21 09:04 AST 13 Units/L (15-37) L 03/29/21 09:04 ALT 19 Units/L (12-78) 03/29/21 09:04 Alkaline Phosphatase 49 Units/L (46-116) 03/29/21 09:04 Total Protein 5.5 g/dL (6.4-8.2) L 03/29/21 09:04 Albumin 2.3 g/dL (3.4-5.0) L 03/29/21 09:04 Globulin 3.2 g/dL (2.5-4.5) 03/29/21 09:04 Albumin/Globulin Ratio 0.7 Ratio (1.1-2.1) L 03/29/21 09:04 Amylase 82 Units/L (25-115) 03/27/21 15:40 Lipase 465 Units/L (73-393) H 03/27/21 15:40 Specimen Type Clean catch urine 03/28/21 04:55 Urine Color Yellow (YELLOW) 03/28/21 04:55 Urine Appearance Clear (CLEAR) 03/28/21 04:55 Urine pH 6.0 (5.0 - 8.0) 03/28/21 04:55 Ur Specific [place] 1.020 (1.000-1.030) 03/28/21 04:55 Urine Protein 1+ (NEGATIVE) 03/28/21 04:55 Urine Glucose (UA) Negative (NEGATIVE) 03/28/21 04:55 Urine Ketones Negative (NEGATIVE) 03/28/21 04:55 Urine Occult Blood Negative (NEGATIVE) 03/28/21 04:55 Urine Nitrite Negative (NEGATIVE) 03/28/21 04:55 Urine Bilirubin Negative (NEGATIVE) 03/28/21 04:55 Urine Urobilinogen Normal (NORMAL) 03/28/21 04:55 Ur Leukocyte Esterase Negative (NEGATIVE) 03/28/21 04:55 Urine RBC None seen /HPF (0-3) 03/28/21 04:55 Urine WBC None seen /HPF (0-5) 03/28/21 04:55 Ur Squamous Epith Cells Negative /HPF (NEGATIVE) 03/28/21 04:55 Urine Bacteria Negative /HPF (NEGATIVE) 03/28/21 04:55 Ur Culture Indicated? No/not indicated 03/28/21 04:55 Stool Description 30g soft brown 03/29/21 03:00 Stl Occult Blood (IFOB) Positive (NEGATIVE) A 03/29/21 03:00 Stool for White Cells Negative (NEGATIVE) 03/29/21 03:00 Stl C. diff Tox B Gene Negative (NEGATIVE) 03/29/21 03:00 Stl C. diff [id number] Presumptive negative (NEGATIVE) 03/29/21 03:00 Stool H. pylori Ag Negative (NEGATIVE) 03/29/21 03:00 SARS CoV-2 RNA Rapid LISA Negative (NEGATIVE) 03/27/21 18:38 - Assessment and Plan 1: improving sigmoid diverticulitis .. moderate localized peritonitis . same plan with IV ATB and only clear liquid diet . 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
[2021-03-29] MEDS: FLOMAX PO SCH (20:50)
[2021-03-30] MEDS: FLAGYL IV PREMIX 500 MG BAG 500 MG/100 ML BAG IV SCH ×4 (02:36→20:56)
[2021-03-30] MEDS: ZOSYN VIAL 3.375 GRAMS 3.375 G in NS 100 ML IV + SPIKE MINIBAG* 100 ML IV SCH ×3 (05:53→21:05)
[2021-03-30] MEDS: NS 1000 ML 1,000 ML IV SCH ×2 (06:00→13:40)
[2021-03-30 06:11] LABS: BASOPHILS % (AUTO) 0.4 % (0.2-1.0); EOSINOPHILS # (AUTO) 0.3 x10^3/uL (0.0-0.2); EOSINOPHILS % (AUTO) 2.4 % (0.9-2.9); HEMATOCRIT 33.6 % (42.0-54.0); HEMOGLOBIN 11.1 g/dL (13.5-18.0); LYMPHOCYTES # (AUTO) 2.2 X10^3/uL (1.3-2.9); LYMPHOCYTES % (AUTO) 20.4 % (21.0-51.0); MEAN CORPUSCULAR HEMOGLOBIN 31.5 pg (27.0-34.0); MEAN CORPUSCULAR HGB CONC 33.1 g/dL (33.0-35.0); MEAN CORPUSCULAR VOLUME 95.1 fL (80.0-100.0); MEAN PLATELET VOLUME 8.2 fL (7.4-11.0); MONOCYTES # (AUTO) 1.5 x10^3/uL (0.3-0.8); NEUTROPHILS # (AUTO) 6.7 x10^3/uL (2.2-4.8); NEUTROPHILS % (AUTO) 62.8 % (42.0-75.0); PLATELET COUNT 160 X10^3/uL (150.0-450.0); RED BLOOD COUNT 3.53 X10^6/uL (4.7-6.0); RED CELL DISTRIBUTION WIDTH 16.3 % (11.6-16.5); WHITE BLOOD COUNT 10.7 X10^3/uL (3.6-10.0)
[2021-03-30 07:18] LABS: ALANINE AMINOTRANSFERASE 17 Units/L (12-78); ALBUMIN 2.3 g/dL (3.4-5.0); ALKALINE PHOSPHATASE 48 Units/L (46-116); ASPARTATE AMINO TRANSFERASE 16 Units/L (15-37); BLOOD UREA NITROGEN 8 mg/dL (7-18); CALCIUM 8.1 mg/dL (8.5-10.1); CARBON DIOXIDE 28.8 mmol/L (21-32); CHLORIDE 103 mmol/L (98-107); COR CA(FOR HYPOALB) 9.5 mg/dL (8.5-10.1); SODIUM 139 mmol/L (136-145); TOTAL PROTEIN 5.6 g/dL (6.4-8.2); eGFR NON BLACK RACES > 60 (>60)
[2021-03-30] MEDS: NORCO 5/325 MG TAB PO PRN (08:23)
[2021-03-30] MEDS: LASIX PO SCH (08:24)
[2021-03-30] MEDS: ALDACTONE TAB 25 MG PO SCH (08:24)
[2021-03-30] MEDS: ASPIRIN EC 81 MG PO SCH (08:24)
[2021-03-30] MEDS: MICRO K EXTEN CAP 10 MEQ PO SCH (08:24)
[2021-03-30] MEDS: SYNTHROID 75 mcg TAB PO SCH (08:24)
[2021-03-30] MEDS: BETAPACE AF PO SCH ×2 (08:25→20:55)
[2021-03-30] MEDS: COREG TAB 3.125 MG PO SCH ×2 (08:25→21:06)
[2021-03-30] MEDS: CIPRO IV 400 MG PREMIX* 400 MG/200 ML IV.SOLN. IV SCH ×2 (08:25→20:56)
[2021-03-30] MEDS: PULMICORT NEB TX 0.5 MG NEB SCH ×2 (08:33→21:25)
[2021-03-30] MEDS ORDERED: ZANAFLEX PO PRN (09:17)
[2021-03-30] MEDS ORDERED: VOLTAREN 1 % GEL MULTI DOSE TUBE TOP PRN (09:18)
[2021-03-30] MEDS: XARELTO PO SCH (10:04)
[2021-03-30] MEDS: PROTONIX INJ 40 MG VIAL IVP SCH ×2 (10:04→20:56)
--- NOTE | 2021-03-30 13:27 | DR.PROGNOT ---
Hospital Progress Notes - Progress Note for Day of: Progress Note Date: 03/30/21 - Chief Complaint Chief Complaint: improving abdominal pain .localized to the lower abdomen .. no nausea or vomiting ... had normal BM. WBC 10 . afebrile . - Past Medical Family Social History Past Med/Fam/Surg Hx: No changes since H&P Allergies: Allergies No Known Drug Allergies Allergy (Verified 03/07/19 00:07) - Review Of Systems ROS: No change since H&P - Vital Signs Vital Signs: Temperature 98.5 F Pulse Rate [Left] 75 Pulse Rate 76 Respiratory Rate 20 Blood Pressure [Left Arm] 88/59 Blood Pressure [Right Arm] 101/58 Blood Pressure 98/60 O2 Sat by Pulse Oximetry 99 - Physical Exam Oriented: Normal Eyes: Normal Ear: Normal Nose: Normal Throat: Normal Cardiovascular: negative: Tachycardia, Edema : Normal GI:Auscultation: Decreased GI:Palpation: Normal GI: Tenderness: RLQ (moderate to severe tenderness RLQ and LLQ with mild rebound .), Suprapubic Skin: Decreased Turgur Musculoskeletal: Back:Thoracic, Back:Lumbar Psychiatric: Anxiety Affect: Anxious Speech Pattern: Clear, Appropriate - Laboratory and Diagnostics Result Diagrams: 03/30/21 05:37 03/30/21 05:37 Labs: 03/29/21 03:00 Stool Stool Culture - Preliminary 03/29/21 03:00 Stool - Final 03/27/21 17:41 Blood Blood Culture - Preliminary 03/27/21 17:27 Blood Blood Culture - Preliminary Laboratory WBC 10.7 X10^3/uL (3.6-10.0) H 03/30/21 05:37 RBC 3.53 X10^6/uL (4.7-6.0) L 03/30/21 05:37 Hgb 11.1 g/dL (13.5-18.0) L 03/30/21 05:37 Hct 33.6 % (42.0-54.0) L 03/30/21 05:37 MCV 95.1 fL (80.0-100.0) 03/30/21 05:37 MCH 31.5 pg (27.0-34.0) 03/30/21 05:37 MCHC 33.1 g/dL (33.0-35.0) 03/30/21 05:37 RDW 16.3 % (11.6-16.5) 03/30/21 05:37 Plt Count 160 X10^3/uL (150.0-450.0) 03/30/21 05:37 MPV 8.2 fL (7.4-11.0) 03/30/21 05:37 Neut % (Auto) 62.8 % (42.0-75.0) 03/30/21 05:37 Lymph % (Auto) 20.4 % (21.0-51.0) L 03/30/21 05:37 [place] % (Auto) 14.0 % (0.0-13.0) H 03/30/21 05:37 Eos % (Auto) 2.4 % (0.9-2.9) 03/30/21 05:37 Baso % (Auto) 0.4 % (0.2-1.0) 03/30/21 05:37 Neut # (Auto) 6.7 x10^3/uL (2.2-4.8) H 03/30/21 05:37 Lymph # (Auto) 2.2 X10^3/uL (1.3-2.9) 03/30/21 05:37 [place] # (Auto) 1.5 x10^3/uL (0.3-0.8) H 03/30/21 05:37 Eos # (Auto) 0.3 x10^3/uL (0.0-0.2) H 03/30/21 05:37 Baso # (Auto) 0.0 X10^3/uL (0.0-0.1) 03/30/21 05:37 Absolute Nucleated RBC 0.0 /100WBC 03/30/21 05:37 Sodium 139 mmol/L (136-145) 03/30/21 05:37 Corrected Sodium TNP 03/30/21 05:37 Potassium 3.9 mmol/L (3.5-5.1) 03/30/21 05:37 Chloride 103 mmol/L (98-107) 03/30/21 05:37 Carbon Dioxide 28.8 mmol/L (21-32) 03/30/21 05:37 BUN 8 mg/dL (7-18) 03/30/21 05:37 Creatinine 0.80 mg/dL (0.70-1.30) 03/30/21 05:37 Est GFR (MDRD) Af Amer > 60 (>60) 03/30/21 05:37 Est GFR (MDRD) Non-Af > 60 (>60) 03/30/21 05:37 Glucose 88 mg/dL (65-99) 03/30/21 05:37 POC Glucose (mg/dL) 115 mg/dL (65-99) H 03/30/21 11:17 Lactic Acid 1.1 mmol/L (0.4-2.0) 03/29/21 09:04 Calcium 8.1 mg/dL (8.5-10.1) L 03/30/21 05:37 Corrected Calcium 9.5 mg/dL (8.5-10.1) 03/30/21 05:37 Total Bilirubin 0.70 mg/dL (0.2-1.0) 03/30/21 05:37 AST 16 Units/L (15-37) 03/30/21 05:37 ALT 17 Units/L (12-78) 03/30/21 05:37 Alkaline Phosphatase 48 Units/L (46-116) 03/30/21 05:37 Total Protein 5.6 g/dL (6.4-8.2) L 03/30/21 05:37 Albumin 2.3 g/dL (3.4-5.0) L 03/30/21 05:37 Globulin 3.3 g/dL (2.5-4.5) 03/30/21 05:37 Albumin/Globulin Ratio 0.7 Ratio (1.1-2.1) L 03/30/21 05:37 Amylase 82 Units/L (25-115) 03/27/21 15:40 Lipase 465 Units/L (73-393) H 03/27/21 15:40 Specimen Type Clean catch urine 03/28/21 04:55 Urine Color Yellow (YELLOW) 03/28/21 04:55 Urine Appearance Clear (CLEAR) 03/28/21 04:55 Urine pH 6.0 (5.0 - 8.0) 03/28/21 04:55 Ur Specific [place] 1.020 (1.000-1.030) 03/28/21 04:55 Urine Protein 1+ (NEGATIVE) 03/28/21 04:55 Urine Glucose (UA) Negative (NEGATIVE) 03/28/21 04:55 Urine Ketones Negative (NEGATIVE) 03/28/21 04:55 Urine Occult Blood Negative (NEGATIVE) 03/28/21 04:55 Urine Nitrite Negative (NEGATIVE) 03/28/21 04:55 Urine Bilirubin Negative (NEGATIVE) 03/28/21 04:55 Urine Urobilinogen Normal (NORMAL) 03/28/21 04:55 Ur Leukocyte Esterase Negative (NEGATIVE) 03/28/21 04:55 Urine RBC None seen /HPF (0-3) 03/28/21 04:55 Urine WBC None seen /HPF (0-5) 03/28/21 04:55 Ur Squamous Epith Cells Negative /HPF (NEGATIVE) 03/28/21 04:55 Urine Bacteria Negative /HPF (NEGATIVE) 03/28/21 04:55 Ur Culture Indicated? No/not indicated 03/28/21 04:55 Stool Description 30g soft brown 03/29/21 03:00 Stl Occult Blood (IFOB) Positive (NEGATIVE) A 03/29/21 03:00 Stool for White Cells Negative (NEGATIVE) 03/29/21 03:00 Stl C. diff Tox B Gene Negative (NEGATIVE) 03/29/21 03:00 Stl C. diff [id number] Presumptive negative (NEGATIVE) 03/29/21 03:00 Stool H. pylori Ag Negative (NEGATIVE) 03/29/21 03:00 SARS CoV-2 RNA Rapid LISA Negative (NEGATIVE) 03/27/21 18:38 - Assessment and Plan 1: improving sigmoid diverticulitis .. moderate localized peritonitis . same plan with IV ATB and only full liquid diet . DVT prophylaxis - Problem Patient Problems: Patient Problems Diverticulitis (Acute) K57.92 senior care current use of anticoagulant (Acute) Z79.01 COPD (chronic obstructive pulmonary disease) (Chronic) J44.9 DDD (degenerative disc disease), lumbar (Chronic) M51.36 CHF (congestive heart failure) (Chronic) I50.9 A-fib (Chronic) I48.91
[2021-03-30] MEDS ORDERED: NS 500 ML IV 500 ML IV ONE (13:30)
[2021-03-30] MEDS: FLOMAX PO SCH (20:56)
[2021-03-31] MEDS: FLAGYL IV PREMIX 500 MG BAG 500 MG/100 ML BAG IV SCH ×4 (04:48→20:51)
[2021-03-31] MEDS: ZOSYN VIAL 3.375 GRAMS 3.375 G in NS 100 ML IV + SPIKE MINIBAG* 100 ML IV SCH ×3 (05:44→21:22)
[2021-03-31] MEDS: NS 1000 ML 1,000 ML IV SCH ×2 (05:45→05:49)
[2021-03-31 08:45] LABS: BASOPHILS % (AUTO) 0.4 % (0.2-1.0); EOSINOPHILS # (AUTO) 0.2 x10^3/uL (0.0-0.2); EOSINOPHILS % (AUTO) 2.4 % (0.9-2.9); HEMATOCRIT 33.8 % (42.0-54.0); LYMPHOCYTES # (AUTO) 1.9 X10^3/uL (1.3-2.9); LYMPHOCYTES % (AUTO) 20.7 % (21.0-51.0); MEAN CORPUSCULAR HEMOGLOBIN 31.2 pg (27.0-34.0); MEAN CORPUSCULAR HGB CONC 32.5 g/dL (33.0-35.0); MEAN CORPUSCULAR VOLUME 95.9 fL (80.0-100.0); MEAN PLATELET VOLUME 8.2 fL (7.4-11.0); MONOCYTES % (AUTO) 10.6 % (0.0-13.0); NEUTROPHILS # (AUTO) 5.9 x10^3/uL (2.2-4.8); NEUTROPHILS % (AUTO) 65.9 % (42.0-75.0); PLATELET COUNT 175 X10^3/uL (150.0-450.0); RED BLOOD COUNT 3.52 X10^6/uL (4.7-6.0); RED CELL DISTRIBUTION WIDTH 16.4 % (11.6-16.5)
[2021-03-31 08:56] LABS: ALANINE AMINOTRANSFERASE 15 Units/L (12-78); ALBUMIN 2.3 g/dL (3.4-5.0); ALKALINE PHOSPHATASE 43 Units/L (46-116); ASPARTATE AMINO TRANSFERASE 14 Units/L (15-37); BLOOD UREA NITROGEN 6 mg/dL (7-18); CALCIUM 8.1 mg/dL (8.5-10.1); CARBON DIOXIDE 31.8 mmol/L (21-32); CHLORIDE 106 mmol/L (98-107); COR CA(FOR HYPOALB) 9.5 mg/dL (8.5-10.1); CREATININE 0.84 mg/dL (0.70-1.30); SODIUM 143 mmol/L (136-145); TOTAL PROTEIN 5.6 g/dL (6.4-8.2); eGFR NON BLACK RACES > 60 (>60)
[2021-03-31] MEDS: XARELTO PO SCH (09:20)
[2021-03-31] MEDS: ASPIRIN EC 81 MG PO SCH (09:23)
[2021-03-31] MEDS: SYNTHROID 75 mcg TAB PO SCH (09:23)
[2021-03-31] MEDS: LASIX PO SCH (09:23)
[2021-03-31] MEDS: MICRO K EXTEN CAP 10 MEQ PO SCH (09:23)
[2021-03-31] MEDS: BETAPACE AF PO SCH ×2 (09:23→20:50)
[2021-03-31] MEDS: PROTONIX INJ 40 MG VIAL IVP SCH ×2 (09:24→20:50)
[2021-03-31] MEDS: COREG TAB 3.125 MG PO SCH ×3 (09:24→20:52)
[2021-03-31] MEDS: PULMICORT NEB TX 0.5 MG NEB SCH ×2 (09:35→21:30)
[2021-03-31] MEDS: CIPRO IV 400 MG PREMIX* 400 MG/200 ML IV.SOLN. IV SCH ×2 (11:00→20:51)
--- NOTE | 2021-03-31 11:46 | DR.PROGNOT ---
Hospital Progress Notes - Progress Note for Day of: Progress Note Date: 03/31/21 - Chief Complaint Chief Complaint: slow improvement with less abdominal pain .. had small BM yesterday and passing flatus today .. tolerating liquid diet . afebrile . - Past Medical Family Social History Past Med/Fam/Surg Hx: No changes since H&P Allergies: Allergies No Known Drug Allergies Allergy (Verified 03/07/19 00:07) - Review Of Systems ROS: No change since H&P - Vital Signs Vital Signs: Temperature 99.2 F Pulse Rate [Left] 77 Pulse Rate 76 Respiratory Rate 20 Blood Pressure [Left Arm] 81/48 Blood Pressure [Right Arm] 101/58 Blood Pressure 98/60 O2 Sat by Pulse Oximetry 98 - Physical Exam Oriented: Normal Eyes: Normal Ear: Normal Nose: Normal Throat: Normal Cardiovascular: negative: Tachycardia, Edema : Normal GI:Auscultation: Decreased GI:Palpation: Normal GI: Tenderness: Other (lower abdominal tenderness with moderte rebound , both Lt and Rt LQ ) Skin: Decreased Turgur Musculoskeletal: Back:Thoracic, Back:Lumbar Psychiatric: Anxiety Affect: Anxious Speech Pattern: Clear, Appropriate - Laboratory and Diagnostics Result Diagrams: 03/31/21 08:00 03/31/21 08:00 Labs: 03/29/21 03:00 Stool Stool Culture - Final 03/29/21 03:00 Stool - Final 03/27/21 17:41 Blood Blood Culture - Preliminary 03/27/21 17:27 Blood Blood Culture - Preliminary Laboratory WBC 9.0 X10^3/uL (3.6-10.0) 03/31/21 08:00 RBC 3.52 X10^6/uL (4.7-6.0) L 03/31/21 08:00 Hgb 11.0 g/dL (13.5-18.0) L 03/31/21 08:00 Hct 33.8 % (42.0-54.0) L 03/31/21 08:00 MCV 95.9 fL (80.0-100.0) 03/31/21 08:00 MCH 31.2 pg (27.0-34.0) 03/31/21 08:00 MCHC 32.5 g/dL (33.0-35.0) L 03/31/21 08:00 RDW 16.4 % (11.6-16.5) 03/31/21 08:00 Plt Count 175 X10^3/uL (150.0-450.0) 03/31/21 08:00 MPV 8.2 fL (7.4-11.0) 03/31/21 08:00 Neut % (Auto) 65.9 % (42.0-75.0) 03/31/21 08:00 Lymph % (Auto) 20.7 % (21.0-51.0) L 03/31/21 08:00 [place] % (Auto) 10.6 % (0.0-13.0) 03/31/21 08:00 Eos % (Auto) 2.4 % (0.9-2.9) 03/31/21 08:00 Baso % (Auto) 0.4 % (0.2-1.0) 03/31/21 08:00 Neut # (Auto) 5.9 x10^3/uL (2.2-4.8) H 03/31/21 08:00 Lymph # (Auto) 1.9 X10^3/uL (1.3-2.9) 03/31/21 08:00 [place] # (Auto) 1.0 x10^3/uL (0.3-0.8) H 03/31/21 08:00 Eos # (Auto) 0.2 x10^3/uL (0.0-0.2) 03/31/21 08:00 Baso # (Auto) 0.0 X10^3/uL (0.0-0.1) 03/31/21 08:00 Absolute Nucleated RBC 0.0 /100WBC 03/31/21 08:00 Sodium 143 mmol/L (136-145) 03/31/21 08:00 Corrected Sodium TNP 03/31/21 08:00 Potassium 3.9 mmol/L (3.5-5.1) 03/31/21 08:00 Chloride 106 mmol/L (98-107) 03/31/21 08:00 Carbon Dioxide 31.8 mmol/L (21-32) 03/31/21 08:00 BUN 6 mg/dL (7-18) L 03/31/21 08:00 Creatinine 0.84 mg/dL (0.70-1.30) 03/31/21 08:00 Est GFR (MDRD) Af Amer > 60 (>60) 03/31/21 08:00 Est GFR (MDRD) Non-Af > 60 (>60) 03/31/21 08:00 Glucose 102 mg/dL (65-99) H 03/31/21 08:00 POC Glucose (mg/dL) 97 mg/dL (65-99) 03/30/21 20:45 Lactic Acid 1.1 mmol/L (0.4-2.0) 03/29/21 09:04 Calcium 8.1 mg/dL (8.5-10.1) L 03/31/21 08:00 Corrected Calcium 9.5 mg/dL (8.5-10.1) 03/31/21 08:00 Total Bilirubin 0.60 mg/dL (0.2-1.0) 03/31/21 08:00 AST 14 Units/L (15-37) L 03/31/21 08:00 ALT 15 Units/L (12-78) 03/31/21 08:00 Alkaline Phosphatase 43 Units/L (46-116) L 03/31/21 08:00 Total Protein 5.6 g/dL (6.4-8.2) L 03/31/21 08:00 Albumin 2.3 g/dL (3.4-5.0) L 03/31/21 08:00 Globulin 3.3 g/dL (2.5-4.5) 03/31/21 08:00 Albumin/Globulin Ratio 0.7 Ratio (1.1-2.1) L 03/31/21 08:00 Amylase 82 Units/L (25-115) 03/27/21 15:40 Lipase 465 Units/L (73-393) H 03/27/21 15:40 Specimen Type Clean catch urine 03/28/21 04:55 Urine Color Yellow (YELLOW) 03/28/21 04:55 Urine Appearance Clear (CLEAR) 03/28/21 04:55 Urine pH 6.0 (5.0 - 8.0) 03/28/21 04:55 Ur Specific [place] 1.020 (1.000-1.030) 03/28/21 04:55 Urine Protein 1+ (NEGATIVE) 03/28/21 04:55 Urine Glucose (UA) Negative (NEGATIVE) 03/28/21 04:55 Urine Ketones Negative (NEGATIVE) 03/28/21 04:55 Urine Occult Blood Negative (NEGATIVE) 03/28/21 04:55 Urine Nitrite Negative (NEGATIVE) 03/28/21 04:55 Urine Bilirubin Negative (NEGATIVE) 03/28/21 04:55 Urine Urobilinogen Normal (NORMAL) 03/28/21 04:55 Ur Leukocyte Esterase Negative (NEGATIVE) 03/28/21 04:55 Urine RBC None seen /HPF (0-3) 03/28/21 04:55 Urine WBC None seen /HPF (0-5) 03/28/21 04:55 Ur Squamous Epith Cells Negative /HPF (NEGATIVE) 03/28/21 04:55 Urine Bacteria Negative /HPF (NEGATIVE) 03/28/21 04:55 Ur Culture Indicated? No/not indicated 03/28/21 04:55 Stool Description 30g soft brown 03/29/21 03:00 Stl Occult Blood (IFOB) Positive (NEGATIVE) A 03/29/21 03:00 Stool for White Cells Negative (NEGATIVE) 03/29/21 03:00 Stl C. diff Tox B Gene Negative (NEGATIVE) 03/29/21 03:00 Stl C. diff [id number] Presumptive negative (NEGATIVE) 03/29/21 03:00 Stool H. pylori Ag Negative (NEGATIVE) 03/29/21 03:00 SARS CoV-2 RNA Rapid LISA Negative (NEGATIVE) 03/27/21 18:38 - Assessment and Plan 1: improving sigmoid diverticulitis .. moderate localized peritonitis . same plan with IV ATB and only full liquid diet . DVT prophylaxis - Problem Patient Problems: Patient Problems Diverticulitis (Acute) K57.92 half-way current use of anticoagulant (Acute) Z79.01 COPD (chronic obstructive pulmonary disease) (Chronic) J44.9 DDD (degenerative disc disease), lumbar (Chronic) M51.36 CHF (congestive heart failure) (Chronic) I50.9 A-fib (Chronic) I48.91
[2021-03-31] MEDS: FLOMAX PO SCH (20:50)
[2021-03-31] MEDS: NORCO 5/325 MG TAB PO PRN (20:59)
[2021-04-01] MEDS: NS 1000 ML 1,000 ML IV SCH ×2 (00:38→05:42)
[2021-04-01] MEDS: FLAGYL IV PREMIX 500 MG BAG 500 MG/100 ML BAG IV SCH ×2 (02:20→09:31)
[2021-04-01] MEDS: ZOSYN VIAL 3.375 GRAMS 3.375 G in NS 100 ML IV + SPIKE MINIBAG* 100 ML IV SCH (05:41)
[2021-04-01 06:56] LABS: BASOPHILS # (AUTO) 0.1 X10^3/uL (0.0-0.1); BASOPHILS % (AUTO) 0.8 % (0.2-1.0); EOSINOPHILS # (AUTO) 0.2 x10^3/uL (0.0-0.2); EOSINOPHILS % (AUTO) 2.8 % (0.9-2.9); HEMATOCRIT 35.3 % (42.0-54.0); HEMOGLOBIN 11.3 g/dL (13.5-18.0); LYMPHOCYTES # (AUTO) 2.9 X10^3/uL (1.3-2.9); LYMPHOCYTES % (AUTO) 38.9 % (21.0-51.0); MEAN CORPUSCULAR HEMOGLOBIN 30.9 pg (27.0-34.0); MEAN CORPUSCULAR HGB CONC 32.1 g/dL (33.0-35.0); MEAN CORPUSCULAR VOLUME 96.3 fL (80.0-100.0); MEAN PLATELET VOLUME 8.3 fL (7.4-11.0); MONOCYTES # (AUTO) 0.7 x10^3/uL (0.3-0.8); MONOCYTES % (AUTO) 9.9 % (0.0-13.0); NEUTROPHILS # (AUTO) 3.6 x10^3/uL (2.2-4.8); NEUTROPHILS % (AUTO) 47.6 % (42.0-75.0); PLATELET COUNT 184 X10^3/uL (150.0-450.0); RED BLOOD COUNT 3.66 X10^6/uL (4.7-6.0); RED CELL DISTRIBUTION WIDTH 16.8 % (11.6-16.5); WHITE BLOOD COUNT 7.5 X10^3/uL (3.6-10.0)
[2021-04-01 07:10] LABS: ALANINE AMINOTRANSFERASE 17 Units/L (12-78); ALBUMIN 2.5 g/dL (3.4-5.0); ALKALINE PHOSPHATASE 45 Units/L (46-116); ASPARTATE AMINO TRANSFERASE 17 Units/L (15-37); BLOOD UREA NITROGEN 4 mg/dL (7-18); CALCIUM 8.4 mg/dL (8.5-10.1); CARBON DIOXIDE 30.3 mmol/L (21-32); CHLORIDE 107 mmol/L (98-107); COR CA(FOR HYPOALB) 9.6 mg/dL (8.5-10.1); CREATININE 1.01 mg/dL (0.70-1.30); SODIUM 145 mmol/L (136-145); TOTAL PROTEIN 5.8 g/dL (6.4-8.2); eGFR NON BLACK RACES > 60 (>60)
[2021-04-01] MEDS ORDERED: POTASSIUM CHL 40 MEQ/NS 0.45% 500 ML IV PRN (08:07)
[2021-04-01] MEDS ORDERED: K-RIDER 10 MEQ/NS 100 ML 10 MEQ/100 ML BAG IV PRN (08:07)
[2021-04-01] MEDS ORDERED: POTASSIUM CHLORIDE LIQ 20 MEQ UDC PO PRN (08:07)
[2021-04-01] MEDS ORDERED: POTASSIUM CHL 60 MEQ/NS 0.45% 500 ML IV PRN (08:07)
[2021-04-01] MEDS ORDERED: K-DUR TAB 20 MEQ PO PRN (08:07)
[2021-04-01] MEDS ORDERED: MICRO K EXTEN CAP 10 MEQ PO PRN (08:07)
[2021-04-01] MEDS ORDERED: KLOR-CON PO PRN (08:07)
[2021-04-01] MEDS: PULMICORT NEB TX 0.5 MG NEB SCH (08:29)
[2021-04-01] MEDS: CIPRO IV 400 MG PREMIX* 400 MG/200 ML IV.SOLN. IV SCH (09:31)
[2021-04-01] MEDS: PROTONIX INJ 40 MG VIAL IVP SCH (09:31)
[2021-04-01] MEDS: XARELTO PO SCH (09:39)
[2021-04-01] MEDS: LASIX PO SCH (09:40)
[2021-04-01] MEDS: MICRO K EXTEN CAP 10 MEQ PO SCH (09:40)
[2021-04-01] MEDS: ASPIRIN EC 81 MG PO SCH (09:40)
[2021-04-01] MEDS: SYNTHROID 75 mcg TAB PO SCH (09:41)
[2021-04-01] MEDS: BETAPACE AF PO SCH (10:08)
[2021-04-01] MEDS: COREG TAB 3.125 MG PO SCH (10:08)
[2021-04-01 11:49] VITALS: BP 117/57
== END 2021-04-01 13:40 | disposition home or self-care (01) | DRG 392 ==
LOC: MED/SURG 15:20 → ER 15:20 → MED/SURG 20:38
PROVIDERS: ADMIT Internal Medicine; ATTEND Internal Medicine
DX: M50.30 Other cervical disc degeneration, unspecified cervical region; J44.1 Chronic obstructive pulmonary disease with (acute) exacerbation; M51.36 Other intervertebral disc degeneration, lumbar region; I48.91 Unspecified atrial fibrillation; Z79.01 Long term (current) use of anticoagulants; K80.80 Other cholelithiasis without obstruction; K57.32 Diverticulitis of large intestine without perforation or abscess without bleeding; I50.9 Heart failure, unspecified; Z20.822 Contact with and (suspected) exposure to COVID-19

== ENCOUNTER 2022-06-18 18:53 | Inpatient (IN) ==
[2022-06-18 21:00] LABS: BILIRUBIN,URINE NEGATIVE (NEGATIVE); BLOOD/HEMOGLOBIN,URINE 1+ (NEGATIVE); GLUCOSE, URINE NEGATIVE (NEGATIVE); KETONES,URINE NEGATIVE (NEGATIVE); LEUKOCYTE ESTERASE ,URINE NEGATIVE (NEGATIVE); NITRITES,URINE NEGATIVE (NEGATIVE); PROTEIN,URINE 2+ (NEGATIVE); UROBILINOGEN,URINE NORMAL (NORMAL)
[2022-06-18 21:16] LABS: APPEARANCE,URINE CLEAR (CLEAR); COLOR,URINE YELLOW (YELLOW)
[2022-06-18 21:23] LABS: BACTERIA,URINE TRACE /HPF (NEGATIVE); HYALINE CASTS, URINE FEW /LPF (NEGATIVE); RBC,URINE 0-2 /HPF (0-3); SQUAMOUS EPITHELIAL CELL,UR RARE /HPF (NEGATIVE)
--- NOTE | 2022-06-18 21:31 | DR.ABDMALE ---
HPI Time seen Time Seen by Provider: 06/18/22 21:29 Complaint Chief Complaint:: Pt c/o LLQ pain since 06/14, gradually got worse, said he felt like he was constipated, took a laxative and has been passing stool but still hurting. Pt reports hx of diverticulitis. COVID-19 Coronavirus risk:travel/contact w/high risk person: No Has patient experienced Coronavirus symptoms: No Mode of arrival Mode of Arrival: Wheelchair Timing Onset of Chief Complaint: 06/14/22 PMH PMH Past Medical History: Yes Past Medical History: Arthritis, CHF, COPD, Coronary Artery Disease, Dyslipidemia, GERD, Gout, Hypertension, Hypothyroidism and Sleep Apnea Past Medical History Comment: diverticulitis, BPH Past Surgical History: Yes Surgical History: Tonsillectomy Past Surgical History Comment: pacemaker/defib, cataracts Family History History of Family Medical Conditions: Yes Family Medical History: Coronary Artery Disease and Hypertension Social History Alcohol Use: None Do you use any recreational Drugs:: No Lives With: Spouse Lives Where: Home Travel Risk Coronavirus risk:travel/contact w/high risk person: No Has patient experienced Coronavirus symptoms: No Infectious screening In the last 2 months have you had wt loss of >10#?: NO Have you had fever, night sweats or hemotysis?: No Have you traveled outside the country in the last 6 months?: No Isolation: Standard PE Vital Signs Vital Signs: Temp Pulse Pulse Resp BP BP Pulse Ox 07/05/21 20:10 73/51 04/01/21 08:29 06/19/22 02:13 75 20 92/60 97 06/19/22 00:50 75 20 98/56 96 06/18/22 22:43 20 06/18/22 19:00 97.7 F 75 20 91/53 97 O2 Del Method FiO2 07/05/21 20:10 04/01/21 08:29 28 06/19/22 02:13 Room Air 06/19/22 00:50 Room Air 06/18/22 22:43 06/18/22 19:00 Room Air ROR Labs Reviewed Result Diagrams: 06/18/22 21:55 06/18/22 21:55 Laboratory: WBC 18.8 X10^3/uL (3.6-10.0) H 06/18/22 21:55 RBC 3.59 X10^6/uL (4.7-6.0) L 06/18/22 21:55 Hgb 11.6 g/dL (13.5-18.0) L 06/18/22 21:55 Hct 34.6 % (42.0-54.0) L 06/18/22 21:55 MCV 96.5 fL (80.0-100.0) 06/18/22 21:55 MCH 32.4 pg (27.0-34.0) 06/18/22 21:55 MCHC 33.6 g/dL (33.0-35.0) 06/18/22 21:55 RDW 16.4 % (11.6-16.5) 06/18/22 21:55 Plt Count 135 X10^3/uL (150.0-450.0) L 06/18/22 21:55 MPV 8.6 fL (7.4-11.0) 06/18/22 21:55 Neut % (Auto) 75.3 % (42.0-75.0) H 06/18/22 21:55 Lymph % (Auto) 15.5 % (21.0-51.0) L 06/18/22 21:55 [place] % (Auto) 8.1 % (0.0-13.0) 06/18/22 21:55 Eos % (Auto) 0.2 % (0.9-2.9) L 06/18/22 21:55 Baso % (Auto) 0.9 % (0.2-1.0) 06/18/22 21:55 Neut # (Auto) 14.1 x10^3/uL (2.2-4.8) H 06/18/22 21:55 Lymph # (Auto) 2.9 X10^3/uL (1.3-2.9) 06/18/22 21:55 [place] # (Auto) 1.5 x10^3/uL (0.3-0.8) H 06/18/22 21:55 Eos # (Auto) 0.0 x10^3/uL (0.0-0.2) 06/18/22 21:55 Baso # (Auto) 0.2 X10^3/uL (0.0-0.1) H 06/18/22 21:55 Absolute Nucleated RBC 0.0 /100WBC 06/18/22 21:55 Sodium 137 mmol/L (136-145) 06/18/22 21:55 Corrected Sodium TNP 06/18/22 21:55 Potassium 3.9 mmol/L (3.5-5.1) 06/18/22 21:55 Chloride 102 mmol/L (98-107) 06/18/22 21:55 Carbon Dioxide 30.8 mmol/L (21-32) 06/18/22 21:55 BUN 19 mg/dL (7-18) H 06/18/22 21:55 Creatinine 0.95 mg/dL (0.70-1.30) 06/18/22 21:55 Est GFR (MDRD) Af Amer > 60 (>60) 06/18/22 21:55 Est GFR (MDRD) Non-Af > 60 (>60) 06/18/22 21:55 Glucose 108 mg/dL (65-99) H 06/18/22 21:55 Calcium 8.4 mg/dL (8.5-10.1) L 06/18/22 21:55 Corrected Calcium 9.4 mg/dL (8.5-10.1) 06/18/22 21:55 Total Bilirubin 0.90 mg/dL (0.2-1.0) 06/18/22 21:55 AST 11 Units/L (15-37) L 06/18/22 21:55 ALT 17 Units/L (12-78) 06/18/22 21:55 Alkaline Phosphatase 50 Units/L (46-116) 06/18/22 21:55 Total Protein 6.0 g/dL (6.4-8.2) L 06/18/22 21:55 Albumin 2.7 g/dL (3.4-5.0) L 06/18/22 21:55 Globulin 3.3 g/dL (2.5-4.5) 06/18/22 21:55 Albumin/Globulin Ratio 0.8 Ratio (1.1-2.1) L 06/18/22 21:55 Amylase 45 Units/L (25-115) 06/18/22 21:55 Lipase 120 Units/L (73-393) 06/18/22 21:55 Specimen Type Catherized urine 06/18/22 21:54 Urine Color Yellow (YELLOW) 06/18/22 21:54 Urine Appearance Clear (CLEAR) 06/18/22 21:54 Urine pH 6.0 (5.0 - 8.0) 06/18/22 21:54 Ur Specific [place] 1.015 (1.000-1.030) 06/18/22 21:54 Urine Protein 1+ (NEGATIVE) 06/18/22 21:54 Urine Glucose (UA) Negative (NEGATIVE) 06/18/22 21:54 Urine Ketones Negative (NEGATIVE) 06/18/22 21:54 Urine Blood 1+ (NEGATIVE) 06/18/22 21:54 Urine Nitrite Negative (NEGATIVE) 06/18/22 21:54 Urine Bilirubin Negative (NEGATIVE) 06/18/22 21:54 Urine Urobilinogen Normal (NORMAL) 06/18/22 21:54 Ur Leukocyte Esterase Negative (NEGATIVE) 06/18/22 21:54 Urine RBC 5-10 /HPF (0-3) A 06/18/22 21:54 Urine WBC 0-2 /HPF (0-5) 06/18/22 21:54 Ur Squamous Epith Cells Rare /HPF (NEGATIVE) 06/18/22 21:54 Amorphous Sediment 1+ /HPF (NEGATIVE) 06/18/22 20:50 Urine Bacteria Trace /HPF (NEGATIVE) 06/18/22 21:54 Hyaline Casts Few /LPF (NEGATIVE) 06/18/22 20:50 Urine Mucus Rare /HPF (NEGATIVE) 06/18/22 21:54 Ur Culture Indicated? No/not indicated 06/18/22 21:54 SARS-CoV-2 (PCR) Negative (NEGATIVE) 06/19/22 01:01 Opioid Opioid Risk Tool Age (Rudolph box if 16-45): No History of Preadolescent Sexual Abuse: No Total: 0 Total Score Risk Category: Low Risk Copyright: Hiram MALONEY predicting aberrant behaviors Discharge Plan Discharge Plan Patient Disposition: 01 HOME, SELF-CARE Condition: Stable Orders to Discharge Patient Discharge Orders: Transfer (Routine); Ordered 06/19/22 Ordered By: FREDIS IBRAHIM
[2022-06-18] MEDS ORDERED: MORPHINE SULFATE INJ 4 MG IM ONE (21:55)
[2022-06-18] MEDS ORDERED: ZOFRAN INJ 4 MG VIAL IM PRN (21:56)
[2022-06-18] MEDS ORDERED: ZOFRAN INJ 4 MG VIAL ONE (21:58)
[2022-06-18] MEDS ORDERED: MORPHINE SULFATE INJ 4 MG ONE (21:58)
[2022-06-18] MEDS ORDERED: NS 500 ML IV 500 ML IV ONE ×2 (22:03→22:05)
[2022-06-18 22:06] LABS: BILIRUBIN,URINE NEGATIVE (NEGATIVE); BLOOD/HEMOGLOBIN,URINE 1+ (NEGATIVE); GLUCOSE, URINE NEGATIVE (NEGATIVE); KETONES,URINE NEGATIVE (NEGATIVE); LEUKOCYTE ESTERASE ,URINE NEGATIVE (NEGATIVE); NITRITES,URINE NEGATIVE (NEGATIVE); PROTEIN,URINE 1+ (NEGATIVE); UROBILINOGEN,URINE NORMAL (NORMAL)
[2022-06-18 22:15] LABS: APPEARANCE,URINE CLEAR (CLEAR); BACTERIA,URINE TRACE /HPF (NEGATIVE); COLOR,URINE YELLOW (YELLOW); SQUAMOUS EPITHELIAL CELL,UR RARE /HPF (NEGATIVE)
[2022-06-18 22:15] LABS: BASOPHILS # (AUTO) 0.2 X10^3/uL (0.0-0.1); BASOPHILS % (AUTO) 0.9 % (0.2-1.0); EOSINOPHILS % (AUTO) 0.2 % (0.9-2.9); HEMATOCRIT 34.6 % (42.0-54.0); HEMOGLOBIN 11.6 g/dL (13.5-18.0); LYMPHOCYTES # (AUTO) 2.9 X10^3/uL (1.3-2.9); LYMPHOCYTES % (AUTO) 15.5 % (21.0-51.0); MEAN CORPUSCULAR HEMOGLOBIN 32.4 pg (27.0-34.0); MEAN CORPUSCULAR HGB CONC 33.6 g/dL (33.0-35.0); MEAN CORPUSCULAR VOLUME 96.5 fL (80.0-100.0); MEAN PLATELET VOLUME 8.6 fL (7.4-11.0); MONOCYTES # (AUTO) 1.5 x10^3/uL (0.3-0.8); MONOCYTES % (AUTO) 8.1 % (0.0-13.0); NEUTROPHILS # (AUTO) 14.1 x10^3/uL (2.2-4.8); NEUTROPHILS % (AUTO) 75.3 % (42.0-75.0); RED BLOOD COUNT 3.59 X10^6/uL (4.7-6.0); RED CELL DISTRIBUTION WIDTH 16.4 % (11.6-16.5); WHITE BLOOD COUNT 18.8 X10^3/uL (3.6-10.0)
[2022-06-18 22:24] LABS: ALANINE AMINOTRANSFERASE 17 Units/L (12-78); ALBUMIN 2.7 g/dL (3.4-5.0); ALKALINE PHOSPHATASE 50 Units/L (46-116); AMYLASE 45 Units/L (25-115); ASPARTATE AMINO TRANSFERASE 11 Units/L (15-37); BLOOD UREA NITROGEN 19 mg/dL (7-18); CALCIUM 8.4 mg/dL (8.5-10.1); CARBON DIOXIDE 30.8 mmol/L (21-32); CHLORIDE 102 mmol/L (98-107); COR CA(FOR HYPOALB) 9.4 mg/dL (8.5-10.1); CREATININE 0.95 mg/dL (0.70-1.30); LIPASE 120 Units/L (73-393); SODIUM 137 mmol/L (136-145); eGFR NON BLACK RACES > 60 (>60)
--- NOTE | 2022-06-18 23:42 | CT ---
HISTORYPt c/o LLQ pain since 06/14, gradually got worse, said he felt like he was constipated, took a laxative and has been passing stool but still hurting. Pt reports hx of diverticulitis.STUDYABDOMEN/PELVIS W/O [id number] axial images of the abdomen and pelvis were obtained from the lung bases to the pubic symphysis without the administration of IV contrast. Dose reduction techniques including Automated Exposure Control (AEC) and adjustment of mA and kV were utilized.FINDINGSThe visualized portions of the lung bases are unremarkable. Liver spleen pancreas kidneys and adrenal glands are unremarkable. Cholelithiasis.. No significant mesenteric lymphadenopathy or stranding can be observed. No free fluid or free air is seen within the abdomen. The appendix is not visualized. No bowel wall thickening or bowel dilatation is present. The colon is normal in caliber. There are scattered diverticuli arising from the descending and sigmoid colon. There is focal colonic wall thickening and pericolonic inflammation involving a segment of the sigmoid colon consistent with acute diverticulitis. Similar area of involvement noted on prior study. There is no evidence of abscess or free air.. There is a Winters catheter within the urinary bladder. The bony structures are grossly intact. Small fat containing umbilical hernia.IMPRESSIONUncomplicated acute sigmoid colon diverticulitis.Cholelithiasis.Electronically signed by: Jose Campos (Jun 18, 2022 23:40:19)
[2022-06-19] MEDS ORDERED: CIPRO IV 400 MG PREMIX* 400 MG/200 ML IV.SOLN. IV ONE ×2 (01:22→01:25)
[2022-06-19] MEDS ORDERED: FLAGYL IV PREMIX 500 MG BAG 500 MG/100 ML BAG IV ONE ×2 (01:23→01:25)
[2022-06-19] MEDS: FLAGYL IV PREMIX 500 MG BAG 500 MG/100 ML BAG IV SCH ×4 (03:19→20:24)
[2022-06-19] MEDS ORDERED: NS 50 ML IV 50 ML IV ONE (03:20)
[2022-06-19] MEDS ORDERED: PEPCID 20 MG VIAL ONE (03:21)
[2022-06-19] MEDS: PEPCID 20 MG VIAL 20 MG in NS 50 ML IV 50 ML IV SCH ×3 (03:36→20:25)
[2022-06-19] MEDS ORDERED: MORPHINE SULFATE INJ 2 MG INJ IVP PRN (04:43)
[2022-06-19] MEDS ORDERED: NS 1,000 ML IV 1,000 ML IV SCH (04:43)
[2022-06-19] MEDS ORDERED: ZOFRAN INJ 4 MG VIAL IVP PRN (04:43)
[2022-06-19] MEDS ORDERED: NS 1,000 ML IV 1,000 ML ONE (04:45)
[2022-06-19 06:24] LABS: BASOPHILS # (AUTO) 0.1 X10^3/uL (0.0-0.1); BASOPHILS % (AUTO) 0.4 % (0.2-1.0); EOSINOPHILS # (AUTO) 0.1 x10^3/uL (0.0-0.2); EOSINOPHILS % (AUTO) 0.4 % (0.9-2.9); HEMATOCRIT 33.4 % (42.0-54.0); LYMPHOCYTES % (AUTO) 16.8 % (21.0-51.0); MEAN PLATELET VOLUME 8.5 fL (7.4-11.0); MONOCYTES # (AUTO) 1.7 x10^3/uL (0.3-0.8); MONOCYTES % (AUTO) 9.4 % (0.0-13.0); NEUTROPHILS # (AUTO) 13.1 x10^3/uL (2.2-4.8); RED BLOOD COUNT 3.44 X10^6/uL (4.7-6.0); RED CELL DISTRIBUTION WIDTH 16.5 % (11.6-16.5)
[2022-06-19 06:34] LABS: ALANINE AMINOTRANSFERASE 16 Units/L (12-78); ALBUMIN 2.5 g/dL (3.4-5.0); ALKALINE PHOSPHATASE 48 Units/L (46-116); ASPARTATE AMINO TRANSFERASE 14 Units/L (15-37); BLOOD UREA NITROGEN 16 mg/dL (7-18); CALCIUM 8.5 mg/dL (8.5-10.1); CARBON DIOXIDE 31.9 mmol/L (21-32); CHLORIDE 103 mmol/L (98-107); COR CA(FOR HYPOALB) 9.7 mg/dL (8.5-10.1); CREATININE 0.78 mg/dL (0.70-1.30); SODIUM 138 mmol/L (136-145); TOTAL PROTEIN 5.8 g/dL (6.4-8.2); eGFR NON BLACK RACES > 60 (>60)
[2022-06-19 06:37] VITALS: BMI 31.2
[2022-06-19] MEDS: PULMICORT NEB TX 0.5 MG NEB SCH ×2 (08:17→20:10)
[2022-06-19] MEDS: CIPRO IV 400 MG PREMIX* 400 MG/200 ML IV.SOLN. IV SCH ×2 (09:37→20:24)
[2022-06-19] MEDS: ALDACTONE TAB 25 MG PO SCH (13:41)
[2022-06-19] MEDS: ASPIRIN EC 81 MG PO SCH (13:41)
[2022-06-19] MEDS: ZESTRIL TAB 5 MG PO SCH (13:41)
[2022-06-19] MEDS: XARELTO PO SCH (13:42)
[2022-06-19] MEDS: MICRO K EXTEN CAP 10 MEQ PO SCH (13:42)
[2022-06-19] MEDS: COREG TAB 6.25 MG PO SCH ×2 (13:42→20:25)
[2022-06-19] MEDS: PATIENT'S HOME MEDICATION PO SCH ×2 (13:42→22:32)
[2022-06-19] MEDS: D5W 1,000 ML IV 1,000 ML IV SCH (13:42)
[2022-06-19] MEDS: PREDNISONE TAB 5 MG PO SCH (13:43)
[2022-06-19] MEDS: ZYLOPRIM PO SCH (13:43)
--- NOTE | 2022-06-19 17:42 | DR.H&P ---
H&P - History & Physical for Day of: H&P Date: 06/18/22 - Chief Complaint Chief Complaint: LOWER ABDOMINAL PAIN - History of Present Illness History of Present Illness: PT IS 86 WM, ER ADMISSION WITH c/o LLQ pain since 06/14, gradually got worse, said he felt like he was constipated, took a laxative and has been passing stool but still hurting. Pt reports hx of diverticulitis. PT HAD CT IN ER CONFIRMING ACUTE DIVERTICULITIS. PT ADMITTED FOR TREATMENT OF ACUTE ILLNESS. - Past Medical History Past Medical History: Coronary Artery Disease, Hypertension, Dyslipidemia, Hypothyroidism, COPD, GERD, Arthritis, Gout, Sleep Apnea, CHF Additional Medical History: AORTIC ANEURYSM, AFIB - Past Surgical History Surgical History: Tonsillectomy Additional Surgical History: PACE MAKER - Family History Family Medical History: Coronary Artery Disease, Hypertension - Social History Does patient currently use any type of tobacco product: Yes Have you used tobacco products in the last 12 months: Yes Type of Tobacco Use: Smokeless Does any household member use tobacco: No Alcohol Use: None Drug Use: None - Medications Home Medications: tizanidine [From Zanaflex] Allergy (Verified 06/18/22 19:10) CONTINUE taking the following medications rivaroxaban 20 mg tablet (Xarelto) 1 tab PO QDAY 06/18/22 [History] - Review of Systems Constitutional: Malaise Eyes: No Symptoms Reported ENT: No Symptoms Reported Respiratory: No Symptoms Reported Cardiovascular: No Symptoms Reported Gastrointestinal: Nausea, Abdominal Pain, Constipation Genitourinary: No Symptoms Reported Musculoskeletal: Back Pain Skin: No Symptoms Reported Neurological: No Symptoms Reported - Physical Exam Vital Signs: Temperature 98.1 F Pulse Rate [Right] 75 Pulse Rate 74 Respiratory Rate 20 Blood Pressure [Right Arm] 93/57 Blood Pressure [Left Arm] 92/60 Blood Pressure 98/56 O2 Sat by Pulse Oximetry 98 Oriented: Normal Eyes: Normal Ear: Normal Nose: Normal Throat: Normal Respiratory: RLL Diminished, LLL Diminished Cardiovascular: Normal : Normal Auscultation: Bowel Sounds: Normal Palpation: Normal Tenderness: Diffuse, RLQ, LLQ Skin: Decreased Turgur Musculoskeletal: Back:Lumbar Psychiatric: Normal Mood Description: Calm Speech Pattern: Clear, Appropriate - Assessment/Plan (1) Diverticulitis Status: Acute Plan: ADMIT, NPO. GENTLE IV HYDRATION, I &OS. VERIFY HOME MEDICATION. CT ABD/PELVIS DONE IN ER. CONSULT DR TONEY, REPEAT AM LABS, IV ATBX THERAPY (2) COPD (chronic obstructive pulmonary disease) Status: Chronic (3) DDD (degenerative disc disease), lumbar Status: Chronic (4) CHF (congestive heart failure) Status: Chronic (5) A-fib Qualifiers: Status: Chronic (6) HTN (hypertension) Status: Chronic - Allergies Allergies/Adverse Reactions: Allergies Allergy/AdvReac Type Severity Reaction Status Date / Time tizanidine [From Zanaflex] Allergy Verified 06/18/22 19:10
--- NOTE | 2022-06-19 17:45 | PCM.PROG ---
Progress Note - Progress Note for Day of Date of Exam: 06/19/22 - Subjective Subjective: PT IS 86 WM, ER ADMISSION WITH ACUTE DIVERTICULITIS. PT IS CURRENTLY ON CIPRO AND FLAGYL IV. PT WBC 18K THIS AM. PT REPORTS HE IS STILL "PRETTY TENDER" BUT FEELS BETTER THAN LAST PM. PT HAS PMH OF AFIB, CHF, COPD. DR TONEY CONSULTING AND AGREES TO RESTART PO MEDS ONLY, OTHERWISE CONTINUE NPO. - Past Medical Family Social History Past Med/Fam/Surg Hx: No changes since H&P Allergies: Allergies tizanidine [From Zanaflex] Allergy (Verified 06/18/22 19:10) - Review of Systems ROS: No change since H&P - Vital Signs and I&O's Vital Signs: Temperature 98.1 F Pulse Rate [Right] 75 Pulse Rate 74 Respiratory Rate 20 Blood Pressure [Right Arm] 93/57 Blood Pressure [Left Arm] 92/60 Blood Pressure 98/56 O2 Sat by Pulse Oximetry 98 Intake and Output: Intake & Output 06/17/22 06/18/22 06/19/22 06/20/22 11:59 11:59 11:59 11:59 Intake Total 140 / 140 710 / 710 Output Total 350 / 350 1300 / 1300 Balance -210 / -210 -590 / -590 - Physical Exam Oriented: Normal Eyes: Normal Ear: Normal Nose: Normal Throat: Normal Respiratory: Diminished Cardiovascular: Normal : Normal Auscultation: Bowel Sounds: Normal Tenderness: Diffuse, RLQ, LLQ Skin: Decreased Turgur Musculoskeletal: Back:Lumbar Psychiatric: Normal Mood Description: Calm Speech Pattern: Clear, Appropriate - Laboratory and Diagnostics Result Diagrams: 06/19/22 05:47 06/19/22 05:47 Labs: Laboratory WBC 18.0 X10^3/uL (3.6-10.0) H 06/19/22 05:47 RBC 3.44 X10^6/uL (4.7-6.0) L 06/19/22 05:47 Hgb 11.0 g/dL (13.5-18.0) L 06/19/22 05:47 Hct 33.4 % (42.0-54.0) L 06/19/22 05:47 MCV 97.0 fL (80.0-100.0) 06/19/22 05:47 MCH 32.0 pg (27.0-34.0) 06/19/22 05:47 MCHC 33.0 g/dL (33.0-35.0) 06/19/22 05:47 RDW 16.5 % (11.6-16.5) 06/19/22 05:47 Plt Count 130 X10^3/uL (150.0-450.0) L 06/19/22 05:47 MPV 8.5 fL (7.4-11.0) 06/19/22 05:47 Neut % (Auto) 73.0 % (42.0-75.0) 06/19/22 05:47 Lymph % (Auto) 16.8 % (21.0-51.0) L 06/19/22 05:47 [place] % (Auto) 9.4 % (0.0-13.0) 06/19/22 05:47 Eos % (Auto) 0.4 % (0.9-2.9) L 06/19/22 05:47 Baso % (Auto) 0.4 % (0.2-1.0) 06/19/22 05:47 Neut # (Auto) 13.1 x10^3/uL (2.2-4.8) H 06/19/22 05:47 Lymph # (Auto) 3.0 X10^3/uL (1.3-2.9) H 06/19/22 05:47 [place] # (Auto) 1.7 x10^3/uL (0.3-0.8) H 06/19/22 05:47 Eos # (Auto) 0.1 x10^3/uL (0.0-0.2) 06/19/22 05:47 Baso # (Auto) 0.1 X10^3/uL (0.0-0.1) 06/19/22 05:47 Absolute Nucleated RBC 0.1 /100WBC 06/19/22 05:47 Sodium 138 mmol/L (136-145) 06/19/22 05:47 Corrected Sodium TNP 06/19/22 05:47 Potassium 4.1 mmol/L (3.5-5.1) 06/19/22 05:47 Chloride 103 mmol/L (98-107) 06/19/22 05:47 Carbon Dioxide 31.9 mmol/L (21-32) 06/19/22 05:47 BUN 16 mg/dL (7-18) 06/19/22 05:47 Creatinine 0.78 mg/dL (0.70-1.30) 06/19/22 05:47 Est GFR (MDRD) Af Amer > 60 (>60) 06/19/22 05:47 Est GFR (MDRD) Non-Af > 60 (>60) 06/19/22 05:47 Glucose 99 mg/dL (65-99) 06/19/22 05:47 Calcium 8.5 mg/dL (8.5-10.1) 06/19/22 05:47 Corrected Calcium 9.7 mg/dL (8.5-10.1) 06/19/22 05:47 Total Bilirubin 1.00 mg/dL (0.2-1.0) 06/19/22 05:47 AST 14 Units/L (15-37) L 06/19/22 05:47 ALT 16 Units/L (12-78) 06/19/22 05:47 Alkaline Phosphatase 48 Units/L (46-116) 06/19/22 05:47 Total Protein 5.8 g/dL (6.4-8.2) L 06/19/22 05:47 Albumin 2.5 g/dL (3.4-5.0) L 06/19/22 05:47 Globulin 3.3 g/dL (2.5-4.5) 06/19/22 05:47 Albumin/Globulin Ratio 0.8 Ratio (1.1-2.1) L 06/19/22 05:47 Amylase 45 Units/L (25-115) 06/18/22 21:55 Lipase 120 Units/L (73-393) 06/18/22 21:55 Specimen Type Catherized urine 06/18/22 21:54 Urine Color Yellow (YELLOW) 06/18/22 21:54 Urine Appearance Clear (CLEAR) 06/18/22 21:54 Urine pH 6.0 (5.0 - 8.0) 06/18/22 21:54 Ur Specific [place] 1.015 (1.000-1.030) 06/18/22 21:54 Urine Protein 1+ (NEGATIVE) 07/25/22 21:54 Urine Glucose (UA) Negative (NEGATIVE) 06/18/22 21:54 Urine Ketones Negative (NEGATIVE) 06/18/22 21:54 Urine Blood 1+ (NEGATIVE) 06/18/22 21:54 Urine Nitrite Negative (NEGATIVE) 06/18/22 21:54 Urine Bilirubin Negative (NEGATIVE) 06/18/22 21:54 Urine Urobilinogen Normal (NORMAL) 06/18/22 21:54 Ur Leukocyte Esterase Negative (NEGATIVE) 06/18/22 21:54 Urine RBC 5-10 /HPF (0-3) A 06/18/22 21:54 Urine WBC 0-2 /HPF (0-5) 06/18/22 21:54 Ur Squamous Epith Cells Rare /HPF (NEGATIVE) 06/18/22 21:54 Amorphous Sediment 1+ /HPF (NEGATIVE) 06/18/22 20:50 Urine Bacteria Trace /HPF (NEGATIVE) 06/18/22 21:54 Hyaline Casts Few /LPF (NEGATIVE) 06/18/22 20:50 Urine Mucus Rare /HPF (NEGATIVE) 06/18/22 21:54 Ur Culture Indicated? No/not indicated 06/18/22 21:54 SARS-CoV-2 (PCR) Negative (NEGATIVE) 06/19/22 01:01 - Plan (1) Diverticulitis Status: Acute Plan: NPO WITH EXCEPTION OF PO MEDS ONLY. GENTLE IV HYDRATION, I &OS. CT ABD/PELVIS DONE IN ER. CONSULT DR TONEY, REPEAT AM LABS, IV ATBX THERAPY (2) COPD (chronic obstructive pulmonary disease) Status: Chronic (3) DDD (degenerative disc disease), lumbar Status: Chronic (4) CHF (congestive heart failure) Status: Chronic (5) A-fib Status: Chronic Qualifiers: (6) HTN (hypertension) Status: Chronic
[2022-06-19] MEDS ORDERED: LIPITOR TAB 40 MG ONE (19:01)
[2022-06-19] MEDS: BETAPACE AF PO SCH (20:23)
[2022-06-19] MEDS: COLACE CAP 100 MG PO PRN (20:24)
[2022-06-19] MEDS: LIPITOR TAB 40 MG PO SCH (20:25)
[2022-06-19] MEDS: FLOMAX PO SCH (20:26)
[2022-06-19] MEDS: TYLENOL 325 MG TAB PO PRN (22:50)
[2022-06-20] MEDS: D5W 1,000 ML IV 1,000 ML IV SCH ×2 (02:45→20:42)
[2022-06-20] MEDS: FLAGYL IV PREMIX 500 MG BAG 500 MG/100 ML BAG IV SCH ×4 (02:46→20:42)
[2022-06-20] MEDS ORDERED: SYNTHROID 75 mcg TAB ONE (05:01)
[2022-06-20 05:09] LABS: BASOPHILS # (AUTO) 0.1 X10^3/uL (0.0-0.1); BASOPHILS % (AUTO) 0.4 % (0.2-1.0); EOSINOPHILS # (AUTO) 0.1 x10^3/uL (0.0-0.2); EOSINOPHILS % (AUTO) 0.7 % (0.9-2.9); HEMOGLOBIN 10.4 g/dL (13.5-18.0); LYMPHOCYTES # (AUTO) 2.6 X10^3/uL (1.3-2.9); LYMPHOCYTES % (AUTO) 21.1 % (21.0-51.0); MEAN CORPUSCULAR HEMOGLOBIN 32.2 pg (27.0-34.0); MEAN CORPUSCULAR HGB CONC 33.7 g/dL (33.0-35.0); MEAN CORPUSCULAR VOLUME 95.4 fL (80.0-100.0); MEAN PLATELET VOLUME 8.9 fL (7.4-11.0); MONOCYTES # (AUTO) 1.2 x10^3/uL (0.3-0.8); MONOCYTES % (AUTO) 9.6 % (0.0-13.0); NEUTROPHILS # (AUTO) 8.3 x10^3/uL (2.2-4.8); NEUTROPHILS % (AUTO) 68.2 % (42.0-75.0); RED BLOOD COUNT 3.25 X10^6/uL (4.7-6.0); RED CELL DISTRIBUTION WIDTH 16.2 % (11.6-16.5); WHITE BLOOD COUNT 12.2 X10^3/uL (3.6-10.0)
[2022-06-20 05:19] LABS: ALANINE AMINOTRANSFERASE 13 Units/L (12-78); ALBUMIN 2.2 g/dL (3.4-5.0); ALKALINE PHOSPHATASE 45 Units/L (46-116); ASPARTATE AMINO TRANSFERASE 14 Units/L (15-37); BLOOD UREA NITROGEN 8 mg/dL (7-18); CALCIUM 8.3 mg/dL (8.5-10.1); CARBON DIOXIDE 29.9 mmol/L (21-32); CHLORIDE 106 mmol/L (98-107); COR CA(FOR HYPOALB) 9.7 mg/dL (8.5-10.1); COR NA(FOR HYPERGLY) 140 mmol/L (136-145); CREATININE 0.73 mg/dL (0.70-1.30); SODIUM 140 mmol/L (136-145); TOTAL PROTEIN 5.4 g/dL (6.4-8.2); eGFR NON BLACK RACES > 60 (>60)
[2022-06-20] MEDS: SYNTHROID 75 mcg TAB PO SCH (05:30)
--- NOTE | 2022-06-20 06:33 | RAD ---
HISTORYDiverticulitisSTUDYKUBCOMPARISON .br.br.br.br.br.br pattern is nonspecific and nonobstructive. No abnormal masses or abnormal calcifications are identified. Regional skeleton is intact.IMPRESSIONUnremarkable KUBElectronically signed by: HIEU GONZALEZ (Jun 20, 2022 06:32:00)
[2022-06-20] MEDS: PEPCID 20 MG VIAL 20 MG in NS 50 ML IV 50 ML IV SCH ×2 (08:13→20:18)
[2022-06-20] MEDS: PULMICORT NEB TX 0.5 MG NEB SCH ×2 (08:30→20:20)
[2022-06-20] MEDS: ASPIRIN EC 81 MG PO SCH (08:46)
[2022-06-20] MEDS: ALDACTONE TAB 25 MG PO SCH (08:46)
[2022-06-20] MEDS: XARELTO PO SCH (08:47)
[2022-06-20] MEDS: BETAPACE AF PO SCH ×2 (08:47→20:43)
[2022-06-20] MEDS: CIPRO IV 400 MG PREMIX* 400 MG/200 ML IV.SOLN. IV SCH ×2 (08:47→20:44)
[2022-06-20] MEDS: PREDNISONE TAB 5 MG PO SCH (08:48)
[2022-06-20] MEDS: PATIENT'S HOME MEDICATION PO SCH ×2 (08:48→20:44)
[2022-06-20] MEDS: COREG TAB 6.25 MG PO SCH ×2 (08:48→20:43)
[2022-06-20] MEDS: MICRO K EXTEN CAP 10 MEQ PO SCH (08:48)
[2022-06-20] MEDS: ZYLOPRIM PO SCH (08:49)
[2022-06-20] MEDS: ZESTRIL TAB 5 MG PO SCH (08:49)
[2022-06-20] MEDS: COLACE CAP 100 MG PO PRN (20:43)
[2022-06-20] MEDS: LIPITOR TAB 40 MG PO SCH (20:43)
[2022-06-20] MEDS: FLOMAX PO SCH (20:43)
[2022-06-21] MEDS: FLAGYL IV PREMIX 500 MG BAG 500 MG/100 ML BAG IV SCH ×4 (03:08→21:24)
[2022-06-21] MEDS: D5W 1,000 ML IV 1,000 ML IV SCH ×2 (04:09→14:47)
[2022-06-21] MEDS: SYNTHROID 75 mcg TAB PO SCH (05:32)
[2022-06-21 06:17] LABS: BASOPHILS # (AUTO) 0.1 X10^3/uL (0.0-0.1); BASOPHILS % (AUTO) 0.5 % (0.2-1.0); EOSINOPHILS # (AUTO) 0.2 x10^3/uL (0.0-0.2); EOSINOPHILS % (AUTO) 1.6 % (0.9-2.9); HEMATOCRIT 33.6 % (42.0-54.0); HEMOGLOBIN 11.6 g/dL (13.5-18.0); LYMPHOCYTES # (AUTO) 2.8 X10^3/uL (1.3-2.9); LYMPHOCYTES % (AUTO) 27.1 % (21.0-51.0); MEAN CORPUSCULAR HGB CONC 34.4 g/dL (33.0-35.0); MEAN CORPUSCULAR VOLUME 96.1 fL (80.0-100.0); MEAN PLATELET VOLUME 8.2 fL (7.4-11.0); MONOCYTES # (AUTO) 0.8 x10^3/uL (0.3-0.8); MONOCYTES % (AUTO) 7.9 % (0.0-13.0); NEUTROPHILS # (AUTO) 6.6 x10^3/uL (2.2-4.8); NEUTROPHILS % (AUTO) 62.9 % (42.0-75.0); RED CELL DISTRIBUTION WIDTH 16.2 % (11.6-16.5); WHITE BLOOD COUNT 10.5 X10^3/uL (3.6-10.0)
[2022-06-21 06:22] LABS: ALANINE AMINOTRANSFERASE 14 Units/L (12-78); ALBUMIN 2.4 g/dL (3.4-5.0); ALKALINE PHOSPHATASE 46 Units/L (46-116); ASPARTATE AMINO TRANSFERASE 14 Units/L (15-37); BLOOD UREA NITROGEN 5 mg/dL (7-18); CALCIUM 8.4 mg/dL (8.5-10.1); CARBON DIOXIDE 30.4 mmol/L (21-32); CHLORIDE 105 mmol/L (98-107); COR CA(FOR HYPOALB) 9.7 mg/dL (8.5-10.1); CREATININE 0.74 mg/dL (0.70-1.30); SODIUM 140 mmol/L (136-145); TOTAL PROTEIN 5.9 g/dL (6.4-8.2); eGFR NON BLACK RACES > 60 (>60)
[2022-06-21] MEDS: PULMICORT NEB TX 0.5 MG NEB SCH ×2 (08:00→20:41)
[2022-06-21] MEDS: PEPCID 20 MG VIAL 20 MG in NS 50 ML IV 50 ML IV SCH ×2 (08:26→20:42)
[2022-06-21] MEDS: XARELTO PO SCH (08:51)
[2022-06-21] MEDS: ASPIRIN EC 81 MG PO SCH (08:51)
[2022-06-21] MEDS: ALDACTONE TAB 25 MG PO SCH (08:52)
[2022-06-21] MEDS: CIPRO IV 400 MG PREMIX* 400 MG/200 ML IV.SOLN. IV SCH ×2 (08:53→22:32)
[2022-06-21] MEDS: MICRO K EXTEN CAP 10 MEQ PO SCH (08:53)
[2022-06-21] MEDS: BETAPACE AF PO SCH ×2 (08:53→20:41)
[2022-06-21] MEDS: COREG TAB 6.25 MG PO SCH ×2 (08:53→20:27)
[2022-06-21] MEDS: ZYLOPRIM PO SCH (08:54)
[2022-06-21] MEDS: ZESTRIL TAB 5 MG PO SCH (08:54)
[2022-06-21] MEDS: PREDNISONE TAB 5 MG PO SCH (08:54)
[2022-06-21] MEDS: PATIENT'S HOME MEDICATION PO SCH ×2 (08:54→20:27)
[2022-06-21] MEDS: TYLENOL 325 MG TAB PO PRN (19:21)
[2022-06-21] MEDS: FLOMAX PO SCH (20:41)
[2022-06-21] MEDS: LIPITOR TAB 40 MG PO SCH (20:42)
[2022-06-22] MEDS: D5W 1,000 ML IV 1,000 ML IV SCH (03:06)
[2022-06-22] MEDS: FLAGYL IV PREMIX 500 MG BAG 500 MG/100 ML BAG IV SCH (03:18)
[2022-06-22] MEDS: SYNTHROID 75 mcg TAB PO SCH (05:42)
[2022-06-22 05:55] LABS: BASOPHILS # (AUTO) 0.1 X10^3/uL (0.0-0.1); BASOPHILS % (AUTO) 0.8 % (0.2-1.0); EOSINOPHILS # (AUTO) 0.2 x10^3/uL (0.0-0.2); EOSINOPHILS % (AUTO) 2.2 % (0.9-2.9); HEMATOCRIT 32.7 % (42.0-54.0); HEMOGLOBIN 11.2 g/dL (13.5-18.0); LYMPHOCYTES # (AUTO) 3.1 X10^3/uL (1.3-2.9); LYMPHOCYTES % (AUTO) 34.9 % (21.0-51.0); MEAN CORPUSCULAR HEMOGLOBIN 32.8 pg (27.0-34.0); MEAN CORPUSCULAR HGB CONC 34.4 g/dL (33.0-35.0); MEAN CORPUSCULAR VOLUME 95.5 fL (80.0-100.0); MEAN PLATELET VOLUME 8.5 fL (7.4-11.0); NEUTROPHILS # (AUTO) 4.5 x10^3/uL (2.2-4.8); NEUTROPHILS % (AUTO) 51.1 % (42.0-75.0); RED BLOOD COUNT 3.43 X10^6/uL (4.7-6.0); WHITE BLOOD COUNT 8.8 X10^3/uL (3.6-10.0)
[2022-06-22 06:14] LABS: ALANINE AMINOTRANSFERASE 10 Units/L (12-78); ALBUMIN 2.3 g/dL (3.4-5.0); ALKALINE PHOSPHATASE 45 Units/L (46-116); ASPARTATE AMINO TRANSFERASE 16 Units/L (15-37); BLOOD UREA NITROGEN 4 mg/dL (7-18); CALCIUM 8.4 mg/dL (8.5-10.1); CARBON DIOXIDE 28.8 mmol/L (21-32); CHLORIDE 105 mmol/L (98-107); COR CA(FOR HYPOALB) 9.8 mg/dL (8.5-10.1); CREATININE 0.77 mg/dL (0.70-1.30); SODIUM 140 mmol/L (136-145); TOTAL PROTEIN 5.7 g/dL (6.4-8.2); eGFR NON BLACK RACES > 60 (>60)
[2022-06-22 08:08] VITALS: BP 107/70
[2022-06-22] MEDS: PULMICORT NEB TX 0.5 MG NEB SCH (08:15)
[2022-06-22] MEDS ORDERED: CIPRO TAB 500 MG PO SCH (09:00)
[2022-06-22] MEDS ORDERED: FLAGYL TAB 500 MG PO SCH (09:00)
[2022-06-22] MEDS: ASPIRIN EC 81 MG PO SCH (09:40)
[2022-06-22] MEDS: PEPCID 20 MG VIAL 20 MG in NS 50 ML IV 50 ML IV SCH (09:41)
[2022-06-22] MEDS: XARELTO PO SCH (09:41)
[2022-06-22] MEDS: ZYLOPRIM PO SCH (09:41)
[2022-06-22] MEDS: COREG TAB 6.25 MG PO SCH (09:42)
[2022-06-22] MEDS: MICRO K EXTEN CAP 10 MEQ PO SCH (09:42)
[2022-06-22] MEDS: PREDNISONE TAB 5 MG PO SCH (09:42)
[2022-06-22] MEDS: ALDACTONE TAB 25 MG PO SCH (09:43)
[2022-06-22] MEDS: ZESTRIL TAB 5 MG PO SCH (09:43)
[2022-06-22] MEDS: PATIENT'S HOME MEDICATION PO SCH (09:44)
[2022-06-22] MEDS: BETAPACE AF PO SCH (09:44)
== END 2022-06-22 11:50 | disposition home health service (06) | DRG 392 ==
LOC: ER 18:53 → MED/SURG 06-19 02:36
PROVIDERS: ADMIT Internal Medicine; ATTEND Internal Medicine
DX: K59.09 Other constipation; J44.9 Chronic obstructive pulmonary disease, unspecified; K80.80 Other cholelithiasis without obstruction; I48.91 Unspecified atrial fibrillation; K57.32 Diverticulitis of large intestine without perforation or abscess without bleeding; E03.8 Other specified hypothyroidism; M51.37 Other intervertebral disc degeneration, lumbosacral region; E78.2 Mixed hyperlipidemia; I11.0 Hypertensive heart disease with heart failure; R10.84 Generalized abdominal pain; K21.9 Gastro-esophageal reflux disease without esophagitis; I25.10 Atherosclerotic heart disease of native coronary artery without angina pectoris; N40.0 Benign prostatic hyperplasia without lower urinary tract symptoms; I50.9 Heart failure, unspecified

== ENCOUNTER 2024-11-09 09:21 | Inpatient (IN) ==
[2024-11-09] MEDS: NS 1,000 ML IV 1,000 ML IV SCH ×3 (09:45→20:10)
[2024-11-09] MEDS: NS 1,000 ML IV 300 ML IV ONE (09:56)
[2024-11-09 10:03] LABS: BASOPHILS # (AUTO) 0.2 X10^3/uL (0.0-0.1); BASOPHILS % (AUTO) 1.1 % (0.2-1.0); EOSINOPHILS % (AUTO) 0.1 % (0.9-2.9); HEMATOCRIT 35.8 % (42.0-54.0); HEMOGLOBIN 11.7 g/dL (13.5-18.0); LYMPHOCYTES # (AUTO) 2.9 X10^3/uL (1.3-2.9); LYMPHOCYTES % (AUTO) 18.5 % (21.0-51.0); MEAN CORPUSCULAR HEMOGLOBIN 31.8 pg (27.0-34.0); MEAN CORPUSCULAR HGB CONC 32.7 g/dL (33.0-35.0); MEAN CORPUSCULAR VOLUME 97.3 fL (80.0-100.0); MEAN PLATELET VOLUME 8.1 fL (7.4-11.0); MONOCYTES # (AUTO) 1.9 x10^3/uL (0.3-0.8); MONOCYTES % (AUTO) 12.3 % (0.0-13.0); NEUTROPHILS # (AUTO) 10.8 x10^3/uL (2.2-4.8); PLATELET COUNT 144 X10^3/uL (150.0-450.0); RED BLOOD COUNT 3.68 X10^6/uL (4.7-6.0); RED CELL DISTRIBUTION WIDTH 16.8 % (11.6-16.5); WHITE BLOOD COUNT 15.8 X10^3/uL (3.6-10.0)
--- NOTE | 2024-11-09 10:03 | DR.ABDMALE ---
HPI Time seen Time Seen by Provider: 11/09/24 09:35 PCP Primary Care Physician: Bonnie TELLO HPI comment HPI Comment: History as below. Complaint Chief Complaint:: Patient states that since he has been having abdominal pain. He states that the pain it mostly present if he moves or when he stands up. He states that he had problems with constipation around the time that it started, and admits to straining really hard to pass the stool. He reports that he has had several BMs since then. He also reports that the pain is present in his back and rob. He states that the pain isn't present if he sits still or lies down, but it comes when he moves around or tries to stant up. He denies any nausea or GI symptoms. COVID-19 Coronavirus risk:travel/contact w/high risk person: No Has patient experienced Coronavirus symptoms: No Reviewed Nurses Notes Review: Yes Mode of arrival Mode of Arrival: Wheelchair Timing Onset of Chief Complaint: 11/05/24 PMH PMH Past Medical History: Yes Past Medical History: Arthritis, CHF, COPD, Hypertension and [place] Past Surgical History: Yes Surgical History: Angioplasty/Stents and Tonsillectomy Family History History of Family Medical Conditions: Yes Family Medical History: [place] Social History Does patient currently use any type of tobacco product: No Have you used tobacco products in the last 12 months: No Type of Tobacco Use: None Does any household member use tobacco: No Alcohol Use: None Do you use any recreational Drugs:: No Lives With: Family Lives Where: Home Travel Risk Coronavirus risk:travel/contact w/high risk person: No Has patient experienced Coronavirus symptoms: No Infectious screening In the last 2 months have you had wt loss of >10#?: NO Have you had fever, night sweats or hemotysis?: No Have you traveled outside the country in the last 6 months?: No Isolation: Standard PE Vital Signs Vital Signs: Temp Pulse Resp BP Pulse Ox O2 Del Method 11/09/24 12:15 75 99 11/09/24 12:00 76 93 L 11/09/24 12:00 109/55 11/09/24 11:58 74 95 11/09/24 11:58 115/63 11/09/24 11:45 75 98 11/09/24 11:30 75 97 12/16/24 11:30 75/42 11/09/24 11:15 75 97 11/09/24 11:00 75 97 11/09/24 11:00 79/40 11/09/24 10:45 74 97 11/09/24 10:32 81 11/09/24 10:32 90/51 11/09/24 10:31 80 92 L 11/09/24 10:21 80 99 11/09/24 10:21 104/59 11/09/24 10:00 74 96 11/09/24 10:00 98/58 11/09/24 09:45 82 98 11/09/24 09:45 97/52 11/09/24 09:37 106/55 11/09/24 09:37 77 98 11/09/24 09:21 98.3 F 74 18 87/56 96 Room Air ROR Labs Reviewed 11/09/24 09:52 11/09/24 09:52 Laboratory: WBC 15.8 X10^3/uL (3.6-10.0) H 11/09/24 09:52 RBC 3.68 X10^6/uL (4.7-6.0) L 11/09/24 09:52 Hgb 11.7 g/dL (13.5-18.0) L 11/09/24 09:52 Hct 35.8 % (42.0-54.0) L 11/09/24 09:52 MCV 97.3 fL (80.0-100.0) 11/09/24 09:52 MCH 31.8 pg (27.0-34.0) 11/09/24 09:52 MCHC 32.7 g/dL (33.0-35.0) L 11/09/24 09:52 RDW 16.8 % (11.6-16.5) H 11/09/24 09:52 Plt Count 144 X10^3/uL (150.0-450.0) L 11/09/24 09:52 MPV 8.1 fL (7.4-11.0) 11/09/24 09:52 Neut % (Auto) 68.0 % (42.0-75.0) 11/09/24 09:52 Lymph % (Auto) 18.5 % (21.0-51.0) L 11/09/24 09:52 [place] % (Auto) 12.3 % (0.0-13.0) 11/09/24 09:52 Eos % (Auto) 0.1 % (0.9-2.9) L 11/09/24 09:52 Baso % (Auto) 1.1 % (0.2-1.0) H 11/09/24 09:52 Neut # (Auto) 10.8 x10^3/uL (2.2-4.8) H 11/09/24 09:52 Lymph # (Auto) 2.9 X10^3/uL (1.3-2.9) 11/09/24 09:52 [place] # (Auto) 1.9 x10^3/uL (0.3-0.8) H 11/09/24 09:52 Eos # (Auto) 0.0 x10^3/uL (0.0-0.2) 11/09/24 09:52 Baso # (Auto) 0.2 X10^3/uL (0.0-0.1) H 11/09/24 09:52 Absolute Nucleated RBC 0.0 /100WBC 11/09/24 09:52 Sodium 136 mmol/L (136-145) 11/09/24 09:52 Corrected Sodium 136 mmol/L (136-145) 11/09/24 09:52 Potassium 4.6 mmol/L (3.5-5.1) 11/09/24 09:52 Chloride 101 mmol/L (98-107) 11/09/24 09:52 Carbon Dioxide 28.1 mmol/L (21-32) 11/09/24 09:52 BUN 22 mg/dL (7-18) H 11/09/24 09:52 Creatinine 1.49 mg/dL (0.70-1.30) H 11/09/24 09:52 Est GFR (MDRD) Af Amer 57 (>60) L 11/09/24 09:52 Est GFR (MDRD) Non-Af 47 (>60) L 11/09/24 09:52 Glucose 120 mg/dL (65-99) H 11/09/24 09:52 Lactic Acid 1.8 mmol/L (0.4-2.0) 11/09/24 11:50 Calcium 9.1 mg/dL (8.5-10.1) 11/09/24 09:52 Corrected Calcium 10.1 mg/dL (8.5-10.1) 11/09/24 09:52 Total Bilirubin 1.00 mg/dL (0.2-1.0) 11/09/24 09:52 AST 12 Units/L (15-37) L 11/09/24 09:52 ALT 23 Units/L (12-78) 11/09/24 09:52 Alkaline Phosphatase 55 Units/L (46-116) 11/09/24 09:52 B-Natriuretic Peptide 272 pg/mL (0-79) H 11/09/24 09:52 Total Protein 6.4 g/dL (6.4-8.2) 11/09/24 09:52 Albumin 2.7 g/dL (3.4-5.0) L 11/09/24 09:52 Globulin 3.7 g/dL (2.5-4.5) 11/09/24 09:52 Albumin/Globulin Ratio 0.7 Ratio (1.1-2.1) L 11/09/24 09:52 Lipase 50 Units/L (16-77) 11/09/24 09:52 Specimen Type Clean catch urine 11/09/24 10:32 Urine Color Dark yellow (YELLOW) 11/09/24 10:32 Urine Appearance Clear (CLEAR) 11/09/24 10:32 Urine pH 6.0 (5.0 - 8.0) 11/09/24 10:32 Ur Specific [place] 1.025 (1.000-1.030) 11/09/24 10:32 Urine Protein 2+ (NEGATIVE) 11/09/24 10:32 Urine Glucose (UA) Negative (NEGATIVE) 11/09/24 10:32 Urine Ketones Negative (NEGATIVE) 11/09/24 10:32 Urine Blood 1+ (NEGATIVE) 11/09/24 10:32 Urine Nitrite Negative (NEGATIVE) 11/09/24 10:32 Urine Bilirubin 1+ (NEGATIVE) 11/09/24 10:32 Urine Urobilinogen 1+ (NORMAL) 11/09/24 10:32 Ur Leukocyte Esterase 1+ (NEGATIVE) 11/09/24 10:32 Urine RBC 0-2 /HPF (0-3) 11/09/24 10:32 Urine WBC 3-5 /HPF (0-5) 11/09/24 10:32 Ur Squamous Epith Cells Rare /HPF (NEGATIVE) 11/09/24 10:32 Amorphous Sediment Trace /HPF (NEGATIVE) 11/09/24 10:32 Urine Bacteria 2+ /HPF (NEGATIVE) 11/09/24 10:32 Urine Mucus Moderate /HPF (NEGATIVE) 11/09/24 10:32 Ur Culture Indicated? Yes/culture set up 11/09/24 10:32 Opioid Opioid Risk Tool Age (Rudolph box if 16-45): No History of Preadolescent Sexual Abuse: No Total: 0 Total Score Risk Category: Low Risk Copyright: Hiram MALONEY predicting aberrant behaviors Discharge Plan Diagnosis Discharge Problem: Diverticular disease Hypotension Qualifiers: Hypotension type: unspecified hypotension type Qualified Code(s): I95.9 - Hypotension, unspecified UTI (urinary tract infection) Qualifiers: Urinary tract infection type: site unspecified Hematuria presence: with hematuria Qualified Code(s): N39.0 - Urinary tract infection, site not specified Abdominal pain Qualifiers: Abdominal location: lower abdomen, unspecified Qualified Code(s): R10.30 - Lower abdominal pain, unspecified Discharge Plan Patient Disposition: ADMITTED INPATIENT Condition: Stable Prescriptions: No Action prednisone 5 mg tablet 5 mg PO DIRECTED gabapentin 100 mg capsule 100 mg PO TID carvedilol 3.125 mg tablet 3.125 mg PO BID lisinopril 5 mg tablet 5 mg PO QDAY furosemide 40 mg Tablet 40 mg PO DAILY Patient Comments: atorvastatin 40 MG tablet 40 mg PO HS potassium chloride 10 mEq Tablet Extended Release 10 meq PO DAILY Qty: 0 spironolactone 25 mg Tablet 12.5 mg PO DAILY Qty: 0 Rx Instructions: x 15 pills tamsulosin 0.4 mg Capsule 0.4 mg PO DAILY levothyroxine [Synthroid] 75 mcg Tablet 75 mcg PO DAILY Xarelto 20 mg tablet 20 mg PO QDAY allopurinol 100 mg tablet 100 mg PO DAILY sotalol 120 mg Tablet 120 mg PO BID mexiletine 150 mg Capsule 150 mg PO BID Health Concerns: Post Hospitalization: new medications and changes needed to prevent readmission or further decline. Pt educated and given instructions on all concerns. Plan of Treatment: Continue with present treatment and follow up plan. Pt is to keep follow up appointment as instructed and take medications as ordered. Orders to Discharge Patient Discharge Orders: Transfer (Routine); Ordered 11/09/24 Ordered By: FREDIS IBRAHIM Follow ups/Referrals Follow ups/Referrals: TANA PASCAL [Primary Care Provider] - 3 days Instructions Stand Alone Forms: Find Help Web Site, Post Hospital Follow Up Care
[2024-11-09 10:14] LABS: ALBUMIN 2.7 g/dL (3.4-5.0); CALCIUM 9.1 mg/dL (8.5-10.1); CARBON DIOXIDE 28.1 mmol/L (21-32); COR CA(FOR HYPOALB) 10.1 mg/dL (8.5-10.1); CREATININE 1.49 mg/dL (0.70-1.30); POTASSIUM 4.6 mmol/L (3.5-5.1); TOTAL PROTEIN 6.4 g/dL (6.4-8.2)
[2024-11-09 10:45] LABS: BILIRUBIN,URINE 1+ (NEGATIVE); BLOOD/HEMOGLOBIN,URINE 1+ (NEGATIVE); GLUCOSE, URINE NEGATIVE (NEGATIVE); KETONES,URINE NEGATIVE (NEGATIVE); LEUKOCYTE ESTERASE ,URINE 1+ (NEGATIVE); NITRITES,URINE NEGATIVE (NEGATIVE); PROTEIN,URINE 2+ (NEGATIVE); UROBILINOGEN,URINE 1+ (NORMAL)
[2024-11-09 10:48] LABS: APPEARANCE,URINE CLEAR (CLEAR); COLOR,URINE DARK YELLOW (YELLOW)
[2024-11-09 10:52] LABS: BACTERIA,URINE 2+ /HPF (NEGATIVE); RBC,URINE 0-2 /HPF (0-3); SQUAMOUS EPITHELIAL CELL,UR RARE /HPF (NEGATIVE)
--- NOTE | 2024-11-09 11:38 | CT ---
EXAM:ABDOMEN/PELVIS W/O CONHISTORY:ABD PAIN;COMPARISON:CT abdomen and pelvis 01/27/2024TECHNIQUE:Multiple CT axial images of the abdomen and pelvis were obtained without IV contrast. Coronal and sagittal images were reconstructed. Dose reduction techniques included Automated Exposure Control (AEC) and adjustment of mA and kV.FINDINGS:There is a segment of the sigmoid colon which has wall thickening, diverticula, and pericolonic edema. The findings are consistent with acute diverticulitis. No evidence for roselia diverticular abscess.Small pericardial effusion is unchanged. Cardiomegaly is stable. Focal scarring in the left lung base is also unchanged.The liver is normal in size and configuration. The gallbladder has no edema around it. The spleen is normal in size and shape.The adrenal glands are normal. The pancreas is normal.Small stone upper right kidney measures 3 mm. No abnormal calcification in the left kidney, the ureters, or the urinary bladder. The kidneys have normal size and shape. There is no hydronephrosis or significant perirenal edema. The bladder is minimally distended. It has no wall thickening or perivesical edema. Prostate is minimally enlarged.Small umbilical hernia contains fat. Small inguinal hernias contain fat.Degenerative spondylitic changes are present in the spine. Mild levoconvex scoliosis.IMPRESSION:1. Acute uncomplicated sigmoid diverticulitis2. Otherwise no change from January 2024THIS IS AN ELECTRONICALLY VERIFIED FINAL [id number]/09/2024 11:34 AM - Electronically signed by Rai Gilbert MD
[2024-11-09] MEDS: ZOSYN VIAL 3.375 GRAMS 3.375 G in NS 100 ML IV 100 ML IV ONE (12:23)
--- NOTE | 2024-11-09 13:11 | DR.H&P ---
H&P History & Physical for Day of: H&P Date: 11/09/24 Chief Complaint Chief Complaint: abdominal pain History of Present Illness History of Present Illness: PT IS 88 WM, ER ADMISSION AFTER PRESENTING WITH CO LOWER ABDOMINAL PAIN AND TENDERNESS. WORSE OVER THE PAST 24 HRS. PT HAS PMH OF DIVERTICULITIS IN THE PAST AND FEELS LIKE THAT IS WHAT IS GOING ON WITH STOMACH. PT HAS COPD, CAD, CHF, AFIB, BLOCK CABLEMAN ANTICOAGULANT THERAPY AND LUMBAR SPINE DDD. PT ADMITTED FOR TREATMENT AND EVALUATION. Past Medical History Past Medical History: Arthritis, CHF, COPD, Hypertension and [place] Additional Medical History: AORTIC ANEURYSM, AFIB Past Surgical History Surgical History: Angioplasty/Stents and Tonsillectomy Additional Surgical History: PACE MAKER Family History Family Medical History: [place] Social History Does patient currently use any type of tobacco product: No Have you used tobacco products in the last 12 months: No Type of Tobacco Use: None Does any household member use tobacco: No Alcohol Use: None Medications Home Medications: Home Medications Medication Instructions Recorded Confirmed Type atorvastatin 40 mg tablet 40 mg PO HS 12/15/15 11/09/24 History furosemide 40 mg tablet 40 mg PO DAILY 12/15/15 11/09/24 History potassium chloride 10 mEq 10 meq PO DAILY #0 tabs 12/15/15 11/09/24 History tablet,extended release spironolactone 25 mg tablet 12.5 mg PO DAILY #0 tabs 12/15/15 11/09/24 History tamsulosin 0.4 mg capsule 0.4 mg PO DAILY 09/18/18 11/09/24 History levothyroxine 75 mcg tablet 75 mcg PO DAILY 08/22/20 11/09/24 History (Synthroid) allopurinol 100 mg tablet 100 mg PO DAILY 10/14/20 11/09/24 History mexiletine 150 mg capsule 150 mg PO BID 03/28/21 11/09/24 History sotalol 120 mg tablet 120 mg PO BID 03/28/21 11/09/24 History rivaroxaban 20 mg tablet (Xarelto) 20 mg PO QDAY 06/18/22 11/09/24 History carvedilol 3.125 mg tablet 3.125 mg PO BID 07/10/23 11/09/24 History gabapentin 100 mg capsule 100 mg PO TID 07/10/23 11/09/24 History lisinopril 5 mg tablet 5 mg PO QDAY 07/10/23 11/09/24 History prednisone 5 mg tablet 5 mg PO DIRECTED 07/10/23 11/09/24 History Allergies Allergies Allergy/AdvReac Type Severity Reaction Status Date / Time tizanidine [From [facility]] Allergy Verified 11/09/24 09:37 Labs 11/09/24 09:52 11/09/24 09:52 Labs: Laboratory WBC 15.8 X10^3/uL (3.6-10.0) H 11/09/24 09:52 RBC 3.68 X10^6/uL (4.7-6.0) L 11/09/24 09:52 Hgb 11.7 g/dL (13.5-18.0) L 11/09/24 09:52 Hct 35.8 % (42.0-54.0) L 11/09/24 09:52 MCV 97.3 fL (80.0-100.0) 11/09/24 09:52 MCH 31.8 pg (27.0-34.0) 11/09/24 09:52 MCHC 32.7 g/dL (33.0-35.0) L 11/09/24 09:52 RDW 16.8 % (11.6-16.5) H 11/09/24 09:52 Plt Count 144 X10^3/uL (150.0-450.0) L 11/09/24 09:52 MPV 8.1 fL (7.4-11.0) 11/09/24 09:52 Neut % (Auto) 68.0 % (42.0-75.0) 11/09/24 09:52 Lymph % (Auto) 18.5 % (21.0-51.0) L 11/09/24 09:52 [place] % (Auto) 12.3 % (0.0-13.0) 11/09/24 09:52 Eos % (Auto) 0.1 % (0.9-2.9) L 11/09/24 09:52 Baso % (Auto) 1.1 % (0.2-1.0) H 11/09/24 09:52 Neut # (Auto) 10.8 x10^3/uL (2.2-4.8) H 11/09/24 09:52 Lymph # (Auto) 2.9 X10^3/uL (1.3-2.9) 11/09/24 09:52 [place] # (Auto) 1.9 x10^3/uL (0.3-0.8) H 11/09/24 09:52 Eos # (Auto) 0.0 x10^3/uL (0.0-0.2) 11/09/24 09:52 Baso # (Auto) 0.2 X10^3/uL (0.0-0.1) H 11/09/24 09:52 Absolute Nucleated RBC 0.0 /100WBC 11/09/24 09:52 Sodium 136 mmol/L (136-145) 11/09/24 09:52 Corrected Sodium 136 mmol/L (136-145) 11/09/24 09:52 Potassium 4.6 mmol/L (3.5-5.1) 11/09/24 09:52 Chloride 101 mmol/L (98-107) 11/09/24 09:52 Carbon Dioxide 28.1 mmol/L (21-32) 11/09/24 09:52 BUN 22 mg/dL (7-18) H 11/09/24 09:52 Creatinine 1.49 mg/dL (0.70-1.30) H 11/09/24 09:52 Est GFR (MDRD) Af Amer 57 (>60) L 11/09/24 09:52 Est GFR (MDRD) Non-Af 47 (>60) L 11/09/24 09:52 Glucose 120 mg/dL (65-99) H 11/09/24 09:52 Lactic Acid 1.8 mmol/L (0.4-2.0) 11/09/24 11:50 Calcium 9.1 mg/dL (8.5-10.1) 11/09/24 09:52 Corrected Calcium 10.1 mg/dL (8.5-10.1) 11/09/24 09:52 Total Bilirubin 1.00 mg/dL (0.2-1.0) 11/09/24 09:52 AST 12 Units/L (15-37) L 11/09/24 09:52 ALT 23 Units/L (12-78) 11/09/24 09:52 Alkaline Phosphatase 55 Units/L (46-116) 11/09/24 09:52 B-Natriuretic Peptide 272 pg/mL (0-79) H 11/09/24 09:52 Total Protein 6.4 g/dL (6.4-8.2) 11/09/24 09:52 Albumin 2.7 g/dL (3.4-5.0) L 11/09/24 09:52 Globulin 3.7 g/dL (2.5-4.5) 11/09/24 09:52 Albumin/Globulin Ratio 0.7 Ratio (1.1-2.1) L 11/09/24 09:52 Lipase 50 Units/L (16-77) 11/09/24 09:52 Specimen Type Clean catch urine 11/09/24 10:32 Urine Color Dark yellow (YELLOW) 11/09/24 10:32 Urine Appearance Clear (CLEAR) 11/09/24 10:32 Urine pH 6.0 (5.0 - 8.0) 11/09/24 10:32 Ur Specific [place] 1.025 (1.000-1.030) 11/09/24 10:32 Urine Protein 2+ (NEGATIVE) 11/09/24 10:32 Urine Glucose (UA) Negative (NEGATIVE) 11/09/24 10:32 Urine Ketones Negative (NEGATIVE) 11/09/24 10:32 Urine Blood 1+ (NEGATIVE) 11/09/24 10:32 Urine Nitrite Negative (NEGATIVE) 11/09/24 10:32 Urine Bilirubin 1+ (NEGATIVE) 11/09/24 10:32 Urine Urobilinogen 1+ (NORMAL) 11/09/24 10:32 Ur Leukocyte Esterase 1+ (NEGATIVE) 11/09/24 10:32 Urine RBC 0-2 /HPF (0-3) 11/09/24 10:32 Urine WBC 3-5 /HPF (0-5) 11/09/24 10:32 Ur Squamous Epith Cells Rare /HPF (NEGATIVE) 11/09/24 10:32 Amorphous Sediment Trace /HPF (NEGATIVE) 11/09/24 10:32 Urine Bacteria 2+ /HPF (NEGATIVE) 11/09/24 10:32 Urine Mucus Moderate /HPF (NEGATIVE) 11/09/24 10:32 Ur Culture Indicated? Yes/culture set up 11/09/24 10:32 Review of Systems Constitutional: No Symptoms Reported Eyes: No Symptoms Reported ENT: No Symptoms Reported Respiratory: SOB with Excertion Cardiovascular: No Symptoms Reported Gastrointestinal: Abdominal Pain Genitourinary: No Symptoms Reported Musculoskeletal: Back Pain Skin: No Symptoms Reported Neurological: No Symptoms Reported Physical Exam Vital Signs: Vital Signs Temperature 98.3 F Pulse Rate 75 Pulse Rate 76 Pulse Rate 74 Pulse Rate 75 Pulse Rate 75 Pulse Rate 75 Pulse Rate 75 Pulse Rate 74 Pulse Rate 81 Pulse Rate 80 Pulse Rate 80 Pulse Rate 74 Pulse Rate 82 Pulse Rate 77 Pulse Rate 74 Respiratory Rate 18 Blood Pressure 109/55 Blood Pressure 115/63 Blood Pressure 75/42 Blood Pressure 79/40 Blood Pressure 90/51 Blood Pressure 104/59 Blood Pressure 98/58 Blood Pressure 97/52 Blood Pressure 106/55 Blood Pressure 87/56 O2 Sat by Pulse Oximetry 99 O2 Sat by Pulse Oximetry 93 O2 Sat by Pulse Oximetry 95 O2 Sat by Pulse Oximetry 98 O2 Sat by Pulse Oximetry 97 O2 Sat by Pulse Oximetry 97 O2 Sat by Pulse Oximetry 97 O2 Sat by Pulse Oximetry 97 O2 Sat by Pulse Oximetry 92 O2 Sat by Pulse Oximetry 99 O2 Sat by Pulse Oximetry 96 O2 Sat by Pulse Oximetry 98 O2 Sat by Pulse Oximetry 98 O2 Sat by Pulse Oximetry 96 Oriented: Normal Eyes: Normal Ear: Normal Nose: Normal Throat: Dry Respiratory: RLL Diminished and LLL Diminished Auscultation: Bowel Sounds: Decreased Palpation: Normal Tenderness: Other (DIFFUSE) Skin: Normal Musculoskeletal: Back:Lumbar Psychiatric: Normal Mood Description: Anxious Speech Pattern: Clear and Appropriate Assessment/Plan (1) Abdominal pain: Qualifiers: Abdominal location: lower abdomen, unspecified Qualified Code(s): R10.30 - Lower abdominal pain, unspecified Status: Acute Plan: ADMIT, NPO ADMISSION LABS AND CT ON ADMISSION IN ER IV ATX IV HYDRATION WITH I&OS PAIN CONTROL, VERIFY HOME MEDICATIONS BP CONTROL AND PRN RESP THERAPY (2) Diverticulitis of sigmoid colon: Status: Acute (3) COPD (chronic obstructive pulmonary disease): Status: Chronic (4) CHF (congestive heart failure): Status: Chronic (5) A-fib: Status: Chronic
[2024-11-09] MEDS ORDERED: ZOFRAN INJ 4 MG VIAL IVP PRN (13:23)
[2024-11-09] MEDS: ZOSYN VIAL 3.375 GRAMS 3.375 G in NS 100 ML IV 100 ML IV SCH (13:47)
[2024-11-09] MEDS: FLAGYL IV PREMIX 500 MG BAG 500 MG/100 ML BAG IV SCH (15:20)
[2024-11-09 17:37] VITALS: BMI 34.0
[2024-11-09] MEDS: PULMICORT NEB TX 0.5 MG NEB SCH (20:08)
[2024-11-09] MEDS: DUONEB 0.5 MG/3 MG (3 mL) NEB SCH (20:08)
[2024-11-09] MEDS: NS 1,000 ML IV 1,000 ML ONE (20:10)
[2024-11-09] MEDS: NS 250 ML IV 25 ML IV PRN (22:20)
[2024-11-10 05:55] LABS: ALANINE AMINOTRANSFERASE 17 Units/L (12-78); ALBUMIN 2.2 g/dL (3.4-5.0); ALKALINE PHOSPHATASE 50 Units/L (46-116); ASPARTATE AMINO TRANSFERASE 16 Units/L (15-37); BLOOD UREA NITROGEN 14 mg/dL (7-18); CALCIUM 8.3 mg/dL (8.5-10.1); CARBON DIOXIDE 24.7 mmol/L (21-32); CHLORIDE 105 mmol/L (98-107); COR CA(FOR HYPOALB) 9.7 mg/dL (8.5-10.1); CREATININE 1.05 mg/dL (0.70-1.30); GLUCOSE 100 mg/dL (65-99); MAGNESIUM 1.9 mg/dL (2.0-2.9); POTASSIUM 4.4 mmol/L (3.5-5.1); SODIUM 137 mmol/L (136-145); TOTAL PROTEIN 5.5 g/dL (6.4-8.2); eGFR NON BLACK RACES > 60 (>60)
[2024-11-10 05:57] LABS: BASOPHILS % (AUTO) 0.4 % (0.2-1.0); EOSINOPHILS % (AUTO) 0.3 % (0.9-2.9); HEMATOCRIT 38.2 % (42.0-54.0); HEMOGLOBIN 12.5 g/dL (13.5-18.0); LYMPHOCYTES # (AUTO) 2.8 X10^3/uL (1.3-2.9); LYMPHOCYTES % (AUTO) 24.1 % (21.0-51.0); MEAN CORPUSCULAR HEMOGLOBIN 32.1 pg (27.0-34.0); MEAN CORPUSCULAR HGB CONC 32.8 g/dL (33.0-35.0); MEAN CORPUSCULAR VOLUME 97.8 fL (80.0-100.0); MEAN PLATELET VOLUME 8.2 fL (7.4-11.0); MONOCYTES # (AUTO) 1.1 x10^3/uL (0.3-0.8); MONOCYTES % (AUTO) 9.7 % (0.0-13.0); NEUTROPHILS # (AUTO) 7.5 x10^3/uL (2.2-4.8); NEUTROPHILS % (AUTO) 65.5 % (42.0-75.0); PLATELET COUNT 98 X10^3/uL (150.0-450.0); RED BLOOD COUNT 3.91 X10^6/uL (4.7-6.0); RED CELL DISTRIBUTION WIDTH 17.3 % (11.6-16.5); WHITE BLOOD COUNT 11.4 X10^3/uL (3.6-10.0)
[2024-11-10] MEDS ORDERED: CONSULT PHARMACY - POTASSIUM & MAGNESIUM XX SCH (07:00)
[2024-11-10] MEDS: MAG-OX TAB PO SCH (08:20)
[2024-11-10] MEDS: NORCO 5/325 MG TAB PO PRN (10:19)
[2024-11-10] MEDS: DULCOLAX TAB EC 5 MG PO SCH (10:20)
[2024-11-10] MEDS: COLACE CAP 100 MG PO SCH (10:20)
[2024-11-11 05:19] LABS: MEAN CORPUSCULAR HEMOGLOBIN 32.3 pg (27.0-34.0); MEAN CORPUSCULAR HGB CONC 33.1 g/dL (33.0-35.0)
[2024-11-11 05:26] LABS: BASOPHILS # (AUTO) 0.1 X10^3/uL (0.0-0.1); BASOPHILS % (AUTO) 0.5 % (0.2-1.0); EOSINOPHILS # (AUTO) 0.1 x10^3/uL (0.0-0.2); EOSINOPHILS % (AUTO) 0.8 % (0.9-2.9); HEMATOCRIT 33.7 % (42.0-54.0); HEMOGLOBIN 11.1 g/dL (13.5-18.0); LYMPHOCYTES # (AUTO) 3.1 X10^3/uL (1.3-2.9); LYMPHOCYTES % (AUTO) 21.7 % (21.0-51.0); MEAN CORPUSCULAR VOLUME 97.7 fL (80.0-100.0); MEAN PLATELET VOLUME 8.2 fL (7.4-11.0); MONOCYTES # (AUTO) 1.3 x10^3/uL (0.3-0.8); MONOCYTES % (AUTO) 8.9 % (0.0-13.0); NEUTROPHILS # (AUTO) 9.6 x10^3/uL (2.2-4.8); NEUTROPHILS % (AUTO) 68.1 % (42.0-75.0); PLATELET COUNT 151 X10^3/uL (150.0-450.0); RED BLOOD COUNT 3.45 X10^6/uL (4.7-6.0); WHITE BLOOD COUNT 14.1 X10^3/uL (3.6-10.0)
[2024-11-11 05:47] LABS: ALANINE AMINOTRANSFERASE 21 Units/L (12-78); ALBUMIN 2.4 g/dL (3.4-5.0); ALKALINE PHOSPHATASE 49 Units/L (46-116); ASPARTATE AMINO TRANSFERASE 21 Units/L (15-37); BLOOD UREA NITROGEN 9 mg/dL (7-18); CALCIUM 8.9 mg/dL (8.5-10.1); CARBON DIOXIDE 24.8 mmol/L (21-32); CHLORIDE 106 mmol/L (98-107); COR CA(FOR HYPOALB) 10.2 mg/dL (8.5-10.1); CREATININE 1.06 mg/dL (0.70-1.30); GLUCOSE 98 mg/dL (65-99); POTASSIUM 4.4 mmol/L (3.5-5.1); SODIUM 139 mmol/L (136-145); TOTAL PROTEIN 6.1 g/dL (6.4-8.2); eGFR NON BLACK RACES > 60 (>60)
[2024-11-11] MEDS: LOVENOX INJ 40 MG SYR SC SCH (09:42)
--- NOTE | 2024-11-11 18:29 | RAD ---
EXAM:KUBHISTORY:ABD PAIN, CONSTIPATION ;COMPARISON:CT abdomen and pelvis 11/09/2024TECHNIQUE:One viewFINDINGS:The overall bowel gas pattern is normal. No free air, dilated loops or significant air-fluid levels noted. Right flank is not included. There is stool in the left colon and rectosigmoid. No abnormal calcifications in the distribution of the kidneys or ureters. Levoscoliosis with degenerative changes in the spine. Multiple phleboliths in the pelvis.IMPRESSION:No acute findings. No pneumoperitoneum.THIS IS AN ELECTRONICALLY VERIFIED FINAL ICGYJR5411/11/2024 6:25 PM - Electronically signed by Ivan Paez MD
[2024-11-11] MEDS: COLACE CAP 100 MG PO SCH (21:16)
[2024-11-12 06:25] LABS: BASOPHILS # (AUTO) 0.1 X10^3/uL (0.0-0.1); EOSINOPHILS # (AUTO) 0.1 x10^3/uL (0.0-0.2); HEMOGLOBIN 10.3 g/dL (13.5-18.0); PLATELET COUNT 154 X10^3/uL (150.0-450.0); RED CELL DISTRIBUTION WIDTH 17.2 % (11.6-16.5)
[2024-11-12 06:28] LABS: BASOPHILS % (AUTO) 0.8 % (0.2-1.0); EOSINOPHILS % (AUTO) 1.1 % (0.9-2.9); HEMATOCRIT 31.5 % (42.0-54.0); LYMPHOCYTES # (AUTO) 2.8 X10^3/uL (1.3-2.9); LYMPHOCYTES % (AUTO) 27.1 % (21.0-51.0); MEAN CORPUSCULAR HEMOGLOBIN 32.3 pg (27.0-34.0); MEAN CORPUSCULAR HGB CONC 32.8 g/dL (33.0-35.0); MEAN CORPUSCULAR VOLUME 98.6 fL (80.0-100.0); MEAN PLATELET VOLUME 7.8 fL (7.4-11.0); NEUTROPHILS # (AUTO) 6.2 x10^3/uL (2.2-4.8); WHITE BLOOD COUNT 10.2 X10^3/uL (3.6-10.0)
[2024-11-12 06:32] LABS: ALANINE AMINOTRANSFERASE 15 Units/L (12-78); ALBUMIN 2.2 g/dL (3.4-5.0); ALKALINE PHOSPHATASE 43 Units/L (46-116); ASPARTATE AMINO TRANSFERASE 18 Units/L (15-37); BLOOD UREA NITROGEN 5 mg/dL (7-18); CALCIUM 8.5 mg/dL (8.5-10.1); CARBON DIOXIDE 25.5 mmol/L (21-32); CHLORIDE 108 mmol/L (98-107); COR CA(FOR HYPOALB) 9.9 mg/dL (8.5-10.1); CREATININE 1.01 mg/dL (0.70-1.30); GLUCOSE 102 mg/dL (65-99); POTASSIUM 4.1 mmol/L (3.5-5.1); SODIUM 141 mmol/L (136-145); TOTAL PROTEIN 5.7 g/dL (6.4-8.2); eGFR NON BLACK RACES > 60 (>60)
--- NOTE | 2024-11-12 07:29 | RAD ---
EXAM:Portable AP chestHISTORY:SOBCOMPARISON:01/27/2024 [email or web address] relatively clear. There is indistinct opacity behind the heart obscuring the retrocardiac structures and diaphragm.IMPRESSION:Stable cardiomegaly. Left basal density similar to prior exam consistent with airspace disease, fluid or chronic scarring. Consider follow-up CT to evaluate this longstanding abnormality.THIS IS AN ELECTRONICALLY VERIFIED FINAL LSMBHB0311/12/2024 7:25 AM - Electronically signed by William Snow MD
[2024-11-12] MEDS: K-DUR TAB 20 MEQ PO SCH (08:55)
[2024-11-12] MEDS: LASIX IVP ONE (08:55)
--- NOTE | 2024-11-12 13:16 | EKG ---
Test Reason : tachycardia Blood Pressure : */* mmHG Vent. Rate : 103 BPM Atrial Rate : 107 BPM P-R Int : * ms QRS Dur : 134 ms QT Int : 418 ms P-R-T Axes : * 226 60 degrees QTc Int : 547 ms Ventricular-paced rhythm with frequent premature ventricular complexes Abnormal ECG When compared with ECG of 27-JAN-2024 13:46, premature ventricular complexes are now present Vent. rate has increased BY 27 BPM Confirmed by Benedict Booker MD ([id number]) on 11/13/2024 7:47:11 AM Referred By: Confirmed By: Benedict Booker MD
[2024-11-12] MEDS: BETAPACE AF PO SCH (14:40)
[2024-11-12] MEDS: COREG TAB 3.125 MG PO SCH (14:40)
[2024-11-12] MEDS: MEXILETINE 150 MG PO SCH (20:36)
[2024-11-13 06:07] LABS: BASOPHILS # (AUTO) 0.1 X10^3/uL (0.0-0.1); BASOPHILS % (AUTO) 0.7 % (0.2-1.0); EOSINOPHILS # (AUTO) 0.1 x10^3/uL (0.0-0.2); EOSINOPHILS % (AUTO) 1.5 % (0.9-2.9); HEMATOCRIT 31.1 % (42.0-54.0); HEMOGLOBIN 10.3 g/dL (13.5-18.0); LYMPHOCYTES # (AUTO) 2.8 X10^3/uL (1.3-2.9); MEAN CORPUSCULAR HEMOGLOBIN 32.4 pg (27.0-34.0); MEAN CORPUSCULAR HGB CONC 33.1 g/dL (33.0-35.0); MEAN CORPUSCULAR VOLUME 97.8 fL (80.0-100.0); MONOCYTES % (AUTO) 11.1 % (0.0-13.0); NEUTROPHILS # (AUTO) 5.1 x10^3/uL (2.2-4.8); NEUTROPHILS % (AUTO) 55.7 % (42.0-75.0); PLATELET COUNT 163 X10^3/uL (150.0-450.0); RED BLOOD COUNT 3.18 X10^6/uL (4.7-6.0); RED CELL DISTRIBUTION WIDTH 17.1 % (11.6-16.5); WHITE BLOOD COUNT 9.1 X10^3/uL (3.6-10.0)
[2024-11-13 06:18] LABS: ALANINE AMINOTRANSFERASE 16 Units/L (12-78); ALBUMIN 2.2 g/dL (3.4-5.0); ALKALINE PHOSPHATASE 40 Units/L (46-116); ASPARTATE AMINO TRANSFERASE 20 Units/L (15-37); BLOOD UREA NITROGEN 6 mg/dL (7-18); CALCIUM 8.4 mg/dL (8.5-10.1); CARBON DIOXIDE 28.8 mmol/L (21-32); CHLORIDE 107 mmol/L (98-107); COR CA(FOR HYPOALB) 9.8 mg/dL (8.5-10.1); CREATININE 1.03 mg/dL (0.70-1.30); GLUCOSE 102 mg/dL (65-99); POTASSIUM 4.1 mmol/L (3.5-5.1); SODIUM 142 mmol/L (136-145); TOTAL PROTEIN 5.6 g/dL (6.4-8.2); eGFR NON BLACK RACES > 60 (>60)
--- NOTE | 2024-11-13 08:00 | RAD ---
EXAM:Portable chestHISTORY:Shortness of breathCOMPARISON:11/12/2024FINDINGS:Ther e is a pacemaker present in the left axilla. Heart remains enlarged. No congestive heart failure is noted. Right lung and left upper lung chairez are clear. Persistent increased density retrocardiac area left lower lobe obscuring the left hemidiaphragm. This could be on the basis of effusion, atelectasis, infiltrate or combination. Bony thorax is unremarkable.IMPRESSION:No significant change from the prior examinationTHIS IS AN ELECTRONICALLY VERIFIED FINAL ANMAIV7411/13/2024 7:57 AM - Electronically signed by Luis F Mistry MD
[2024-11-13] MEDS: DULCOLAX SUPPOSITORY 10 MG RECTAL ONE (10:24)
[2024-11-13] MEDS: PEPCID 20 MG VIAL IVP ONE (10:24)
[2024-11-13 11:44] VITALS: RESP 20; TEMP 97.7
[2024-11-13] MEDS: NS 100 ML IV 0 ML ONE (12:13)
[2024-11-13 13:22] VITALS: BP 98/57; PULSE 76; O2SAT 100
== END 2024-11-13 12:10 | disposition home or self-care (01) | DRG 392 ==
LOC: ER 09:21 → ICU 12:39 → MED/SURG 11-12 17:12
PROVIDERS: ADMIT Internal Medicine; ATTEND Internal Medicine
DX: Z79.01 Long term (current) use of anticoagulants; R10.84 Generalized abdominal pain; R94.31 Abnormal electrocardiogram [ECG] [EKG]; I25.10 Atherosclerotic heart disease of native coronary artery without angina pectoris; E83.42 Hypomagnesemia; N39.0 Urinary tract infection, site not specified; I50.9 Heart failure, unspecified; Z72.0 Tobacco use; R00.0 Tachycardia, unspecified; I11.0 Hypertensive heart disease with heart failure; I95.89 Other hypotension; R06.02 Shortness of breath; N20.0 Calculus of kidney; I48.91 Unspecified atrial fibrillation; J44.9 Chronic obstructive pulmonary disease, unspecified; K57.32 Diverticulitis of large intestine without perforation or abscess without bleeding; Z95.0 Presence of cardiac pacemaker; M51.360 Other intervertebral disc degeneration, lumbar region with discogenic back pain only

== ENCOUNTER 2024-11-30 16:16 | Observation (INO) ==
[2024-11-30] MEDS: PHARMACY CONSULT - VANCOMYCIN XX SCH (16:57)
[2024-11-30] MEDS ORDERED: NS 1,000 ML IV 1,000 ML ONE (17:00)
[2024-11-30] MEDS ORDERED: NS 250 ML IV 250 ML IV ONE (17:00)
[2024-11-30] MEDS: NS 250 ML IV 25 ML IV PRN (17:21)
[2024-11-30] MEDS: NS 1,000 ML IV 1,000 ML IV SCH (17:21)
--- NOTE | 2024-11-30 17:36 | EKG ---
Test Reason : hypotension Blood Pressure : */* mmHG Vent. Rate : 75 BPM Atrial Rate : 77 BPM P-R Int : * ms QRS Dur : 136 ms QT Int : 484 ms P-R-T Axes : * 197 48 degrees QTc Int : 540 ms Ventricular-paced rhythm Abnormal ECG When compared with ECG of 12-NOV-2024 12:37, premature ventricular complexes are no longer present Vent. rate has decreased BY 28 BPM Confirmed by Benedict Booker MD ([id number]) on 12/01/2024 7:27:12 AM Referred By: Confirmed By: Benedict Booker MD
--- NOTE | 2024-11-30 17:44 | DR.H&P ---
H&P History & Physical for Day of: H&P Date: 11/30/24 Chief Complaint Chief Complaint: low blood pressure, dizziness, weakness History of Present Illness History of Present Illness: PT IS 88 WM, DIRECT ADMIT FROM DR STERLING'S OFFICE AFTER PRESENTING WITH CO SEVERE WEAKNESS AND DIZZINESS WITH LOW BLOOD PRESSURE. PT REPORTS HE WAS SEEN AT DR BARRIOS'S OFFICE EARLIER TODAY AND HAD MEDICATION CHANGES BUT UNSURE AT THIS TIME. PT REPORT HIS BP WAS 70'S SYSTOLIC AND HAS BEEN IN LOWER 80S ON AND OFF FOR PAST 2-3 WEEKS. PT HAS PMH OF AFIB, VTACH, AICD, CHF, CAD AND SSS. PT RECENTLY HOSPITALIZED WITH DICERTICUTLITIS AND COMPLETED PO COURSE OF ATBX. PT REPORTS DECREASED URINE OUTPT AND BILATERAL FLANK PAIN. PT REPORTS HE HAS "FELT FEVERED". PT BP IN OFFICE 76/50. PT ADMITTED FOR EVALUATION AND TREATMENT OF ACUTE ILLNESS RO SEPSIS. Past Medical History Past Medical History: Arthritis, CHF, COPD, Hypertension and NE Additional Medical History: AORTIC ANEURYSM, AFIB Past Surgical History Surgical History: Tonsillectomy and Other Additional Surgical History: PACE MAKER Family History Family Medical History: Diabetes Mellitus, NE, Heart Failure and Hypertension Medications Home Medications: Home Medications Medication Instructions Recorded Confirmed Type atorvastatin 40 mg tablet 40 mg PO HS 12/15/15 11/10/24 History furosemide 40 mg tablet 40 mg PO DAILY PRN 12/15/15 11/10/24 History potassium chloride 10 mEq 10 meq PO DAILY PRN #0 tabs 12/15/15 11/09/24 History tablet,extended release spironolactone 25 mg tablet 12.5 mg PO DAILY #0 tabs 12/15/15 11/10/24 History tamsulosin 0.4 mg capsule 0.4 mg PO DAILY 09/18/18 11/10/24 History levothyroxine 75 mcg tablet 75 mcg PO DAILY 08/22/20 11/10/24 History (Synthroid) allopurinol 100 mg tablet 100 mg PO DAILY 10/14/20 11/09/24 History mexiletine 150 mg capsule 150 mg PO TID 03/28/21 11/10/24 History sotalol 120 mg tablet 120 mg PO BID 03/28/21 11/10/24 History rivaroxaban 20 mg tablet (Xarelto) 20 mg PO QDAY 06/18/22 11/09/24 History carvedilol 3.125 mg tablet 3.125 mg PO BID 07/10/23 11/10/24 History gabapentin 100 mg capsule 100 mg PO TID 07/10/23 11/10/24 History lisinopril 5 mg tablet 5 mg PO QDAY 07/10/23 11/10/24 History prednisone 5 mg tablet 5 mg PO DAILY 07/10/23 11/10/24 History hydrocodone 5 mg-acetaminophen 325 5 tab PO DAILY PRN Back Pain 11/10/24 11/10/24 History mg tablet pantoprazole 40 mg tablet,delayed 40 mg PO DAILY 11/10/24 11/10/24 History release (Protonix) Allergies Allergies Allergy/AdvReac Type Severity Reaction Status Date / Time tizanidine [From Zanaflex] Allergy Verified 11/09/24 09:37 Review of Systems Constitutional: Weakness Eyes: No Symptoms Reported ENT: No Symptoms Reported Respiratory: Shortness of Breath Cardiovascular: Light Headedness; denies Chest Pain, Palpitations or Edema Gastrointestinal: Abdominal Pain Genitourinary: Retention Musculoskeletal: Back Pain Skin: No Symptoms Reported Neurological: Weakness and Other (DIZZINESS ) Oriented: Normal Eyes: Normal Ear: Normal Nose: Normal Throat: Dry Respiratory: Diminished Throughout Cardiovascular: negative Tachycardia or Edema : Normal Auscultation: Bowel Sounds: Normal Tenderness: Mild Skin: Decreased Turgur and Other (DIFFUSE PALLOR) Musculoskeletal: Back:Thoracic and Back:Lumbar Psychiatric: Anxiety Mood Description: Anxious Speech Pattern: Clear and Appropriate Assessment/Plan (1) Sepsis associated hypotension: Status: Acute Plan: ADMIT, ICU, SEPTIC PROTCOL IV ATBX THERAPY, CXR ON ADMISSION VERIFY HOME MEDICATIONS I&OS, BP AND CARDIAC MONITORING OK TO RESUME ANTIARRYTHMIC,HOLD LISINOPRIL RESP CONSULT, PRN SUPPLEMENTAL O2 (2) CHF (congestive heart failure): Status: Chronic (3) Hypotension: Qualifiers: Hypotension type: unspecified hypotension type Qualified Code(s): I95.9 - Hypotension, unspecified Status: Acute (4) A-fib: Status: Chronic (5) DDD (degenerative disc disease), lumbar: Status: Chronic (6) jail current use of anticoagulant: Status: Acute (7) COPD (chronic obstructive pulmonary disease): Status: Chronic (8) UTI (urinary tract infection): Qualifiers: Hematuria presence: with hematuria Urinary tract infection type: site unspecified Qualified Code(s): N39.0 - Urinary tract infection, site not specified; R31.9 - Hematuria, unspecified Status: Acute
[2024-11-30 17:45] LABS: BASOPHILS % (AUTO) 0.3 % (0.2-1.0); EOSINOPHILS % (AUTO) 0.1 % (0.9-2.9); HEMATOCRIT 35.1 % (42.0-54.0); HEMOGLOBIN 11.6 g/dL (13.5-18.0); LYMPHOCYTES # (AUTO) 2.2 X10^3/uL (1.3-2.9); LYMPHOCYTES % (AUTO) 15.4 % (21.0-51.0); MEAN CORPUSCULAR HEMOGLOBIN 31.7 pg (27.0-34.0); MEAN CORPUSCULAR VOLUME 95.8 fL (80.0-100.0); MEAN PLATELET VOLUME 7.9 fL (7.4-11.0); MONOCYTES # (AUTO) 1.7 x10^3/uL (0.3-0.8); MONOCYTES % (AUTO) 11.5 % (0.0-13.0); NEUTROPHILS # (AUTO) 10.5 x10^3/uL (2.2-4.8); NEUTROPHILS % (AUTO) 72.7 % (42.0-75.0); PLATELET COUNT 168 X10^3/uL (150.0-450.0); RED BLOOD COUNT 3.66 X10^6/uL (4.7-6.0); RED CELL DISTRIBUTION WIDTH 16.6 % (11.6-16.5); WHITE BLOOD COUNT 14.4 X10^3/uL (3.6-10.0)
[2024-11-30] MEDS: XOPENEX 1.25 MG/3 ML NEBULE NEB SCH (17:45)
[2024-11-30 18:03] LABS: INR 2.34 (0.8-1.3)
[2024-11-30 18:06] LABS: BLOOD UREA NITROGEN 28 mg/dL (7-18); CALCIUM 8.5 mg/dL (8.5-10.1); CARBON DIOXIDE 32.5 mmol/L (21-32); CHLORIDE 98 mmol/L (98-107); CREATINE KINASE 39 Units/L (39-308); CREATININE 1.99 mg/dL (0.70-1.30); GLUCOSE 110 mg/dL (65-99); POTASSIUM 4.3 mmol/L (3.5-5.1); SODIUM 137 mmol/L (136-145); eGFR NON BLACK RACES 34 (>60)
[2024-11-30 18:11] VITALS: BMI 34.0
[2024-11-30 19:03] LABS: BILIRUBIN,URINE NEGATIVE (NEGATIVE); BLOOD/HEMOGLOBIN,URINE NEGATIVE (NEGATIVE); GLUCOSE, URINE NEGATIVE (NEGATIVE); KETONES,URINE NEGATIVE (NEGATIVE); LEUKOCYTE ESTERASE ,URINE NEGATIVE (NEGATIVE); NITRITES,URINE NEGATIVE (NEGATIVE); PROTEIN,URINE 2+ (NEGATIVE); UROBILINOGEN,URINE NORMAL (NORMAL)
[2024-11-30] MEDS: VANCOMYCIN IV *PREMIX 1.25 G/250 ML BAG 1.25 G/250 ML PIGGYBACK IV SCH (19:06)
[2024-11-30 19:14] LABS: APPEARANCE,URINE CLEAR (CLEAR); BACTERIA,URINE TRACE /HPF (NEGATIVE); COLOR,URINE YELLOW (YELLOW); HYALINE CASTS, URINE MANY /LPF (NEGATIVE); RBC,URINE 0-2 /HPF (0-3); SQUAMOUS EPITHELIAL CELL,UR FEW /HPF (NEGATIVE)
[2024-11-30] MEDS: LIPITOR TAB 40 MG PO SCH (21:09)
[2024-11-30] MEDS: MEXILETINE 150 MG PO SCH (21:09)
[2024-11-30] MEDS: ZOSYN VIAL 3.375 GRAMS 3.375 G in NS 100 ML IV 100 ML IV SCH (21:09)
[2024-11-30] MEDS: PULMICORT NEB TX 0.5 MG NEB SCH (21:10)
[2024-11-30] MEDS ORDERED: ZOSYN VIAL 4.5 GRAMS 4.5 G in NS 100 ML IV 100 ML IV SCH (22:00)
[2024-12-01] MEDS: SYNTHROID 75 mcg TAB PO SCH (05:31)
[2024-12-01 05:52] LABS: HEMOGLOBIN 10.7 g/dL (13.5-18.0); MEAN CORPUSCULAR HGB CONC 32.9 g/dL (33.0-35.0)
[2024-12-01 06:05] LABS: BASOPHILS % (AUTO) 0.1 % (0.2-1.0); EOSINOPHILS % (AUTO) 0.3 % (0.9-2.9); HEMATOCRIT 32.6 % (42.0-54.0); LYMPHOCYTES # (AUTO) 2.4 X10^3/uL (1.3-2.9); LYMPHOCYTES % (AUTO) 18.1 % (21.0-51.0); MEAN CORPUSCULAR HEMOGLOBIN 31.5 pg (27.0-34.0); MEAN CORPUSCULAR VOLUME 95.9 fL (80.0-100.0); MEAN PLATELET VOLUME 8.5 fL (7.4-11.0); MONOCYTES # (AUTO) 1.5 x10^3/uL (0.3-0.8); MONOCYTES % (AUTO) 11.6 % (0.0-13.0); NEUTROPHILS # (AUTO) 9.2 x10^3/uL (2.2-4.8); NEUTROPHILS % (AUTO) 69.9 % (42.0-75.0); PLATELET COUNT 135 X10^3/uL (150.0-450.0); WHITE BLOOD COUNT 13.2 X10^3/uL (3.6-10.0)
[2024-12-01 06:06] LABS: ALANINE AMINOTRANSFERASE 23 Units/L (12-78); ALBUMIN 2.3 g/dL (3.4-5.0); ALKALINE PHOSPHATASE 38 Units/L (46-116); ASPARTATE AMINO TRANSFERASE 17 Units/L (15-37); BLOOD UREA NITROGEN 24 mg/dL (7-18); CALCIUM 8.3 mg/dL (8.5-10.1); CARBON DIOXIDE 32.2 mmol/L (21-32); CHLORIDE 100 mmol/L (98-107); COR CA(FOR HYPOALB) 9.7 mg/dL (8.5-10.1); CREATININE 1.43 mg/dL (0.70-1.30); GLUCOSE 91 mg/dL (65-99); POTASSIUM 4.6 mmol/L (3.5-5.1); SODIUM 137 mmol/L (136-145); TOTAL PROTEIN 5.6 g/dL (6.4-8.2); eGFR NON BLACK RACES 50 (>60)
[2024-12-01 07:48] VITALS: O2SAT 100
[2024-12-01] MEDS: XARELTO PO SCH (08:32)
[2024-12-01] MEDS: BETAPACE AF PO SCH (08:32)
[2024-12-01] MEDS: AUGMENTIN 875 MG/125 MG TAB PO SCH (09:36)
[2024-12-01 11:04] VITALS: PULSE 75
[2024-12-01 12:17] VITALS: TEMP 97.6
--- NOTE | 2024-12-01 14:14 | CT ---
EXAM:ABDOMEN/PELVIS W/O CONHISTORY:abdomen pain;COMPARISON:CT abdomen and pelvis 11/09/2024TECHNIQUE:Multiple CT axial images of the abdomen and pelvis were obtained without IV contrast. Coronal and sagittal images were reconstructed. Dose reduction techniques included Automated Exposure Control (AEC) and adjustment of mA and kV.FINDINGS:Cardiomegaly is present. Small pericardial effusion is stable. Atherosclerotic calcification is present in the coronary arteries. Moderately dilated ascending aorta measures up to 4.5 cm; not included on the previous exam. Linear scarring in the left lung base is unchanged.The liver is normal in size and configuration. Calcified gallstone is present with no inflammation or biliary dilatation. The spleen is normal in size and shape. The adrenal glands are normal. The pancreas is normal.Small stone right kidney measures 3 mm. The kidneys have normal size and shape. There is no hydronephrosis or significant perirenal edema. The ureters are not dilated. The bladder is normally distended. It has no wall thickening or perivesical edema.There is edema around the sigmoid segment of the colon where there are multiple diverticula. This has decreased since the prior study. It has been 3 weeks since the initial diagnosis of sigmoid diverticulitis, so this may represent the same episode of diverticulitis which has improved. No evidence for peridiverticular abscess. Other bowel loops have normal wall thickness without edema. No bowel obstruction or pneumoperitoneum. A normal appendix is not identified. But there is no inflammation around the cecum or at the expected location of the appendix.Degenerative spondylitic changes are present in the spine. Grade 1 anterior spondylolisthesis of L4 on L5 is unchanged. Minimal levoconvex scoliosis.Small umbilical hernia contains fat, unchanged from previous study.IMPRESSION:1. Improved sigmoid diverticulitis with no secondary complication2. Moderately dilated ascending aorta (4.5 cm)3. Cardiomegaly with CAD4. Cholelithiasis5. Nonobstructing right renal calculusTHIS IS AN ELECTRONICALLY VERIFIED FINAL REPORT12/01/2024 2:10 PM - Electronically signed by Rai Gilbert MD
[2024-12-01 14:28] VITALS: BP 98/55; RESP 26
[2024-12-03] MEDS ORDERED: PHARMACY COMMENT IV SCH (19:30)
== END 2024-12-01 15:10 | disposition home or self-care (01) ==
LOC: ICU
PROVIDERS: ADMIT Internal Medicine; ATTEND Internal Medicine
DX: M51.369 Other intervertebral disc degeneration, lumbar region without mention of lumbar back pain or lower extremity pain; R94.31 Abnormal electrocardiogram [ECG] [EKG]; R53.1 Weakness; Z95.0 Presence of cardiac pacemaker; I50.9 Heart failure, unspecified; J44.9 Chronic obstructive pulmonary disease, unspecified; R42 Dizziness and giddiness; R31.9 Hematuria, unspecified; R79.1 Abnormal coagulation profile; N39.0 Urinary tract infection, site not specified; R10.84 Generalized abdominal pain; I95.89 Other hypotension; I11.0 Hypertensive heart disease with heart failure; I48.91 Unspecified atrial fibrillation

== ENCOUNTER 2025-06-06 10:50 | Inpatient (IN) ==
--- NOTE | 2025-06-06 11:17 | DR.SOBA ---
HPI Time Seen Time Seen by Provider: 06/06/25 11:16 Complaints Chief Complaint Doctors Comments: Has a history of CHF and COPD he stated he fell about a week ago not complaining of right foot pain he is a does have increasing shortness of breath he is on 3 L of oxygen at home but is a still been more short of breath more after he failed. He also planes of lower lower abdominal discomfort and dysuria. COVID-19 Coronavirus risk:travel/contact w/high risk person: No Has patient experienced Coronavirus symptoms: Yes Coronavirus symptoms experienced: Shortness of Breath PMH PMH Past Medical History: Arthritis, CHF, COPD, Hypertension and SD Past Surgical History: Yes Surgical History: Tonsillectomy and Other Family History Family Medical History: Diabetes Mellitus, SD, Heart Failure and Hypertension Social History Do you use any recreational Drugs:: No Travel Risk Coronavirus risk:travel/contact w/high risk person: No Has patient experienced Coronavirus symptoms: Yes Coronavirus symptoms experienced: Shortness of Breath ROS Review of Systems Constitutional: Other (right foot pain,sob,low abdominal pain) Eyes: No Symptoms Reported ENTM: No Symptoms Reported Respiratoy: Short of Breath Cardiovascular: No Symptoms Reported Gastrointestinal/Abdominal: Abdominal Pain Genitourinary: Dysuria Neurological: No Symptoms Reported Musculoskeletal: Right and Foot (pain) Integumentary: No Symptoms Reported Hematologic/Lymphatic: No Symptoms Reported Endocrine: No Symptoms Reported Psychiatric: No Symptoms Reported All Other Systems: Reviewed and Negative PE Vital Signs Vitals: Vital Signs Temperature 98.0 F Pulse Rate 75 Pulse Rate 75 Pulse Rate 76 Pulse Rate 75 Pulse Rate 75 Pulse Rate 75 Pulse Rate 75 Pulse Rate 75 Pulse Rate 76 Pulse Rate 75 Pulse Rate 75 Pulse Rate 78 Pulse Rate 80 Pulse Rate 78 Pulse Rate 80 Pulse Rate 75 Pulse Rate 75 Pulse Rate 79 Pulse Rate 75 Pulse Rate 75 Pulse Rate 81 Pulse Rate 85 Pulse Rate 76 Pulse Rate 77 Pulse Rate 75 Pulse Rate 78 Pulse Rate 77 Pulse Rate 84 Pulse Rate 80 Pulse Rate 84 Respiratory Rate 19 Respiratory Rate 33 Respiratory Rate 16 Respiratory Rate 21 Respiratory Rate 26 Respiratory Rate 28 Respiratory Rate 25 Respiratory Rate 25 Respiratory Rate 19 Respiratory Rate 19 Respiratory Rate 20 Respiratory Rate 27 Respiratory Rate 20 Respiratory Rate 19 Respiratory Rate 23 Respiratory Rate 20 Respiratory Rate 21 Respiratory Rate 26 Respiratory Rate 23 Respiratory Rate 19 Respiratory Rate 31 Respiratory Rate 21 Respiratory Rate 27 Respiratory Rate 18 Respiratory Rate 27 Respiratory Rate 30 Respiratory Rate 25 Respiratory Rate 26 Respiratory Rate 33 Blood Pressure 91/49 Blood Pressure 94/53 Blood Pressure 87/49 Blood Pressure 119/64 Blood Pressure 115/63 Blood Pressure 115/63 Blood Pressure 115/63 Blood Pressure 116/61 Blood Pressure 107/56 Blood Pressure 104/54 Blood Pressure 102/52 Blood Pressure 123/63 Blood Pressure 123/63 Blood Pressure 119/59 Blood Pressure 119/59 Blood Pressure 114/67 Blood Pressure 114/67 Blood Pressure 114/67 Blood Pressure 122/62 Blood Pressure 120/59 Blood Pressure 105/63 Blood Pressure 95/57 Blood Pressure 96/55 Blood Pressure 96/55 Blood Pressure 95/57 O2 Sat by Pulse Oximetry 100 O2 Sat by Pulse Oximetry 100 O2 Sat by Pulse Oximetry 100 O2 Sat by Pulse Oximetry 88 O2 Sat by Pulse Oximetry 100 O2 Sat by Pulse Oximetry 100 O2 Sat by Pulse Oximetry 100 O2 Sat by Pulse Oximetry 100 O2 Sat by Pulse Oximetry 100 O2 Sat by Pulse Oximetry 99 O2 Sat by Pulse Oximetry 100 O2 Sat by Pulse Oximetry 100 O2 Sat by Pulse Oximetry 100 O2 Sat by Pulse Oximetry 100 O2 Sat by Pulse Oximetry 100 O2 Sat by Pulse Oximetry 100 O2 Sat by Pulse Oximetry 100 O2 Sat by Pulse Oximetry 96 O2 Sat by Pulse Oximetry 96 O2 Sat by Pulse Oximetry 100 O2 Sat by Pulse Oximetry 100 O2 Sat by Pulse Oximetry 100 O2 Sat by Pulse Oximetry 100 O2 Sat by Pulse Oximetry 100 O2 Sat by Pulse Oximetry 100 O2 Sat by Pulse Oximetry 100 O2 Sat by Pulse Oximetry 100 General Limitations: Physical Limitation (due to pain in r foot and chf/copd) General Appearance: In Distress (mild distress) Head Head Exam: Normal Inspection Eyes Eye exam: Normal Appearance ENT ENT Exam: Normal Exam and Normal Oropharynx Neck Neck Exam: Normal Inspection, Full ROM and Trachea Midline Chest Chest Inspection: Normal Inspection and Symmetric Chest Wall Rise Respiratory Respiratory Exam: Normal Lung Sounds Bilat Respiratory Exam: Bilateral: Clear to Auscultation Cardiovascular Cardiovascular Exam: Other (paced rhythm) Abdominal Exam Abdominal Exam: Normal Inspection, Normal Bowel Sounds and Soft Abdominal Tenderness: Other (bilateral lower quadrants) Extremities Extremities Exam: Tenderness (erythema r foot/ankle) Back Back Exam: Normal Inspection Neurologic Neurological Exam: Alert, Oriented X3 and CN II-XII Intact Psychiatric Psychiatric Exam: Normal Mood Skin Skin Exam: Warm, Dry, Intact and Erythema (r foot/ankle) MDM Differential Diagnosis Differential Diagnosis: CHF, COPD, Mycardial Infarction, Pneumonia and Other (gi bleed,anemia,fracture r foot,pe) COURSE Treatment Treatment: This patient remained relatively stable during the ER evaluation. We did do an evaluation for the shortness of breath and right foot pain with some bruising there and lower abdominal pain with bruising we did a D-dimer that was normal and we did a CT scan of his abdomen pelvis that showed he had some diverticulitis but no other abnormalities of the he does also have a small stone in his right kidney of 3 mm nonobstructing. We did a chest x-ray that showed no intrathoracic abnormality and he had also an x-ray of his right foot that showed no fracture shows some soft tissue swelling and some mild degenerative joint disease. Since the patient had an hemoglobin of 5.8 we did necessary to give the patient started on 2 units of packed red blood cells and since he has a diverticular lightest we are going to start him on Cipro and metronidazole and ask for pharmacy consult to dose. The patient and spouse and the patient was told of the findings here and the intent to put him in the hospital for further treatment and they did agree to the hospital admission. For Benjamin who is the physician on-call at that the patient for admission this patient is a patient of Dr. Goel and he will be covering for Dr. Goel. [facility] Labs Reviewed Laboratory Results Reviewed?: Yes 06/06/25 11:25 06/06/25 11: Laboratory: WBC 10.8 X10^3/uL (3.6-10.0) H 06/06/25 11: RBC 2.22 X10^6/uL (4.7-6.0) L 06/06/25 11:25 Hgb 5.8 g/dL (13.5-18.0) L* 06/06/25 11: Hct 19.1 % (42.0-54.0) L* 06/06/25 11: MCV 86.0 fL (80.0-100.0) 06/06/25 11: MCH 26.2 pg (27.0-34.0) L 06/06/25 11: MCHC 30.5 g/dL (33.0-35.0) L 06/06/25 11: RDW 19.0 % (11.6-16.5) H 06/06/25 11:25 Plt Count 195 X10^3/uL (150.0-450.0) 06/06/25 11:25 Plt Count Comment Adequate (ADEQUATE) 06/06/25 11:25 MPV 7.8 fL (7.4-11.0) 06/06/25 11:25 Neut % (Auto) 62.7 % (42.0-75.0) 06/06/25 11:25 Lymph % (Auto) 23.9 % (21.0-51.0) 06/06/25 11:25 Mcdonald % (Auto) 12.5 % (0.0-13.0) 06/06/25 11:25 Eos % (Auto) 0.3 % (0.9-2.9) L 06/06/25 11:25 Baso % (Auto) 0.6 % (0.2-1.0) 06/06/25 11:25 Neut # (Auto) 6.7 x10^3/uL (2.2-4.8) H 06/06/25 11:25 Lymph # (Auto) 2.6 X10^3/uL (1.3-2.9) 06/06/25 11:25 Mcdonald # (Auto) 1.3 x10^3/uL (0.3-0.8) H 06/06/25 11:25 Eos # (Auto) 0.0 x10^3/uL (0.0-0.2) 06/06/25 11:25 Baso # (Auto) 0.1 X10^3/uL (0.0-0.1) 06/06/25 11:25 Absolute Nucleated RBC 0.7 /100WBC 06/06/25 11:25 Plt Morphology Comment Normal (NORMAL) 06/06/25 11: RBC Morphology Abnormal (NORMAL) 06/06/25 11:25 Hypochromasia Slight A 06/06/25 11: Anisocytosis Slight A 06/06/25 11:25 Ovalocytes Slight A 06/06/25 11: Acanthocytes (Spur) Slight 06/06/25 11: PT 20.0 SECONDS (11.8-14.3) 06/06/25 11: INR Target Range - 06/06/25 11:25 INR 1.69 (0.8-1.3) H 06/06/25 11:25 APTT 46.2 SECONDS (22.9-36.5) H 06/06/25 11:25 PTT Comment - 06/06/25 11:25 D-Dimer 0.49 ug/ml (0.0-0.57) 06/06/25 11:25 Sample Site Rrad 06/06/25 11:17 ABG pH 7.420 (7.35-7.45) 06/06/25 11:17 ABG pCO2 45.0 mmHg (35.0-45.0) 06/06/25 11:17 ABG pO2 167.0 mmHg (80.0-100.0) H 06/06/25 11:17 ABG HCO3 29.2 mmol/L (22-26) H 06/06/25 11:17 ABG O2 Saturation 100.0 % (90-100) 06/06/25 11:17 ABG Base Excess 4.1 mmol/L (-2.0-2.0) H 06/06/25 11:17 Audie Test Pos 06/06/25 11:17 A-a Gradient 5.0 mmHg 06/06/25 11:17 FiO2 32.0 06/06/25 11:17 Blood Gas Comments Pt leelee well elj 06/06/25 11:17 Sodium 136 mmol/L (136-145) 06/06/25 11:25 Corrected Sodium TNP 06/06/25 11:25 Potassium 4.6 mmol/L (3.5-5.1) 06/06/25 11:25 Chloride 102 mmol/L (98-107) 06/06/25 11:25 Carbon Dioxide 31.8 mmol/L (21-32) 06/06/25 11:25 BUN 18 mg/dL (7-18) 06/06/25 11:25 Creatinine 1.08 mg/dL (0.70-1.30) 06/06/25 11:25 Est GFR (MDRD) Af Amer > 60 (>60) 06/06/25 11:25 Est GFR (MDRD) Non-Af > 60 (>60) 06/06/25 11:25 Glucose 105 mg/dL (65-99) H 06/06/25 11:25 Calcium 8.3 mg/dL (8.5-10.1) L 06/06/25 11:25 Corrected Calcium 9.3 mg/dL (8.5-10.1) 06/06/25 11:25 Total Bilirubin 0.40 mg/dL (0.2-1.0) 06/06/25 11:25 AST 18 Units/L (15-37) 06/06/25 11:25 ALT 31 Units/L (12-78) 06/06/25 11:25 Alkaline Phosphatase 80 Units/L (46-116) 06/06/25 11:25 Creatine Kinase 23 Units/L (39-308) L 06/06/25 11:25 Troponin I High Sens 20.6 ng/L (4.0-60.0) 06/06/25 11: B-Natriuretic Peptide 420 pg/mL (0-79) H 06/06/25 11:25 Total Protein 7.1 g/dL (6.4-8.2) 06/06/25 11:25 Albumin 2.8 g/dL (3.4-5.0) L 06/06/25 11:25 Globulin 4.3 g/dL (2.5-4.5) 06/06/25 11:25 Albumin/Globulin Ratio 0.7 Ratio (1.1-2.1) L 06/06/25 11:25 Specimen Type Clean catch urine 06/06/25 12:23 Urine Color Pale yellow (YELLOW) 06/06/25 12:23 Urine Appearance Clear (CLEAR) 06/06/25 12:23 Urine pH 7.0 (5.0 - 8.0) 06/06/25 12:23 Ur Specific [place] 1.010 (1.000-1.030) 06/06/25 12:23 Urine Protein Negative (NEGATIVE) 06/06/25 12:23 Urine Glucose (UA) Negative (NEGATIVE) 06/06/25 12:23 Urine Ketones Negative (NEGATIVE) 06/06/25 12:23 Urine Blood Negative (NEGATIVE) 06/06/25 12:23 Urine Nitrite Negative (NEGATIVE) 06/06/25 12:23 Urine Bilirubin Negative (NEGATIVE) 06/06/25 12:23 Urine Urobilinogen Normal (NORMAL) 06/06/25 12:23 Ur Leukocyte Esterase Negative (NEGATIVE) 06/06/25 12:23 Stool Occult Blood Positive (NEGATIVE) A 06/06/25 12:23 Blood Type A POSITIVE 06/06/25 11:33 Blood Type A POSITIVE 06/06/25 11:33 Antibody Screen Negative 06/06/25 11:33 Crossmatch See Detail 06/06/25 11:33 Opioid Opioid Risk Tool Age (Rudolph box if 16-45): No History of Preadolescent Sexual Abuse: No Total: 0 Total Score Risk Category: Low Risk Copyright: Hiram MALONEY predicting aberrant behaviors Discharge Plan Diagnosis Discharge Problem: Anemia, Diverticulitis, Mild congestive heart failure Discharge Plan Patient Disposition: 09 ADMITTED INPATIENT Condition: Stable Orders to Discharge Patient Discharge Orders: Transfer (Routine); Ordered 06/06/25 Ordered By: Jair Capps
--- NOTE | 2025-06-06 11:25 | EKG ---
Test Reason : sob,chest pain Blood Pressure : */* mmHG Vent. Rate : 77 BPM Atrial Rate : 63 BPM P-R Int : * ms QRS Dur : 136 ms QT Int : 448 ms P-R-T Axes : * 183 46 degrees QTc Int : 506 ms Ventricular-paced rhythm Biventricular pacemaker detected Abnormal ECG When compared with ECG of 30-NOV-2024 17:18, Vent. rate has increased BY 2 BPM Confirmed by Benedict Booker MD ([id number]) on 06/07/2025 7:16:50 AM Referred By: Confirmed By: Benedict Booker MD
[2025-06-06 11:28] LABS: ABG ALLEN TEST POS; ABG BASE EXCESS 4.1 mmol/L (-2.0-2.0); ABG HCO3 29.2 mmol/L (22-26); ABG OXYGEN SATURATION 100.0 % (90-100); ABG PCO2 45.0 mmHg (35.0-45.0); ABG PH 7.420 (7.35-7.45); ABG PO2 167.0 mmHg (80.0-100.0)
[2025-06-06 11:46] LABS: MEAN PLATELET VOLUME 7.8 fL (7.4-11.0); RED CELL DISTRIBUTION WIDTH 19.0 % (11.6-16.5)
[2025-06-06 11:57] LABS: COR CA(FOR HYPOALB) 9.3 mg/dL (8.5-10.1); CREATININE 1.08 mg/dL (0.70-1.30); eGFR NON BLACK RACES > 60 (>60)
[2025-06-06 11:59] LABS: PLATELET MORPHOLOGY COMMENT NORMAL (NORMAL)
[2025-06-06 12:26] LABS: BLOOD/HEMOGLOBIN,URINE NEGATIVE (NEGATIVE); LEUKOCYTE ESTERASE ,URINE NEGATIVE (NEGATIVE); NITRITES,URINE NEGATIVE (NEGATIVE)
[2025-06-06 12:31] LABS: APPEARANCE,URINE CLEAR (CLEAR)
[2025-06-06 12:39] LABS: INR 1.69 (0.8-1.3)
--- NOTE | 2025-06-06 14:21 | CT ---
EXAM: CT abdomen and pelvis with intravenous contrast HISTORY: Abdominal swelling, lower abdominal pain; COMPARISON: None. TECHNIQUE: CT of the abdomen and pelvis with intravenous contrast FINDINGS: The heart is enlarged. Mild hypoventilatory changes are present in the lung bases. The abdominal aorta tapers normally with moderate multifocal atherosclerotic plaque. No liver mass. The gallbladder is contracted. Normal adrenal glands. 3 mm nonobstructing right nephrolithiasis. Right ureter tapers normally. No left renal stones. Left ureter tapers normally. Normal spleen. The pancreas is noninflamed. The stomach is not obstructed. There is abnormal inflammation associated with the junction of descending and sigmoid colon in the setting of extensive diverticular disease consistent with moderate severity acute diverticulitis. No gross perforation or drainable abscess. No sign of appendicitis. Prominence of the prostate gland. Small fatty umbilical hernia. Trace edema in the presacral soft tissues. Advanced degenerative disc and endplate changes throughout the lumbar spine. No suspicious bony lesion. Mild soft tissue anasarca. IMPRESSION: Acute diverticulitis at the junction of descending and sigmoid colon which projects in the mid lower abdomen. No sign of perforation or drainable abscess. 3 mm nonobstructing right nephrolithiasis. All CT scans at this facility use dose modulation, iterative reconstruction, and/or weight based dosing when appropriate to reduce radiation dose to as low as reasonably achievable. THIS IS AN ELECTRONICALLY VERIFIED FINAL REPORT 06/06/2025 2:17 PM - Electronically signed by Dave Hay MD
[2025-06-06] MEDS: NS 500 ML IV 500 ML IV ONE ×2 (14:45→18:30)
--- NOTE | 2025-06-06 14:45 | RAD ---
EXAM: FOOT, RIGHT HISTORY: fall / pain in right foot; COMPARISON: August 2018 FINDINGS: No acute cortical disruption or dislocation can be identified. There is diffuse soft tissue swelling over the forefoot. Degenerative changes are noted in the IP joints and 1st MTP joint. The visualized portions of the talus and calcaneus are unremarkable. IMPRESSION: Soft tissue swelling with no acute bony findings appreciated. THIS IS AN ELECTRONICALLY VERIFIED FINAL REPORT 06/06/2025 2:42 PM - Electronically signed by Dimitrios Portillo MD
--- NOTE | 2025-06-06 14:58 | RAD ---
EXAM: CHEST, 1 VIEW HISTORY: sob; Unavailable COMPARISON: October 2024 FINDINGS: The trachea is midline. The cardiac silhouette is enlarged but stable as is a left-sided pacing device. The lungs are clear without focal infiltrate or effusion. The bony thorax is unremarkable. IMPRESSION: No acute cardiopulmonary disease. THIS IS AN ELECTRONICALLY VERIFIED FINAL REPORT 06/06/2025 2:54 PM - Electronically signed by Dimitrios Portillo MD
[2025-06-06] MEDS ORDERED: LASIX ONE (15:08)
[2025-06-06] MEDS: D5 1/2 NS 1,000 ML 1,000 ML IV SCH (16:48)
[2025-06-06 17:25] VITALS: BMI 33.7
[2025-06-06] MEDS: NS 250 ML IV 250 ML IV ONE (18:14)
[2025-06-06] MEDS: OMNIPAQUE 350 mg/mL 100 mL BTL 100 ML ONE (18:30)
[2025-06-06] MEDS: PHARMACY CONSULT XX SCH (18:30)
[2025-06-06] MEDS: XOPENEX 1.25 MG/3 ML NEBULE NEB SCH (20:47)
[2025-06-06] MEDS: PULMICORT NEB TX 0.5 MG NEB SCH (20:47)
[2025-06-06] MEDS: CIPRO IV 400 MG PREMIX* 400 MG/200 ML IV.SOLN. IV SCH (21:16)
[2025-06-06] MEDS: FLAGYL IV PREMIX 500 MG BAG 500 MG/100 ML BAG IV SCH (22:25)
[2025-06-07 06:13] LABS: MEAN PLATELET VOLUME 7.7 fL (7.4-11.0); RED CELL DISTRIBUTION WIDTH 17.2 % (11.6-16.5)
[2025-06-07 06:27] LABS: COR CA(FOR HYPOALB) 9.5 mg/dL (8.5-10.1); CREATININE 0.81 mg/dL (0.70-1.30); eGFR NON BLACK RACES > 60 (>60)
[2025-06-07] MEDS: MORPHINE SULFATE INJ 2 MG INJ IVP PRN (08:44)
[2025-06-07] MEDS: LIPITOR TAB 40 MG PO SCH (09:10)
[2025-06-07] MEDS: PROTONIX INJ 40 MG VIAL IVP SCH (09:10)
[2025-06-07] MEDS: LASIX IVP ONE (09:11)
[2025-06-07] MEDS: FOLIC ACID TAB 1 MG PO SCH (09:15)
--- NOTE | 2025-06-07 12:17 | DR.H&P ---
H&P History & Physical for Day of: H&P Date: 06/06/25 Chief Complaint Chief Complaint: LEFT LOWER ABDOMINAL PAIN, FALL WITH RIGHT FOOT PAIN History of Present Illness History of Present Illness: PT IS 89 WM, ER ADMISSION WITH ACUTE DIVERTICULITIS AND RECENT FALL WITH RIGHT FOOT PAIN AND SEVERE SWELLING. PT HAD XRAYS WITHOUT ACUTE FRACTURE. PT STATES HE FELL IN BATHROOM AT HOME WITHOUT HEAD INJURY. PT BREATHING WAS STABLE , HX OF COPD, CHF, AFIB, OA, NEUROPATHY AND GERD. PT ADMITTED FOR EVALUATION AND TREATMENT OF ACUTE ILLNESS Past Medical History Past Medical History: Arthritis, CHF, COPD, Hypertension and RI Additional Medical History: AORTIC ANEURYSM, AFIB Past Surgical History Surgical History: Tonsillectomy and Other Additional Surgical History: PACE MA[employer]ER Family History Family Medical History: Diabetes Mellitus, RI, Heart Failure and Hypertension Social History Does patient currently use any type of tobacco product: No Have you used tobacco products in the last 12 months: No Type of Tobacco Use: None Does any household member use tobacco: No Alcohol Use: None Drug Use: None Medications Home Medications: Home Medications Medication Instructions Recorded Confirmed Type folic acid 1 mg tablet 1 mg PO QDAY 11/30/24 History allopurinol 100 mg tablet 100 mg PO QDAY 03/20/2505/25 History atorvastatin 40 mg tablet 40 mg PO QDAY 03/20/2506/06 History furosemide 40 mg tablet 40 mg PO QDAY 03/20/2506/06 History levothyroxine 75 mcg tablet 75 mcg PO QDAY 03/20/25 History lisinopril 5 mg tablet 5 mg PO QDAY 03/20/25 History mexiletine 150 mg capsule 150 mg PO BID 03/20/2506/06 History potassium chloride 10 mEq 10 meq PO QDAY 03/20/2505/25 History tablet,extended release prednisone 5 mg tablet 2.5 mg PO DAILY 03/20/25 History rivaroxaban 20 mg tablet (Xarelto) 20 mg PO QDAY 03/2006/06/25 History sotalol 80 mg tablet 80 mg PO BID 03/20/25 History loratadine 10 mg capsule (Allergy 10 mg PO QDAY 06/06/25 History Relief (loratadine)) tamsulosin 0.4 mg capsule 0.4 mg PO DAILY 03/29/25 History gabapentin 100 mg capsule 100 mg PO TID PRN 06/06/25 0 06/06/25 History Allergies Allergies Allergy/AdvReac Type Severity Reaction Status Date / Time tizanidine (From [facility]) Allergy Verified 06/06/25 11:17 Labs 06/07/25 05:19 06/07/25 05:19 Labs: Laboratory WBC 9.4 X10^3/uL (3.6-10.0) 06/07/25 05:19 RBC 2.78 X10^6/uL (4.7-6.0) L 06/07/25 05:19 Hgb 7.6 g/dL (13.5-18.0) L 06/07/25 05:19 Hct 23.5 % (42.0-54.0) L 06/07/25 05:19 MCV 84.4 fL (80.0-100.0) 06/07/25 05:19 MCH 27.5 pg (27.0-34.0) 06/07/25 05:19 MCHC 32.6 g/dL (33.0-35.0) L 06/07/25 05:19 RDW 17.2 % (11.6-16.5) H 06/07/25 05:19 Plt Count 175 X10^3/uL (150.0-450.0) 06/07/25 05:19 Plt Count Comment Adequate (ADEQUATE) 06/06/25 11:25 MPV 7.7 fL (7.4-11.0) 06/07/25 05:19 Neut % (Auto) 66.5 % (42.0-75.0) 06/07/25 05:19 Lymph % (Auto) 19.9 % (21.0-51.0) L 06/07/25 05:19 [place] % (Auto) 12.4 % (0.0-13.0) 06/07/25 05:19 Eos % (Auto) 0.5 % (0.9-2.9) L 06/07/25 05:19 Baso % (Auto) 0.7 % (0.2-1.0) 06/07/25 05:19 Neut # (Auto) 6.2 x10^3/uL (2.2-4.8) H 06/07/25 05:19 Lymph # (Auto) 1.9 X10^3/uL (1.3-2.9) 06/07/25 05:19 [place] # (Auto) 1.2 x10^3/uL (0.3-0.8) H 06/07/25 05:19 Eos # (Auto) 0.0 x10^3/uL (0.0-0.2) 06/07/25 05:19 Baso # (Auto) 0.1 X10^3/uL (0.0-0.1) 06/07/25 05:19 Absolute Nucleated RBC 0.7 /100WBC 06/07/25 05:19 Plt Morphology Comment Normal (NORMAL) 06/06/25 11:25 RBC Morphology Abnormal (NORMAL) 06/06/25 11:25 Hypochromasia Slight A 06/06/25 11:25 Anisocytosis Slight A 06/06/25 11:25 Ovalocytes Slight A 06/06/25 11:25 Acanthocytes (Spur) Slight 06/06/25 11:25 PT 20.0 SECONDS (11.8-14.3) 06/06/25 11:25 INR Target Range - 06/06/25 11:25 INR 1.69 (0.8-1.3) H 06/06/25 11:25 APTT 46.2 SECONDS (22.9-36.5) H 06/06/25 11:25 PTT Comment - 06/06/25 11:25 D-Dimer 0.49 ug/ml (0.0-0.57) 06/06/25 11:25 Sample Site Rrad 06/06/25 11:17 ABG pH 7.420 (7.35-7.45) 06/06/25 11:17 ABG pCO2 45.0 mmHg (35.0-45.0) 06/06/25 11:17 ABG pO2 167.0 mmHg (80.0-100.0) H 06/06/25 11:17 ABG HCO3 29.2 mmol/L (22-26) H 06/06/25 11:17 ABG O2 Saturation 100.0 % (90-100) 06/06/25 11:17 ABG Base Excess 4.1 mmol/L (-2.0-2.0) H 06/06/25 11:17 Audie Test Pos 06/06/25 11:17 A-a Gradient 5.0 mmHg 06/06/25 11:17 FiO2 32.0 06/06/25 11:17 Blood Gas Comments Pt leelee well elj 06/06/25 11:17 Sodium 139 mmol/L (136-145) 06/07/25 05:19 Corrected Sodium TNP 06/07/25 05:19 Potassium 4.3 mmol/L (3.5-5.1) 06/07/25 05:19 Chloride 103 mmol/L (98-107) 06/07/25 05:19 Carbon Dioxide 33.1 mmol/L (21-32) H 06/07/25 05:19 BUN 14 mg/dL (7-18) 06/07/25 05:19 Creatinine 0.81 mg/dL (0.70-1.30) 06/07/25 05:19 Est GFR (MDRD) Af Amer > 60 (>60) 06/07/25 05:19 Est GFR (MDRD) Non-Af > 60 (>60) 06/07/25 05:19 Glucose 101 mg/dL (65-99) H 06/07/25 05:19 Calcium 8.3 mg/dL (8.5-10.1) L 06/07/25 05:19 Corrected Calcium 9.5 mg/dL (8.5-10.1) 06/07/25 05:19 Total Bilirubin 1.00 mg/dL (0.2-1.0) 06/07/25 05:19 AST 16 Units/L (15-37) 06/07/25 05:19 ALT 21 Units/L (12-78) 06/07/25 05:19 Alkaline Phosphatase 71 Units/L (46-116) 06/07/25 05:19 Creatine Kinase 23 Units/L (39-308) L 06/06/25 11:25 Troponin I High Sens 20.6 ng/L (4.0-60.0) 06/06/25 11:25 B-Natriuretic Peptide 420 pg/mL (0-79) H 06/06/25 11:25 Total Protein 6.7 g/dL (6.4-8.2) 06/07/25 05:19 Albumin 2.5 g/dL (3.4-5.0) L 06/07/25 05:19 Globulin 4.2 g/dL (2.5-4.5) 06/07/25 05:19 Albumin/Globulin Ratio 0.6 Ratio (1.1-2.1) L 06/07/25 05:19 Specimen Type Clean catch urine 06/06/25 12:23 Urine Color Pale yellow (YELLOW) 06/06/25 12:23 Urine Appearance Clear (CLEAR) 06/06/25 12:23 Urine pH 7.0 (5.0 - 8.0) 06/06/25 12:23 Ur Specific [place] 1.010 (1.000-1.030) 06/06/25 12:23 Urine Protein Negative (NEGATIVE) 06/06/25 12:23 Urine Glucose (UA) Negative (NEGATIVE) 06/06/25 12:23 Urine Ketones Negative (NEGATIVE) 06/06/25 12:23 Urine Blood Negative (NEGATIVE) 06/06/25 12:23 Urine Nitrite Negative (NEGATIVE) 06/06/25 12:23 Urine Bilirubin Negative (NEGATIVE) 06/06/25 12:23 Urine Urobilinogen Normal (NORMAL) 06/06/25 12:23 Ur Leukocyte Esterase Negative (NEGATIVE) 06/06/25 12:23 Stool Occult Blood Positive (NEGATIVE) A 06/06/25 12:23 Blood Type A POSITIVE 06/06/25 11:33 Blood Type A POSITIVE 06/06/25 11:33 Antibody Screen Negative 06/06/25 11:33 Crossmatch See Detail 06/06/25 11:33 Review of Systems Constitutional: Weakness Eyes: No Symptoms Reported ENT: No Symptoms Reported Respiratory: Shortness of Breath Cardiovascular: Edema Gastrointestinal: Abdominal Pain Genitourinary: Frequency Musculoskeletal: Back Pain, Leg Pain and Foot Pain Skin: Bruising (RIGHT FOOT/ANKLE) Physical Exam Vital Signs: Vital Signs Temperature 97.9 F Pulse Rate [Radial] 75 Pulse Rate 78 Respiratory Rate 17 Respiratory Rate 18 Respiratory Rate 22 Blood Pressure [Right Arm] 117/63 O2 Sat by Pulse Oximetry 98 O2 Sat by Pulse Oximetry 99 Oriented: Normal Eyes: Normal Nose: Normal Throat: Dry Respiratory: RLL Diminished and LLL Diminished Cardiovascular: Irregular and Edema Auscultation: Bowel Sounds: Decreased Tenderness: Diffuse Skin: Bruising (DIFFUSE BRUISING TO RIGHT FOOT AND ANKLE AND BASE LEFT TOES) Musculoskeletal: Ankle, Foot, Swelling and Motor Deficit Psychiatric: Normal Mood Description: Calm Speech Pattern: Clear Assessment/Plan (1) Diverticulitis: Status: Acute Plan: ADMIT IV HYDRATION, NPO IV ATBX, SURGICAL CONSULT PAIN CONTROL, TRANSFUSE PER PROTOCOL BP CONTROL AND CARDIAC MONITORING (2) Anemia: Status: Acute (3) CAD (coronary artery disease): Status: Acute (4) COPD (chronic obstructive pulmonary disease): Status: Chronic (5) Right foot injury: Status: Acute
--- NOTE | 2025-06-07 13:27 | PCM.PROG ---
Progress Note Progress Note for Day of Date of Exam: 06/07/25 Subjective Subjective: PT IS 89 WM, ER ADMISSION WITH ACUTE DIVERTICULITIS AND ANEMIA. HX OF RECENT FALL WITH ACUTE RIGHT FOOT AND ANKLE INJURY FOLLOWING A FALL. PT IS CURRENTLY ON IV ATBX, ANTICOAGULANT THERAPY ON HOLD DUE TO +OCCULT STOOL AND ANEMIA. PT'S HOME MEDICATION HAVE BEEN RESUMED AND ANTIARRHYTHMIC MEDICATION RESUMED.PT IS STILL NPO THIS AM. ON EXAM PT WAS VERY SOB. HE HAS PMH OF CHF, STAT CXR ORDERED AND IV LASIX 40IV X 1 DOSE WITH POTASSIUM REPLACEMENT. REPEAT CBC AT NOON. IV FLUIDS DECREASE FROM 125/CCHR TO KVO. Past Medical Family Social History Allergies: Allergies tizanidine (From [employer]) Allergy (Verified 06/06/25 11:17) Vital Signs and I&O's Vital Signs: Vital Signs Temperature 97.8 F Temperature 97.9 F Pulse Rate [Radial] 80 Pulse Rate [Radial] 75 Pulse Rate 78 Respiratory Rate 22 Respiratory Rate 17 Respiratory Rate 18 Respiratory Rate 22 Blood Pressure [Right Arm] 106/60 Blood Pressure [Right Arm] 117/63 O2 Sat by Pulse Oximetry 99 O2 Sat by Pulse Oximetry 98 O2 Sat by Pulse Oximetry 99 Intake and Output: Intake & Output 06/05/25 06/06/25 06/07/25 06/08/25 11:59 11:59 11:59 11:59 Intake Total 2149 / 2149 Balance 214 / 214 Physical Exam Oriented: Normal Eyes: Normal Nose: Normal Throat: Dry Respiratory: Diminished and Rales Cardiovascular: Irregular and Edema Auscultation: Bowel Sounds: Decreased Tenderness: Diffuse Skin: Bruising (DIFFUSE BRUISING TO RIGHT FOOT AND ANKLE AND BASE LEFT TOES) Musculoskeletal: Ankle, Foot, Swelling and Motor Deficit Psychiatric: Normal Mood Description: Calm Speech Pattern: Clear Laboratory and Diagnostics 06/07/25 12:13 06/07/25 05:19 Labs: Laboratory WBC 9.4 X10^3/uL (3.6-10.0) 06/07/25 05:19 RBC 2.78 X10^6/uL (4.7-6.0) L 06/07/25 05:19 Hgb 8.2 g/dL (13.5-18.0) L 06/07/25 12:13 Hct 26.7 % (42.0-54.0) L 06/07/25 12:13 MCV 84.4 fL (80.0-100.0) 06/07/25 05:19 MCH 27.5 pg (27.0-34.0) 06/07/25 05:19 MCHC 32.6 g/dL (33.0-35.0) L 06/07/25 05:19 RDW 17.2 % (11.6-16.5) H 06/07/25 05:19 Plt Count 175 X10^3/uL (150.0-450.0) 06/07/25 05:19 Plt Count Comment Adequate (ADEQUATE) 06/06/25 11:25 MPV 7.7 fL (7.4-11.0) 06/07/25 05:19 Neut % (Auto) 66.5 % (42.0-75.0) 06/07/25 05:19 Lymph % (Auto) 19.9 % (21.0-51.0) L 06/07/25 05:19 [place] % (Auto) 12.4 % (0.0-13.0) 06/07/25 05:19 Eos % (Auto) 0.5 % (0.9-2.9) L 06/07/25 05:19 Baso % (Auto) 0.7 % (0.2-1.0) 06/07/25 05:19 Neut # (Auto) 6.2 x10^3/uL (2.2-4.8) H 06/07/25 05:19 Lymph # (Auto) 1.9 X10^3/uL (1.3-2.9) 06/07/25 05:19 [place] # (Auto) 1.2 x10^3/uL (0.3-0.8) H 06/07/25 05:19 Eos # (Auto) 0.0 x10^3/uL (0.0-0.2) 06/07/25 05:19 Baso # (Auto) 0.1 X10^3/uL (0.0-0.1) 06/07/25 05:19 Absolute Nucleated RBC 0.7 /100WBC 06/07/25 05:19 Plt Morphology Comment Normal (NORMAL) 06/06/25 11:25 RBC Morphology Abnormal (NORMAL) 06/06/25 11:25 Hypochromasia Slight A 06/06/25 11:25 Anisocytosis Slight A 06/06/25 11:25 Ovalocytes Slight A 06/06/25 11:25 Acanthocytes (Spur) Slight 06/06/25 11:25 PT 20.0 SECONDS (11.8-14.3) 06/06/25 11:25 INR Target Range - 06/06/25 11:25 INR 1.69 (0.8-1.3) H 06/06/25 11:25 APTT 46.2 SECONDS (22.9-36.5) H 06/06/25 11:25 PTT Comment - 06/06/25 11:25 D-Dimer 0.49 ug/ml (0.0-0.57) 06/06/25 11:25 Sample Site Rrad 06/06/25 11:17 ABG pH 7.420 (7.35-7.45) 06/06/25 11:17 ABG pCO2 45.0 mmHg (35.0-45.0) 06/06/25 11:17 ABG pO2 167.0 mmHg (80.0-100.0) H 06/06/25 11:17 ABG HCO3 29.2 mmol/L (22-26) H 06/06/25 11:17 ABG O2 Saturation 100.0 % (90-100) 06/06/25 11:17 ABG Base Excess 4.1 mmol/L (-2.0-2.0) H 06/06/25 11:17 Audie Test Pos 06/06/25 11:17 A-a Gradient 5.0 mmHg 06/06/25 11:17 FiO2 32.0 06/06/25 11:17 Blood Gas Comments Pt leelee well elj 06/06/25 11:17 Sodium 139 mmol/L (136-145) 06/07/25 05:19 Corrected Sodium TNP 06/07/25 05:19 Potassium 4.3 mmol/L (3.5-5.1) 06/07/25 05:19 Chloride 103 mmol/L (98-107) 06/07/25 05:19 Carbon Dioxide 33.1 mmol/L (21-32) H 06/07/25 05:19 BUN 14 mg/dL (7-18) 06/07/25 05:19 Creatinine 0.81 mg/dL (0.70-1.30) 06/07/25 05:19 Est GFR (MDRD) Af Amer > 60 (>60) 06/07/25 05:19 Est GFR (MDRD) Non-Af > 60 (>60) 06/07/25 05:19 Glucose 101 mg/dL (65-99) H 06/07/25 05:19 Calcium 8.3 mg/dL (8.5-10.1) L 06/07/25 05:19 Corrected Calcium 9.5 mg/dL (8.5-10.1) 06/07/25 05:19 Total Bilirubin 1.00 mg/dL (0.2-1.0) 06/07/25 05:19 AST 16 Units/L (15-37) 06/07/25 05:19 ALT 21 Units/L (12-78) 06/07/25 05:19 Alkaline Phosphatase 71 Units/L (46-116) 06/07/25 05:19 Creatine Kinase 23 Units/L (39-308) L 06/06/25 11:25 Troponin I High Sens 20.6 ng/L (4.0-60.0) 06/06/25 11:25 B-Natriuretic Peptide 420 pg/mL (0-79) H 06/06/25 11:25 Total Protein 6.7 g/dL (6.4-8.2) 06/07/25 05:19 Albumin 2.5 g/dL (3.4-5.0) L 06/07/25 05:19 Globulin 4.2 g/dL (2.5-4.5) 06/07/25 05:19 Albumin/Globulin Ratio 0.6 Ratio (1.1-2.1) L 06/07/25 05:19 Specimen Type Clean catch urine 06/06/25 12:23 Urine Color Pale yellow (YELLOW) 06/06/25 12:23 Urine Appearance Clear (CLEAR) 06/06/25 12:23 Urine pH 7.0 (5.0 - 8.0) 06/06/25 12:23 Ur Specific [place] 1.010 (1.000-1.030) 06/06/25 12:23 Urine Protein Negative (NEGATIVE) 06/06/25 12:23 Urine Glucose (UA) Negative (NEGATIVE) 06/06/25 12:23 Urine Ketones Negative (NEGATIVE) 06/06/25 12:23 Urine Blood Negative (NEGATIVE) 06/06/25 12:23 Urine Nitrite Negative (NEGATIVE) 06/06/25 12:23 Urine Bilirubin Negative (NEGATIVE) 06/06/25 12:23 Urine Urobilinogen Normal (NORMAL) 06/06/25 12:23 Ur Leukocyte Esterase Negative (NEGATIVE) 06/06/25 12:23 Stool Occult Blood Positive (NEGATIVE) A 06/06/25 12:23 Blood Type A POSITIVE 06/06/25 11:33 Blood Type A POSITIVE 06/06/25 11:33 Antibody Screen Negative 06/06/25 11:33 Crossmatch See Detail 06/06/25 11:33 Plan (1) Diverticulitis: Status: Acute Plan: NPO IV ATBX, SURGICAL CONSULT PAIN CONTROL, TRANSFUSE PER PROTOCOL BP CONTROL AND CARDIAC MONITORING PRN SUPPLEMENTAL O2, RESP THERAPY (2) Anemia: Status: Acute (3) CAD (coronary artery disease): Status: Acute (4) COPD (chronic obstructive pulmonary disease): Status: Chronic (5) Right foot injury: Status: Acute
[2025-06-07] MEDS: MORPHINE SULFATE INJ 2 MG INJ ONE (18:23)
[2025-06-08 06:50] LABS: MEAN PLATELET VOLUME 7.7 fL (7.4-11.0); RED CELL DISTRIBUTION WIDTH 17.5 % (11.6-16.5)
[2025-06-08 07:06] LABS: COR CA(FOR HYPOALB) 9.7 mg/dL (8.5-10.1); CREATININE 0.99 mg/dL (0.70-1.30); eGFR NON BLACK RACES > 60 (>60)
[2025-06-08] MEDS: LASIX IVP ONE (08:22)
--- NOTE | 2025-06-08 08:30 | RAD ---
EXAM: ACUTE ABDOMEN SERI ES HISTORY: abdominal pain, distention with lateral chest; COMPARISON: CT dated 06/06/2025 TECHNIQUE: AP and lateral chest; AP abdomen supine and upright FINDINGS: Left-sided ICD/pacer leads in place. Prominent cardiac silhouette, accentuated by AP technique. No focal consolidation, pleural effusion, or visible pneumothorax. No abnormally distended bowel loops. No abnormal calcifications visualized. No free peritoneal air. IMPRESSION: Nonobstructive bowel gas pattern. No free peritoneal air. THIS IS AN ELECTRONICALLY VERIFIED FINAL REPORT 06/08/2025 8:24 AM - Electronically signed by Slick Miles MD
[2025-06-08] MEDS: K-DUR TAB 20 MEQ PO SCH (09:38)
--- NOTE | 2025-06-08 09:45 | RAD ---
EXAM: CHEST, 1 VIEW HISTORY: sob, chf; COMPARISON: 06/06/2025 FINDINGS: The cardiomediastinal silhouette is stable. Distended pacer and pacer wires unchanged. Chronic appearing interstitial changes in the lungs. No acute airspace disease. No pneumothorax or effusion. No acute osseous abnormality. IMPRESSION: No acute cardiopulmonary disease. THIS IS AN ELECTRONICALLY VERIFIED FINAL REPORT 06/08/2025 9:42 AM - Electronically signed by Luis F Mistry MD
[2025-06-08] MEDS: NS 250 ML IV 250 ML IV ONE (12:15)
[2025-06-08] MEDS: NS 500 ML IV 500 ML IV ONE (13:29)
[2025-06-08] MEDS: NS IV PRN (13:31)
[2025-06-08] MEDS: DIPRIVAN VIAL 20 ML ONE (13:38)
[2025-06-08] MEDS: DIPRIVAN VIAL 60 ML IVP PRN (13:40)
[2025-06-08] MEDS: NYSTATIN SUSP PO SCH (15:53)
[2025-06-08] MEDS: VOLTAREN 1 % GEL MULTI DOSE TUBE TOP SCH (15:53)
[2025-06-08] MEDS: MIRALAX POWDER (1 DOSE 17 G) PO SCH (20:39)
[2025-06-08] MEDS: COLACE CAP 100 MG PO SCH (20:39)
[2025-06-09 05:58] LABS: MEAN PLATELET VOLUME 7.6 fL (7.4-11.0); RED CELL DISTRIBUTION WIDTH 17.1 % (11.6-16.5)
[2025-06-09 06:10] LABS: COR CA(FOR HYPOALB) 9.9 mg/dL (8.5-10.1); COR NA(FOR HYPERGLY) 138 mmol/L (136-145); CREATININE 0.96 mg/dL (0.70-1.30); eGFR NON BLACK RACES > 60 (>60)
[2025-06-09] MEDS ORDERED: CONSULT PHARMACY - POTASSIUM & MAGNESIUM XX SCH (07:00)
[2025-06-09] MEDS: MAGNESIUM SULFATE 1 GRAM/100 mL PREMIX 1 G/100 ML BAG IV SCH (09:58)
[2025-06-09] MEDS: K-DUR TAB 20 MEQ PO ONE (10:07)
[2025-06-09] MEDS: LASIX IVP ONE (10:07)
--- NOTE | 2025-06-09 10:18 | DR.PROGNOT ---
HOSPITAL PROGRESS NOTE Progress Note for Day of: Progress Note Date: 06/09/25 Chief Complaint Chief Complaint: Moderate lower abdominal pain, no nausea or vomiting and tolerating liquid diet. Had normal bowel movement yesterday, no active bleeding. White count is 16.4 and hemoglobin 8.8. Blood glucose 116, albumin is 2.4, liver function test BUN/creatinine are normal. Abdomen is soft with moderate left lower quadrant tenderness. Bowel sounds are still hypoactive. Past Medical Family Social History Allergies: Allergies tizanidine (From [employer]) Allergy (Verified 06/06/25 11:17) Vital Signs Vital Signs: Vital Signs Temperature 98.9 F Pulse Rate [Radial] 79 Pulse Rate 75 Respiratory Rate 19 Respiratory Rate 18 Respiratory Rate 21 Blood Pressure [Left Arm] 127/71 O2 Sat by Pulse Oximetry 98 O2 Sat by Pulse Oximetry 100 Physical Exam Oriented: Normal Eyes: Normal Nose: Normal Throat: Dry Respiratory: Diminished and Rales Cardiovascular: Irregular and Edema GI:Auscultation: Decreased GI: Tenderness: Diffuse Skin: Bruising (DIFFUSE BRUISING TO RIGHT FOOT AND ANKLE AND BASE LEFT TOES) Musculoskeletal: Ankle, Foot, Swelling and Motor Deficit Psychiatric: Normal Mood Description: Calm Speech Pattern: Clear and Appropriate Laboratory and Diagnostics 06/09/25 05:29 06/09/25 05:29 Labs: Laboratory WBC 16.4 X10^3/uL (3.6-10.0) H 06/09/25 05:29 RBC 3.21 X10^6/uL (4.7-6.0) L 06/09/25 05:29 Hgb 8.8 g/dL (13.5-18.0) L 06/09/25 05:29 Hct 27.4 % (42.0-54.0) L 06/09/25 05:29 MCV 85.4 fL (80.0-100.0) 06/09/25 05: MCH 27.5 pg (27.0-34.0) 06/09/25 05: MCHC 32.2 g/dL (33.0-35.0) L 06/09/25 05:29 RDW 17.1 % (11.6-16.5) H 06/09/25 05:29 Plt Count 165 X10^3/uL (150.0-450.0) 06/09/25 05:29 Plt Count Comment Adequate (ADEQUATE) 06/06/25 11:25 MPV 7.6 fL (7.4-11.0) 06/09/25 05:29 Neut % (Auto) 74.0 % (42.0-75.0) 06/09/25 05:29 Lymph % (Auto) 12.3 % (21.0-51.0) L 06/09/25 05:29 [place] % (Auto) 13.1 % (0.0-13.0) H 06/09/25 05:29 Eos % (Auto) 0.2 % (0.9-2.9) L 06/09/25 05:29 Baso % (Auto) 0.4 % (0.2-1.0) 06/09/25 05:29 Neut # (Auto) 12.2 x10^3/uL (2.2-4.8) H 06/09/25 05:29 Lymph # (Auto) 2.0 X10^3/uL (1.3-2.9) 06/09/25 05:29 [place] # (Auto) 2.1 x10^3/uL (0.3-0.8) H 06/09/25 05:29 Eos # (Auto) 0.0 x10^3/uL (0.0-0.2) 06/09/25 05:29 Baso # (Auto) 0.1 X10^3/uL (0.0-0.1) 06/09/25 05:29 Absolute Nucleated RBC 0.2 /100WBC 06/09/25 05:29 Plt Morphology Comment Normal (NORMAL) 06/06/25 11:25 RBC Morphology Abnormal (NORMAL) 06/06/25 11:25 Hypochromasia Slight A 06/06/25 11:25 Anisocytosis Slight A 06/06/25 11:25 Ovalocytes Slight A 06/06/25 11:25 Acanthocytes (Spur) Slight 06/06/25 11:25 PT 20.0 SECONDS (11.8-14.3) 06/06/25 11:25 INR Target Range - 06/06/25 11:25 INR 1.69 (0.8-1.3) H 06/06/25 11:25 APTT 46.2 SECONDS (22.9-36.5) H 06/06/25 11:25 PTT Comment - 06/06/25 11:25 D-Dimer 0.49 ug/ml (0.0-0.57) 06/06/25 11:25 Sample Site Rrad 06/06/25 11:17 ABG pH 7.420 (7.35-7.45) 06/06/25 11:17 ABG pCO2 45.0 mmHg (35.0-45.0) 06/06/25 11:17 ABG pO2 167.0 mmHg (80.0-100.0) H 06/06/25 11:17 ABG HCO3 29.2 mmol/L (22-26) H 06/06/25 11:17 ABG O2 Saturation 100.0 % (90-100) 06/06/25 11:17 ABG Base Excess 4.1 mmol/L (-2.0-2.0) H 06/06/25 11:17 Audie Test Pos 06/06/25 11:17 A-a Gradient 5.0 mmHg 06/06/25 11:17 FiO2 32.0 06/06/25 11:17 Blood Gas Comments Pt leelee well elj 06/06/25 11:17 Sodium 138 mmol/L (136-145) 06/09/25 05:29 Corrected Sodium 138 mmol/L (136-145) 06/09/25 05:29 Potassium 3.7 mmol/L (3.5-5.1) 06/09/25 05:29 Chloride 102 mmol/L (98-107) 06/09/25 05:29 Carbon Dioxide 31.2 mmol/L (21-32) 06/09/25 05:29 BUN 9 mg/dL (7-18) 06/09/25 05:29 Creatinine 0.96 mg/dL (0.70-1.30) 06/09/25 05:29 Est GFR (MDRD) Af Amer > 60 (>60) 06/09/25 05:29 Est GFR (MDRD) Non-Af > 60 (>60) 06/09/25 05:29 Glucose 116 mg/dL (65-99) H 06/09/25 05:29 Calcium 8.6 mg/dL (8.5-10.1) 06/09/25 05:29 Corrected Calcium 9.9 mg/dL (8.5-10.1) 06/09/25 05:29 Magnesium 1.8 mg/dL (2.0-2.9) L 06/09/25 05:29 Total Bilirubin 1.20 mg/dL (0.2-1.0) H 06/09/25 05:29 AST 18 Units/L (15-37) 06/09/25 05:29 ALT 17 Units/L (12-78) 06/09/25 05:29 Alkaline Phosphatase 63 Units/L (46-116) 06/09/25 05:29 Creatine Kinase 23 Units/L (39-308) L 06/06/25 11:25 Troponin I High Sens 20.6 ng/L (4.0-60.0) 06/06/25 11:25 B-Natriuretic Peptide 420 pg/mL (0-79) H 06/06/25 11:25 Total Protein 6.1 g/dL (6.4-8.2) L 06/09/25 05:29 Albumin 2.4 g/dL (3.4-5.0) L 06/09/25 05:29 Globulin 3.7 g/dL (2.5-4.5) 06/09/25 05:29 Albumin/Globulin Ratio 0.6 Ratio (1.1-2.1) L 06/09/25 05:29 Specimen Type Clean catch urine 06/06/25 12:23 Urine Color Pale yellow (YELLOW) 06/06/25 12:23 Urine Appearance Clear (CLEAR) 06/06/25 12:23 Urine pH 7.0 (5.0 - 8.0) 06/06/25 12:23 Ur Specific [place] 1.010 (1.000-1.030) 06/06/25 12:23 Urine Protein Negative (NEGATIVE) 06/06/25 12:23 Urine Glucose (UA) Negative (NEGATIVE) 06/06/25 12:23 Urine Ketones Negative (NEGATIVE) 06/06/25 12:23 Urine Blood Negative (NEGATIVE) 06/06/25 12:23 Urine Nitrite Negative (NEGATIVE) 06/06/25 12:23 Urine Bilirubin Negative (NEGATIVE) 06/06/25 12:23 Urine Urobilinogen Normal (NORMAL) 06/06/25 12:23 Ur Leukocyte Esterase Negative (NEGATIVE) 06/06/25 12:23 Stool Occult Blood Positive (NEGATIVE) A 06/06/25 12:23 Stl Occult Blood (IFOB) Negative (NEGATIVE) 06/07/25 20:46 Blood Type A POSITIVE 06/06/25 11:33 Blood Type A POSITIVE 06/06/25 11:33 Antibody Screen Negative 06/06/25 11:33 Crossmatch See Detail 06/06/25 11:33 Assessment and Plan 1: Subsiding acute sigmoid diverticulitis. On IV antibiotics, IV fluid. Full liquid diet. 2: Anemia most likely related to his esophagitis. On IV Protonix and transfusion as needed. Problem Patient Problems: Patient Problems Mild congestive heart failure (Acute) I50.9 Diverticulitis (Acute) K57.92 Anemia (Acute) D64.9
[2025-06-09] MEDS: D5 1/2 NS + KCL 20 MEQ/L 1,000 ML with MAGNESIUM SULFATE 50% INJ VIAL 1 G IV SCH (10:56)
[2025-06-09] MEDS: K-RIDER 10 MEQ/100 ML WATER 10 MEQ/100 ML BAG IV SCH (11:26)
[2025-06-09] MEDS: TYLENOL 325 MG TAB PO PRN (15:51)
[2025-06-10 06:51] LABS: MEAN PLATELET VOLUME 7.5 fL (7.4-11.0); RED CELL DISTRIBUTION WIDTH 17.2 % (11.6-16.5)
[2025-06-10 07:15] LABS: COR CA(FOR HYPOALB) 9.6 mg/dL (8.5-10.1); COR NA(FOR HYPERGLY) 140 mmol/L (136-145); CREATININE 0.91 mg/dL (0.70-1.30); eGFR NON BLACK RACES > 60 (>60)
--- NOTE | 2025-06-10 08:38 | DR.PROGNOT ---
HOSPITAL PROGRESS NOTE Progress Note for Day of: Progress Note Date: 06/10/25 Chief Complaint Chief Complaint: Patient still having abdominal cramps and pain localized to the left lower quadrant and lower abdomen, he is tolerating oral diet, no nausea or vomiting. Complaining of a GERD symptoms which is consistent with the findings on the upper endoscopy. White count is 12.6, BUN/creatinine are normal. O2 sat 100% on 2 L nasal cannula. Abdomen is soft somewhat full with left lower quadrant tenderness, no rebound tenderness, bowel sounds positive.. Past Medical Family Social History Allergies: Allergies tizanidine (From [employer]) Allergy (Verified 06/06/25 11:17) Vital Signs Vital Signs: Vital Signs Temperature 98.1 F Pulse Rate [Radial] 75 Respiratory Rate 20 Blood Pressure [Left Arm] 125/63 O2 Sat by Pulse Oximetry 100 Physical Exam Oriented: Normal Eyes: Normal Nose: Normal Throat: Dry Respiratory: Diminished and Rales Cardiovascular: Irregular and Edema GI:Auscultation: Decreased GI: Tenderness: Diffuse and Other (Full abdomen with left lower quadrant tenderness, no rebound or rigidity, bowel sounds present.) Skin: Bruising (DIFFUSE BRUISING TO RIGHT FOOT AND ANKLE AND BASE LEFT TOES) Musculoskeletal: Ankle, Foot, Swelling and Motor Deficit Psychiatric: Normal Mood Description: Calm Speech Pattern: Clear and Appropriate Laboratory and Diagnostics 06/10/25 06:20 06/10/25 06:20 Labs: Laboratory WBC 12.6 X10^3/uL (3.6-10.0) H 06/10/25 06:20 RBC 3.36 X10^6/uL (4.7-6.0) L 06/10/25 06:20 Hgb 9.1 g/dL (13.5-18.0) L 06/10/25 06:20 Hct 28.8 % (42.0-54.0) L 06/10/25 06:20 MCV 85.6 fL (80.0-100.0) 06/10/25 06:20 MCH 27.1 pg (27.0-34.0) 06/10/25 06:20 MCHC 31.7 g/dL (33.0-35.0) L 06/10/25 06:20 RDW 17.2 % (11.6-16.5) H 06/10/25 06:20 Plt Count 162 X10^3/uL (150.0-450.0) 06/10/25 06:20 Plt Count Comment Adequate (ADEQUATE) 06/06/25 11:25 MPV 7.5 fL (7.4-11.0) 06/10/25 06:20 Neut % (Auto) 75.6 % (42.0-75.0) H 06/10/25 06:20 Lymph % (Auto) 13.1 % (21.0-51.0) L 06/10/25 06:20 [place] % (Auto) 10.8 % (0.0-13.0) 06/10/25 06:20 Eos % (Auto) 0.3 % (0.9-2.9) L 06/10/25 06:20 Baso % (Auto) 0.2 % (0.2-1.0) 06/10/25 06:20 Neut # (Auto) 9.5 x10^3/uL (2.2-4.8) H 06/10/25 06:20 Lymph # (Auto) 1.6 X10^3/uL (1.3-2.9) 06/10/25 06:20 [place] # (Auto) 1.4 x10^3/uL (0.3-0.8) H 06/10/25 06:20 Eos # (Auto) 0.0 x10^3/uL (0.0-0.2) 06/10/25 06:20 Baso # (Auto) 0.0 X10^3/uL (0.0-0.1) 06/10/25 06:20 Absolute Nucleated RBC 0.3 /100WBC 06/10/25 06:20 Plt Morphology Comment Normal (NORMAL) 06/06/25 11:25 RBC Morphology Abnormal (NORMAL) 06/06/25 11:25 Hypochromasia Slight A 06/06/25 11:25 Anisocytosis Slight A 06/06/25 11:25 Ovalocytes Slight A 06/06/25 11:25 Acanthocytes (Spur) Slight 06/06/25 11:25 PT 20.0 SECONDS (11.8-14.3) 06/06/25 11:25 INR Target Range - 06/06/25 11:25 INR 1.69 (0.8-1.3) H 06/06/25 11:25 APTT 46.2 SECONDS (22.9-36.5) H 06/06/25 11:25 PTT Comment - 06/06/25 11:25 D-Dimer 0.49 ug/ml (0.0-0.57) 06/06/25 11:25 Sample Site Rrad 06/06/25 11:17 ABG pH 7.420 (7.35-7.45) 06/06/25 11:17 ABG pCO2 45.0 mmHg (35.0-45.0) 06/06/25 11:17 ABG pO2 167.0 mmHg (80.0-100.0) H 06/06/25 11:17 ABG HCO3 29.2 mmol/L (22-26) H 06/06/25 11:17 ABG O2 Saturation 100.0 % (90-100) 06/06/25 11:17 ABG Base Excess 4.1 mmol/L (-2.0-2.0) H 06/06/25 11:17 Audie Test Pos 06/06/25 11:17 A-a Gradient 5.0 mmHg 06/06/25 11:17 FiO2 32.0 06/06/25 11:17 Blood Gas Comments Pt leelee well elj 06/06/25 11:17 Sodium 140 mmol/L (136-145) 06/10/25 06:20 Corrected Sodium 140 mmol/L (136-145) 06/10/25 06:20 Potassium 3.8 mmol/L (3.5-5.1) 06/10/25 06:20 Chloride 102 mmol/L (98-107) 06/10/25 06:20 Carbon Dioxide 30.5 mmol/L (21-32) 06/10/25 06:20 BUN 8 mg/dL (7-18) 06/10/25 06:20 Creatinine 0.91 mg/dL (0.70-1.30) 06/10/25 06:20 Est GFR (MDRD) Af Amer > 60 (>60) 06/10/25 06:20 Est GFR (MDRD) Non-Af > 60 (>60) 06/10/25 06:20 Glucose 115 mg/dL (65-99) H 06/10/25 06:20 Calcium 8.5 mg/dL (8.5-10.1) 06/10/25 06:20 Corrected Calcium 9.6 mg/dL (8.5-10.1) 06/10/25 06:20 Magnesium 2.1 mg/dL (2.0-2.9) 06/10/25 06:20 Total Bilirubin 0.80 mg/dL (0.2-1.0) 06/10/25 06:20 AST 19 Units/L (15-37) 06/10/25 06:20 ALT 19 Units/L (12-78) 06/10/25 06:20 Alkaline Phosphatase 69 Units/L (46-116) 06/10/25 06:20 Creatine Kinase 23 Units/L (39-308) L 06/06/25 11:25 Troponin I High Sens 20.6 ng/L (4.0-60.0) 06/06/25 11:25 B-Natriuretic Peptide 420 pg/mL (0-79) H 06/06/25 11:25 Total Protein 6.5 g/dL (6.4-8.2) 06/10/25 06:20 Albumin 2.6 g/dL (3.4-5.0) L 06/10/25 06:20 Globulin 3.9 g/dL (2.5-4.5) 06/10/25 06:20 Albumin/Globulin Ratio 0.7 Ratio (1.1-2.1) L 06/10/25 06:20 Specimen Type Clean catch urine 06/06/25 12:23 Urine Color Pale yellow (YELLOW) 06/06/25 12:23 Urine Appearance Clear (CLEAR) 06/06/25 12:23 Urine pH 7.0 (5.0 - 8.0) 06/06/25 12:23 Ur Specific [place] 1.010 (1.000-1.030) 06/06/25 12:23 Urine Protein Negative (NEGATIVE) 06/06/25 12:23 Urine Glucose (UA) Negative (NEGATIVE) 06/06/25 12:23 Urine Ketones Negative (NEGATIVE) 06/06/25 12:23 Urine Blood Negative (NEGATIVE) 06/06/25 12:23 Urine Nitrite Negative (NEGATIVE) 06/06/25 12:23 Urine Bilirubin Negative (NEGATIVE) 06/06/25 12:23 Urine Urobilinogen Normal (NORMAL) 06/06/25 12:23 Ur Leukocyte Esterase Negative (NEGATIVE) 06/06/25 12:23 Stool Occult Blood Positive (NEGATIVE) A 06/06/25 12:23 Stl Occult Blood (IFOB) Negative (NEGATIVE) 06/07/25 20:46 Blood Type A POSITIVE 06/06/25 11:33 Blood Type A POSITIVE 06/06/25 11:33 Antibody Screen Negative 06/06/25 11:33 Crossmatch See Detail 06/06/25 11:33 Assessment and Plan 1: Subsiding acute sigmoid diverticulitis. On IV antibiotics, IV fluid. Full liquid diet. 2: Anemia most likely related to his esophagitis. On IV Protonix and transfusion as needed. Problem Patient Problems: Patient Problems Mild congestive heart failure (Acute) I50.9 Diverticulitis (Acute) K57.92 Anemia (Acute) D64.9
[2025-06-10] MEDS: COLACE CAP 100 MG PO SCH (10:11)
[2025-06-10] MEDS: FLOMAX PO SCH (10:11)
[2025-06-10] MEDS: XARELTO PO SCH (10:11)
[2025-06-10] MEDS: CARAFATE PO ONE (10:11)
[2025-06-10] MEDS: MILK OF MAGNESIA PO SCH (10:11)
--- NOTE | 2025-06-10 11:15 | RAD ---
EXAM: Portable AP chest HISTORY: CHF COPD COMPARISON: 06/08/2025 FINDINGS: Similar cardiomegaly with stable AICD position. The right lung is clear. Indistinct density is suggested in the retrocardiac lower lobe obscured by the heart. The left upper lobe is clear. IMPRESSION: Stable cardiomegaly. Described findings at the left base are nonspecific but are suspect for airspace involvement in the left lower lung. Follow-up suggested. THIS IS AN ELECTRONICALLY VERIFIED FINAL REPORT 06/10/2025 11:12 AM - Electronically signed by William Snow MD
[2025-06-10 12:40] VITALS: O2SAT 100
[2025-06-10 16:20] VITALS: BP 110/69; PULSE 74; RESP 21; TEMP 98.3
== END 2025-06-10 16:15 | disposition home health service (06) | DRG 392 ==
LOC: ER 10:50 → MED/SURG 15:08
PROVIDERS: ADMIT Family Medicine; ATTEND Internal Medicine
DX: I50.9 Heart failure, unspecified; K92.1 Melena; I11.0 Hypertensive heart disease with heart failure; Z99.81 Dependence on supplemental oxygen; M79.671 Pain in right foot; Z95.0 Presence of cardiac pacemaker; Y92.091 Bathroom in other non-institutional residence as the place of occurrence of the external cause; R06.02 Shortness of breath; R10.30 Lower abdominal pain, unspecified; K57.32 Diverticulitis of large intestine without perforation or abscess without bleeding; Z87.19 Personal history of other diseases of the digestive system; S90.122A Contusion of left lesser toe(s) without damage to nail, initial encounter; R94.31 Abnormal electrocardiogram [ECG] [EKG]; I48.91 Unspecified atrial fibrillation; J44.9 Chronic obstructive pulmonary disease, unspecified; R10.84 Generalized abdominal pain; W18.39XA Other fall on same level, initial encounter; R79.1 Abnormal coagulation profile; Z87.11 Personal history of peptic ulcer disease; R13.11 Dysphagia, oral phase; R26.89 Other abnormalities of gait and mobility; K21.00 Gastro-esophageal reflux disease with esophagitis, without bleeding; S90.01XA Contusion of right ankle, initial encounter; R45.0 Nervousness; M19.90 Unspecified osteoarthritis, unspecified site; Z79.01 Long term (current) use of anticoagulants; R53.1 Weakness; I25.2 Old myocardial infarction; D64.89 Other specified anemias; R07.89 Other chest pain; E83.51 Hypocalcemia; I25.10 Atherosclerotic heart disease of native coronary artery without angina pectoris; K29.00 Acute gastritis without bleeding